=== PATIENT | female | born 1985 | race Caucasian/White ===

== ENCOUNTER 2018-11-06 05:36 | Inpatient (IN) ==
[2018-11-06] MEDS ORDERED: LACTATED RINGER'S 1,000 ML IV SCH ×3 (06:00→09:15)
[2018-11-06] MEDS ORDERED: CITRIC ACID/SODIUM CITRATE 15 ML UDC PO SCH (06:00)
[2018-11-06] MEDS ORDERED: CEFAZOLIN 3,000 MG in DEXTROSE 5% 50 ML IV SCH (06:00)
[2018-11-06 06:01] LABS: Basophils # (auto) 0.01 K/uL (0-0.2); Basophils % (auto) 0.1 %; Eosinophils # (auto) 0.07 K/uL (0-0.5); Eosinophils % (auto) 0.8 %; Hematocrit (blood only) 35.2 % (37-47); Hemoglobin 11.9 g/dL (12.0-16.0); Immature Granulocytes # (auto) 0.11 K/uL (0.00-0.02); Immature Granulocytes % (auto) 1.3 %; Lymphocytes # (auto) 1.88 K/uL (1.2-3.4); Lymphocytes % (auto) 21.9 %; Mean Corpuscular Volume 91.2 fL (80-100); Monocytes # (auto) 0.82 K/uL (0.11-0.59); Monocytes % (auto) 9.6 %; Neutrophils # (auto) 5.68 K/uL (1.4-6.5); Neutrophils % (auto) 66.3 %; Platelet Count 132 K/uL (130-400); RDW Coefficient of Variation 13.9 % (11.5-14.5); RDW Standard Deviation 45.7 fL (36.4-46.3); Red Blood Count 3.86 M/uL (4.2-5.4); White Blood Count 8.57 K/uL (4.8-10.8)
[2018-11-06 06:02] LABS: Mean Corpuscular Hgb Conc 33.8 g/dL (32-36)
[2018-11-06] MEDS ORDERED: MoRPHine SULFATE PF 1 MG/ML 10 ML AMP/VIAL ONE (07:11)
--- NOTE | 2018-11-06 07:22 | Anesthesiology Consultation ---
Date of Service November 06, 2018 Assessment & Plan (1) Encounter for pre-operative examination: Chart Review Chart Review: Acceptable Risk for Surgery History Surgery Operation Date: 11/06/18 07:30 Proposed Procedures p Section in LD - Alec Anthony MD Height/Weight Height: 5 ft 6 in Weight: 127.006 kg Allergies Allergy/AdvReac Type Severity Reaction Status Date / Time cyclobenzaprine Allergy Unknown DIFFICULTY Verified 11/05/18 09:56 BREATHING, CHOKING, COULDN'T WAKE UP Medications Home Medications Medication Instructions Recorded Confirmed Last Taken PNV cmb#95-ferrous fumarate-FA 1 tab PO DAILY 11/05/18 11/06/18 11/05/18 08:00 [] cholecalciferol (vitamin D3) 1,000 unit PO DAILY 11/05/18 11/06/18 11/05/18 22:00 [Vitamin D3] folic acid 1 mg PO DAILY 11/05/18 11/06/18 11/05/18 08:00 sertraline [Zoloft] 25 mg PO DAILY 11/05/18 11/06/18 11/05/18 22:00 NPO Date Last Intake of Fluids: 11/05/18 Date Last Intake of Solids: 11/05/18 Past Medical History Medical History Depression Family history of reaction to anesthesia GRANDPARENTS HAD ISSUES WITH WAKING, NO KNOWN DIAGNOSIS OF ANESTHESIA REACTION. Thyroid nodule Exercise / Class Metabolic Activity III < 4 Walking/Shop/Light housework Past Surgical History Surgical History History of section EMERGENCY 2015. 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 SHE REMEMBERS FEELING THE "SENSE OF DOOM". History of dilatation and curettage S/T MISCARRIAGE Past Anesthesia History No Hx of Anesthesia Complications (Said her HR dropped with last c section) Social History Smoking Status: Never smoker Smoking cigarettes per day: 0 Do You Dip or Chew Tobacco: No Hx Alcohol Use: No Alcohol Intake Frequency Comment: 0 Hx Substance Use: No substance use type: does not use Physical Exam Vital Signs Last Vital Signs Temp 36.9 C 11/06/18 07:08 Pulse 70 11/06/18 07:10 Resp 18 11/06/18 07:08 BP 120/68 11/06/18 07:10 Testing Laboratory Results 11/06/18 05:51 11/06/18 05:49 Blood Type O Positive Antibody Screen NEGATIVE
[2018-11-06] MEDS ORDERED: NALBUPHINE HCL INJ 10 MG/ML AMP IV PRN (07:31)
[2018-11-06] MEDS ORDERED: MEPERIDINE HCL 25 MG/ML CARP IV PRN (07:31)
[2018-11-06] MEDS ORDERED: ePHEDrine sulfate 50 MG/ML AMP IV PRN (07:31)
[2018-11-06] MEDS ORDERED: LACTATED RINGER'S 500 ML IV PRN (07:31)
[2018-11-06] MEDS ORDERED: MoRPHine SULFATE PF 1 MG/ML 10 ML AMP/VIAL INT SPINAL ONE (07:31)
[2018-11-06] MEDS ORDERED: NALOXONE HCL 0.08 MG in SYRINGE 1.8 ML IV PRN (07:31)
[2018-11-06] MEDS ORDERED: NALOXONE HCL 1 MG in SODIUM CHLORIDE 0.9% 1000ML 1,000 ML IV PRN (07:31)
[2018-11-06] MEDS ORDERED: PROMETHAZINE HCL 12.5 MG in SODIUM CHLORIDE 0.9% 50 ML IV PRN (07:31)
[2018-11-06] MEDS ORDERED: NALOXONE HCL 0.4 MG/1 ML VIAL/CARP IV PRN (07:31)
[2018-11-06] MEDS ORDERED: KETOROLAC 30 MG/ML VIAL IV PRN (07:31)
[2018-11-06] MEDS ORDERED: ONDANSETRON INJ 2 MG/ML 2 ML VIAL IV PRN (07:31)
[2018-11-06] MEDS ORDERED: DiphenhydrAMINE HCL 50 MG/ML VIAL IV PRN (07:31)
[2018-11-06] MEDS ORDERED: NO NARCOTICS OR SEDATIVES SCH (07:45)
[2018-11-06] MEDS ORDERED: SODIUM CHLORIDE 0.9% 1000ML 1,000 ML IV SCH (07:45)
--- NOTE | 2018-11-06 07:48 | History & Physical Bridge Note ---
Date of Service November 06, 2018 History & Physical Bridge Note I have examined the patient, reviewed the History & Physical and in the interval since the performance of the History & Physical I have noted the following changes of clinical significance: no changes noted
[2018-11-06] MEDS ORDERED: ONDANSETRON INJ 2 MG/ML 2 ML VIAL ONE (08:14)
[2018-11-06] MEDS ORDERED: OXYTOCIN 10 UNITS/ML VIAL ONE (08:14)
[2018-11-06] MEDS ORDERED: METOCLOPRAMIDE HCL INJ 5 MG/ML 2 ML VIAL ONE (08:14)
[2018-11-06] MEDS ORDERED: ePHEDrine sulfate 50 MG/ML SYR ONE (08:14)
[2018-11-06] MEDS ORDERED: SUCCINYLCHOLINE CHLORIDE 20 MG/ML 10 ML VIAL ONE (08:14)
[2018-11-06] MEDS ORDERED: PROPOFOL IV EMULSION 10 MG/ML 20 ML VIAL IV ONE (08:14)
--- NOTE | 2018-11-06 09:00 | Post Operative Brief Note ---
Immediate Post Op Note v1 Date of Surgery November 06, 2018 Pre & Post Diagnosis Operation Date: 11/06/18 07:30 Pre-Op Diagnosis: Repeat section Post-Op Diagnosis: Repeat section for living male child at 0822 Procedure Operation Date: 11/06/18 07:30 Actual Procedures p Repeat section for living male child at 0822(Bilateral) - Alec Anthony MD Surgeon Alec Anthony MD Diet Tech Dr. Ibrahim Estimated Blood Loss 700 Findings Consistent with Post-Op Diagnosis Drains Scherer Catheter
[2018-11-06] MEDS ORDERED: HYDROCORTISONE ACETATE 25 MG SUPP PR PRN (09:10)
[2018-11-06] MEDS ORDERED: BENZOCAINE 20% AER SPR 82.5 GM CAN EXT PRN (09:10)
[2018-11-06] MEDS ORDERED: SENNA 8.6 MG TAB PO PRN (09:10)
[2018-11-06] MEDS ORDERED: SUPERCREAM 0.870% 15 GM JAR EXT PRN (09:10)
[2018-11-06] MEDS ORDERED: MAGNESIUM HYDROXIDE SUSP 30 ML UDC PO PRN (09:10)
[2018-11-06] MEDS ORDERED: PROMETHAZINE HCL 25 MG in SODIUM CHLORIDE 0.9% 50 ML IV PRN (09:10)
[2018-11-06] MEDS ORDERED: MEASLES, MUMPS & RUBELLA VIRUS VIAL SQ ONE (09:10)
[2018-11-06] MEDS ORDERED: DIPHTHERIA/TETANUS/PERTUSSIS 0.5 ML SYR/VIAL IM ONE (09:10)
[2018-11-06] MEDS ORDERED: OXYTOCIN 20 UNITS in LACTATED RINGER'S 1,000 ML IV SCH (09:15)
--- NOTE | 2018-11-06 10:27 | Operative Report ---
DATE OF OPERATION: 11/06/2018 PREOPERATIVE DIAGNOSIS: Elective repeat section, breech presentation. POSTOPERATIVE DIAGNOSIS: Elective repeat section, breech presentation and transverse lie. HISTORY OF PRESENT ILLNESS: The patient is a 33-year-old female, para 2-0-4-2 at 39 weeks and 1 day, admitted for elective repeat section. The patient was scanned today and found to be in the breech presentation. Primary section was done. Preop antibiotics were given. Consent was signed. Time out was signed prior to the start of the procedure. DESCRIPTION OF PROCEDURE: Under satisfactory spinal anesthesia, the patient was prepped and draped in usual sterile fashion. A low Pfannenstiel incision through a prior scar was then made entering into the abdominal cavity in successive layers. Pickups with teeth and Metzenbaum scissors were used to develop a bladder flap which was pushed down by sharp dissection. The bladder blade was entered. A low segment transverse incision over the lower uterine segment was made. The incision was nicked with a scalpel. Clear amniotic fluid was noted. The incision was widened in the AP diameter. Infant was found to be in the transverse lie position. The head was not able to be converted. The baby was delivered from the breech presentation. The cord was doubly cut and the baby was handed to the wrapper hand. Apgars were 8 and 9, weight 8 pounds 15 ounces, live male. Cord blood was obtained. Placenta delivered spontaneously and intact. The uterus was then exteriorized. Ring forceps were then placed on both angles and then the inferior margin. Another ring was then used to dilate the cervix. The uterus was closed in a double-layered closure starting with 0 Vicryl suture in a continuous interlocking fashion followed by a second imbricating suture. Tubes and ovaries bilaterally were found to be within normal limits. The contents of the pelvic cavity was then irrigated to clear. The uterus was then placed back into the normal anatomical position. The fascia was then reapproximated from both ends using 0 Vicryl suture in a continuous fashion. Subcuticular layer was then irrigated and closed with 2-0 plain suture. Skin was then reapproximated with shyann. Clear urine was noted from the Scherer. ESTIMATED BLOOD LOSS : 700 mL TOTAL FLUIDS: 3300 mL URINE OUTPUT: 300 mL. The final sponge, needle and instrument count were found to be correct. The patient was then placed upon a stretcher and taken to recovery room in stable condition. I attest to the content of the Intraoperative Record and any orders documented therein. Any exception s are noted below.
--- NOTE | 2018-11-06 11:16 | Anesthesiology Progress Note ---
Date of Service November 06, 2018 Anesthesia Post Procedure Vital Signs Vital Signs: Temp Pulse Resp BP Pulse Ox 11/06/18 11:10 71 98 11/06/18 11:06 64 109/61 11/06/18 11:05 66 97 11/06/18 11:00 72 95 11/06/18 10:56 67 111/60 11/06/18 10:55 70 98 11/06/18 10:50 69 97 11/06/18 10:46 69 113/71 11/06/18 10:45 71 98 11/06/18 10:43 71 93 11/06/18 10:40 70 97 11/06/18 10:36 65 20 116/69 11/06/18 10:35 68 98 11/06/18 10:30 71 99 11/06/18 10:28 67 90 11/06/18 10:26 60 108/56 L 11/06/18 10:25 67 98 11/06/18 10:20 74 98 11/06/18 10:17 70 127/59 L 11/06/18 10:15 72 99 11/06/18 10:10 69 97 11/06/18 10:08 71 125/56 L 92 11/06/18 10:07 36.6 C 20 11/06/18 10:06 36.6 C 20 11/06/18 10:05 67 98 11/06/18 10:00 71 98 11/06/18 09:56 64 20 123/58 L 11/06/18 09:55 70 99 11/06/18 09:50 68 98 11/06/18 09:46 68 20 124/59 L 11/06/18 09:45 68 100 11/06/18 09:40 69 100 11/06/18 09:36 74 20 125/58 L 11/06/18 09:35 76 96 11/06/18 09:30 66 123/58 L 97 11/06/18 09:26 20 11/06/18 09:25 73 99 11/06/18 09:24 73 93 11/06/18 09:20 70 100 11/06/18 09:16 69 20 120/75 11/06/18 09:15 78 100 11/06/18 09:10 75 97 11/06/18 09:06 36.5 C 66 20 133/63 11/06/18 07:10 70 120/68 11/06/18 07:08 36.9 C 70 18 120/68 11/06/18 05:46 36.9 C 67 18 132/67 Transfer of Care Handoff Completed per policy Notes Mental Status: alert / awake / arousable Patient Amnestic to Procedure: Yes Nausea / Vomiting: adequately controlled Pain: adequately controlled Airway Patency, RR, SpO2: stable & adequate BP & HR: stable & adequate Hydration State: stable & adequate Neuraxial Anesthesia: was administered and sensory block is resolving Anesthetic Complications: no major complications apparent
[2018-11-06] MEDS: SIMETHICONE 80 MG CHEW PO SCH ×3 (14:45→20:58)
[2018-11-06] MEDS: DOCUSATE SODIUM 100 MG CAP PO SCH (20:58)
[2018-11-07] MEDS ORDERED: ONDANSETRON INJ 2 MG/ML 2 ML VIAL IV PRN (01:31)
[2018-11-07] MEDS ORDERED: DiphenhydrAMINE HCL 50 MG/ML VIAL IV PRN (01:31)
[2018-11-07] MEDS ORDERED: DC INTRASPINAL MORPHINE ONE (01:31)
[2018-11-07] MEDS ORDERED: OXYCODONE/ACETAMINOPHEN 5mg/325mg TAB PO PRN (01:31)
[2018-11-07] MEDS ORDERED: MEPERIDINE HCL 50 MG/ML CARP IV PRN (01:31)
[2018-11-07 06:47] LABS: Basophils # (auto) 0.01 K/uL (0-0.2); Basophils % (auto) 0.1 %; Eosinophils # (auto) 0.01 K/uL (0-0.5); Eosinophils % (auto) 0.1 %; Hematocrit (blood only) 31.9 % (37-47); Hemoglobin 10.8 g/dL (12.0-16.0); Immature Granulocytes # (auto) 0.06 K/uL (0.00-0.02); Immature Granulocytes % (auto) 0.6 %; Lymphocytes # (auto) 0.99 K/uL (1.2-3.4); Lymphocytes % (auto) 9.1 %; Mean Corpuscular Hgb Conc 33.9 g/dL (32-36); Mean Corpuscular Volume 91.4 fL (80-100); Mean Platelet Volume 9.6 fL (7.4-10.4); Monocytes # (auto) 0.81 K/uL (0.11-0.59); Monocytes % (auto) 7.5 %; Neutrophils # (auto) 8.94 K/uL (1.4-6.5); Neutrophils % (auto) 82.6 %; Platelet Count 123 K/uL (130-400); RDW Coefficient of Variation 14.1 % (11.5-14.5); RDW Standard Deviation 46.5 fL (36.4-46.3); Red Blood Count 3.49 M/uL (4.2-5.4); White Blood Count 10.82 K/uL (4.8-10.8)
--- NOTE | 2018-11-07 08:58 | Obstetrical Progress Note ---
Date of Service November 07, 2018 Subjective Patient is seen and examined. She feels well, no complaints. Pain is under control with oral meds. Ambulating without dizziness Voiding without difficulty Tolerating regular diet with out N&V Flatus neg BM neg Bleeding is minimal No fever/ chills/ CP/ SOB/ N&V/ Leg pain Breast feeding without problems Vital Signs Temp Pulse Resp BP Pulse Ox 11/07/18 07:39 37.2 C 84 18 115/69 95 11/07/18 04:00 37 C 85 16 110/72 11/07/18 01:20 18 96 11/07/18 00:05 37.2 C 88 18 106/70 93 11/06/18 23:25 18 96 11/06/18 22:00 18 97 11/07/18 11/06/18 Range/Units 06:32 11:55 WBC 10.82 H (4.8-10.8) K/uL RBC 3.49 L (4.2-5.4) M/uL Hgb 10.8 L (12.0-16.0) g/dL Hct 31.9 L (37-47) % MCV 91.4 (80-100) fL MCH 30.9 (25-34) pg MCHC 33.9 (32-36) g/dL RDW Std Deviation 46.5 H (36.4-46.3) fL RDW Coeff of Charis 14.1 (11.5-14.5) % Plt Count 123 L (130-400) K/uL MPV 9.6 (7.4-10.4) fL Immature Gran % (Auto) 0.6 % Neut % (Auto) 82.6 % Lymph % (Auto) 9.1 % Burke % (Auto) 7.5 % Eos % (Auto) 0.1 % Baso % (Auto) 0.1 % Immature Gran # (Auto) 0.06 H (0.00-0.02) K/uL Neut # (Auto) 8.94 H (1.4-6.5) K/uL Lymph # (Auto) 0.99 L (1.2-3.4) K/uL Burke # (Auto) 0.81 H (0.11-0.59) K/uL Eos # (Auto) 0.01 (0-0.5) K/uL Baso # (Auto) 0.01 (0-0.2) K/uL C.trachomatis RNA Pending N.gonorrhoeae RNA Pending PE: General: Alert, orientedx3, NAD CVS: S1S2 RRR Lungs; CTAB Abd: soft, NT, ND, BS+, fundus firm, below Umbilicus Incision/ dressing: Clean, dry, intact Perineum intact, Lochia rubra minimal Ext; NT, no edema AP: 33 yo s/p C Section, pod# 1 VSS Afebrile doing well Continue routine postop care Encourage ambulation, PO intake All questions were answered Results & Data Vital Signs (Past 12 Hours) Vital Signs Temp Pulse Resp BP Pulse Ox 11/07/18 07:39 37.2 C 84 18 115/69 95 11/07/18 04:00 37 C 85 16 110/72 11/07/18 01:20 18 96 11/07/18 00:05 37.2 C 88 18 106/70 93 11/06/18 23:25 18 96 11/06/18 22:00 18 97
[2018-11-07] MEDS: DOCUSATE SODIUM 100 MG CAP PO SCH ×2 (08:59→20:32)
[2018-11-07] MEDS: FERROUS SULFATE 325 MG TAB PO SCH (08:59)
[2018-11-07] MEDS: PRENATAL VITAMIN 1 TAB PO SCH (08:59)
[2018-11-07] MEDS: IBUPROFEN 600 MG TAB PO PRN ×3 (08:59→20:32)
[2018-11-07] MEDS: CHOLECALCIFEROL 1,000 UNITS TAB PO SCH (08:59)
[2018-11-07] MEDS: SIMETHICONE 80 MG CHEW PO SCH ×4 (08:59→20:32)
[2018-11-07] MEDS: FOLIC ACID 1 MG TAB PO SCH (08:59)
[2018-11-07] MEDS ORDERED: NON-FORMULARY MEDICATION (Pnv Cmb#95-Ferrous Fumarate-Fa [Prenatal] 1 TAB) PO SCH (09:00)
[2018-11-07] MEDS ORDERED: SERTRALINE HCL 50 MG TABLET PO SCH (09:00)
[2018-11-07] MEDS: SERTRALINE HCL 50 MG TABLET PO SCH (11:49)
[2018-11-07] MEDS ORDERED: BISACODYL 5 MG TABEC PO SCH (20:00)
[2018-11-07] MEDS ORDERED: COUGH DROP (SUGAR FREE) LOZ 24 LOZ/1 BOX BUCCAL ONE (23:13)
[2018-11-08] MEDS: IBUPROFEN 600 MG TAB PO PRN ×3 (01:03→10:29)
[2018-11-08 05:58] LABS: Hematocrit (blood only) 27.6 % (37-47); Hemoglobin 9.4 g/dL (12.0-16.0)
[2018-11-08] MEDS: CHOLECALCIFEROL 1,000 UNITS TAB PO SCH (07:45)
[2018-11-08] MEDS: PRENATAL VITAMIN 1 TAB PO SCH (07:46)
[2018-11-08] MEDS: DOCUSATE SODIUM 100 MG CAP PO SCH (07:46)
[2018-11-08] MEDS: SIMETHICONE 80 MG CHEW PO SCH (07:46)
[2018-11-08] MEDS: FERROUS SULFATE 325 MG TAB PO SCH (07:46)
[2018-11-08] MEDS: SERTRALINE HCL 50 MG TABLET PO SCH (07:46)
[2018-11-08] MEDS: FOLIC ACID 1 MG TAB PO SCH (07:47)
--- NOTE | 2018-11-08 08:56 | Obstetrical Progress Note ---
Date of Service November 08, 2018 Assessment & Plan (1) delivery delivered: c/sec day #2 pt doing well wishes to be discharged home this evening Subjective Ambulation: ambulating normally Voiding: no voiding problems Passing Gas:: Yes Diet Tolerance:: regular diet Lochia:: Small Feeding Type:: breast feeding Review of Systems All systems reviewed & are unremarkable except as noted in HPI & below Physical Exam Vital Signs (Past 24 Hours) Last Vital Signs Temp 37.1 C 11/07/18 23:50 Pulse 80 11/07/18 23:50 Resp 18 11/07/18 23:50 BP 125/79 11/07/18 23:50 Pulse Ox 97 11/07/18 23:50 Constitutional WD/WN, vitals as above well developed and well nourished Eyes PERRL, conjunctivae normal, anicteric sclerae ENMT external ear and nose normal, oropharynx normal Neck trachea midline, no thyromegaly Respiratory normal respiratory effort, lungs clear to auscultation Auscultation: no crackles, no rales and no wheezes Cardiovascular RRR, no murmur, no edema Chest (Breasts) normal inspection/palpation of breasts Gastrointestinal (Abdomen) normal bowel sounds, soft, nontender, no hepatosplenomegaly Uterus is below umbilicus Musculoskeletal no cyanosis or clubbing, extremities motor strength 5/5 Skin no rashes, warm and dry + incision (Clean,dry and intact) Neurologic patellar DTR's 2+ bilat, sensation intact Psychiatric A+Ox3, euthymic affect Genitourinary normal external appearance Lymphatic no cervical or axillary lymphadenopathy
[2018-11-08] MEDS ORDERED: BISACODYL 10 MG SUPP PR PRN (09:10)
[2018-11-08 12:59] LABS: Chlamydia Trach RNA NOT DETECTED (NOT DETECTED); GC (Neis gonorrhoeae) RNA NOT DETECTED (NOT DETECTED)
--- NOTE | 2018-11-21 23:36 | Discharge Summary ---
HISTORY OF PRESENT ILLNESS: The patient is a 33-year-old female, para 2-0-4-2 at 39 weeks and 1 day, admitted for elective repeat section. The patient was breech presentation, but at delivery was found to be in the transverse lie. She underwent a repeat section, delivering a live baby with Apgars of 8 and 9, weight 8 pounds 15 ounces male. Hospital course was unremarkable. Home going instructions were given. The patient was discharged home on 11/08/2018 in stable condition. Home going instructions were reviewed with the patient. Follow up will be in 1 week in the office for incision check. Regular diet on discharge. Condition on discharge is stable and prescriptions included Percocet and Motrin.
== END 2018-11-08 14:10 | disposition home or self-care (01) | DRG 788 ==
LOC: 4S1 05:36 → EDSTATUS 09:20 → 4S2 13:20

== ENCOUNTER 2019-05-30 17:37 | Inpatient (IN) ==
[2019-05-30 18:13] LABS: Appearance Urine Clear (Clear); Bilirubin Urine Negative (Negative); Blood Urine Negative (Negative); Color Urine Yellow; Glucose Urine UA Negative (Negative); Ketones Urine Negative (Negative); Leukocyte Esterase Urine Negative (Negative); Nitrite Urine Negative (Negative); Protein Urine Negative (Negative); Specific Gravity Urine 1.028 (1.000-1.030); Urobilinogen Urine Negative (Negative)
[2019-05-30 18:29] LABS: Basophils # (auto) 0.01 K/uL (0-0.2); Basophils % (auto) 0.1 %; Eosinophils # (auto) 0.12 K/uL (0-0.5); Eosinophils % (auto) 1.5 %; Hematocrit (blood only) 41.8 % (37-47); Hemoglobin 14.2 g/dL (12.0-16.0); Immature Granulocytes # (auto) 0.01 K/uL (0.00-0.02); Immature Granulocytes % (auto) 0.1 %; Lymphocytes # (auto) 2.06 K/uL (1.2-3.4); Lymphocytes % (auto) 26.2 %; Mean Corpuscular Hemoglobin 30.1 pg (25-34); Mean Corpuscular Volume 88.6 fL (80-100); Mean Platelet Volume 9.1 fL (7.4-10.4); Monocytes % (auto) 8.9 %; Neutrophils # (auto) 4.95 K/uL (1.4-6.5); Neutrophils % (auto) 63.2 %; Platelet Count 201 K/uL (130-400); RDW Coefficient of Variation 12.8 % (11.5-14.5); RDW Standard Deviation 41.6 fL (36.4-46.3); Red Blood Count 4.72 M/uL (4.2-5.4); White Blood Count 7.85 K/uL (4.8-10.8)
[2019-05-30 18:39] LABS: Amphetamines+Metham, Urine Neg (Neg); Barbiturates, Urine Neg (Neg); Benzodiazepine, Urine Neg (Neg); Cocaine, Urine Neg (Neg); MDMA (Ecstacy), Urine Neg (Neg); Methadone, Urine Neg (Neg); Opiate, Urine Neg (Neg); Phencyclidine, Urine Neg (Neg)
[2019-05-30 18:50] LABS: Acetaminophen < 2 ug/ml (10-30); Salicylate < 1.7 mg/dl (2.8-20)
[2019-05-30 18:51] LABS: Albumin Level 3.9 gm/dl (3.4-5.0); BUN Creatinine Ratio 19.5 (10-20); Creatinine Clr Calc Pharmacy 89.9 ml/min; Est GFR (African American) 76.1; Est GFR (Non-African American) 65.7; Potassium 3.7 mmol/L (3.5-5.1)
[2019-05-30 18:52] LABS: Pregnancy Test, Serum Negative (Negative)
[2019-05-30 19:01] LABS: Bilirubin,Total 0.4 mg/dl (0.2-1); Globulin 3.8 gm/dl (2.5-4.0); Thyroid Stimulating Hormone 1.81 uIu/ml (0.300-4.500); Total Protein 7.7 gm/dl (6.4-8.2)
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
[2019-05-30] MEDS ORDERED: BISMUTH SUBSALICYLATE PER ML OMNICELL CHARGE PO PRN (20:53)
[2019-05-30] MEDS ORDERED: SODIUM CHLORIDE 0.65% NA SOLN 45 ML (OCEAN) PRN (20:53)
[2019-05-30] MEDS ORDERED: MAGNESIUM HYDROXIDE SUSP 30 ML UDC PO PRN (20:53)
[2019-05-30] MEDS ORDERED: ALUMINUM/MAGNESIUM SUSP 30 ML UDC PO PRN (20:53)
[2019-05-31] MEDS: PRENATAL VITAMIN 1 TAB PO SCH (07:47)
[2019-05-31] MEDS ORDERED: FLUOXETINE HCL 20 MG CAP PO ONE (08:49)
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
[2019-05-31] MEDS ORDERED: SERTRALINE HCL 100 MG TABLET PO SCH (09:00)
[2019-05-31] MEDS: ACETAMINOPHEN 325 MG TAB PO PRN (15:05)
--- NOTE | 2019-06-01 07:17 | Psychiatric Progress Note ---
Date of Service June 01, 2019 Impression / Recommendations Impression The patient is a 33-year-old white female with a longstanding history of intermittent depression. She is being cross tapered from sertraline to fluoxetine, and will have a family meeting with her today. (1) Depression: 05/31 - Although she reports being diagnosed with bipolar disorder in the past she does not disclose any overt discrete episodes of elevated or mixed mood states. However her prompt response to antidepressants in the past as well as her history of downturn in mood in the winter are caused to monitor her mood as we change antidepressants to assure there is no medication induced mood instability. I have been clear with her about this but I do not think she has traditional bipolarity and am diagnosing her with depression but we will need to monitor. We discussed her past history of medications to include discussing an alternative SSRI such as Prozac versus the possibility of an SNRI. We agreed to taper down on the sertraline and start Prozac to see if it will improve her motivation and energy while being more weight neutral. We discussed the risks and benefits to the patient and to her breast-feeding child in the paper from mother to [email or web address] was given for her to read and I did also alert her where to find that information online as well as the women's mental health.org website through [employer] for future reference. She received her sertraline already this morning at 200 mg dose so we will taper it starting tomorrow to 100 mg for a day, 50 mg for 2 days 25 mg for a day and then stop meanwhile we will move to 20 of Prozac for 2 days then to 40 mg and continue and assess at that dose. I did explain to her we are watching to make sure she is not inappropriately activated and that we may reach for the 60 mg dose either while inpatient or as she transitions to outpatient. She will need aftercare for herself she is very skeptical about therapy but is agreeable to a manager market development she does have case management and family support within the home. I did ask her to stay engaged in the [facility] milieu and groups here to see that she could try to glean principles and ideas that may be useful to her in coping with her depression. She will be breast pumping while she is here and that has been made available to her she has asked to label the breast milk so she can monitor when her baby receives breast milk that she has pumped after starting Prozac. I do believe that the patient is well-informed and she does appear very aware of factual information in her life. I was not very well able to assess her psychological mindedness as she did seem somewhat defended against therapy and did not offer insight above and beyond the concrete facts of what has been happening. Her lab work is grossly normal I do not think there is further need for biological work-up she does have a primary care doctor to continue to follow on things such as her neck pain, her thyroid nodules. In regards for her concern about ADHD. I noted goal is to treat depression first and as outpatient she could be referred to testing, and or Quotient evaluation to further characterize her residual concentration and attention symptoms once she is euthymic. 06/01 - Cross taper from sertraline (100mg today) to fluoxetine (20mg today). -Family meeting with and director of social work today. -Continue group and therapy, discussed sleep hygiene as sleep chronically impaired at home. -Reviewed recommendations for outpatient psychiatry and therapy. She remains ambivalent about therapy and doesn't think it has helped in the past. Present on Admission?: Yes Risk Factors Assessment Male: No : Yes Health Problems: No Mental Health Diagnoses: Yes Substance Use Disorders: No Previous Attempt: Yes Family History of Suicide: No Previous Psychiatric Hospitalization: Yes Hopelessness: Yes Smoker: No Protective Factors Assessment Temple Beliefs: No : Yes Responsible for Young Children: Yes Employed: No Stable Relationships: Yes Interval History Chief Complaint "Exhausted". Review of Systems Sleep Information Total Hours of Sleep: 6.75 Meal Information Percent Meal Consumed - Breakfast: 100 Percent Meal Consumed - Lunch: 100 Percent Meal Consumed - Dinner: 100 Subjective Subjective Patient was seen & assessed and interval progress reviewed with nursing and social work. Staff report she remains depressed and suicidal, and has a family meeting with her today. On my assessment, she reports mood remains depressed and overwhelmed, states she went back to bed after breakfast as she is anergic and down, lacks motivation, "there's no reason to get out of bed in the morning." States sleep is chronically disrupted at home due to children, and is aways exhausted. Does feel hopeful that medication changes will help, but doesn't think therapy will be helpful for her. Discussed her many responsibilities at home which contribute to feeling overwhelmed, including that her dog was scheduled to be put down tomorrow. She reports ongoing suicidal thoughts, with thoughts to wreck her car. States she has not been going to [employer] because she drives there alone and had urges to "hit the gas, hit a pole, no one would know, my would get the insurance money." She has although thought about overdosing on her daughter's insulin, stating no one would know how she had or that it was suicide. Physical Exam Psychiatric Orientation: alert and cooperative Apperance: appropriately dressed, appropriately groomed and appeared stated age Eye Contact: good eye contact Motor Behavior: steady gait and station and no abnormal motor movements normal rate, volume, monotone Affect: + depressed affect, + constricted affect and mood congruent with affect Mood: + depressed mood Thought Process: goal directed thought process and linear/logical thought process Thought Content: + hopelessness and + worthlessness Suicidal Thoughts: + reports suicidal thoughts multiple plans as above Homicidal Thoughts: denies homicidal thoughts Hallucinations: no auditory hallucinations Cognition: recent memory grossly intact, attention grossly intact and language grossly intact Insight: good insight Judgement: good judgement Vital Signs (Past 24 Hours) Last Vital Signs Temp 36.6 C 06/01/19 06:34 Pulse 92 H 06/01/19 06:34 Resp 20 06/01/19 06:34 BP 128/98 06/01/19 06:34 Pulse Ox 97 05/30/19 20:55 Results & Data Current Inpatient Medications Current Inpatient Medications: Current Inpatient Medications Acetaminophen (Tylenol) 650 mg PO Q4H PRN PRN Reason: Headache or Minor Fever Stop: 06/29/19 20:52 Last Admin: 05/31/19 15:05 Dose: 650 mg Documented by: Al Hydrox/Mg Hydrox/Simethicone (Maalox) 30 ml PO Q4H PRN PRN Reason: GI Upset Stop: 06/29/19 20:52 Bismuth Subsalicylate (Kaopectate) 15 ml PO PRN PRN PRN Reason: Loose Stool Stop: 06/29/19 20:52 Hydroxyzine HCl (Vistaril) 50 mg PO HSZ PRN PRN Reason: Insomnia Stop: 06/29/19 20:52 Hydroxyzine HCl (Vistaril) 25 mg PO Q4H PRN PRN Reason: Anxiety Stop: 06/29/19 20:52 Magnesium Hydroxide (Milk Of Magnesia) 30 ml PO DAILY PRN PRN Reason: Constipation Stop: 06/29/19 20:52 Prenat Multivit/[place]/Iron/Folic Ac ( Vitamin) 1 tab PO DAILY MARK Stop: 06/30/19 08:59 Last Admin: 05/31/19 07:47 Dose: 1 tab Documented by: Sertraline HCl (Zoloft) 100 mg PO QAM MARK; Taper Stop: 06/05/19 08:59 Sodium Chloride ([place] Nasal) 1 - 2 sprays NA PRN PRN PRN Reason: Nasal Dryness/Congestion Stop: 06/29/19 20:52 Mental Health & Subst Abuse Tx Therapist Name of Therapist: Michelle Pabon in the past (during 3rd trimester) Calcine Furnace Loader Name of Calcine Furnace Loader: None Post Discharge Appointments Primary Care Physician Name Of Family Doctor: Lela Tapia (1) Depression Depression Type: unspecified Qualified Code(s): F32.9 - Major depressive disorder, single episode, unspecified
[2019-06-01] MEDS ORDERED: FLUOXETINE HCL 20 MG CAP PO SCH (10:00)
[2019-06-01] MEDS: FLUOXETINE HCL 20 MG CAP PO SCH (10:24)
[2019-06-01] MEDS: PRENATAL VITAMIN 1 TAB PO SCH (10:25)
[2019-06-01] MEDS: SERTRALINE HCL 50 MG TABLET PO SCH (10:25)
[2019-06-01] MEDS: ACETAMINOPHEN 325 MG TAB PO PRN (13:51)
[2019-06-02] MEDS: PRENATAL VITAMIN 1 TAB PO SCH (08:50)
[2019-06-02] MEDS: SERTRALINE HCL 50 MG TABLET PO SCH (08:51)
[2019-06-02] MEDS: FLUOXETINE HCL 20 MG CAP PO SCH (08:51)
--- NOTE | 2019-06-02 10:01 | Psychiatric Progress Note ---
Date of Service June 02, 2019 Impression / Recommendations Impression The patient is a 33-year-old white female with a longstanding history of intermittent depression. She is being cross tapered from sertraline to fluoxetine, and participated in a family meeting with her . Patient continues to verbalize suicidal ideation and urges to self-harm. She is unable to contract for safety outside of the inpatient hospital setting. Patient remains at acute risk of harm to self if she is discharged prematurely, without adequate medication of risk factors and solidified aftercare plan. Inpatient psychiatric treatment remains medically necessary at this time. (1) Depression: 05/31 - Although she reports being diagnosed with bipolar disorder in the past she does not disclose any overt discrete episodes of elevated or mixed mood states. However her prompt response to antidepressants in the past as well as her history of downturn in mood in the winter are caused to monitor her mood as we change antidepressants to assure there is no medication induced mood instability. I have been clear with her about this but I do not think she has traditional bipolarity and am diagnosing her with depression but we will need to monitor. We discussed her past history of medications to include discussing an alternative SSRI such as Prozac versus the possibility of an SNRI. We agreed to taper down on the sertraline and start Prozac to see if it will improve her motivation and energy while being more weight neutral. We discussed the risks and benefits to the patient and to her breast-feeding child in the paper from mother to [email or web address] was given for her to read and I did also alert her where to find that information online as well as the women's mental health.org website through [employer] for future reference. She received her sertraline already this morning at 200 mg dose so we will taper it starting tomorrow to 100 mg for a day, 50 mg for 2 days 25 mg for a day and then stop meanwhile we will move to 20 of Prozac for 2 days then to 40 mg and continue and assess at that dose. I did explain to her we are watching to make sure she is not inappropriately activated and that we may reach for the 60 mg dose either while inpatient or as she transitions to outpatient. She will need aftercare for herself she is very skeptical about therapy but is agreeable to a manager commercial real estate she does have case management and family support within the home. I did ask her to stay engaged in the [facility] milieu and groups here to see that she could try to glean principles and ideas that may be useful to her in coping with her depression. She will be breast pumping while she is here and that has been made available to her she has asked to label the breast milk so she can monitor when her baby receives breast milk that she has pumped after starting Prozac. I do believe that the patient is well-informed and she does appear very aware of factual information in her life. I was not very well able to assess her psychological mindedness as she did seem somewhat defended against therapy and did not offer insight above and beyond the concrete facts of what has been happening. Her lab work is grossly normal I do not think there is further need for biological work-up she does have a primary care doctor to continue to follow on things such as her neck pain, her thyroid nodules. In regards for her concern about ADHD. I noted goal is to treat depression first and as outpatient she could be referred to testing, and or Quotient evaluation to further characterize her residual concentration and attention symptoms once s he is euthymic. 06/01 - Cross taper from sertraline (100mg today) to fluoxetine (20mg today). -Family meeting with and psychotherapist social worker today. -Continue group and therapy, discussed sleep hygiene as sleep chronically impaired at home. -Reviewed recommendations for outpatient psychiatry and therapy. She remains ambivalent about therapy and doesn't think it has helped in the past. 06/02 - Pt endorses continued SI and urges to self harm; able to contract for safety on the unit, but not outside of the inpatient setting - Continue cross titration from sertraline to fluoxetine. Patient re ceived 50 mg of sertraline and 2 mg of fluoxetine today - Pt was rather isolative today, spending the majority of the day in bed. Continue to encourage group and recreational therapies and active engagement in treatment. - Continue to discuss and coordinate aftercare Risk Factors Assessment Male: No : Yes Health Problems: No Mental Health Diagnoses: Yes Substance Use Disorders: No Previous Attempt: Yes Family History of Suicide: No Previous Psychiatric Hospitalization: Yes Hopelessness: Yes Smoker: No Protective Factors Assessment Temple Beliefs: No : Yes Responsible for Young Children: Yes Employed: No Stable Relationships: Yes Interval History Identifying Information LUZ IZAGUIRRE is a 33-year-old F who currently lives with her and 5 children who has a lifelong h/o intermittent depression who was admitted on 05/30/19 at 20:53 on a 201 voluntary for worsening of depression and SI with thought to overdose on 10year old daughter's insulin. Chief Complaint "Today has been pretty crappy." Review of Systems Notes Constitutional: reports difficulty falling asleep last evening, increased fatigue today HEENT: reports sore throat this morning, now reportedly resolved Cardiovascular: denied Respiratory: denied Gastrointestinal: denied Neurological: denied Psychiatric: denies symptoms other than stated above Total of at least 10 systems reviewed, pertinent positives as above and in HPI. Sleep Information Total Hours of Sleep: 4 Sleep Comments: vistaril with a repeat dose. Patient said she felt tired but was unable to fall asleep. Meal Information Percent Meal Consumed - Breakfast: 100 Percent Meal Consumed - Lunch: 100 Percent Meal Consumed - Dinner: 100 Subjective Subjective Patient was seen & assessed and interval progress reviewed with treatment team. Staff reports the patient had a family meeting with her over the weekend. She had verbalized urges to self-harm yesterday, stating it related to conversations about self-harm being had with her and children at home. Patient did discuss some outpatient treatment options she was willing to consider, referrals for these services will still need to be made. Patient was seen today to assess progress since admission. She states that today she is feeling "crappy." Despite this, patient rates her mood a 5-6 of 10. When asked if her mood was predominantly apathetic, depressed, anxious, etc., the patient states "everything." She states that she had vivid nightmares last evening, one of which included "me trying to kill myself in the dream." Patient states that she did have difficulty falling asleep last evening and required 2 doses of Vistaril. Patient reports continued suicidal ideation and urges to self-harm, that she states have been going on "all day." Patient was encouraged to consider how staff can continue to support her, and was asked to consider utilizing groups as a distraction from these thoughts rather than remaining in bed all evening. Patient states she was willing to consider getting to several groups tonight. Patient denies any physical concerns that she believes are re lated to medication adjustments. She denies other needs or concerns at this time. Physical Exam Psychiatric Orientation: alert, oriented x 3 and cooperative (superficially, limited energy exerted during interview, remained in bed) Apperance: appropriately dressed, + disheveled (unkempt, laying in bed all day) and appeared stated age Eye Contact: good eye contact Motor Behavior: no abnormal motor movements (observed while laying in bed, covered by blankets) Speech: normal rate/rhythm/volume of speech (Monotone, soft volume) Affect: + depressed affect and mood congruent with affect Mood: + depressed mood (Reports feeling "crappy" today) Thought Process: goal directed thought process, clear/coherent thought process and thought association intact Thought Content: reality based without delusions, + hopelessness and + worthlessness Suicidal Thoughts: + reports suicidal thoughts (Reports active SI, no plan or intent here in the hospital) Ongoing urges for self-injurious behavior. Unable to contract for safety outside of the inpatient setting. Homicidal Thoughts: denies homicidal thoughts Hallucinations: no auditory hallucinations and no visual hallucinations Cognition: attention grossly intact and language grossly intact Insight: + fair insight Judgement: + fair judgement Vital Signs (Past 24 Hours) Last Vital Signs Temp 36.6 C 06/02/19 06:34 Pulse 67 06/02/19 06:36 Resp 18 06/02/19 06:34 BP 125/82 06/02/19 06:36 Pulse Ox 97 05/30/19 20:55 Results & Data Current Inpatient Medications Current Inpatient Medications: Current Inpatient Medications Acetaminophen (Tylenol) 650 mg PO Q4H PRN PRN Reason: Headache or Minor Fever Stop: 06/29/19 20:52 Last Admin: 06/01/19 13:51 Dose: 650 mg Documented by: Al Hydrox/Mg Hydrox/Simethicone (Maalox) 30 ml PO Q4H PRN PRN Reason: GI Upset Stop: 06/29/19 20:52 Bismuth Subsalicylate (Kaopectate) 15 ml PO PRN PRN PRN Reason: Loose Stool Stop: 06/29/19 20:52 Fluoxetine HCl (Prozac) 20 mg PO DAILY MARK; Taper Stop: 07/03/19 09:59 Last Admin: 06/02/19 08:51 Dose: 20 mg Documented by: Hydroxyzine HCl (Vistaril) 50 mg PO HSZ PRN PRN Reason: Insomnia Stop: 06/29/19 20:52 Last Admin: 06/02/19 01:18 Dose: 50 mg Documented by: Hydroxyzine HCl (Vistaril) 25 mg PO Q4H PRN PRN Reason: Anxiety Stop: 06/29/19 20:52 Magnesium Hydroxide (Milk Of Magnesia) 30 ml PO DAILY PRN PRN Reason: Constipation Stop: 06/29/19 20:52 Prenat Multivit/[place]/Iron/Folic Ac ( Vitamin) 1 tab PO DAILY MARK Stop: 06/30/19 08:59 Last Admin: 06/02/19 08:50 Dose: 1 tab Documented by: Sertraline HCl (Zoloft) 50 mg PO QAM MARK; Taper Stop: 06/05/19 08:59 Last Admin: 06/02/19 08:51 Dose: 50 mg Documented by: Sodium Chloride ([place] Nasal) 1 - 2 sprays NA PRN PRN PRN Reason: Nasal Dryness/Congestion Stop: 06/29/19 20:52 Mental Health & Subst Abuse Tx Therapist Name of Therapist: Michelle Pabon in the past (during 3rd trimester) Senior Sales Engineer Name of Senior Sales Engineer: None Post Discharge Appointments Primary Care Physician Name Of Family Doctor: Lela Tapiaefonte (1) Depression Depression Type: unspecified Qualified Code(s): F32.9 - Major depressive disorder, single episode, unspecified
[2019-06-02] MEDS: ACETAMINOPHEN 325 MG TAB PO PRN (10:06)
[2019-06-03] MEDS: FLUOXETINE HCL 20 MG CAP PO SCH (09:01)
[2019-06-03] MEDS: PRENATAL VITAMIN 1 TAB PO SCH (09:01)
[2019-06-03] MEDS: SERTRALINE HCL 50 MG TABLET PO SCH (09:02)
--- NOTE | 2019-06-03 12:41 | Psychiatric Progress Note ---
Date of Service June 03, 2019 Impression / Recommendations Impression The patient is a 33-year-old white female with a longstanding history of intermittent depression. She is being cross tapered from sertraline to fluoxetine, and participated in a family meeting with her . Patient continues to verbalize suicidal ideation and urges to self-harm, though somewhat improved today. She is unable to contract for safety outside of the inpatient hospital setting. Patient remains at acute risk of harm to self if she is discharged prematurely, without adequate medication of risk factors and solidified aftercare plan. Inpatient psychiatric treatment remains medically necessary at this time. (1) Depression: 05/31 - Although she reports being diagnosed with bipolar disorder in the past she does not disclose any overt discrete episodes of elevated or mixed mood states. However her prompt response to antidepressants in the past as well as her history of downturn in mood in the winter are caused to monitor her mood as we change antidepressants to assure there is no medication induced mood instability. I have been clear with her about this but I do not think she has traditional bipolarity and am diagnosing her with depression but we will need to monitor. We discussed her past history of medications to include discussing an alternative SSRI such as Prozac versus the possibility of an SNRI. We agreed to taper down on the sertraline and start Prozac to see if it will improve her motivation and energy while being more weight neutral. We discussed the risks and benefits to the patient and to her breast-feeding child in the paper from mother to [email or web address] was given for her to read and I did also alert her where to find that information online as well as the women's mental health.org website through [employer] for future reference. She received her sertraline already this morning at 200 mg dose so we will taper it starting tomorrow to 100 mg for a day, 50 mg for 2 days 25 mg for a day and then stop meanwhile we will move to 20 of Prozac for 2 days then to 40 mg and continue and assess at that dose. I did explain to her we are watching to make sure she is not inappropriately activated and that we may reach for the 60 mg dose either while inpatient or as she transitions to outpatient. She will need aftercare for herself she is very skeptical about therapy but is agreeable to a manager of product she does have case management and family support within the home. I did ask her to stay engaged in the [facility] milieu and groups here to see that she could try to glean principles and ideas that may be useful to her in coping with her depression. She will be breast pumping while she is here and that has been made available to her she has asked to label the breast milk so she can monitor when her baby receives breast milk that she has pumped after starting Prozac. I do believe that the patient is well-informed and she does appear very aware of factual information in her life. I was not very well able to assess her psychological mindedness as she did seem somewhat defended against therapy and did not offer insight above and beyond the concrete facts of what has been happening. Her lab work is grossly normal I do not think there is further need for biological work-up she does have a primary care doctor to continue to follow on things such as her neck pain, her thyroid nodules. In regards for her concern about ADHD. I noted goal is to treat depression first and as outpatient she could be referred to testing, and or Quotient evaluation to further characterize her residual concentration and attention symptoms once she is euthymic. 06/01 - Cross taper from sertraline (100mg today) to fluoxetine (20mg today). -Family meeting with and older adult social work specialist today. -Continue group and therapy, discussed sleep hygiene as sleep chronically impaired at home. -Reviewed recommendations for outpatient psychiatry and therapy. She remains ambivalent about therapy and doesn't think it has helped in the past. 06/02 - Pt endorses continued SI and urges to self harm; able to contract for safety on the unit, but not outside of the inpatient setting - Continue cross titration from sertraline to fluoxetine. Patient received 50 mg of sertraline and 2 mg of fluoxetine today - Pt was rather isolative today, spending the majority of the day in bed. Continue to encourage group and recreational therapies and active engagement in treatment. - Continue to discuss and coordinate aftercare 06/03 - Reports continued SI, though feels her ability to deal with the negative thoughts is improving - Continue cross-titration from sertraline to fluoxetine; pt to receive 25mg of sertraline tomorrow morning, then continue solely on fluoxetine 40mg - Pt demonstrating improved attendance of group programming today - Still requires solidified aftercare plan, patient did complete interview with case management today Risk Factors Assessment Male: No : Yes Health Problems: No Mental Health Diagnoses: Yes Substance Use Disorders: No Previous Attempt: Yes Family History of Suicide: No Previous Psychiatric Hospitalization: Yes Hopelessness: Yes Smoker: No Protective Factors Assessment Scientologist Beliefs: No : Yes Responsible for Young Children: Yes Employed: No Stable Relationships: Yes Interval History Identifying Information LUZ IZAGUIRRE is a 33-year-old F who currently lives with her and 5 children who has a lifelong h/o intermittent depression who was admitted on 05/30/19 at 20:53 on a 201 voluntary for worsening of depression and SI with thought to overdose on 10year old daughter's insulin. Chief Complaint "Today has been going pretty decent." Review of Systems Notes Constitutional: reports improvement in sleep last evening, more energy reported today Cardiovascular: denied Respiratory: denied Gastrointestinal: denied Neurological: reporting headache, consistently occurring around 1200 daily Psychiatric: denies symptoms other than stated above Total of at least 10 systems reviewed, pertinent positives as above and in HPI. Sleep Information Total Hours of Sleep: 6 Meal Information Percent Meal Consumed - Breakfast: 100 Percent Meal Consumed - Lunch: 0 Percent Meal Consumed - Dinner: 100 Subjective Subjective Patient was seen & assessed and interval progress reviewed with nursing and social work. Staff reports the patient was rather isolative for the majority of the day yesterday. She rated her mood a 3/7 last evening, stating she felt "crappy and guilty" reportedly related to feeling as though she "wasted" her day. Patient was seen today to assess progress since admission. Conversation was held after an intake discussion with bilingual call center representative for case management services. Patient states that she is feeling "pretty decent" today, stating that today is definitely "better than yesterday." Patient states that yesterday she was feeling "cloudy and exhausted." She admits that she slept better last evening, and is feeling improvement in energy today. Patient does report a headache, that is consistently occurring around noon each day. There was initial question if this may be related to caffeine withdrawal symptoms, though patient also admits that when she is not wearing her prescription glasses fluorescent lighting tends to cause headaches as well. We did review possibility that headache may be related to medication adjustments, and that if this was the case it is likely they will continue to improve until they resolve. Patient does admit to ongoing suicidal ideation, though states she is "not thinking about it as much today. I have been better at distracting myself, so I am not dwelling on it as much." Patient states that she has been journaling, and "making lists" in order to counteract negative emotions with positive ones. Patient denies any specific needs or concerns from our unit at this time. Physical Exam Psychiatric Orientation: alert, oriented x 3 and cooperative Apperance: appropriately dressed, appropriately groomed and appeared stated age Eye Contact: good eye contact Motor Behavior: steady gait and station and no abnormal motor movements Speech: normal rate/rhythm/volume of speech Affect: + depressed affect (Though improved from yesterday) and mood congruent with affect Mood: + depressed mood ("Better than yesterday", though reports ongoing negative thoughts) Thought Process: goal directed thought process, clear/coherent thought process and thought association intact Thought Content: reality based without delusions, + hopelessness (Intermittently), + worthlessness and + self deprecation (Reports continued thoughts of "I am a bad mom") Suicidal Thoughts: denies suicidal intent; + reports suicidal thoughts (SI is more intermittent today, stating she is "not dwelling" on it as much) Homicidal Thoughts: denies homicidal thoughts Hallucinations: no auditory hallucinations and no visual hallucinations Cognition: attention grossly intact and language grossly intact Insight: + fair insight Judgement: good judgement Vital Signs (Past 24 Hours) Last Vital Signs Temp 36.8 C 06/03/19 06:29 Pulse 67 06/03/19 06:29 Resp 18 06/03/19 06:29 BP 119/82 06/03/19 06:29 Pulse Ox 97 05/30/19 20:55 Results & Data Current Inpatient Medications Current Inpatient Medications: Current Inpatient Medications Acetaminophen (Tylenol) 650 mg PO Q4H PRN PRN Reason: Headache or Minor Fever Stop: 06/29/19 20:52 Last Admin: 06/02/19 10:06 Dose: 650 mg Documented by: Al Hydrox/Mg Hydrox/Simethicone (Maalox) 30 ml PO Q4H PRN PRN Reason: GI Upset Stop: 06/29/19 20:52 Bismuth Subsalicylate (Kaopectate) 15 ml PO PRN PRN PRN Reason: Loose Stool Stop: 06/29/19 20:52 Fluoxetine HCl (Prozac) 40 mg PO DAILY MARK; Taper Stop: 07/03/19 09:59 Last Admin: 06/03/19 09:01 Dose: 20 mg Documented by: Hydroxyzine HCl (Vistaril) 50 mg PO HSZ PRN PRN Reason: Insomnia Stop: 06/29/19 20:52 Last Admin: 06/02/19 01:18 Dose: 50 mg Documented by: Hydroxyzine HCl (Vistaril) 25 mg PO Q4H PRN PRN Reason: Anxiety Stop: 06/29/19 20:52 Magnesium Hydroxide (Milk Of Magnesia) 30 ml PO DAILY PRN PRN Reason: Constipation Stop: 06/29/19 20:52 Prenat Multivit/Speech Professor/Iron/Folic Ac ( Vitamin) 1 tab PO DAILY MARK Stop: 06/30/19 08:59 Last Admin: 06/03/19 09:01 Dose: 1 tab Documented by: Sertraline HCl (Zoloft) 50 mg PO QAM MARK; Taper Stop: 06/05/19 08:59 Last Admin: 06/03/19 09:02 Dose: 50 mg Documented by: Sodium Chloride ([place] Nasal) 1 - 2 sprays NA PRN PRN PRN Reason: Nasal Dryness/Congestion Stop: 06/29/19 20:52 Mental Health & Subst Abuse Tx Psychiatrist Name of Psychiatrist: Saroj Burton Psychiatrist's Date of Appointment with Psychiatrist: 07/04/18 Time of Appointment with Psychiatrist: 1:00 p.m. Psychiatric Appointment Comment: [address] [facility] Therapist Name of Therapist: Jayme Kitchen Therapist's Therapy Appointment Comment: [address] [facility] Lawn Care Specialist Name of Lawn Care Specialist: [facility]-Awaiting assignment to Lawn Care Specialist Phone Number for Lawn Care Specialist: [phone] Case Management Appointment Comment: [address] [facility], [place] [address] Post Discharge Appointments Primary Care Physician Name Of Family Doctor: Lela Tapia [facility] Date of Appointment with PCP: 06/13/19 Time of Appointment with PCP: 11:00AM Provider Appointment Comment: [address] [place] [address] Other #1: Name of Aftercare Appointment: Josef Stout, Lawn Care Specialist with Insurance Company Phone Number of Aftercare Appointment: [phone] Aftercare Appointment Comment: call as needed for assistance/resources (1) Depression Depression Type: unspecified Qualified Code(s): F32.9 - Major depressive disorder, single episode, unspecified
[2019-06-03] MEDS: ACETAMINOPHEN 325 MG TAB PO PRN (14:05)
[2019-06-03] MEDS ORDERED: IBUPROFEN 600 MG TAB PO PRN (15:11)
[2019-06-04] MEDS: PRENATAL VITAMIN 1 TAB PO SCH (09:12)
[2019-06-04] MEDS: FLUOXETINE HCL 20 MG CAP PO SCH (09:12)
[2019-06-04] MEDS: SERTRALINE HCL 50 MG TABLET PO SCH (09:12)
--- NOTE | 2019-06-04 11:04 | Psychiatric Progress Note ---
Date of Service June 04, 2019 Impression / Recommendations Impression The patient is a 33-year-old white female with a longstanding history of intermittent depression. She is being cross tapered from sertraline to fluoxetine, and participated in a family meeting with her . Patient continues to verbalize suicidal ideation and urges to self-harm, which seem to fluctuate over the course of her admission. She is unable to contract for safety outside of the inpatient hospital setting. Patient remains at acute risk of harm to self if she is discharged prematurely, without adequate medication of risk factors and solidified aftercare plan. Inpatient psychiatric treatment remains medically necessary at this time. (1) Depression: 05/31 - Although she reports being diagnosed with bipolar disorder in the past she does not disclose any overt discrete episodes of elevated or mixed mood states. However her prompt response to antidepressants in the past as well as her history of downturn in mood in the winter are caused to monitor her mood as we change antidepressants to assure there is no medication induced mood instability. I have been clear with her about this but I do not think she has traditional bipolarity and am diagnosing her with depression but we will need to monitor. We discussed her past history of medications to include discussing an alternative SSRI such as Prozac versus the possibility of an SNRI. We agreed to taper down on the sertraline and start Prozac to see if it will improve her motivation and energy while being more weight neutral. We discussed the risks and benefits to the patient and to her breast-feeding child in the paper from mother to [email or web address] was given for her to read and I did also alert her where to find that information online as well as the women's mental health.org website through [employer] for future reference. She received her sertraline already this morning at 200 mg dose so we will taper it starting tomorrow to 100 mg for a day, 50 mg for 2 days 25 mg for a day and then stop meanwhile we will move to 20 of Prozac for 2 days then to 40 mg and continue and assess at that dose. I did explain to her we are watching to make sure she is not inappropriately activated and that we may reach for the 60 mg dose either while inpatient or as she transitions to outpatient. She will need aftercare for herself she is very skeptical about therapy but is agreeable to a human resources office manager she does have case management and family support within the home. I did ask her to stay engaged in the [facility] milieu and groups here to see that she could try to glean principles and ideas that may be useful to her in coping with her depression. She will be breast pumping while she is here and that has been made available to her she has asked to label the breast milk so she can monitor when her baby receives breast milk that she has pumped after starting Prozac. I do believe that the patient is well-informed and she does appear very aware of factual information in her life. I was not very well able to assess her psychological mindedness as she did seem somewhat defended against therapy and did not offer insight above and beyond the concrete facts of what has been happening. Her lab work is grossly normal I do not think there is further need for biological work-up she does have a primary care doctor to continue to follow on things such as her neck pain, her thyroid nodules. In regards for her concern about ADHD. I noted goal is to treat depression first and as outpatient she could be referred to testing, and or Quotient evaluation to further characterize her residual concentration and attention symptoms once she is euthymic. 06/01 - Cross taper from sertraline (100mg today) to fluoxetine (20mg today). -Family meeting with and social director today. -Continue group and therapy, discussed sleep hygiene as sleep chronically impaired at home. -Reviewed recommendations for outpatient psychiatry and therapy. She remains ambivalent about therapy and doesn't think it has helped in the past. 06/02 - Pt endorses continued SI and urges to self harm; able to contract for safety on the unit, but not outside of the inpatient setting - Continue cross titration from sertraline to fluoxetine. Patient received 50 mg of sertraline and 2 mg of fluoxetine today - Pt was rather isolative today, spending the majority of the day in bed. Continue to encourage group and recreational therapies and active engagement in treatment. - Continue to discuss and coordinate aftercare 06/03 - Reports continued SI, though feels her ability to deal with the negative thoughts is improving - Continue cross-titration from sertraline to fluoxetine; pt to receive 25mg of sertraline tomorrow morning, then continue solely on fluoxetine 40mg - Pt demonstrating improved attendance of group programming today - Still requires solidified aftercare plan, patient did complete interview with case management today 06/04 - Continue current medication plan - pt received last dosage of sertraline today, and will continue on fluoxetine 40mg daily - Pt continues to verbalize suicidal ideation, with fluctuations in severity over the course of her admission. She remains unable to contract for safety outside of the hospital setting - Pt now assigned to a wrapper caser - Ailyn reportedly planning to meet with patient today - Pt has been scheduled with a PCP for "bridge appointment" in case prescriptions would be required prior to her being seen by a psychiatric prescriber Risk Factors Assessment Male: No : Yes Health Problems: No Mental Health Diagnoses: Yes Substance Use Disorders: No Previous Attempt: Yes Family History of Suicide: No Previous Psychiatric Hospitalization: Yes Hopelessness: Yes Smoker: No Protective Factors Assessment Church Beliefs: No : Yes Responsible for Young Children: Yes Employed: No Stable Relationships: Yes Interval History Identifying Information LUZ IZAGUIRRE is a 33-year-old F who currently lives with her and 5 children who has a lifelong h/o intermittent depression who was admitted on 05/30/19 at 20:53 on a 201 voluntary for worsening of depression and SI with thought to overdose on 10year old daughter's insulin. Chief Complaint "The morning started out pretty crappy, but it's a lot better now." Review of Systems Notes Constitutional: reports continued "nightmares" denied concerning themes Cardiovascular: denied Respiratory: denied Gastrointestinal: denied Neurological: denied Psychiatric: denies symptoms other than stated above Total of at least 10 systems reviewed, pertinent positives as above and in HPI. Sleep Information Total Hours of Sleep: 4.5 Sleep Comments: pumped her breasts before HS up to the bathroom at 0330 then back to bed Meal Information Percent Meal Consumed - Breakfast: 100 Percent Meal Consumed - Lunch: 100 Percent Meal Consumed - Dinner: 100 Subjective Subjective Patient was seen & assessed and interval progress reviewed with treatment team. Staff reports the patient had a better day yesterday, she was observed to be interactive with peers and attending regular groups. She rated her mood an 8/10 and "better" last evening. Unfortunately, this improvement was not maintained as patient presented to staff with "bad thoughts" this morning, to overdose on her daughter's insulin. She was able to come up with safety plan with staff should patient's daughter visit the unit, including storing insulin case in the nurses station while daughter is on the unit. Pt was seen today to assess progress since admission. Pt states that the morning "started out pretty crappy", but has gotten better as the morning progressed. She states that "I was think about crap last night, I kind of went down the rabbit hole." She states that she was struggling with negative thoughts, and then thinking "am I really suicidal?" She reports spending time last evening "visualizing how easy it would be to take my daughter's insulin from her case during a visit and hide it somewhere. She states, "I didn't want my family to find me, which is why I didn't do anything to hurt myself at home. But, I started thinking that being here would solve that issue." Pt did admit that she did not desire to carry though with thoughts, but did not feel able to confirm safety. She states, "it's a pretty new thing for me to ask for help, but I told staff how I was feeling and we came up with a plan." Pt continued to process these thoughts with this provider. She was reminded that during her admission, we would also need to discuss safety planning steps to protect against these actions at home. Pt does admit to ongoing SI, but states it is less prominent after speaking with staff. Pt denies other needs from staff at this time, and denies other questions today. Physical Exam Psychiatric Orientation: alert, oriented x 3 and cooperative (and pleasant) Apperance: appropriately dressed, appropriately groomed and appeared stated age Eye Contact: good eye contact Motor Behavior: steady gait and station and no abnormal motor movements Speech: normal rate/rhythm/volume of speech Affect: + depressed affect and mood congruent with affect Mood: + depressed mood (reporting a difficult morning, some improvement by mid- morning reported) Thought Process: goal directed thought process, clear/coherent thought process and thought association intact Thought Content: reality based without delusions, + hopelessness (intermittent), + worthlessness (intermittent) and + self deprecation (continues attempts to combat negative self-talk) Suicidal Thoughts: + reports suicidal thoughts (Ongoing, lessened in severity from earlier this morning) and + reports suicidal plan (continues to think about overdosing on daughter's insulin) Pt reportedly informed staff of strong urges to take daughter's insulin, even thinking of how she could acquire it during a visit and hide it in her room on the unit. Thoughts are not as overpowering at time of interview, but patient remains unable to contract for safety outside of the hospital setting. Homicidal Thoughts: denies homicidal thoughts Hallucinations: no auditory hallucinations and no visual hallucinations Cognition: attention grossly intact and language grossly intact Insight: + fair insight Judgement: + fair judgement Vital Signs (Past 24 Hours) Last Vital Signs Temp 36.7 C 06/04/19 06:27 Pulse 85 06/04/19 06:28 Resp 18 06/04/19 06:27 BP 119/81 06/04/19 06:28 Pulse Ox 97 05/30/19 20:55 Results & Data Current Inpatient Medications Current Inpatient Medications: Current Inpatient Medications Acetaminophen (Tylenol) 650 mg PO Q4H PRN PRN Reason: Headache or Minor Fever Stop: 06/29/19 20:52 Last Admin: 06/03/19 14:05 Dose: 650 mg Documented by: Al Hydrox/Mg Hydrox/Simethicone (Maalox) 30 ml PO Q4H PRN PRN Reason: GI Upset Stop: 06/29/19 20:52 Bismuth Subsalicylate (Kaopectate) 15 ml PO PRN PRN PRN Reason: Loose Stool Stop: 06/29/19 20:52 Fluoxetine HCl (Prozac) 40 mg PO DAILY MARK; Taper Stop: 07/03/19 09:59 Last Admin: 06/04/19 09:12 Dose: 40 mg Documented by: Hydroxyzine HCl (Vistaril) 50 mg PO HSZ PRN PRN Reason: Insomnia Stop: 06/29/19 20:52 Last Admin: 06/02/19 01:18 Dose: 50 mg Documented by: Hydroxyzine HCl (Vistaril) 25 mg PO Q4H PRN PRN Reason: Anxiety Stop: 06/29/19 20:52 Ibuprofen (Motrin) 600 mg PO Q6H PRN PRN Reason: Pain Stop: 07/03/19 15:10 Magnesium Hydroxide (Milk Of Magnesia) 30 ml PO DAILY PRN PRN Reason: Constipation Stop: 06/29/19 20:52 Prenat Multivit/Newaygo/Iron/Folic Ac ( Vitamin) 1 tab PO DAILY MARK Stop: 06/30/19 08:59 Last Admin: 06/04/19 09:12 Dose: 1 tab Documented by: Sertraline HCl (Zoloft) 25 mg PO QAM MARK; Taper Stop: 06/05/19 08:59 Last Admin: 06/04/19 09:12 Dose: 25 mg Documented by: Sodium Chloride (Emmons Nasal) 1 - 2 sprays NA PRN PRN PRN Reason: Nasal Dryness/Congestion Stop: 06/29/19 20:52 Mental Health & Subst Abuse Tx Psychiatrist Name of Psychiatrist: Saroj Burton Psychiatrist's Date of Appointment with Psychiatrist: 07/04/18 Time of Appointment with Psychiatrist: 1:00 p.m. Psychiatric Appointment Comment: [id number] [facility] Therapist Name of Therapist: Jayme Kitchen Therapist's Therapy Appointment Comment: [address] [facility] Dry Charge Process Attendant Name of Dry Charge Process Attendant: Bo Jenkins Phone Number for Dry Charge Process Attendant: [phone] Case Management Appointment Comment: [address] [facility], [place] [address] Post Discharge Appointments Primary Care Physician Name Of Family Doctor: Dr. Villaseñor [facility] Date of Appointment with PCP: 06/13/19 Time of Appointment with PCP: 11:00AM Provider Appointment Comment: [address] [place] [address] Other #1: Name of Aftercare Appointment: Josef Stout, Dry Charge Process Attendant with Insurance Company Phone Number of Aftercare Appointment: [phone] Aftercare Appointment Comment: call as needed for assistance/resources (1) Depression Depression Type: unspecified Qualified Code(s): F32.9 - Major depressive disorder, single episode, unspecified
[2019-06-05] MEDS: FLUOXETINE HCL 20 MG CAP PO SCH (08:46)
[2019-06-05] MEDS: PRENATAL VITAMIN 1 TAB PO SCH (08:46)
--- NOTE | 2019-06-05 12:14 | Psychiatric Progress Note ---
Date of Service June 05, 2019 Impression / Recommendations Impression The patient is a 33-year-old white female with a longstanding history of intermittent depression. She is being cross tapered from sertraline to fluoxetine, and participated in a family meeting with her . Patient continues to verbalize suicidal ideation and urges to self-harm, which seem to fluctuate over the course of her admission. She is unable to contract for safety outside of the inpatient hospital setting. Patient remains at acute risk of harm to self if she is discharged prematurely, without adequate medication of risk factors and solidified aftercare plan. Inpatient psychiatric treatment remains medically necessary at this time. (1) Depression: 05/31 - Although she reports being diagnosed with bipolar disorder in the past she does not disclose any overt discrete episodes of elevated or mixed mood states. However her prompt response to antidepressants in the past as well as her history of downturn in mood in the winter are caused to monitor her mood as we change antidepressants to assure there is no medication induced mood instability. I have been clear with her about this but I do not think she has traditional bipolarity and am diagnosing her with depression but we will need to monitor. We discussed her past history of medications to include discussing an alternative SSRI such as Prozac versus the possibility of an SNRI. We agreed to taper down on the sertraline and start Prozac to see if it will improve her motivation and energy while being more weight neutral. We discussed the risks and benefits to the patient and to her breast-feeding child in the paper from mother to [email or web address] was given for her to read and I did also alert her where to find that information online as well as the women's mental health.org website through [employer] for future reference. She received her sertraline already this morning at 200 mg dose so we will taper it starting tomorrow to 100 mg for a day, 50 mg for 2 days 25 mg for a day and then stop meanwhile we will move to 20 of Prozac for 2 days then to 40 mg and continue and assess at that dose. I did explain to her we are watching to make sure she is not inappropriately activated and that we may reach for the 60 mg dose either while inpatient or as she transitions to outpatient. She will need aftercare for herself she is very skeptical about therapy but is agreeable to a flight kitchen manager she does have case management and family support within the home. I did ask her to stay engaged in the [facility] milieu and groups here to see that she could try to glean principles and ideas that may be useful to her in coping with her depression. She will be breast pumping while she is here and that has been made available to her she has asked to label the breast milk so she can monitor when her baby receives breast milk that she has pumped after starting Prozac. I do believe that the patient is well-informed and she does appear very aware of factual information in her life. I was not very well able to assess her psychological mindedness as she did seem somewhat defended against therapy and did not offer insight above and beyond the concrete facts of what has been happening. Her lab work is grossly normal I do not think there is further need for biological work-up she does have a primary care doctor to continue to follow on things such as her neck pain, her thyroid nodules. In regards for her concern about ADHD. I noted goal is to treat depression first and as outpatient she could be referred to testing, and or Quotient evaluation to further characterize her residual concentration and attention symptoms once she is euthymic. 06/01 - Cross taper from sertraline (100mg today) to fluoxetine (20mg today). -Family meeting with and public health social worker today. -Continue group and therapy, discussed sleep hygiene as sleep chronically impaired at home. -Reviewed recommendations for outpatient psychiatry and therapy. She remains ambivalent about therapy and doesn't think it has helped in the past. 06/02 - Pt endorses continued SI and urges to self harm; able to contract for safety on the unit, but not outside of the inpatient setting - Continue cross titration from sertraline to fluoxetine. Patient received 50 mg of sertraline and 2 mg of fluoxetine today - Pt was rather isolative today, spending the majority of the day in bed. Continue to encourage group and recreational therapies and active engagement in treatment. - Continue to discuss and coordinate aftercare 06/03 - Reports continued SI, though feels her ability to deal with the negative thoughts is improving - Continue cross-titration from sertraline to fluoxetine; pt to receive 25mg of sertraline tomorrow morning, then continue solely on fluoxetine 40mg - Pt demonstrating improved attendance of group programming today - Still requires solidified aftercare plan, patient did complete interview with case management today 06/04 - Continue current medication plan - pt received last dosage of sertraline today, and will continue on fluoxetine 40mg daily - Pt continues to verbalize suicidal ideation, with fluctuations in severity over the course of her admission. She remains unable to contract for safety outside of the hospital setting - Pt now assigned to a field nurse case manager - Ailyn reportedly planning to meet with patient today - Pt has been scheduled with a PCP for "bridge appointment" in case prescriptions would be required prior to her being seen by a psychiatric prescriber 06/05 - Continue on fluoxetine 40mg daily, denies perceived side effects - Met with assigned field nurse case manager yesterday - Continue attempt to solidify aftercare Risk Factors Assessment Male: No : Yes Health Problems: No Mental Health Diagnoses: Yes Substance Use Disorders: No Previous Attempt: Yes Family History of Suicide: No Previous Psychiatric Hospitalization: Yes Hopelessness: Yes Smoker: No Protective Factors Assessment Restorationism Beliefs: No : Yes Responsible for Young Children: Yes Employed: No Stable Relationships: Yes Interval History Identifying Information LUZ IZAGUIRRE is a 33-year-old F who currently lives with her and 5 children who has a lifelong h/o intermittent depression who was admitted on 05/30/19 at 20:53 on a 201 voluntary for worsening of depression and SI with thought to overdose on 10year old daughter's insulin. Chief Complaint "I feel more clear headed today." Review of Systems Notes Constitutional: denied Cardiovascular: denied Respiratory: denied Gastrointestinal: denied Neurological: denied Psychiatric: denies symptoms other than stated above Total of at least 10 systems reviewed, pertinent positives as above and in HPI. Sleep Information Total Hours of Sleep: 5 Sleep Comments: talked with peers till 2340 then read in her room. pumped her milk around 0030 then went to bed/sleep Meal Information Percent Meal Consumed - Breakfast: 100 Percent Meal Consumed - Lunch: 100 Percent Meal Consumed - Dinner: 100 Subjective Subjective Patient was seen & assessed and interval progress reviewed with nursing and social work. Staff reports the patient appeared to have had a better day yesterday. Family visited last evening, and daughters insulin was secured as patient had requested. Patient was informed by her last evening, that their family dog had . It is reported she took the news rather well, in the evening rating her mood an 8/10 and "happy." Patient did meet with her assigned field nurse case manager yesterday afternoon. Patient was seen today to assess progress since admission. She states that she is feeling "more clear headed" today, feeling as though her thoughts are "less racy." Overall, the patient verbalizes a "good mood." She states that even though she learned that her dog , she has been dealing with it well. She states that he had not been doing well for some time, and she anticipated he would not be alive much longer. Patient states that she had a positive visit with her children and last evening, especially happy as "my 14-year-old son actually hugged me, he has not done that since he was really young." Patient denies active suicidal ideation, but admits to fleeting passive thoughts of hopelessness and being a way out. She informs this provider that while she is "passed the teetering point", she is concerned about how she will manage anxiety and mood moving forward. Patient states "I found myself thinking about my miscarriages in my previous marriage quite a bit. Those are big sinkholes for me, and I need to make sure I know how to deal with them before I leave." Patient was encouraged to continue to process these thoughts with staff, and of course to work with her outpatient therapist in more depth on these topics moving forward. Patient denied other needs or concerns at this time. Physical Exam Psychiatric Orientation: alert, oriented x 3 and cooperative (And pleasant) Apperance: appropriately dressed, appropriately groomed and appeared stated age Eye Contact: good eye contact Motor Behavior: steady gait and station and no abnormal motor movements Speech: normal rate/rhythm/volume of speech Affect: + depressed affect (Mildly, though appearing much brighter than yesterday) and mood congruent with affect Mood: + depressed mood (Admits to ongoing depression, but states that she is in a "good mood" today) Thought Process: goal directed thought process, clear/coherent thought process and thought association intact Thought Content: reality based without delusions, + hopelessness (Intermittent, less frequent) and + guilt (Reportedly improving) Suicidal Thoughts: denies suicidal intent; + reports suicidal thoughts (Admits to fleeting passive SI, but improved overall) Homicidal Thoughts: denies homicidal thoughts Hallucinations: no auditory hallucinations and no visual hallucinations Cognition: remote memory grossly intact, attention grossly intact and language grossly intact Insight: + fair insight Judgement: + fair judgement Vital Signs (Past 24 Hours) Last Vital Signs Temp 36.4 C L 06/05/19 06:42 Pulse 73 06/05/19 06:43 Resp 16 06/05/19 06:42 BP 120/80 06/05/19 06:43 Pulse Ox 97 05/30/19 20:55 Results & Data Current Inpatient Medications Current Inpatient Medications: Current Inpatient Medications Acetaminophen (Tylenol) 650 mg PO Q4H PRN PRN Reason: Headache or Minor Fever Stop: 06/29/19 20:52 Last Admin: 06/03/19 14:05 Dose: 650 mg Documented by: Al Hydrox/Mg Hydrox/Simethicone (Maalox) 30 ml PO Q4H PRN PRN Reason: GI Upset Stop: 06/29/19 20:52 Bismuth Subsalicylate (Kaopectate) 15 ml PO PRN PRN PRN Reason: Loose Stool Stop: 06/29/19 20:52 Fluoxetine HCl (Prozac) 40 mg PO DAILY MARK; Taper Stop: 07/03/19 09:59 Last Admin: 06/05/19 08:46 Dose: 40 mg Documented by: Hydroxyzine HCl (Vistaril) 50 mg PO HSZ PRN PRN Reason: Insomnia Stop: 06/29/19 20:52 Last Admin: 06/02/19 01:18 Dose: 50 mg Documented by: Hydroxyzine HCl (Vistaril) 25 mg PO Q4H PRN PRN Reason: Anxiety Stop: 06/29/19 20:52 Ibuprofen (Motrin) 600 mg PO Q6H PRN PRN Reason: Pain Stop: 07/03/19 15:10 Magnesium Hydroxide (Milk Of Magnesia) 30 ml PO DAILY PRN PRN Reason: Constipation Stop: 06/29/19 20:52 Prenat Multivit/Compensation/Benefits Specialist/Iron/Folic Ac ( Vitamin) 1 tab PO DAILY MARK Stop: 06/30/19 08:59 Last Admin: 06/05/19 08:46 Dose: 1 tab Documented by: Sodium Chloride (Mclean Nasal) 1 - 2 sprays NA PRN PRN PRN Reason: Nasal Dryness/Congestion Stop: 06/29/19 20:52 Mental Health & Subst Abuse Tx Psychiatrist Name of Psychiatrist: Saroj Burton Psychiatrist's Date of Appointment with Psychiatrist: 07/04/18 Time of Appointment with Psychiatrist: 1:00 p.m. Psychiatric Appointment Comment: [address] [facility] Therapist Name of Therapist: Jayme Kitchen Therapist's Therapy Appointment Comment: [address] [facility] Basket Assembler Name of Basket Assembler: Bo Jenkins Phone Number for Basket Assembler: [phone] Case Management Appointment Comment: [address] [facility] [address], [place] [address] Post Discharge Appointments Primary Care Physician Name Of Family Doctor: Dr. Villaseñor [facility] Date of Appointment with PCP: 06/13/19 Time of Appointment with PCP: 11:00AM Provider Appointment Comment: [address] [place] [address] Other #1: Name of Aftercare Appointment: Josef Stout, Basket Assembler with Insurance Company Phone Number of Aftercare Appointment: [phone] Aftercare Appointment Comment: call as needed for assistance/resources (1) Depression Depression Type: unspecified Qualified Code(s): F32.9 - Major depressive disorder, single episode, unspecified
[2019-06-06] MEDS: FLUOXETINE HCL 20 MG CAP PO SCH (09:11)
[2019-06-06] MEDS: PRENATAL VITAMIN 1 TAB PO SCH (09:11)
[2019-06-06] MEDS ORDERED: DESTROY THIS MEDICATION ONE (14:40)
--- NOTE | 2019-06-06 17:53 | Discharge Summary ---
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 that you have excellent skill and are a strong woman. Pending Studies at Discharge: No Stand-Alone Forms: My [employer], Smoking Cessation Medications and DC Order Prescriptions: New fluoxetine 20 mg Capsule 40 mg PO DAILY Qty: 60 RF: 0 Continued Multi 27-800 mg-mcg Tablet 1 tab PO DAILY RF: 0 Discontinued sertraline [Zoloft] 100 mg Tablet 200 mg PO QAM RF: 0 Discharge Orders: Discharge Order (Routine); Ordered 06/06/19 Ordered By: Wilian Anguiano Admission Data Admit Date/Time: 05/30/19 20:53 Attending Provider: Kassandra Jordan Admit Provider: Wilian Anguiano Primary Care Provider: Brandee Villaseñor Other Interventions: Discharge Summary Assessment (RN) Last Done: 06/06/19 12:41 PSY Interdisciplinary Discharge Planning Last Done: 06/06/19 12:16 DC Date/Time DO NOT enter until pt leaves facility: 06/06/19 14:20 [place] [address] D/C day mgmt > 30 min Patient Type Established History Expanded Problem Focused Exam Expanded Problem Focused Medical Decision Making Moderate Complexity Diagnoses Depression F32.9 Depression Type: unspecified Time Spent (min) 60
== END 2019-06-06 14:20 | disposition home or self-care (01) | DRG 885 ==
LOC: ED 17:37 → SUATTDRO 20:53 → 3S 20:53

== ENCOUNTER 2019-07-21 16:16 | Inpatient (IN) ==
[2019-07-21 16:52] LABS: Appearance Urine Cloudy (Clear); Bacteria Urine Automated Negative (Negative); Bilirubin Urine Negative (Negative); Blood Urine Negative (Negative); Color Urine Yellow; Epithelial Cell Urine Auto >30 /lpf (0-5); Glucose Urine UA Negative (Negative); Ketones Urine Negative (Negative); Leukocyte Esterase Urine Negative (Negative); Nitrite Urine Negative (Negative); Protein Urine Negative (Negative); RBC Urine Automated 0-4 /hpf (0-4); Specific Gravity Urine 1.025 (1.000-1.030); Urobilinogen Urine Negative (Negative)
[2019-07-21 17:20] LABS: Basophils # (auto) 0.01 K/uL (0-0.2); Basophils % (auto) 0.2 %; Eosinophils # (auto) 0.09 K/uL (0-0.5); Eosinophils % (auto) 1.5 %; Hemoglobin 13.9 g/dL (12.0-16.0); Immature Granulocytes # (auto) 0.01 K/uL (0.00-0.02); Immature Granulocytes % (auto) 0.2 %; Lymphocytes # (auto) 1.89 K/uL (1.2-3.4); Lymphocytes % (auto) 31.8 %; Mean Corpuscular Hgb Conc 33.1 g/dL (32-36); Mean Corpuscular Volume 90.5 fL (80-100); Mean Platelet Volume 9.4 fL (7.4-10.4); Monocytes # (auto) 0.53 K/uL (0.11-0.59); Monocytes % (auto) 8.9 %; Neutrophils # (auto) 3.41 K/uL (1.4-6.5); Neutrophils % (auto) 57.4 %; Platelet Count 225 K/uL (130-400); RDW Coefficient of Variation 12.4 % (11.5-14.5); RDW Standard Deviation 40.9 fL (36.4-46.3); Red Blood Count 4.64 M/uL (4.2-5.4); White Blood Count 5.94 K/uL (4.8-10.8)
[2019-07-21] MEDS ORDERED: IBUPROFEN 600 MG TAB PO STA (17:29)
[2019-07-21 17:38] LABS: Amphetamines+Metham, Urine Neg (Neg); Barbiturates, Urine Neg (Neg); Benzodiazepine, Urine Neg (Neg); Cocaine, Urine Neg (Neg); MDMA (Ecstacy), Urine Neg (Neg); Methadone, Urine Neg (Neg); Opiate, Urine Neg (Neg); Phencyclidine, Urine Neg (Neg)
[2019-07-21 17:45] LABS: Albumin Level 3.6 gm/dl (3.4-5.0); Calcium 8.9 mg/dl (8.5-10.1); Est GFR (African American) 87.4; Est GFR (Non-African American) 75.4; Potassium 3.9 mmol/L (3.5-5.1)
[2019-07-21 17:54] LABS: Acetaminophen 5 ug/ml (10-30); Salicylate < 1.7 mg/dl (2.8-20)
[2019-07-21 17:55] LABS: Albumin Globulin Ratio 0.9 (0.9-2); Bilirubin,Total 0.3 mg/dl (0.2-1); Globulin 3.8 gm/dl (2.5-4.0); Thyroid Stimulating Hormone 1.15 uIu/ml (0.300-4.500); Total Protein 7.4 gm/dl (6.4-8.2)
[2019-07-21] MEDS ORDERED: NON-FORMULARY PATIENT'S OWN MED PO SCH ×2 (21:00→22:00)
[2019-07-21] MEDS ORDERED: SODIUM CHLORIDE 0.65% NA SOLN 45 ML (OCEAN) PRN (21:30)
[2019-07-21] MEDS ORDERED: MAGNESIUM HYDROXIDE SUSP 30 ML UDC PO PRN (21:30)
[2019-07-21] MEDS ORDERED: ALUMINUM/MAGNESIUM SUSP 30 ML UDC PO PRN (21:30)
[2019-07-21] MEDS ORDERED: BISMUTH SUBSALICYLATE PER ML OMNICELL CHARGE PO PRN (21:30)
[2019-07-21] MEDS ORDERED: ACETAMINOPHEN 325 MG TAB PO PRN (21:30)
--- NOTE | 2019-07-21 21:52 | Emergency Department Note ---
Entered by Leigha Fountain acting as a scribe for Pricilla Erwin MD History of Present Illness General Chief complaint: Mental Health Evaluation Stated complaint: SUICIDAL Source: patient History of Present Illness Onset (ago): day(s) 1 Location: head Severity: similar to prior episodes Pain Consistency: + other (worsening) Maximum Pain Intensity: 4 Quality: + other (suicidal thoughts) Associated symptoms: + headaches and + other (positive suicidal planning) The patient is a 33 year old female who presents to the Emergency Room with complaints of worsening suicidal thoughts that began yesterday. The patient states that she had a long drive yesterday, and states that during this she had thoughts of "ending it" although it was a good day. The patient states that she then felt guilty this morning for having these thoughts. She states that she did not want "anything to do with" her kids this morning, but states that she has not ever had any thoughts of hurting her children. The patient states that after putting her baby down for a nap she had thoughts of killing herself. The patient states that she thoughts about cutting her wrists, but states that she does not have any sharp items in her house. The patient states that she then thought about overdosing, but states that she did not want her family to find her. The patient states that she then had thoughts of running her car off the road as she was driving alone to [employer]. The patient states that this is similar to prior episodes of suicidal thoughts for her, as she is on her 8th medication change for depression. The patient states that she was "scared" of herself today. The patient denies any recent fever, cough, and cold symptoms. She states that she has had a headache all day today. The patient states that she has only taken her regular medications today. The patient denies any chance she may be . She denies any alcohol or drug use. Home Medications Home Medications Medication Instructions Recorded Confirmed Type fluoxetine 40 mg PO DAILY #60 cap 06/06/19 07/21/19 Rx Allergies Allergy/AdvReac Type Severity Reaction Status Date / Time cyclobenzaprine Allergy Unknown DIFFICULTY Verified 06/30/19 23:03 BREATHING, CHOKING, COULDN'T WAKE UP Past Med/Surg History Medical History Bicornate uterus Depression Depression Family history of reaction to anesthesia GRANDPARENTS HAD ISSUES WITH WAKING, NO KNOWN DIAGNOSIS OF ANESTHESIA REACTION. Neck pain Sinus bradycardia Thyroid nodule Surgical History History of section EMERGENCY 2016. 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 SHE REMEMBERS FEELING THE "SENSE OF DOOM". 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 and A total of 10 systems reviewed and were otherwise negative Physical Exam Vital Signs Vital Signs - 24 hr 07/21/19 16:22 07/21/19 20:00 Temperature 36.9 C Temperature Source Oral Pulse Rate 67 Pulse Rate [Finger] 56 L Respiratory Rate 18 20 Blood Pressure 110/68 Blood Pressure [Right Arm] 127/57 L Blood Pressure Mean 82 Blood Pressure Mean [Right Arm] 80 Pulse Oximetry 96 98 Oxygen Delivery Method Room Air Sepsis Recent Fever Within 48 Hours No Sepsis New/Unexplained Change in Mental Status No Sepsis Action Taken by Nursing No Action Required Vital signs reviewed. General: Well-appearing 33 year old female, in no significant distress. HEENT: No scleral icterus, PERRLA, neck supple. Atraumatic. Cardiovascular: Regular rate and rhythm, no extra sounds. Pulmonary: Clear to auscultation bilaterally, normal work of breathing. Abdomen: Obese abdomen. Soft, nontender, nondistended, positive bowel sounds. Musculoskeletal: Atraumatic, no peripheral edema. Neurologic: Patient awake alert and oriented x 3. Skin: Warm, dry, no rash Psych: Positive SI with plan. Negative HI. Course Course 1639: Past medical records reviewed. The patient was evaluated in room A5. A complete history and physical exam was performed. 1924: The patient was accepted to [address] [place] [address] for further evaluation. Administered Medications Brexpiprazole (Rexulti) 0.5 ea PO HS MARK Stop: 08/22/19 21:59 Last Admin: 07/23/19 21:18 Dose: 0.5 ea Documented by: [id number] Fluoxetine HCl (Prozac) 60 mg PO QAM MARK Stop: 08/22/19 08:59 Last Admin: 07/23/19 10:11 Dose: 60 mg Documented by: [id number] Hydroxyzine HCl (Vistaril) 25 mg PO Q4H PRN PRN Reason: Anxiety Stop: 08/20/19 21:29 Last Admin: 07/23/19 09:45 Dose: 25 mg Documented by: [id number] Admin: 07/22/19 16:55 Dose: 25 mg Documented by: [id number] Multivitamins/Minerals (Multivitamin W/ Minerals Tab) 1 tab PO QAM MARK Stop: 08/21/19 08:59 Last Admin: 07/23/19 10:11 Dose: 1 tab Documented by: [id number] Admin: 07/22/19 09:57 Dose: 1 tab Documented by: [id number] Discontinued Medications Brexpiprazole (Rexulti) 1 ea PO HS MARK Stop: 08/20/19 21:59 Last Admin: 07/22/19 21:09 Dose: 1 ea Documented by: [id number] Admin: 07/21/19 22:46 Dose: 1 ea Documented by: [id number] Fluoxetine HCl (Prozac) 60 mg PO ONE ONE Stop: 07/22/19 13:01 Last Admin: 07/22/19 12:41 Dose: 60 mg Documented by: [id number] Ibuprofen (Motrin) 600 mg PO NOW STA Stop: 07/21/19 17:30 Last Admin: 07/21/19 17:35 Dose: 600 mg Documented by: [id number] Medical Decision Making Differential Diagnosis Differential diagnoses considered include mood disorder, infection, hypoglycemia , electrolyte abnormalities, cardiac sources, intracerebral event, toxicologic, neurologic, as well as others. Medical Records Attestation: I reviewed the patient's medical records. Home Medications Current Medication List: was personally reviewed by me Laboratory Data Attestation: I reviewed the patient's lab results. Result diagrams: 07/21/19 17:07 07/21/19 17:07 Lab Results 07/21/19 07/21/19 07/21/19 Range/Units 16:35 16:35 17:07 WBC 5.94 (4.8-10.8) K/uL RBC 4.64 (4.2-5.4) M/uL Hgb 13.9 (12.0-16.0) g/dL Hct 42.0 (37-47) % MCV 90.5 (80-100) fL MCH 30.0 (25-34) pg MCHC 33.1 (32-36) g/dL RDW Std Deviation 40.9 (36.4-46.3) fL RDW Coeff of Charis 12.4 (11.5-14.5) % Plt Count 225 (130-400) K/uL MPV 9.4 (7.4-10.4) fL Immature Gran % (Auto) 0.2 % Neut % (Auto) 57.4 % Lymph % (Auto) 31.8 % Brule % (Auto) 8.9 % Eos % (Auto) 1.5 % Baso % (Auto) 0.2 % Immature Gran # (Auto) 0.01 (0.00-0.02) K/uL Neut # (Auto) 3.41 (1.4-6.5) K/uL Lymph # (Auto) 1.89 (1.2-3.4) K/uL Brule # (Auto) 0.53 (0.11-0.59) K/uL Eos # (Auto) 0.09 (0-0.5) K/uL Baso # (Auto) 0.01 (0-0.2) K/uL Sodium (136-145) mmol/L Potassium (3.5-5.1) mmol/L Chloride (98-107) mmol/L Carbon Dioxide (21-32) mmol/L Anion Gap (3-11) BUN (7-18) mg/dl Creatinine (0.6-1.2) mg/dl Est Cr Clr Drug Dosing ml/min Est GFR ( Amer) Est GFR (Non-Af Amer) BUN/Creatinine Ratio (10-20) Glucose (70-99) mg/dl Calcium (8.5-10.1) mg/dl Total Bilirubin (0.2-1) mg/dl AST (15-37) U/L ALT (12-78) U/L Alkaline Phosphatase (45-117) U/L Total Protein (6.4-8.2) gm/dl Albumin (3.4-5.0) gm/dl Globulin (2.5-4.0) gm/dl Albumin/Globulin Ratio (0.9-2) TSH (0.300-4.500) uIu/ml Urine Color Yellow Urine Appearance Cloudy A (Clear) Urine pH 7.0 (4.5-7.5) Ur Specific [place] 1.025 (1.000-1.030) Urine Protein Negative (Negative) Urine Glucose (UA) Negative (Negative) Urine Ketones Negative (Negative) Urine Blood Negative (Negative) Urine Nitrite Negative (Negative) Urine Bilirubin Negative (Negative) Urine Urobilinogen Negative (Negative) Ur Leukocyte Esterase Negative (Negative) Urine WBC (Auto) 1-5 (0-5) /hpf Urine RBC (Auto) 0-4 (0-4) /hpf U Hyaline Cast (Auto) 1-5 (0-5) /lpf U Epithel Cells (Auto) >30 H (0-5) /lpf Urine Bacteria (Auto) Negative (Negative) POC Ur Test (NEG) Salicylates (2.8-20) mg/dl Urine Opiates Screen Neg (Neg) Ur Methadone, Qual Neg (Neg) Acetaminophen (10-30) ug/ml Urine Barbiturates Neg (Neg) Ur Phencyclidine (PCP) Neg (Neg) U Amphetamin/Meth Scrn Neg (Neg) MDMA (Ecstasy) Screen Neg (Neg) U Benzodiazepines Scrn Neg (Neg) Ur Cocaine Metabolite Neg (Neg) U Marijuana (THC) Screen Neg (Neg) Ethyl Alcohol mg/dL (0-3) mg/dl 07/21/19 07/21/19 07/21/19 Range/Units 17:07 17:07 17:07 WBC (4.8-10.8) K/uL RBC (4.2-5.4) M/uL Hgb (12.0-16.0) g/dL Hct (37-47) % MCV (80-100) fL MCH (25-34) pg MCHC (32-36) g/dL RDW Std Deviation (36.4-46.3) fL RDW Coeff of Charis (11.5-14.5) % Plt Count (130-400) K/uL MPV (7.4-10.4) fL Immature Gran % (Auto) % Neut % (Auto) % Lymph % (Auto) % Brule % (Auto) % Eos % (Auto) % Baso % (Auto) % Immature Gran # (Auto) (0.00-0.02) K/uL Neut # (Auto) (1.4-6.5) K/uL Lymph # (Auto) (1.2-3.4) K/uL Brule # (Auto) (0.11-0.59) K/uL Eos # (Auto) (0-0.5) K/uL Baso # (Auto) (0-0.2) K/uL Sodium 140 (136-145) mmol/L Potassium 3.9 (3.5-5.1) mmol/L Chloride 110 H (98-107) mmol/L Carbon Dioxide 26 (21-32) mmol/L Anion Gap 4.0 (3-11) BUN 12 (7-18) mg/dl Creatinine 0.99 (0.6-1.2) mg/dl Est Cr Clr Drug Dosing 101.0 ml/min Est GFR ( Amer) 87.4 Est GFR (Non-Af Amer) 75.4 BUN/Creatinine Ratio 12.0 (10-20) Glucose 90 (70-99) mg/dl Calcium 8.9 (8.5-10.1) mg/dl Total Bilirubin 0.3 (0.2-1) mg/dl AST 18 (15-37) U/L ALT 24 (12-78) U/L Alkaline Phosphatase 106 (45-117) U/L Total Protein 7.4 (6.4-8.2) gm/dl Albumin 3.6 (3.4-5.0) gm/dl Globulin 3.8 (2.5-4.0) gm/dl Albumin/Globulin Ratio 0.9 (0.9-2) TSH 1.150 (0.300-4.500) uIu/ml Urine Color Urine Appearance (Clear) Urine pH (4.5-7.5) Ur Specific [place] (1.000-1.030) Urine Protein (Negative) Urine Glucose (UA) (Negative) Urine Ketones (Negative) Urine Blood (Negative) Urine Nitrite (Negative) Urine Bilirubin (Negative) Urine Urobilinogen (Negative) Ur Leukocyte Esterase (Negative) Urine WBC (Auto) (0-5) /hpf Urine RBC (Auto) (0-4) /hpf U Hyaline Cast (Auto) (0-5) /lpf U Epithel Cells (Auto) (0-5) /lpf Urine Bacteria (Auto) (Negative) POC Ur Test (NEG) Salicylates < 1.7 L (2.8-20) mg/dl Urine Opiates Screen (Neg) Ur Methadone, Qual (Neg) Acetaminophen 5 L (10-30) ug/ml Urine Barbiturates (Neg) Ur Phencyclidine (PCP) (Neg) U Amphetamin/Meth Scrn (Neg) MDMA (Ecstasy) Screen (Neg) U Benzodiazepines Scrn (Neg) Ur Cocaine Metabolite (Neg) U Marijuana (THC) Screen (Neg) Ethyl Alcohol mg/dL < 3.0 (0-3) mg/dl 07/21/19 Range/Units 17:07 WBC (4.8-10.8) K/uL RBC (4.2-5.4) M/uL Hgb (12.0-16.0) g/dL Hct (37-47) % MCV (80-100) fL MCH (25-34) pg MCHC (32-36) g/dL RDW Std Deviation (36.4-46.3) fL RDW Coeff of Charis (11.5-14.5) % Plt Count (130-400) K/uL MPV (7.4-10.4) fL Immature Gran % (Auto) % Neut % (Auto) % Lymph % (Auto) % Brule % (Auto) % Eos % (Auto) % Baso % (Auto) % Immature Gran # (Auto) (0.00-0.02) K/uL Neut # (Auto) (1.4-6.5) K/uL Lymph # (Auto) (1.2-3.4) K/uL Brule # (Auto) (0.11-0.59) K/uL Eos # (Auto) (0-0.5) K/uL Baso # (Auto) (0-0.2) K/uL Sodium (136-145) mmol/L Potassium (3.5-5.1) mmol/L Chloride (98-107) mmol/L Carbon Dioxide (21-32) mmol/L Anion Gap (3-11) BUN (7-18) mg/dl Creatinine (0.6-1.2) mg/dl Est Cr Clr Drug Dosing ml/min Est GFR ( Amer) Est GFR (Non-Af Amer) BUN/Creatinine Ratio (10-20) Glucose (70-99) mg/dl Calcium (8.5-10.1) mg/dl Total Bilirubin (0.2-1) mg/dl AST (15-37) U/L ALT (12-78) U/L Alkaline Phosphatase (45-117) U/L Total Protein (6.4-8.2) gm/dl Albumin (3.4-5.0) gm/dl Globulin (2.5-4.0) gm/dl Albumin/Globulin Ratio (0.9-2) TSH (0.300-4.500) uIu/ml Urine Color Urine Appearance (Clear) Urine pH (4.5-7.5) Ur Specific [place] (1.000-1.030) Urine Protein (Negative) Urine Glucose (UA) (Negative) Urine Ketones (Negative) Urine Blood (Negative) Urine Nitrite (Negative) Urine Bilirubin (Negative) Urine Urobilinogen (Negative) Ur Leukocyte Esterase (Negative) Urine WBC (Auto) (0-5) /hpf Urine RBC (Auto) (0-4) /hpf U Hyaline Cast (Auto) (0-5) /lpf U Epithel Cells (Auto) (0-5) /lpf Urine Bacteria (Auto) (Negative) POC Ur Test NEG (NEG) Salicylates (2.8-20) mg/dl Urine Opiates Screen (Neg) Ur Methadone, Qual (Neg) Acetaminophen (10-30) ug/ml Urine Barbiturates (Neg) Ur Phencyclidine (PCP) (Neg) U Amphetamin/Meth Scrn (Neg) MDMA (Ecstasy) Screen (Neg) U Benzodiazepines Scrn (Neg) Ur Cocaine Metabolite (Neg) U Marijuana (THC) Screen (Neg) Ethyl Alcohol mg/dL (0-3) mg/dl Blood Pressure Blood Pressure Findings: Elevated blood pressure Blood Pressure Disposition: elevated BP felt to be situational MDM Narrative This patient was evaluated and appeared to be in no significant distress. Patient was medically cleared and evaluated by the mental health telephonic nurse case manager. Patient is felt to meet criteria for inpatient psychiatric care for her suicidal ideation. Patient was referred to [facility] and accepted on a voluntary basis. Impression & Plan Suicidal ideation Discharge Plan Visit Data *Final* Discharge Date/Time: 07/21/19 20:48 Chief Complaint: Mental Health Evaluation Stated Complaint: SUICIDAL ED Provider: Pricilla Erwin Discharge Problem: Suicidal ideation Patient Disposition: Admitted As Inpatient Discharge Instructions Interventions: ED Discharge Assessment Last Done: 07/21/19 20:47 The scribe's documentation has been prepared under my direction and personally reviewed by me in its entirety. I confirm that the note above accurately reflects all work, treatment, procedures, and medical decision making performed by me.
[2019-07-21] MEDS: BREXPIPRAZOLE PO SCH (22:46)
[2019-07-22] MEDS ORDERED: CEROVITE ADV FORMULA TAB PO SCH (09:00)
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
[2019-07-22] MEDS: CEROVITE ADV FORMULA TAB PO SCH (09:57)
[2019-07-22] MEDS ORDERED: FLUOXETINE HCL 20 MG CAP PO ONE (13:00)
[2019-07-22] MEDS: BREXPIPRAZOLE PO SCH (21:09)
[2019-07-23] MEDS: FLUOXETINE HCL 20 MG CAP PO SCH (10:11)
[2019-07-23] MEDS: CEROVITE ADV FORMULA TAB PO SCH (10:11)
--- NOTE | 2019-07-23 12:16 | Psychiatric Progress Note ---
Date of Service July 23, 2019 Impression / Recommendations Impression 33-year-old female admitted voluntarily for inpatient psychiatric treatment on 07/21/2019 after presenting to the ED with worsening depression and suicidal ideation with multiple verbalized plans. Patient was last admitted to our unit from 05/30/2019 through 06/06/2019 for similar symptoms. Patient was discharged on 40 mg of fluoxetine and outpatient psychiatric providers for arranged. Patient presents with worsening of mood and suicidal ideation for the past several days. She has continued to take 40 mg of fluoxetine daily, and brexpiprazole was recently initiated in the last week. Brexpiprazole was tit rated from 0.5mg to 1mg two evenings ago according to outpatient instructions. She endorses worsening of symptoms consistent with akathisia, but is hesitant to discontinue the medication entirely. She was agreeable with recommendation to at least reduce dose back to 0.5mg qHS. Will plan to continue fluoxetine at 60 mg qAM. Patient's was involved in a meeting to discuss discharge and sa fety planning. Patient continues to verbalize inability to contract for safety outside of the hospital setting - admitting to ongoing SI, even worsened at this time due to frustration with medication side effects. She is at high risk for suicide if she is discharged prematurely without adequate medication of risk factors. Inpatient psychiatric hospitalization remains medically necessary at this time. (1) Suicidal ideation: 2/4 - Admitted to a locked inpatient behavioral health unit, on q15 minute safety checks - Encourage medication initiation/adjustments as indicated - Encourage participation in group and recreational therapies - Gather collateral information from outpatient providers - Suggest family meeting to involve outpatient supports in safety planning - Arrange appropriate aftercare 2/5 - Pt endorses ongoing SI, admitting to significant frustration that medications are not as effective as she had hoped and "I'm out of hope that things will get better." - Pt is unable to contract for safety outside of the hospital setting at this time (2) Depression: 2/4 - Working diagnosis of major depressive disorder, recurrent, severe without psychotic features. Pt questions diagnosis of schizoaffective disorder, depressed type based on perceived visual hallucinations - patient's reports are more consistent with intermittent (less than once a month) visual illusions in her periphery and would not yet label them as true hallucinations. Will continue attempt to gather collateral information and have patient monitor mood and related symptoms in order to further clarify diagnosis. - Continue brexpiprazole 1mg qHS, patient states the medication was titrated to this dose from 0.5mg last evening - Titrate fluoxetine to 60mg qAM to better target depressive symptoms - Coordinate care with patient's outpatient psychiatric providers - Involve in a family meeting to discuss discharge and safety planning 07/23 - Pt continues to reports symptoms most likely consistent with akathisia - inability to sit still, need to keep pacing, feeling as though she is being run by a motor. She believes these feelings have worsened since brexpiprazole was titrated to 1mg two evenings ago. Pt is hesitant to discontinue the medication altogether as she does believe it has a positive effect on her mood. She is agreeable with reducing the dose to 0.5mg qHS at this time - continuing to utilize prn hydroxyzine for restlessness as needed - Continue fluoxetine 60mg daily - Family meeting held with this morning - Coordinate care with outpatient providers Protective Factors Assessment Employed: No Interval History Identifying Information LUZ IZAGUIRRE is a 33-year-old F who currently lives in [place] with her and 5 children. Pt has a history of recurrent depression, most recently hospitalized on our unit from 05/30/2019 - 06/06/2019 for worsening depression with active SI. Pt was admitted on 07/21/19 20:34 on a 201 voluntary commitment for similar symptoms - reporting worsening depression with suicidal ideation. Chief Complaint "I just feel very restless still." Review of Systems Notes Constitutional: reports excessive physical restlessness "I just cannot sit still" Cardiovascular: denied Respiratory: denied Gastrointestinal: denied Neurological: increased difficulty with concentration Psychiatric: denies symptoms other than stated above Total of at least 10 systems reviewed, pertinent positives as above and in HPI. Sleep Information Total Hours of Sleep: 8 Sleep Comments: pt on q-15 minute checks Meal Information Percent Meal Consumed - Breakfast: 100 Percent Meal Consumed - Lunch: 75 Percent Meal Consumed - Dinner: 100 Subjective Subjective Patient was seen & assessed and interval progress reviewed with treatment team. Staff report that the patient is scheduled to have a family meeting with her this morning. She had a meeting with her outpatient returned case inspector yesterday afternoon. Pt has been participating in group programming appropriately. Pt was seen today to assess progress since admission. She provides verbal consent to allow Francine Masterson PA-C to observe today's encounter. Pt states that she is feeling "very restless still." She does believe that this feeling has worsened since increasing her dose of brexpiprazole 2 evenings ago. Pt experienced similar symptoms with trial of aripiprazole. Although patient admits she is uncomfortable and "cannot stand feeling this way", she does admit that the medication helps to keep her thoughts calm and clear, and therefore does not want to discontinue it entirely just yet. She was agreeable with at least reducing the dose back to 0.5mg qHS. Pt admits these symptoms were not occurring with initiation of fluoxetine and are less likely related to this medication. Pt states that the meeting with her went well. She does endorse ongoing SI, stating she would be concerned to leave the hospital in her current condition. She admits to hopelessness, feeling "there is just a time clock in my head, I feel like I've been depressed for so long and nothing helps." Pt admits that the suicidal thoughts are rather strong presently, and she states "If I were to go home right now it would not be good." Pt also endorses concern for ongoing nightmares - vivid and distressing. She denies other acute needs at this time. Physical Exam Psychiatric Orientation: alert, oriented x 3 and cooperative Apperance: appropriately dressed, appropriately groomed and appeared stated age Eye Contact: good eye contact Motor Behavior: steady gait and station and + psychomotor agitation (moderate fidgeting, rubbing hands together) Speech: normal rate/rhythm/volume of speech Affect: + depressed affect (appearing more subdued today), + anxious affect and mood congruent with affect Mood: + depressed mood; no anxious mood (states her thoughts are not racing, but physically feels anxious) "My emotions are neutral" and "It's like I have all the physical symptoms of anxiety without the racing thoughts." Thought Process: goal directed thought process, clear/coherent thought process and thought association intact Thought Content: reality based without delusions and + hopelessness ("I have a time clock in my head, I keep feeling this way and nothing helps") Suicidal Thoughts: + reports suicidal thoughts and + reports suicidal plan Pt endorses ongoing SI, stating "I'm sure I would go right back to thinking badly as soon as I go home." She endorses considerable hopelessness. "If I were to go home right now, it would not be good." Homicidal Thoughts: denies homicidal thoughts Hallucinations: no auditory hallucinations and no visual hallucinations Cognition: remote memory grossly intact, attention grossly intact and language grossly intact Insight: + fair insight Judgement: + fair judgement Vital Signs (Past 24 Hours) Last Vital Signs Temp 36.6 C 07/23/19 06:57 Pulse 77 07/23/19 06:57 Resp 18 07/23/19 06:57 BP 127/87 07/23/19 06:57 Pulse Ox 98 07/21/19 20:00 Results & Data Current Inpatient Medications Current Inpatient Medications: Current Inpatient Medications Acetaminophen (Tylenol) 650 mg PO Q4H PRN PRN Reason: Headache or Minor Fever Stop: 08/20/19 21:29 Al Hydrox/Mg Hydrox/Simethicone (Maalox) 30 ml PO Q4H PRN PRN Reason: GI Upset Stop: 08/20/19 21:29 Bismuth Subsalicylate (Kaopectate) 15 ml PO PRN PRN PRN Reason: Loose Stool Stop: 08/20/19 21:29 Brexpiprazole (Rexulti) 1 ea PO HS MARK Stop: 08/20/19 21:59 Last Admin: 07/22/19 21:09 Dose: 1 ea Documented by: Fluoxetine HCl (Prozac) 60 mg PO QAM MARK Stop: 08/22/19 08:59 Last Admin: 07/23/19 10:11 Dose: 60 mg Documented by: Hydroxyzine HCl (Vistaril) 50 mg PO HSZ PRN PRN Reason: Insomnia Stop: 08/20/19 21:29 Hydroxyzine HCl (Vistaril) 25 mg PO Q4H PRN PRN Reason: Anxiety Stop: 08/20/19 21:29 Last Admin: 07/23/19 09:45 Dose: 25 mg Documented by: Magnesium Hydroxide (Milk Of Magnesia) 30 ml PO DAILY PRN PRN Reason: Constipation Stop: 08/20/19 21:29 Multivitamins/Minerals (Multivitamin W/ Minerals Tab) 1 tab PO QAM MARK Stop: 08/21/19 08:59 Last Admin: 07/23/19 10:11 Dose: 1 tab Documented by: Sodium Chloride ([place] Nasal) 1 - 2 sprays NA PRN PRN PRN Reason: Nasal Dryness/Congestion Stop: 08/20/19 21:29 Mental Health & Subst Abuse Tx Psychiatrist Name of Psychiatrist: Sheryl Baxter Psychiatrist's Therapist Name of Therapist: Wilian Kitchen Therapist's Date of Therapist Appointment: 07/25/19 Time of Therapist Appointment: 1pm Dump Motor Operator Name of Dump Motor Operator: Molly @ [facility] Phone Number for Dump Motor Operator: [phone] Post Discharge Appointments Primary Care Physician Name Of Family Doctor: Brandee Villaseñor Primary Care (1) Depression Depression Type: unspecified Qualified Code(s): F32.9 - Major depressive d isorder, single episode, unspecified
[2019-07-23] MEDS: BREXPIPRAZOLE PO SCH (21:18)
[2019-07-24 08:09] LABS: Glucose Fasting 92 mg/dl (70-99)
[2019-07-24 08:15] LABS: Chol HDL Ratio 3; Cholesterol 180 mg/dl (0-200); HDL Cholesterol 60 mg/dl; LDL Cholesterol Calculated 102 mg/dl; Triglycerides 88 mg/dl (0-150); VLDL Cholesterol 18 mg/dl
[2019-07-24] MEDS: CEROVITE ADV FORMULA TAB PO SCH (08:47)
[2019-07-24] MEDS: FLUOXETINE HCL 20 MG CAP PO SCH (08:47)
--- NOTE | 2019-07-24 09:23 | Psychiatric Progress Note ---
Date of Service July 24, 2019 Impression / Recommendations Impression 33-year-old female admitted voluntarily for inpatient psychiatric treatment on 07/21/2019 after presenting to the ED with worsening depression and suicidal ideation with multiple verbalized plans. Patient was last admitted to our unit from 05/30/2019 through 06/06/2019 for similar symptoms. Patient was discharged on 40 mg of fluoxetine and outpatient psychiatric providers for arranged. Patient presents with worsening of mood and suicidal ideation for the past several days. She has continued to take 40 mg of fluoxetine daily, and brexpiprazole was recently initiated in the last week. Brexpiprazole was tit rated from 0.5mg to 1mg two evenings ago according to outpatient instructions. She endorses worsening of symptoms consistent with akathisia, but is hesitant to discontinue the medication entirely. She was agreeable with recommendation to at least reduce dose back to 0.5mg qHS. Will plan to continue fluoxetine at 60 mg qAM. Patient's was involved in a meeting to discuss discharge and sa fety planning. Patient continues to verbalize inability to contract for safety outside of the hospital setting - admitting to ongoing SI, even worsened at this time due to frustration with medication side effects. She is at high risk for suicide if she is discharged prematurely without adequate medication of risk factors. Inpatient psychiatric hospitalization remains medically necessary at this time. (1) Suicidal ideation: 2/ - Admitted to a locked inpatient behavioral health unit, on q15 minute safety checks - Encourage medication initiation/adjustments as indicated - Encourage participation in group and recreational therapies - Gather collateral information from outpatient providers - Suggest family meeting to involve outpatient supports in safety planning - Arrange appropriate aftercare 2/5 - Pt endorses ongoing SI, admitting to significant frustration that medications are not as effective as she had hoped and "I'm out of hope that things will get better." - Pt is unable to contract for safety outside of the hospital setting at this time 2/6 - Ongoing SI - this morning with specific thoughts to jump out the window of her bedroom or stab herself with a pen - Pt able to contract for safety on the unit, admitting she felt she could come to staff before acting on these thoughts - Pt remains unable at this time to contract for safety outside of the inpatient hospital setting (2) Depression: 2/4 - Working diagnosis of major depressive disorder, recurrent, severe without psychotic features. Pt questions diagnosis of schizoaffective disorder, depressed type based on perceived visual hallucinations - patient's reports are more consistent with intermittent (less than once a month) visual illusions in her periphery and would not yet label them as true hallucinations. Will continue attempt to gather collateral information and have patient monitor mood and related symptoms in order to further clarify diagnosis. - Continue brexpiprazole 1mg qHS, patient states the medication was titrated to this dose from 0.5mg last evening - Titrate fluoxetine to 60mg qAM to better target depressive symptoms - Coordinate care with patient's outpatient psychiatric providers - Involve in a family meeting to discuss discharge and safety planning 07/23 - Pt continues to reports symptoms most likely consistent with akathisia - inability to sit still, need to keep pacing, feeling as though she is being run by a motor. She believes these feelings have worsened since brexpiprazole was titrated to 1mg two evenings ago. Pt is hesitant to discontinue the medication altogether as she does believe it has a positive effect on her mood. She is agreeable with reducing the dose to 0.5mg qHS at this time - continuing to utilize prn hydroxyzine for restlessness as needed - Continue fluoxetine 60mg daily - Family meeting held with this morning - Coordinate care with outpatient providers 07/24 - Continue combination of fluoxetine 60mg and brexpiprazole 0.5mg - Pt reports feeling pleased with revised safety plan - Attempt made yesterday to discuss patient's case with outpatient psychiatric prescriber, no return call as of yet Protective Factors Assessment Employed: No Interval History Identifying Information LUZ IZAGUIRRE is a 33-year-old F who currently lives in [place] with her and 5 children. Pt has a history of recurrent depression, most recently hospitalized on our unit from 05/30/2019 - 06/06/2019 for worsening depression with active SI. Pt was admitted on 07/21/19 20:34 on a 201 voluntary commitment for similar symptoms - reporting worsening depression with suicidal ideation. Chief Complaint "I feel pretty good now. This morning was pretty rough." Review of Systems Notes Constitutional: denied Cardiovascular: reports intermittent "squeezing" chest pain - rhythmic with heart beat Respiratory: denied Gastrointestinal: denied Neurological: denied Psychiatric: denies symptoms other than stated above Total of at least 10 systems reviewed, pertinent positives as above and in HPI. Sleep Information Total Hours of Sleep: 7.25 Sleep Comments: pt on q-15 minute checks Meal Information Percent Meal Consumed - Breakfast: 100 Percent Meal Consumed - Lunch: 75 Percent Meal Consumed - Dinner: 100 Subjective Subjective Patient was seen & assessed and interval progress reviewed with nursing and social work. Staff report the patient had a family meeting with her yesterday, which reportedly went well. Patient continues to endorse suicidal ideation, and stated she was feeling "disconnected and guilty" last evening - largely due to being from her family. Patient was seen today to assess progress since admission. She provides verbal consent to allow Francine Masterson PA-C to observe today's encounter. Patient states that she was having a rather rough morning, but "I feel good now." Patient is seen today just after meeting with her outpatient rn case manager. Patient states the two were able to work on a new safety plan. Patient admits she is feeling much more satisfied with her current safety plan, feeling it includes more coping strategies she can do while incorporating her young children. Patient states "I think the issue with the first one was I would have to leave my kids to do anything that would help distract me." Despite feeling more comfortable with her safety plan, patient continues to endorse suicidal ideation. She states it was significantly worse this morning, as she admits to having negative thinking of "I wonder how thick the glass [of the windows] is, I just thought about running out" and "I was thinking about taking a pen and stabbing myself." Patient states she was ultimately able to distract herself from these thoughts by continuing the utilization of various coping strategies. She states that this is seemingly more helpful today, as she is not as restless. Patient does admit to noticeable improvement since reducing her dose of brexpiprazole resolved back to 0.5 mg nightly. Patient does endorse intermittent moments of "chest pain that happens when my heart is beating." She describes this pain as "squeezing", but admits that it is not chronic. Patient denies other significant needs or concerns at this time. Physical Exam Psychiatric Orientation: alert, oriented x 3 and cooperative Apperance: appropriately dressed, appropriately groomed and appeared stated age Eye Contact: good eye contact Motor Behavior: steady gait and station and no abnormal motor movements Speech: normal rate/rhythm/volume of speech Affect: + depressed affect and mood congruent with affect Mood: + depressed mood Thought Process: goal directed thought process, clear/coherent thought process and thought association intact Thought Content: reality based without delusions and + hopelessness Suicidal Thoughts: + reports suicidal thoughts and + reports suicidal plan (thoughts this morning to jump out window or stab self with pen) Homicidal Thoughts: denies homicidal thoughts Hallucinations: no auditory hallucinations and no visual hallucinations Cognition: attention grossly intact and language grossly intact Insight: + fair insight Judgement: + fair judgement Vital Signs (Past 24 Hours) Last Vital Signs Temp 36.5 C 07/24/19 06:48 Pulse 60 07/24/19 06:49 Resp 18 07/24/19 06:48 BP 125/89 07/24/19 06:49 Pulse Ox 98 07/21/19 20:00 Results & Data Laboratory Results Laboratory Results - last 24 hr 07/24/19 07:27 Fasting Glucose 92 Triglycerides 88 Cholesterol 180 LDL Cholesterol, Calc 102 VLDL Cholesterol, Calc 18 HDL Cholesterol 60 Cholesterol/HDL Ratio 3 Current Inpatient Medications Current Inpatient Medications: Current Inpatient Medications Acetaminophen (Tylenol) 650 mg PO Q4H PRN PRN Reason: Headache or Minor Fever Stop: 08/20/19 21:29 Al Hydrox/Mg Hydrox/Simethicone (Maalox) 30 ml PO Q4H PRN PRN Reason: GI Upset Stop: 08/20/19 21:29 Bismuth Subsalicylate (Kaopectate) 15 ml PO PRN PRN PRN Reason: Loose Stool Stop: 08/20/19 21:29 Brexpiprazole (Rexulti) 0.5 ea PO HS MARK Stop: 08/22/19 21:59 Last Admin: 07/23/19 21:18 Dose: 0.5 ea Documented by: Fluoxetine HCl (Prozac) 60 mg PO QAM MARK Stop: 08/22/19 08:59 Last Admin: 07/24/19 08:47 Dose: 60 mg Documented by: Hydroxyzine HCl (Vistaril) 50 mg PO HSZ PRN PRN Reason: Insomnia Stop: 08/20/19 21:29 Hydroxyzine HCl (Vistaril) 25 mg PO Q4H PRN PRN Reason: Anxiety Stop: 08/20/19 21:29 Last Admin: 07/23/19 09:45 Dose: 25 mg Documented by: Magnesium Hydroxide (Milk Of Magnesia) 30 ml PO DAILY PRN PRN Reason: Constipation Stop: 08/20/19 21:29 Multivitamins/Minerals (Multivitamin W/ Minerals Tab) 1 tab PO QAM MARK Stop: 08/21/19 08:59 Last Admin: 07/24/19 08:47 Dose: 1 tab Documented by: Sodium Chloride ([place] Nasal) 1 - 2 sprays NA PRN PRN PRN Reason: Nasal Dryness/Congestion Stop: 08/20/19 21:29 Mental Health & Subst Abuse Tx Psychiatrist Name of Psychiatrist: Sheryl Baxter Psychiatrist's Date of Appointment with Psychiatrist: 08/07/19 Time of Appointment with Psychiatrist: 13:00 Therapist Name of Therapist: Wilian Kitchen Therapist's Date of Therapist Appointment: 07/25/19 Time of Therapist Appointment: 1 pm Therapy Appointment Comment: Next appt: 07/31 at 4 p.m. Animal Anatomist Name of Animal Anatomist: Terri Castano CM @ [facility] Phone Number for Animal Anatomist: [phone] Post Discharge Appointments Primary Care Physician Name Of Family Doctor: Brandee Villaseñor Primary Care Other #1: Name of Aftercare Appointment: Alex Calderon Animal Anatomist (insurance) Eyad Bahena Phone Number of Aftercare Appointment: [phone] Aftercare Appointment Comment: Please follow up as needed Contact Information Discharge Discharge Address: [address] [place] [address] (1) Depression Depression Type: unspecified Qualified Code(s): F32.9 - Major depressive disorder, single episode, unspecified
[2019-07-24] MEDS: BREXPIPRAZOLE PO SCH (21:32)
--- NOTE | 2019-07-25 09:12 | Psychiatric Progress Note ---
Date of Service July 25, 2019 Impression / Recommendations Impression 33-year-old female admitted voluntarily for inpatient psychiatric treatment on 07/21/2019 after presenting to the ED with worsening depression and suicidal ideation with multiple verbalized plans. Patient was last admitted to our unit from 05/30/2019 through 06/06/2019 for similar symptoms. Patient was discharged on 40 mg of fluoxetine and outpatient psychiatric providers for arranged. Patient presents with worsening of mood and suicidal ideation for the past several days. She has continued to take 40 mg of fluoxetine daily, and brexpiprazole was recently initiated in the last week. Brexpiprazole was tit rated from 0.5mg to 1mg two evenings ago according to outpatient instructions. She endorses worsening of symptoms consistent with akathisia, but is hesitant to discontinue the medication entirely. She was agreeable with recommendation to at least reduce dose back to 0.5mg qHS. Will plan to continue fluoxetine at 60 mg qAM. Patient's was involved in a meeting to discuss discharge and sa fety planning. Patient continues to verbalize inability to contract for safety outside of the hospital setting - admitting to ongoing SI, even worsened at this time due to frustration with medication side effects. She is at high risk for suicide if she is discharged prematurely without adequate medication of risk factors. Inpatient psychiatric hospitalization remains medically necessary at this time. (1) Suicidal ideation: 2/ - Admitted to a locked inpatient behavioral health unit, on q15 minute safety checks - Encourage medication initiation/adjustments as indicated - Encourage participation in group and recreational therapies - Gather collateral information from outpatient providers - Suggest family meeting to involve outpatient supports in safety planning - Arrange appropriate aftercare 2/5 - Pt endorses ongoing SI, admitting to significant frustration that medications are not as effective as she had hoped and "I'm out of hope that things will get better." - Pt is unable to contract for safety outside of the hospital setting at this time 2/6 - Ongoing SI - this morning with specific thoughts to jump out the window of her bedroom or stab herself with a pen - Pt able to contract for safety on the unit, admitting she felt she could come to staff before acting on these thoughts - Pt remains unable at this time to contract for safety outside of the inpatient hospital setting 2 - SI is ongoing - Remains unable to contract for safety outside of the hospital setting (2) Depression: 2/ - Working diagnosis of major depressive disorder, recurrent, severe without psychotic features. Pt questions diagnosis of schizoaffective disorder, depressed type based on perceived visual hallucinations - patient's reports are more consistent with intermittent (less than once a month) visual illusions in her periphery and would not yet label them as true hallucinations. Will continue attempt to gather collateral information and have patient monitor mood and related symptoms in order to further clarify diagnosis. - Continue brexpiprazole 1mg qHS, patient states the medication was titrated to this dose from 0.5mg last evening - Titrate fluoxetine to 60mg qAM to better target depressive symptoms - Coordinate care with patient's outpatient psychiatric providers - Involve in a family meeting to discuss discharge and safety planning 07/23 - Pt continues to reports symptoms most likely consistent with akathisia - inability to sit still, need to keep pacing, feeling as though she is being run by a motor. She believes these feelings have worsened since brexpiprazole was titrated to 1mg two evenings ago. Pt is hesitant to discontinue the medication altogether as she does believe it has a positive effect on her mood. She is agreeable with reducing the dose to 0.5mg qHS at this time - continuing to utilize prn hydroxyzine for restlessness as needed - Continue fluoxetine 60mg daily - Family meeting held with this morning - Coordinate care with outpatient providers 07/24 - Continue combination of fluoxetine 60mg and brexpiprazole 0.5mg - Pt reports feeling pleased with revised safety plan - Attempt made yesterday to discuss patient's case with outpatient psychiatric prescriber, no return call as of yet 07/25 - Continue current medication regimen - Continue to encourage participation in group and recreational programming Protective Factors Assessment Employed: No Interval History Identifying Information LUZ IZAGUIRRE is a 33-year-old F who currently lives in [place] with her and 5 children. Pt has a history of recurrent depression, most recently hospitalized on our unit from 05/30/2019 - 06/06/2019 for worsening depression with active SI. Pt was admitted on 07/21/19 20:34 on a 201 voluntary commitment for similar symptoms - reporting worsening depression with suicidal ideation. Chief Complaint "I am okay... I was having really bad nightmares all night. It was really gory." Review of Systems Notes Constitutional: reports some ongoing restlessness Cardiovascular: denied Respiratory: denied Gastrointestinal: denied Neurological: denied Psychiatric: denies symptoms other than stated above Total of at least 10 systems reviewed, pertinent positives as above and in HPI. Sleep Information Total Hours of Sleep: 7.5 Sleep Comments: pt on q-15 minute checks Meal Information Percent Meal Consumed - Breakfast: 100 Percent Meal Consumed - Lunch: 100 Percent Meal Consumed - Dinner: 75 Subjective Subjective Patient was seen & assessed and interval progress reviewed with treatment team. Staff reports the patient has continued to attend group and recreational programming. She tolerated a visit with her last evening in a meeting with her vocational case manager yesterday afternoon. Patient rated her mood a 4/10 and "irritated" last evening. Patient was seen today to assess progress since admission. She provides verbal consent to allow Francine Masterson PA-C to observe today's encounter. Patient begins conversation by describing numerous realistic dreams she experienced last evening, stating "there was an insane amount of detail." Patient states that she is planning to begin journaling about her dr wyatt, as this is helped her father who also experiences rather realistic nightmares. Patient states that generally she is comforted by her , and felt improvement in mood after she was able to talk with him on the phone this morning. Patient states that her mood today is "just okay. I do not feel terrible, but I definitely do not feel great." Patient continues to report improvement in restlessness overall since reducing the dose of brexpiprazole. She admits to still being frustrated with her current mood, but states "I keep forgetting that we did increase the Prozac." Patient reports improvement in suicidality, though admits that it is still present and worrisome. Patient states "this morning I just kept visualizing myself slicing my wrists and watching myself bleed." Patient states that she does not feel she would be able to tolerate these "bad thoughts" if she were home, and remains concerned that she would act on these thoughts. Patient denies acute needs or concerns today, and was encouraged to continue to attend group programming to work on coping strategies and processing these chronic suicidal thoughts. Physical Exam Psychiatric Orientation: alert, oriented x 3 and cooperative Apperance: appropriately dressed, appropriately groomed and appeared stated age Eye Contact: good eye contact Motor Behavior: steady gait and station and no abnormal motor movements Speech: normal rate/rhythm/volume of speech Affect: + depressed affect, + tearful affect and mood congruent with affect Mood: + depressed mood Thought Process: goal directed thought process and clear/coherent thought process Thought Content: reality based without delusions and + hopelessness Suicidal Thoughts: denies suicidal plan ("Sliced my wrist"); + reports suicidal thoughts (Suicidal ideation is ongoing) Patient remains unable to contract for safety outside of the inpatient hospital setting Hallucinations: no auditory hallucinations and no visual hallucinations Cognition: attention grossly intact and language grossly intact Insight: + fair insight Judgement: + fair judgement Vital Signs (Past 24 Hours) Last Vital Signs Temp 36.7 C 07/25/19 06:49 Pulse 73 07/25/19 06:49 Resp 18 07/25/19 06:49 BP 136/99 07/25/19 06:49 Pulse Ox 98 07/21/19 20:00 Results & Data Current Inpatient Medications Current Inpatient Medications: Current Inpatient Medications Acetaminophen (Tylenol) 650 mg PO Q4H PRN PRN Reason: Headache or Minor Fever Stop: 08/20/19 21:29 Al Hydrox/Mg Hydrox/Simethicone (Maalox) 30 ml PO Q4H PRN PRN Reason: GI Upset Stop: 08/20/19 21:29 Bismuth Subsalicylate (Kaopectate) 15 ml PO PRN PRN PRN Reason: Loose Stool Stop: 08/20/19 21:29 Brexpiprazole (Rexulti) 0.5 ea PO HS MARK Stop: 08/22/19 21:59 Last Admin: 07/24/19 21:32 Dose: 0.5 ea Documented by: Fluoxetine HCl (Prozac) 60 mg PO QAM MARK Stop: 08/22/19 08:59 Last Admin: 07/24/19 08:47 Dose: 60 mg Documented by: Hydroxyzine HCl (Vistaril) 50 mg PO HSZ PRN PRN Reason: Insomnia Stop: 08/20/19 21:29 Hydroxyzine HCl (Vistaril) 25 mg PO Q4H PRN PRN Reason: Anxiety Stop: 08/20/19 21:29 Last Admin: 07/23/19 09:45 Dose: 25 mg Documented by: Magnesium Hydroxide (Milk Of Magnesia) 30 ml PO DAILY PRN PRN Reason: Constipation Stop: 08/20/19 21:29 Multivitamins/Minerals (Multivitamin W/ Minerals Tab) 1 tab PO QAM MARK Stop: 08/21/19 08:59 Last Admin: 07/24/19 08:47 Dose: 1 tab Documented by: Sodium Chloride ([place] Nasal) 1 - 2 sprays NA PRN PRN PRN Reason: Nasal Dryness/Congestion Stop: 08/20/19 21:29 Mental Health & Subst Abuse Tx Psychiatrist Name of Psychiatrist: Sheryl Baxter Psychiatrist's Date of Appointment with Psychiatrist: 08/07/19 Time of Appointment with Psychiatrist: 13:00 Therapist Name of Therapist: Wilian Kitchen Therapist's Date of Therapist Appointment: 07/25/19 Time of Therapist Appointment: 1 pm Therapy Appointment Comment: Next appt: 07/31 at 4 p.m. Brand Coordinator Name of Brand Coordinator: Terri Castano CM @ [facility] Phone Number for Brand Coordinator: [phone] Post Discharge Appointments Primary Care Physician Name Of Family Doctor: Brandee Villaseñor Primary Care Other #1: Name of Aftercare Appointment: Alex Calderon Brand Coordinator (insurance) Eyad Bahena Phone Number of Aftercare Appointment: [phone] Aftercare Appointment Comment: Please follow up as needed Contact Information Discharge Discharge Address: [address] [place] [id number] (1) Depression Depression Type: unspecified Qualified Code(s): F32.9 - Major depressive disorder, single episode, unspecified
[2019-07-25] MEDS: FLUOXETINE HCL 20 MG CAP PO SCH (09:57)
[2019-07-25] MEDS: CEROVITE ADV FORMULA TAB PO SCH (09:57)
[2019-07-25] MEDS: BREXPIPRAZOLE PO SCH (20:51)
[2019-07-26] MEDS: FLUOXETINE HCL 20 MG CAP PO SCH (08:43)
[2019-07-26] MEDS: CEROVITE ADV FORMULA TAB PO SCH (08:43)
--- NOTE | 2019-07-26 15:33 | Psychiatric Progress Note ---
Date of Service July 26, 2019 Impression / Recommendations Impression 33-year-old female admitted voluntarily for inpatient psychiatric treatment on 07/21/2019 after presenting to the ED with worsening depression and suicidal ideation with multiple verbalized plans. Patient was last admitted to our unit from 05/30/2019 through 06/06/2019 for similar symptoms. Patient was discharged on 40 mg of fluoxetine and outpatient psychiatric providers for arranged. Patient presents with worsening of mood and suicidal ideation for the past several days. She has continued to take 40 mg of fluoxetine daily, and brexpiprazole was recently initiated in the last week. Brexpiprazole was tit rated from 0.5mg to 1mg two evenings ago according to outpatient instructions. She endorses worsening of symptoms consistent with akathisia, but is hesitant to discontinue the medication entirely. She was agreeable with recommendation to at least reduce dose back to 0.5mg qHS. Will plan to continue fluoxetine at 60 mg qAM. Patient's was involved in a meeting to discuss discharge and sa fety planning. Patient continues to verbalize inability to contract for safety outside of the hospital setting - admitting to ongoing SI, even worsened at this time due to frustration with medication side effects. She is at high risk for suicide if she is discharged prematurely without adequate medication of risk factors. Inpatient psychiatric hospitalization remains medically necessary at this time. (1) Suicidal ideation: 2/ - Admitted to a locked inpatient behavioral health unit, on q15 minute safety checks - Encourage medication initiation/adjustments as indicated - Encourage participation in group and recreational therapies - Gather collateral information from outpatient providers - Suggest family meeting to involve outpatient supports in safety planning - Arrange appropriate aftercare 2/5 - Pt endorses ongoing SI, admitting to significant frustration that medications are not as effective as she had hoped and "I'm out of hope that things will get better." - Pt is unable to contract for safety outside of the hospital setting at this time 2/6 - Ongoing SI - this morning with specific thoughts to jump out the window of her bedroom or stab herself with a pen - Pt able to contract for safety on the unit, admitting she felt she could come to staff before acting on these thoughts - Pt remains unable at this time to contract for safety outside of the inpatient hospital setting 07/25 - SI is ongoing - Remains unable to contract for safety outside of the hospital setting 07/26 -Yet unable to contract for safety outside of the hospital setting (2) Depression: 07/22 - Working diagnosis of major depressive disorder, recurrent, severe without psychotic features. Pt questions diagnosis of schizoaffective disorder, depressed type based on perceived visual hallucinations - patient's reports are more consistent with intermittent (less than once a month) visual illusions in h er periphery and would not yet label them as true hallucinations. Will continue attempt to gather collateral information and have patient monitor mood and related symptoms in order to further clarify diagnosis. - Continue brexpiprazole 1mg qHS, patient states the medication was titrated to this dose from 0.5mg last evening - Titrate fluoxetine to 60mg qAM to better target depressive symptoms - Coordinate care with patient's outpatient psychiatric providers - Involve in a family meeting to discuss discharge and safety planning 07/23 - Pt continues to reports symptoms most likely consistent with akathisia - inability to sit still, need to keep pacing, feeling as though she is being run by a motor. She believes these feelings have worsened since brexpiprazole was titrated to 1mg two evenings ago. Pt is hesitant to discontinue the medication altogether as she does believe it has a positive effect on her mood. She is agreeable with reducing the dose to 0.5mg qHS at this time - continuing to utilize prn hydroxyzine for restlessness as needed - Continue fluoxetine 60mg daily - Family meeting held with this morning - Coordinate care with outpatient providers 07/24 - Continue combination of fluoxetine 60mg and brexpiprazole 0.5mg - Pt reports feeling pleased with revised safety plan - Attempt made yesterday to discuss patient's case with outpatient psychia tric prescriber, no return call as of yet 07/25 - Continue current medication regimen - Continue to encourage participation in group and recreational programming 07/26 -Depression persists with significant anxious component. -Patient agreeable to low-dose Remeron trial for antidepressant augmentation, anxiolysis, sleep, and hopefully some improvement in her restlessness as well. Common risks and benefits reviewed including sedation, dizziness, appetite stimulation. -Also discussed consideration for prazosin or clonidine trial at bedtime however likely not a good candidate secondary to history of bradycardia Protective Factors Assessment Employed: No Interval History Identifying Information LUZ IZAGUIRRE is a 33-year-old F who currently lives in [place] with her and 5 children. Pt has a history of recurrent depression, most recently hospitalized on our unit from 05/30/2019 - 06/06/2019 for worsening depression with active SI. Pt was admitted on 07/21/19 20:34 on a 201 voluntary commitment for similar symptoms - reporting worsening depression with suicidal ideation. Chief Complaint "I really feel like it is chemical. I shouldnt feel this way". Review of Systems Notes Restlessness improved but unresolved Sleep Information Total Hours of Sleep: 7 Sleep Comments: pt on q-15 minute checks Meal Information Percent Meal Consumed - Breakfast: 100 Percent Meal Consumed - Lunch: 100 Percent Meal Consumed - Dinner: 100 Subjective Subjective Patient was seen & assessed and interval progress reviewed with treatment team. Patient is on a 201 voluntary commitment. Staff report continued nightmares. Compliant with medications and participating in unit programming. Patient describes a longstanding history of mood disturbance and nightmares. Interestingly she reports that she used to sleepwalk as a child, that her brother sleepwalks, and that her father has nightmares frequently as well. Dream content often includes scary imagery and seems where she is victimized or things are unsafe such as home being burglarized or being attacked by others with weapons. She tends to wake feeling anxious. She denies sleepwalking as an adult or other obvious REM sleep behaviors. She denies a family history of Lewy body disease, Parkinson's disease, or diagnosed parasomnias. Reviewed perception of some mood benefit and increased "clarity" of thought process with Rexulti but intolerable restlessness which has improved but not resolved with most recent dose reduction. Reviewed history of OCD spectrum symptoms, worse in childhood. She feels that she has become a little more flexible in her thinking with age however thoughts still commonly feel anxious, racing, "like I have to narrate everything that happens in my life." She expresses frustration with her lack of control over her emotional experiences and does not yet feel confident that she would be safe outside of the hospital despite an expressed strong desire to be happy and well and there for her family. Physical Exam Psychiatric Orientation: alert, oriented x 3 and cooperative Apperance: appropriately dressed and appropriately groomed Eye Contact: + fair eye contact Motor Behavior: + akathisia (mild) Speech: no pressured speech (+overproductive) Affect: + depressed affect, + anxious affect and mood congruent with affect Mood: + depressed mood and + anxious mood Thought Process: goal directed thought process and + circumstantial thought process Thought Content: reality based without delusions and + hopelessness Suicidal Thoughts: + reports suicidal thoughts Hallucinations: no auditory hallucinations and no visual hallucinations Cognition: recent memory grossly intact Insight: + fair insight Judgement: + fair judgement Vital Signs (Past 24 Hours) Last Vital Signs Temp 36.6 C 07/26/19 07:11 Pulse 68 07/26/19 07:12 Resp 16 07/26/19 07:11 BP 118/83 07/26/19 07:12 Pulse Ox 98 07/21/19 20:00 Results & Data Current Inpatient Medications Current Inpatient Medications: Current Inpatient Medications Acetaminophen (Tylenol) 650 mg PO Q4H PRN PRN Reason: Headache or Minor Fever Stop: 08/20/19 21:29 Al Hydrox/Mg Hydrox/Simethicone (Maalox) 30 ml PO Q4H PRN PRN Reason: GI Upset Stop: 08/20/19 21:29 Bismuth Subsalicylate (Kaopectate) 15 ml PO PRN PRN PRN Reason: Loose Stool Stop: 08/20/19 21:29 Brexpiprazole (Rexulti) 0.5 ea PO HS MARK Stop: 08/22/19 21:59 Last Admin: 07/25/19 20:51 Dose: 0.5 ea Documented by: Fluoxetine HCl (Prozac) 60 mg PO QAM MARK Stop: 08/22/19 08:59 Last Admin: 07/26/19 08:43 Dose: 60 mg Documented by: Hydroxyzine HCl (Vistaril) 50 mg PO HSZ PRN PRN Reason: Insomnia Stop: 08/20/19 21:29 Hydroxyzine HCl (Vistaril) 25 mg PO Q4H PRN PRN Reason: Anxiety Stop: 08/20/19 21:29 Last Admin: 07/23/19 09:45 Dose: 25 mg Documented by: Magnesium Hydroxide (Milk Of Magnesia) 30 ml PO DAILY PRN PRN Reason: Constipation Stop: 08/20/19 21:29 Mirtazapine (Remeron) 15 mg PO HS MARK Stop: 08/25/19 21:59 Multivitamins/Minerals (Multivitamin W/ Minerals Tab) 1 tab PO QAM MARK Stop: 08/21/19 08:59 Last Admin: 07/26/19 08:43 Dose: 1 tab Documented by: Sodium Chloride ([place] Nasal) 1 - 2 sprays NA PRN PRN PRN Reason: Nasal Dryness/Congestion Stop: 08/20/19 21:29 Mental Health & Subst Abuse Tx Psychiatrist Name of Psychiatrist: Sheryl Baxter Psychiatrist's Date of Appointment with Psychiatrist: 08/07/19 Time of Appointment with Psychiatrist: 13:00 Psychiatric Appointment Comment: [id number] [facility] Therapist Name of Therapist: Wilian Kitchen Therapist's Date of Therapist Appointment: 07/31/19 Time of Therapist Appointment: 4 p.m. Therapy Appointment Comment: Next appt: 07/31 at 4 p.m. [employer] Name of [employer]: Terri Castano CM @ [facility] Phone Number for [employer]: [phone] Date of Appointment with [employer]: 07/29/19 Time of Appointment with [employer]: 5:00 p.m. Case Management Appointment Comment: Will meet you on the unit or at home Post Discharge Appointments Primary Care Physician Name Of Family Doctor: Lela Villaseñor Primary Care Provider Appointment Comment: [address] [place] [address] [place] [id number] Other #1: Name of Aftercare Appointment: [place] [employer] (insurance) Eyad Bahena Phone Number of Aftercare Appointment: [phone] Aftercare Appointment Comment: Please follow up as needed Contact Information Discharge Discharge Address: [address] [place] [id number] (1) Depression Depression Type: unspecified Qualified Code(s): F32.9 - Major depressive disorder, single episode, unspecified
[2019-07-26] MEDS: BREXPIPRAZOLE PO SCH (20:57)
[2019-07-26] MEDS: MIRTAZAPINE TAB 15 MG TAB PO SCH (20:57)
[2019-07-27] MEDS: FLUOXETINE HCL 20 MG CAP PO SCH (08:34)
[2019-07-27] MEDS: CEROVITE ADV FORMULA TAB PO SCH (08:34)
--- NOTE | 2019-07-27 11:47 | Psychiatric Progress Note ---
Date of Service July 27, 2019 Impression / Recommendations Impression 33-year-old female admitted voluntarily for inpatient psychiatric treatment on 07/21/2019 after presenting to the ED with worsening depression and suicidal ideation with multiple verbalized plans. Patient was last admitted to our unit from 05/30/2019 through 06/06/2019 for similar symptoms. Patient was discharged on 40 mg of fluoxetine and outpatient psychiatric providers for arranged. Patient presents with worsening of mood and suicidal ideation for the past several days. She has continued to take 40 mg of fluoxetine daily, and brexpiprazole was recently initiated in the last week. Brexpiprazole was tit rated from 0.5mg to 1mg two evenings ago according to outpatient instructions. She endorses worsening of symptoms consistent with akathisia, but is hesitant to discontinue the medication entirely. She was agreeable with recommendation to at least reduce dose back to 0.5mg qHS. Will plan to continue fluoxetine at 60 mg qAM. Patient's was involved in a meeting to discuss discharge and sa fety planning. Patient continues to verbalize inability to contract for safety outside of the hospital setting - admitting to ongoing SI, even worsened at this time due to frustration with medication side effects. She is at high risk for suicide if she is discharged prematurely without adequate medication of risk factors. Inpatient psychiatric hospitalization remains medically necessary at this time. (1) Suicidal ideation: 2/ - Admitted to a locked inpatient behavioral health unit, on q15 minute safety checks - Encourage medication initiation/adjustments as indicated - Encourage participation in group and recreational therapies - Gather collateral information from outpatient providers - Suggest family meeting to involve outpatient supports in safety planning - Arrange appropriate aftercare 2/5 - Pt endorses ongoing SI, admitting to significant frustration that medications are not as effective as she had hoped and "I'm out of hope that things will get better." - Pt is unable to contract for safety outside of the hospital setting at this time 2/6 - Ongoing SI - this morning with specific thoughts to jump out the window of her bedroom or stab herself with a pen - Pt able to contract for safety on the unit, admitting she felt she could come to staff before acting on these thoughts - Pt remains unable at this time to contract for safety outside of the inpatient hospital setting 2 - SI is ongoing - Remains unable to contract for safety outside of the hospital setting 07/26 -Yet unable to contract for safety outside of the hospital setting 07/27 -Patient appearing a little more confident that she is progressing towards improved safety and eventual discharge today (2) Depression: 07/22 - Working diagnosis of major depressive disorder, recurrent, severe without psychotic features. Pt questions diagnosis of schizoaffective disorder, depressed type based on perceived visual hallucinations - patient's reports are more consistent with intermittent (less than once a month) visual illusions in her periphery and would not yet label them as true hallucinations. Will co ntinue attempt to gather collateral information and have patient monitor mood and related symptoms in order to further clarify diagnosis. - Continue brexpiprazole 1mg qHS, patient states the medication was titrated to this dose from 0.5mg last evening - Titrate fluoxetine to 60mg qAM to better target depressive symptoms - Coordinate care with patient's outpatient psychiatric providers - Involve in a family meeting to discuss discharge and safety planning 07/23 - Pt continues to reports symptoms most likely consistent with akathisia - inability to sit still, need to keep pacing, feeling as though she is being run by a motor. She believes these feelings have worsened since brexpiprazole was titrated to 1mg two evenings ago. Pt is hesitant to discontinue the medication altogether as she does believe it has a positive effect on her mood. She is agreeable with reducing the dose to 0.5mg qHS at this time - continuing to utilize prn hydroxyzine for restlessness as needed - Continue fluoxetine 60mg daily - Family meeting held with this morning - Coordinate care with outpatient providers 07/24 - Continue combination of fluoxetine 60mg and brexpiprazole 0.5mg - Pt reports feeling pleased with revised safety plan - Attempt made yesterday to discuss patient's case with outpatient psychiatric prescriber, no return call as of yet 07/25 - Continue current medication regimen - Continue to encourage participation in group and recreational programming 07/26 -Depression persists with significant anxious component. -Patient agreeable to low-dose Remeron trial for antidepressant augmentation, anxiolysis, sleep, and hopefully some improvement in her restlessness as well. Common risks and benefits reviewed including sedation, dizziness, appetite stimulation. -Also discussed consideration for prazosin or clonidine trial at bedtime however likely not a good candidate secondary to history of bradycardia 07/27 -Tolerated first dose of Remeron last night with dramatically improved sleep. Hopefully this will ultimately demonstrate a positive augmenting effect for depression and obsessive quality of anxiety. Protective Factors Assessment Employed: No Interval History Identifying Information LUZ IZAGUIRRE is a 33-year-old F who currently lives in [place] with her and 5 children. Pt has a history of recurrent depression, most recently hospitalized on our unit from 05/30/2019 - 06/06/2019 for worsening depression with active SI. Pt was admitted on 07/21/19 20:34 on a 201 voluntary commitment for similar symptoms - reporting worsening depression with suicidal ideation. Chief Complaint " That is the first time that I have not had a nightmare in years". Review of Systems Sleep Information Total Hours of Sleep: 7.5 Sleep Comments: pt on q-15 minute checks Meal Information Percent Meal Consumed - Breakfast: 100 Percent Meal Consumed - Lunch: 100 Percent Meal Consumed - Dinner: 100 Nutrition Comment: per meal record Subjective Subjective Patient was seen & assessed and interval progress reviewed with treatment team. Patient was started on Remeron last evening. She describes the best nights sleep that she has had in a very long time. Covers were undisturbed this morning. No nightmares last night for the first time in years. Denies residual grogginess or dizziness or any other concerns associated with first dose of medication so far. She expresses improved hopefulness with improved rest. "I feel like I may be getting closer to being ready to go home." Denies suicidal thoughts in the last 24 hours. Staff report that she continues to do well on the unit, participating in groups, and rated her mood 8 out of 10 last evening. Physical Exam Psychiatric Orientation: alert, oriented x 3 and cooperative Apperance: appropriately dressed and appropriately groomed Eye Contact: good eye contact Motor Behavior: no abnormal motor movements Speech: normal rate/rhythm/volume of speech Affect: mood congruent with affect; no constricted affect Mood: + depressed mood ("getting better") Thought Process: goal directed thought process Thought Content: reality based without delusions Suicidal Thoughts: denies suicidal thoughts Homicidal Thoughts: denies homicidal thoughts Cognition: recent memory grossly intact Insight: good insight Judgement: + fair judgement Vital Signs (Past 24 Hours) Last Vital Signs Temp 36.7 C 07/27/19 06:54 Pulse 74 07/27/19 06:55 Resp 16 07/27/19 06:54 BP 112/80 07/27/19 06:55 Pulse Ox 98 07/21/19 20:00 Results & Data Current Inpatient Medications Current Inpatient Medications: Current Inpatient Medications Acetaminophen (Tylenol) 650 mg PO Q4H PRN PRN Reason: Headache or Minor Fever Stop: 08/20/19 21:29 Al Hydrox/Mg Hydrox/Simethicone (Maalox) 30 ml PO Q4H PRN PRN Reason: GI Upset Stop: 08/20/19 21:29 Bismuth Subsalicylate (Kaopectate) 15 ml PO PRN PRN PRN Reason: Loose Stool Stop: 08/20/19 21:29 Brexpiprazole (Rexulti) 0.5 ea PO HS MARK Stop: 08/22/19 21:59 Last Admin: 07/26/19 20:57 Dose: 0.5 ea Documented by: Fluoxetine HCl (Prozac) 60 mg PO QAM MARK Stop: 08/22/19 08:59 Last Admin: 07/27/19 08:34 Dose: 60 mg Documented by: Hydroxyzine HCl (Vistaril) 50 mg PO HSZ PRN PRN Reason: Insomnia Stop: 08/20/19 21:29 Hydroxyzine HCl (Vistaril) 25 mg PO Q4H PRN PRN Reason: Anxiety Stop: 08/20/19 21:29 Last Admin: 07/23/19 09:45 Dose: 25 mg Documented by: Magnesium Hydroxide (Milk Of Magnesia) 30 ml PO DAILY PRN PRN Reason: Constipation Stop: 08/20/19 21:29 Mirtazapine (Remeron) 15 mg PO HS MARK Stop: 08/25/19 21:59 Last Admin: 07/26/19 20:57 Dose: 15 mg Documented by: Multivitamins/Minerals (Multivitamin W/ Minerals Tab) 1 tab PO QAM MARK Stop: 08/21/19 08:59 Last Admin: 07/27/19 08:34 Dose: 1 tab Documented by: Sodium Chloride (Humble Nasal) 1 - 2 sprays NA PRN PRN PRN Reason: Nasal Dryness/Congestion Stop: 08/20/19 21:29 Mental Health & Subst Abuse Tx Psychiatrist Name of Psychiatrist: Sheryl Baxter Psychiatrist's Date of Appointment with Psychiatrist: 08/07/19 Time of Appointment with Psychiatrist: 13:00 Psychiatric Appointment Comment: [id number] [facility] Therapist Name of Therapist: Wilian Kitchen Therapist's Date of Therapist Appointment: 07/31/19 Time of Therapist Appointment: 4 p.m. Therapy Appointment Comment: Next appt: 07/31 at 4 p.m. Bale Opener Name of Bale Opener: Terri Castano CM @ [facility] Phone Number for Bale Opener: [phone] Date of Appointment with Bale Opener: 07/29/19 Time of Appointment with Bale Opener: 5:00 p.m. Case Management Appointment Comment: Will meet you on the unit or at home Post Discharge Appointments Primary Care Physician Name Of Family Doctor: Lela Villaseñor Primary Care Provider Appointment Comment: [address] [facility] [place] [id number] Contact Information Discharge Discharge [address]: [address] [place] [address] (1) Depression Depression Type: unspecified Qualified Code(s): F32.9 - Major depressive disorder, single episode, unspecified
[2019-07-27] MEDS: MIRTAZAPINE TAB 15 MG TAB PO SCH (21:17)
[2019-07-27] MEDS: BREXPIPRAZOLE PO SCH (21:18)
[2019-07-28] MEDS: CEROVITE ADV FORMULA TAB PO SCH (08:34)
[2019-07-28] MEDS: FLUOXETINE HCL 20 MG CAP PO SCH (08:35)
--- NOTE | 2019-07-28 09:30 | Discharge Summary ---
Date of Service July 28, 2019 History of Present Illness Lali Saba is a 33-year-old female admitted voluntarily for inpatient psychiatric treatment on 07/21/2019 after presenting to the ED with reports of worsening depression and suicidal ideation with multiple plans. Patient admits to worsening mood, increased distressing nightmares, and development of suicidal ideation with plans to either slit her wrist, overdose, or wreck her car intentionally. Patient was last hospitalized on our unit from 05/30/2019 through 06/06/2019. She was discharged on fluoxetine 40 mg with referral for ongoing psychiatric medication management through [facility]. Patient was also referred for outpatient therapy with Wilian Kitchen. Patient is cooperative with psychiatric evaluation. She states "everything was all right when I got home [from the hospital]. I started getting less sleep, so that was not good." Patient states that she had several days of positive mood, and then began to notice a worsening of depressive symptoms. Patient states that she was initiated on aripiprazole by her outpatient psychiatric prescriber. She states that she began feeling "jittery, hyperactive, I just could not stop moving." Patient states that she was overly productive, "accomplishing things that I had not even thought about doing an months, all because I could not sit still. I could not do nothing." Patient states that while she appreciated the drastic change in her productivity, her restlessness was overwhelming and the aripiprazole was replaced with a trial of brexpiprazole. Patient states that for the first 3 to 4 days of the new medication she was feeling "good, neutral." She admits that beginning 07/20/2019 she began to experience increase in depressive symptoms. She states "all the bad feelings just hit me all at once." She states that while her mood has worsened over the past several days, she is also been experiencing more frequent vivid nightmares. Content of these nightmares continues to be unrelated to history of trauma, and the more distressing nightmares are generally once in which the patient is attempting to end her life. Patient admits to increase in episodes of suicidal ideation. She reports this is a consideration to "sliced my wrists. I thought, I know what that amount of blood loss feels like from a complicated . I knew I could handle that feeling and knew what to expect." The patient states that she decided against this plan, as she wanted to ensure that her family would not find her. That is when patient began developing thoughts to wreck her car on her way to [facility], as "I knew that I would be alone." Patient states she was concerned by the depth and darkness of these thoughts, and began to work through her safety plan. Patient states that she attempted to call several supports who are all unable to be reached. She then called her psychiatric providers, and eventually crisis services who recommended mental health evaluation. Patient continues to endorse poor sleep, admitting that part of this is related to ongoing concern for the safety of her children. A rather significant psychosocial stressor continues to be the mental health needs of the patient's children. She states that her 15-year-old son has been hospitalized psychiatrically 3 times in the last month. Patient states that she and her have actually been looking into reasonable diagnoses for her. She states that she and her are considering the diagnosis of schizoaffective disorder, depressed type. Patient's reasoning for this diagnosis is due to a recent realization of visual illusions occurring less than once a month. Patient states that she will occasionally experience "flashes of animals", which she believes are visual hallucinations. Patient states that these flashes of spiders, cats, or dogs occur in her periphery and the images are not sustained for any considerable period of time. Patient does admit that these images are not related to falling asleep or awakening from sleep. She also states that they occur regardless of her perceived mood at that time. Patient also admits to occasionally hearing "knocking." But denies hearing whispers or voices. She denies any bizarre or delusional thought content. Physical Exam Psychiatric Orientation: alert, oriented x 3 and cooperative (and pleasant) Apperance: appropriately dressed, appropriately groomed and appeared stated age Eye Contact: good eye contact Motor Behavior: steady gait and station and no abnormal motor movements Speech: normal rate/rhythm/volume of speech Affect: + depressed affect (still appearing somewhat subdued - though affect is brighter overall ) and mood congruent with affect Mood: + depressed mood ("Still not the best, but I am feeling better.") Thought Process: goal directed thought process, clear/coherent thought process and thought association intact Thought Content: reality based without delusions; no hopelessness Suicidal Thoughts: denies suicidal thoughts (denies active SI) and denies suicidal intent Pt admitted to "negative thoughts" last evening, thought states she was easily able to redirect the thoughts quickly. Pt states she is "confident in myself and my ability to resist those thoughts" Homicidal Thoughts: denies homicidal thoughts Hallucinations: no auditory hallucinations and no visual hallucinations Cognition: attention grossly intact and language grossly intact Insight: good insight Judgement: + fair judgement Vital Signs (Past 24 Hours) Last Vital Signs Temp 36.6 C 07/28/19 06:49 Pulse 67 07/28/19 06:50 Resp 18 07/28/19 06:49 BP 131/84 07/28/19 06:50 Pulse Ox 98 07/21/19 20:00 Principal Diagnosis - Major depressive disorder Psychiatric Data 33-year-old female admitted voluntarily for inpatient psychiatric treatment on 07/21/2019 after presenting to the ED with worsening depression and suicidal ideation with multiple verbalize plans. Patient was last admitted to our unit from 05/30/2019 through 06/06/2019 for a similar presentation. Patient states that she began to notice worsening of mood and increased suicidal thoughts, and worked through her safety plan as instructed during her previous hospitalization. Patient was unable to reach the resolve of symptoms, and called the crisis line who suggested mental health evaluation in the ED. Patient was discharged on 40 mg of fluoxetine during her last hospitalization, and has been meeting with her outpatient therapist and psychiatric physician clothing sales assistant since her previous discharge. At the time of patient's current admission, she was in the process of titrating brexpiprazole, but did verbalize concern over increased restlessness since initiating the medication. As patient does believe that there are some cognitive benefits to her being on brexpiprazole, the dose was reduced rather than the medication being discontinued altogether. She was maintained on 0.5 mg of brexpiprazole for the majority of her hospitalization. Patient was agreeable with titrating her dose of fluoxetine to 60 mg daily. Later in her admission, the patient was also agreeable with initiating mirtazapine to help with ongoing depressive symptoms promote restful sleep. Patient was titrated to a dose of 15 mg each evening by the time of discharge. Patient admitted that she was tolerating her medication regimen. She did acknowledge ongoing intermittent suicidal thoughts for most of her hospitalization, but was motivated to revise her safety plan and work on developing effective coping strategies to deal with these thoughts and feelings. Patient did meet with her machine adjuster leader case trim multiple times during her admission who was able to provide support in this as well. Patient participated appropriately in group and recreational programming. She invited her to participate in a family meeting to discuss discharge and safety planning. By the time of discharge, patient was denying active suicidal thoughts, and admitted to feeling more confident in utilizing her safety plan to redirect thoughts and feelings of hopelessness. Aftercare appointments were rescheduled to allow for timely follow-up after hospital discharge. After a week of inpatient psychiatric treatment, the patient was able to convincingly contract for safety outside of the hospital setting. She requested feeling ready for discharge, family was also involved in the timing of this decision. Based on review of patient's case and their current presentation, risk of harm to self or others is no longer perceived to be acute. Management of symptoms on an outpatient basis seems the most appropriate and least restrictive setting. Pt seems appropriate for discharge with recommendation for consistent follow-up with outpatient psychiatric prescriber, therapist, and machine adjuster leader case trim. Pt verbalized understanding of discharge plan reviewed and is agreeable with plan to be discharged home today. Day of Discharge Assessment Patient's case was reviewed and discussed during treatment team. Staff report the patient has been doing well over the weekend, continuing to attend groups and work on her safety plan. Pt is reporting improvement in nightmares with initiation of mirtazapine. Pt was seen today to assess readiness for discharge. Pt states that she has been sleeping "much better, I'm finding I wake up in the same position I went to sleep in." She also states that she has not been able to remember dreams as vividly and has not been as disturbed by the ones she does. Pt feels that with the improved sleep she is starting the mornings with more energy. Pt does report ongoing restlessness, but states she is hopeful to incorporate exercise into her daily routine as a way to cope with this. Pt does report having "bad thoughts" last evening, but states she was easily able to redirect these thoughts. She states "I started having some hopeless thoughts, but I just said 'nope, we're not doing this. Find something else to think abo ut'." She states that she has significantly increased confidence in her ability to manage these thoughts. Pt is pleased with the updates she has made to her safety plan and is feeling comfortable with discharge home today. She does admit that she believes she is beginning to feel homesick and is excited to see her children again. Pt's safety plan was discussed during today's encounter and written copy was reviewed by this provider prior to discharge. Pt feels that her treatment goals have been achieved and is requesting to return home today. Patient's will be providing transportation. Discharge plan was reviewed with the patient, who verbalized understanding and was agreeable with discharge home today. ROS: Constitutional: reports feeling less fatigue the past two mornings Cardiovascular: denied Respiratory: denied Gastrointestinal: denied Neurological: denied Psychiatric: denies symptoms other than stated above Total of at least 10 systems reviewed, pertinent positives as above and in HPI. Transition of Care Transition Of Care Record: was reviewed with the patient Advance Directives Advance Directives Information Provided: Yes Advance Directives: No Mental Health Advance Directive: No Advance Directives on File: No Living Will: No Power of Drafter Topographical: No Advance Directives Reason:: Declines as Mental Health Visit. Risk Factors Assessment Presenting risk factors reviewed on discharge. Precipitating stressors mitigated by: admission for inpatient psychiatric observation and treatment, appropriate adjustments to medications to target symptoms, attendance of therapeutic treatment groups, development of healthy and effective coping strategies, involvement of outpatient supports, completion of a safety plan, confirmation of guns and weapons being secured, and education on diagnoses. Pt has demonstrated improvement in condition with regard to improvement in mood, increased confidence in utilization of safety plan, improvement in severity/frequency of SI, and involvement of and machine adjuster leader case trim in treatment. At this time, patient is requesting discharge and is no longer considered to be at acute risk of harm to herself. Pt will be discharged with recommendation for ongoing outpatient psychiatric treatment. Male: No : Yes Do You Have Access To A Gun?: No Health Problems: No Mental Health Diagnoses: Yes Substance Use Disorders: No Previous Attempt: No Previous Psychiatric Hospitalization: Yes Smoker: No Protective Factors Assessment : Yes Responsible for Young Children: Yes Employed: No Stable Relationships: Yes Supportive Family: Yes Good Rapport with Provider: Yes Tobacco Cessation at Discharge Tobacco Cessation Medication Prescribed at Discharge: Not Applicable/Non-Smoker Total Time Total Time Spent: Greater Than 30 Minutes Total Time Includes: Examination of the patient, Discharge Planning, Medication Reconciliation and Communication with other providers Discharge Data Lab Results 02/03/20 02/03/20 02/03/20 16:35 16:35 17:07 WBC 5.94 RBC 4.64 Hgb 13.9 Hct 42.0 MCV 90.5 MCH 30.0 MCHC 33.1 RDW Std Deviation 40.9 RDW Coeff of Charis 12.4 Plt Count 225 MPV 9.4 Immature Gran % (Auto) 0.2 Neut % (Auto) 57.4 Lymph % (Auto) 31.8 [place] % (Auto) 8.9 Eos % (Auto) 1.5 Baso % (Auto) 0.2 Immature Gran # (Auto) 0.01 Neut # (Auto) 3.41 Lymph # (Auto) 1.89 [place] # (Auto) 0.53 Eos # (Auto) 0.09 Baso # (Auto) 0.01 Sodium Potassium Chloride Carbon Dioxide Anion Gap BUN Creatinine Est Cr Clr Drug Dosing Est GFR ( Amer) Est GFR (Non-Af Amer) BUN/Creatinine Ratio Glucose Fasting Glucose Calcium Total Bilirubin AST ALT Alkaline Phosphatase Total Protein Albumin Globulin Albumin/Globulin Ratio Triglycerides Cholesterol LDL Cholesterol, Calc VLDL Cholesterol, Calc HDL Cholesterol Cholesterol/HDL Ratio TSH Urine Color Yellow Urine Appearance Cloudy A Urine pH 7.0 Ur Specific [place] 1.025 Urine Protein Negative Urine Glucose (UA) Negative Urine Ketones Negative Urine Blood Negative Urine Nitrite Negative Urine Bilirubin Negative Urine Urobilinogen Negative Ur Leukocyte Esterase Negative Urine WBC (Auto) 1-5 Urine RBC (Auto) 0-4 U Hyaline Cast (Auto) 1-5 U Epithel Cells (Auto) >30 H Urine Bacteria (Auto) Negative POC Ur Test Salicylates Urine Opiates Screen Neg Ur Methadone, Qual Neg Acetaminophen Urine Barbiturates Neg Ur Phencyclidine (PCP) Neg U Amphetamin/Meth Scrn Neg MDMA (Ecstasy) Screen Neg U Benzodiazepines Scrn Neg Ur Cocaine Metabolite Neg U Marijuana (THC) Screen Neg Ethyl Alcohol mg/dL 07/21/19 07/21/19 07/21/19 17:07 17:07 17:07 WBC RBC Hgb Hct MCV MCH MCHC RDW Std Deviation RDW Coeff of Charis Plt Count MPV Immature Gran % (Auto) Neut % (Auto) Lymph % (Auto) [place] % (Auto) Eos % (Auto) Baso % (Auto) Immature Gran # (Auto) Neut # (Auto) Lymph # (Auto) [place] # (Auto) Eos # (Auto) Baso # (Auto) Sodium 140 Potassium 3.9 Chloride 110 H Carbon Dioxide 26 Anion Gap 4.0 BUN 12 Creatinine 0.99 Est Cr Clr Drug Dosing 101.0 Est GFR ( Amer) 87.4 Est GFR (Non-Af Amer) 75.4 BUN/Creatinine Ratio 12.0 Glucose 90 Fasting Glucose Calcium 8.9 Total Bilirubin 0.3 AST 18 ALT 24 Alkaline Phosphatase 106 Total Protein 7.4 Albumin 3.6 Globulin 3.8 Albumin/Globulin Ratio 0.9 Triglycerides Cholesterol LDL Cholesterol, Calc VLDL Cholesterol, Calc HDL Cholesterol Cholesterol/HDL Ratio TSH 1.150 Urine Color Urine Appearance Urine pH Ur Specific [place] Urine Protein Urine Glucose (UA) Urine Ketones Urine Blood Urine Nitrite Urine Bilirubin Urine Urobilinogen Ur Leukocyte Esterase Urine WBC (Auto) Urine RBC (Auto) U Hyaline Cast (Auto) U Epithel Cells (Auto) Urine Bacteria (Auto) POC Ur Test Salicylates < 1.7 L Urine Opiates Screen Ur Methadone, Qual Acetaminophen 5 L Urine Barbiturates Ur Phencyclidine (PCP) U Amphetamin/Meth Scrn MDMA (Ecstasy) Screen U Benzodiazepines Scrn Ur Cocaine Metabolite U Marijuana (THC) Screen Ethyl Alcohol mg/dL < 3.0 07/21/19 07/24/19 17:07 07:27 WBC RBC Hgb Hct MCV MCH MCHC RDW Std Deviation RDW Coeff of Charis Plt Count MPV Immature Gran % (Auto) Neut % (Auto) Lymph % (Auto) [place] % (Auto) Eos % (Auto) Baso % (Auto) Immature Gran # (Auto) Neut # (Auto) Lymph # (Auto) [place] # (Auto) Eos # (Auto) Baso # (Auto) Sodium Potassium Chloride Carbon Dioxide Anion Gap BUN Creatinine Est Cr Clr Drug Dosing Est GFR ( Amer) Est GFR (Non-Af Amer) BUN/Creatinine Ratio Glucose Fasting Glucose 92 Calcium Total Bilirubin AST ALT Alkaline Phosphatase Total Protein Albumin Globulin Albumin/Globulin Ratio Triglycerides 88 Cholesterol 180 LDL Cholesterol, Calc 102 VLDL Cholesterol, Calc 18 HDL Cholesterol 60 Cholesterol/HDL Ratio 3 TSH Urine Color Urine Appearance Urine pH Ur Specific [place] Urine Protein Urine Glucose (UA) Urine Ketones Urine Blood Urine Nitrite Urine Bilirubin Urine Urobilinogen Ur Leukocyte Esterase Urine WBC (Auto) Urine RBC (Auto) U Hyaline Cast (Auto) U Epithel Cells (Auto) Urine Bacteria (Auto) POC Ur Test NEG Salicylates Urine Opiates Screen Ur Methadone, Qual Acetaminophen Urine Barbiturates Ur Phencyclidine (PCP) U Amphetamin/Meth Scrn MDMA (Ecstasy) Screen U Benzodiazepines Scrn Ur Cocaine Metabolite U Marijuana (THC) Screen Ethyl Alcohol mg/dL Hospital Course (1) Suicidal ideation: 07/22 - Admitted to a locked inpatient behavioral health unit, on q15 minute safety checks - Encourage medication initiation/adjustments as indicated - Encourage participation in group and recreational therapies - Gather collateral information from outpatient providers - Suggest family meeting to involve outpatient supports in safety planning - Arrange appropriate aftercare 2 - Pt endorses ongoing SI, admitting to significant frustration that medications are not as effective as she had hoped and "I'm out of hope that things will get better." - Pt is unable to contract for safety outside of the hospital setting at this time 07/24 - Ongoing SI - this morning with specific thoughts to jump out the window of her bedroom or stab herself with a pen - Pt able to contract for safety on the unit, admitting she felt she could come to staff before acting on these thoughts - Pt remains unable at this time to contract for safety outside of the inpatient hospital setting 07/25 - SI is ongoing - Remains unable to contract for safety outside of the hospital setting 07/26 -Yet unable to contract for safety outside of the hospital setting 07/27 -Patient appearing a little more confident that she is progressing towards improved safety and eventual discharge today (2) Depression: 07/22 - Working diagnosis of major depressive disorder, recurrent, severe without psychotic features. Pt questions diagnosis of schizoaffective disorder, depressed type based on perceived visual hallucinations - patient's reports are more consistent with intermittent (less than once a month) visual illusions in her periphery and would not yet label them as true hallucinations. Will continue attempt to gather collateral information and have patient monitor mood and related symptoms in order to further clarify diagnosis. - Continue brexpiprazole 1mg qHS, patient states the medication was titrated to this dose from 0.5mg last evening - Titrate fluoxetine to 60mg qAM to better target depressive symptoms - Coordinate care with patient's outpatient psychiatric providers - Involve in a family meeting to discuss discharge and safety planning 2/ - Pt continues to reports symptoms most likely consistent with akathisia - inability to sit still, need to keep pacing, feeling as though she is being run by a motor. She believes these feelings have worsened since brexpiprazole was titrated to 1mg two evenings ago. Pt is hesitant to discontinue the medication altogether as she does believe it has a positive effect on her mood. She is agreeable with reducing the dose to 0.5mg qHS at this time - continuing to utilize prn hydroxyzine for restlessness as needed - Continue fluoxetine 60mg daily - Family meeting held with this morning - Coordinate care with outpatient providers 07/24 - Continue combination of fluoxetine 60mg and brexpiprazole 0.5mg - Pt reports feeling pleased with revised safety plan - Attempt made yesterday to discuss patient's case with outpatient psychiatric prescriber, no return call as of yet 07/25 - Continue current medication regimen - Continue to encourage participation in group and recreational programming 07/26 -Depression persists with significant anxious component. -Patient agreeable to low-dose Remeron trial for antidepressant augmentation, anxiolysis, sleep, and hopefully some improvement in her restlessness as well. Common risks and benefits reviewed including sedation, dizziness, appetite stimulation. -Also discussed consideration for prazosin or clonidine trial at bedtime however likely not a good candidate secondary to history of bradycardia 07/27 -Tolerated first dose of Remeron last night with dramatically improved sleep. Hopefully this will ultimately demonstrate a positive augmenting effect for depression and obsessive quality of anxiety. Mental Health & Subst Abuse Tx Psychiatrist Name of Psychiatrist: Sheryl Baxter Psychiatrist's Date of Appointment with Psychiatrist: 08/07/19 Time of Appointment with Psychiatrist: 13:00 Psychiatric Appointment Comment: [id number] [facility] Therapist Name of Therapist: Wilian Kitchen Therapist's Date of Therapist Appointment: 07/31/19 Time of Therapist Appointment: 4 p.m. Therapy Appointment Comment: Next appt: 07/31 at 4 p.m. Copy And Print Associate Name of Copy And Print Associate: Terri Castano CM @ ID Phone Number for Copy And Print Associate: [phone] Date of Appointment with Copy And Print Associate: 07/29/19 Time of Appointment with Copy And Print Associate: 5:00 p.m. Case Management Appointment Comment: Will meet you on the unit or at home Post Discharge Appointments Primary Care Physician Name Of Family Doctor: Lela Villaseñor Primary Care Provider Appointment Comment: [address] [place] [address] Smoking Cessation Counseling Tobacco Cessation Medication Prescribed at Discharge: Not Applicable/Non-Smoker Other #1: Name of Aftercare Appointment: Alex Calderon Copy And Print Associate (insurance) Eyad Bahena Phone Number of Aftercare Appointment: [phone] Aftercare Appointment Comment: Please follow up as needed Contact Information Discharge Discharge Address: [address] [place] [id number] Discharge Plan Discharge Items Patient Disposition: Home - Self-Care Reason For Visit: MAJOR DEPRESSION RECURRENT Discharge Diagnosis: - Major depressive disorder Activity: Resume your previous activity Non-emergency contact: Primary Care Provider, Psychiatrist and Therapist Call non-emergency contact if: you have any medication questions and your symptoms worsen Follow-up/Referrals: Brandee Villaseñor, [Primary Care Provider] - Diet: Regular Addtl Attending Provider Instructions: SPECIAL CARE INSTRUCTIONS: 1. Follow through with your scheduled aftercare appointments. If unable to keep an appointment, please call to reschedule. 2. Take your medication only as prescribed. Medication should not be changed or stopped without the approval of your doctor. In the event of worsening symptoms or concerns about side effects, contact your doctor immediately. 3. Utilize new healthy coping skills, anger management skills, and stress management skills learned during your hospitalization. Journal feelings and process them with a support person. Identify stressors or situations that may result in relapse, deterioration or inappropriate behaviors and develop a plan to deal with those issues. 4. If your coping skills are ineffective and you are in crisis, contact your outpatient providers for direction. If unable to reach your providers, please call [employer] HELP LINE AT or go to the closest Emergency Room. 5. Avoid alcohol and un-prescribed drugs. 6. You have been provided with the Mental Health Advance Directives Pamphlet for your review. AFTERCARE APPOINTMENTS: * Please call your insurance company prior to your scheduled appointment to confirm your aftercare providers are covered. Take your insurance information to your appointments. WHO TO CALL AND WHEN: Medical Emergencies: For questions or emergencies related to your hospital stay, please contact the Inpatient Behavioral Health Unit at [phone]. A waterproof bag cutting machine operator is on-call 24/7 for the Behavioral Health Unit for emergencies At any time you feel your situation is an emergency, you may also call 911 immediately. Your Discharge Instructions noted above were prepared by provider Madonna Tapia PA-C. Pending Studies at Discharge: No Stand-Alone Forms: My [facility], Smoking Cessation, Suicide Prevention Resources Medications and DC Order Prescriptions: New brexpiprazole 1 mg tablet 0.5 mg PO HS 30 Days Qty: 15 RF: 0 fluoxetine 20 mg capsule 60 mg PO QAM 30 Days Qty: 90 RF: 0 mirtazapine 15 mg Tablet 15 mg PO HS 30 Days Qty: 30 RF: 0 Certavite-Antioxidant 18-400 mg-mcg Tablet 1 tab PO QAM 30 Days Qty: 30 RF: 0 Discontinued fluoxetine 20 mg Capsule 40 mg PO DAILY Qty: 60 RF: 0 Discharge Orders: Discharge Order (Routine); Ordered 07/28/19 Ordered By: Madonna Tapia Admission Data Admit Date/Time: 07/21/19 20:34 Attending Provider: Kassandra Jordan Admit Provider: Zunilda Benjamin Primary Care Provider: Brandee Villaseñor Other Interventions: Discharge Summary Assessment (RN) Last Done: 07/28/19 09:31 PSY Interdisciplinary Discharge Planning Last Done: 07/28/19 09:47 DC Date/Time DO NOT enter until pt leaves facility: 07/28/19 11:05 Coding Level of Care Code 46035 D/C day mgmt > 30 min Diagnoses Suicidal ideation R45.851 Depression F32.9 Depression Type: unspecified
== END 2019-07-28 11:05 | disposition home or self-care (01) | DRG 885 ==
LOC: ED 16:16 → 3S 20:34

== ENCOUNTER 2019-08-11 11:19 | Inpatient (IN) ==
--- NOTE | 2019-08-11 12:13 | Emergency Department Note ---
Entered by Francisco Woodard acting as a scribe for Darren Oneal DO History of Present Illness General Chief complaint: Mental Health Evaluation Stated complaint: SUICIDAL THOUGHTS Time Seen by Provider: 08/11/19 11:45 Source: patient Limitations: no limitations History of Present Illness Location: head Severity: similar to prior episodes Pain Consistency: + constant Maximum Pain Intensity: 0 Quality: + other (depressed) Associated symptoms: + other (suicidal ideations with multiple plans) Treatments prior to arrival: other (Abilify) The patient is a 33 year old female who presents to the Emergency Room for a mental health evaluation. The patient states she was seen by [facility] today and was told to come to the ED. Nursing states the patient has been depressed for over a year and has been inpatient three times in the past few months. Nursing states the patient's current depression episode started 9 months ago when she delivered her last child. Nursing states the patient had suicide attempts in the past. Nursing states the patient had ideas of overdosing on her son's insulin or wrecking her car. The patient states she was last admitted about 3 weeks ago. She states she was switched from Lexotan to Abilify last week. She states the switch in medication has made her more alert and energized, but states it has not helped with her mood. She states she was recommended to get inpatient treatment. The patient states she has not done anything to hurt herself recently, and states the last time was a few years ago. She states she has been taking all her medications. She notes her last menstrual period was in the summer, and states that is not atypical. She states she has nodules on her thyroid by Upplicationer, but has not been told anything about it. Home Medications Home Medications Medication Instructions Recorded Confirmed Type sudmmdvdavzh-cmcx-ipusc acid 1 tab PO QAM 30 Days #30 tab 07/28/19 08/11/19 Rx [Certavite-Antioxidant] aripiprazole [Abilify] 5 mg PO HS 08/11/19 08/11/19 History fluoxetine [Prozac] 60 mg PO DAILY 08/11/19 08/11/19 History mirtazapine [Remeron] 15 mg PO HS 08/11/19 08/11/19 History Allergies Allergy/AdvReac Type Severity Reaction Status Date / Time cyclobenzaprine Allergy Unknown DIFFICULTY Verified 08/11/19 12:37 BREATHING, CHOKING, COULDN'T WAKE UP bupropion [From Wellbutrin] Allergy Difficulty Verified 08/11/19 12:37 Breathing Past Med/Surg History Medical History Bicornate uterus Depression Depression Family history of reaction to anesthesia GRANDPARENTS HAD ISSUES WITH WAKING, NO KNOWN DIAGNOSIS OF ANESTHESIA REACTION. Neck pain Sinus bradycardia Thyroid nodule Surgical History History of section EMERGENCY 2016. 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 SHE REMEMBERS FEELING THE "SENSE OF DOOM". History of dilatation and curettage S/T MISCARRIAGE Family History Family/Other Thyroid nodule Social History Preferred Language: Bulgarian Communication Ability: Effective Psych Arnp Required: No Beliefs That Will Affect Care: None marital status: Current Living Situation: Spouse and Family Feels Safe at Home: Yes Smoking Status: Never smoker Cigarettes Per Day: 0 ; Second Hand Exposure: No ; Hx Alcohol Use: No Hx Substance Use: No Review of Systems See HPI for pertinent positives & negatives. and A total of 10 systems reviewed and were otherwise negative Physical Exam Vital Signs Vital Signs - 24 hr 08/11/19 11:24 Temperature 36.9 C Temperature Source Oral Pulse Rate 57 L Respiratory Rate 16 Respiratory Depth Normal Blood Pressure 124/76 Blood Pressure Mean 92 Pulse Oximetry 100 Sepsis Recent Fever Within 48 Hours No Sepsis New/Unexplained Change in Mental Status No Sepsis Action Taken by Nursing No Action Required GENERAL: The patient is awake and alert. She is resting comfortably. EYES: The conjunctivae are clear. The pupils are round and reactive. EARS, NOSE, MOUTH AND THROAT: The nose is without any evidence of any deformity. Mucous membranes are moist. Tongue is midline. NECK: The neck is nontender and supple. RESPIRATORY: Normal respiratory effort is noted there is no evidence of wheezing rhonchi or rales CARDIOVASCULAR: Regular rate and rhythm noted there no murmurs rubs or gallops normal S1 normal S2. GASTROINTESTINAL: The abdomen is soft. Abdomen is nontender. MUSCULOSKELETAL/EXTREMITIES: There is no evidence of gross deformity full range of motion is noted in the hips and shoulders. SKIN: There is no obvious evidence of any rash. There are no petechiae, pallor or cyanosis noted. NEUROLOGIC: Patient is awake alert and oriented x3 strength is symmetric patellar reflexes are 2+ bilaterally PSYCH: The patient is awake and alert. She makes good eye contact for most of the evaluation. Her affect is flat. The patient continues to admit to suicidal ideation with plans to overdose. Course Course 1157: The patient was evaluated in room C6, and a complete history and physical examination were performed. 1629: The patient is going to [address] [place] [address]. Medical Decision Making Differential Diagnosis Differential diagnoses considered include mood disorder, infection, hypoglycemia, electrolyte abnormalities, cardiac sources, intracerebral event, toxicologic, neurologic, as well as others. Medical Records Attestation: I reviewed the patient's medical records. Home Medications Current Medication List: was personally reviewed by me Laboratory Data Attestation: I reviewed the patient's lab results. Result diagrams: 08/11/19 12:10 08/11/19 12:10 Lab Results 08/11/19 08/11/19 08/11/19 Range/Units 11:45 11:45 12:10 WBC 5.84 (4.8-10.8) K/uL RBC 4.77 (4.2-5.4) M/uL Hgb 14.3 (12.0-16.0) g/dL Hct 42.9 (37-47) % MCV 89.9 (80-100) fL MCH 30.0 (25-34) pg MCHC 33.3 (32-36) g/dL RDW Std Deviation 41.0 (36.4-46.3) fL RDW Coeff of Charis 12.5 (11.5-14.5) % Plt Count 234 (130-400) K/uL MPV 8.9 (7.4-10.4) fL Immature Gran % (Auto) 0.0 % Neut % (Auto) 62.6 % Lymph % (Auto) 29.3 % Stevens % (Auto) 6.7 % Eos % (Auto) 1.2 % Baso % (Auto) 0.2 % Immature Gran # (Auto) 0.00 (0.00-0.02) K/uL Neut # (Auto) 3.66 (1.4-6.5) K/uL Lymph # (Auto) 1.71 (1.2-3.4) K/uL Stevens # (Auto) 0.39 (0.11-0.59) K/uL Eos # (Auto) 0.07 (0-0.5) K/uL Baso # (Auto) 0.01 (0-0.2) K/uL Sodium (136-145) mmol/L Potassium (3.5-5.1) mmol/L Chloride (98-107) mmol/L Carbon Dioxide (21-32) mmol/L Anion Gap (3-11) BUN (7-18) mg/dl Creatinine (0.6-1.2) mg/dl Est Cr Clr Drug Dosing ml/min Est GFR ( Amer) Est GFR (Non-Af Amer) BUN/Creatinine Ratio (10-20) Glucose (70-99) mg/dl Calcium (8.5-10.1) mg/dl Total Bilirubin (0.2-1) mg/dl AST (15-37) U/L ALT (12-78) U/L Alkaline Phosphatase (45-117) U/L Total Protein (6.4-8.2) gm/dl Albumin (3.4-5.0) gm/dl Globulin (2.5-4.0) gm/dl Albumin/Globulin Ratio (0.9-2) TSH (0.300-4.500) uIu/ml HCG, Qual (Negative) Urine Color Yellow Urine Appearance Clear (Clear) Urine pH 6.5 (4.5-7.5) Ur Specific Deville 1.008 (1.000-1.030) Urine Protein Negative (Negative) Urine Glucose (UA) Negative (Negative) Urine Ketones Negative (Negative) Urine Blood Negative (Negative) Urine Nitrite Negative (Negative) Urine Bilirubin Negative (Negative) Urine Urobilinogen Negative (Negative) Ur Leukocyte Esterase Negative (Negative) Salicylates (2.8-20) mg/dl Urine Opiates Screen Neg (Neg) Ur Methadone, Qual Neg (Neg) Acetaminophen (10-30) ug/ml Urine Barbiturates Neg (Neg) Ur Phencyclidine (PCP) Neg (Neg) U Amphetamin/Meth Scrn Neg (Neg) MDMA (Ecstasy) Screen Neg (Neg) U Benzodiazepines Scrn Neg (Neg) Ur Cocaine Metabolite Neg (Neg) U Marijuana (THC) Screen Neg (Neg) Ethyl Alcohol mg/dL (0-3) mg/dl 08/11/19 08/11/19 08/11/19 Range/Units 12:10 12:10 12:10 WBC (4.8-10.8) K/uL RBC (4.2-5.4) M/uL Hgb (12.0-16.0) g/dL Hct (37-47) % MCV (80-100) fL MCH (25-34) pg MCHC (32-36) g/dL RDW Std Deviation (36.4-46.3) fL RDW Coeff of Charis (11.5-14.5) % Plt Count (130-400) K/uL MPV (7.4-10.4) fL Immature Gran % (Auto) % Neut % (Auto) % Lymph % (Auto) % Stevens % (Auto) % Eos % (Auto) % Baso % (Auto) % Immature Gran # (Auto) (0.00-0.02) K/uL Neut # (Auto) (1.4-6.5) K/uL Lymph # (Auto) (1.2-3.4) K/uL Stevens # (Auto) (0.11-0.59) K/uL Eos # (Auto) (0-0.5) K/uL Baso # (Auto) (0-0.2) K/uL Sodium 139 (136-145) mmol/L Potassium 3.9 (3.5-5.1) mmol/L Chloride 109 H (98-107) mmol/L Carbon Dioxide 23 (21-32) mmol/L Anion Gap 7.0 (3-11) BUN 19 H (7-18) mg/dl Creatinine 1.06 (0.6-1.2) mg/dl Est Cr Clr Drug Dosing 94.2 ml/min Est GFR ( Amer) 80.5 Est GFR (Non-Af Amer) 69.4 BUN/Creatinine Ratio 18.2 (10-20) Glucose 88 (70-99) mg/dl Calcium 9.1 (8.5-10.1) mg/dl Total Bilirubin 0.4 (0.2-1) mg/dl AST 19 (15-37) U/L ALT 24 (12-78) U/L Alkaline Phosphatase 86 (45-117) U/L Total Protein 7.5 (6.4-8.2) gm/dl Albumin 3.5 (3.4-5.0) gm/dl Globulin 4.0 (2.5-4.0) gm/dl Albumin/Globulin Ratio 0.9 (0.9-2) TSH 1.200 (0.300-4.500) uIu/ml HCG, Qual (Negative) Urine Color Urine Appearance (Clear) Urine pH (4.5-7.5) Ur Specific Deville (1.000-1.030) Urine Protein (Negative) Urine Glucose (UA) (Negative) Urine Ketones (Negative) Urine Blood (Negative) Urine Nitrite (Negative) Urine Bilirubin (Negative) Urine Urobilinogen (Negative) Ur Leukocyte Esterase (Negative) Salicylates < 1.7 L (2.8-20) mg/dl Urine Opiates Screen (Neg) Ur Methadone, Qual (Neg) Acetaminophen < 2 L (10-30) ug/ml Urine Barbiturates (Neg) Ur Phencyclidine (PCP) (Neg) U Amphetamin/Meth Scrn (Neg) MDMA (Ecstasy) Screen (Neg) U Benzodiazepines Scrn (Neg) Ur Cocaine Metabolite (Neg) U Marijuana (THC) Screen (Neg) Ethyl Alcohol mg/dL < 3.0 (0-3) mg/dl 08/11/19 Range/Units 12:10 WBC (4.8-10.8) K/uL RBC (4.2-5.4) M/uL Hgb (12.0-16.0) g/dL Hct (37-47) % MCV (80-100) fL MCH (25-34) pg MCHC (32-36) g/dL RDW Std Deviation (36.4-46.3) fL RDW Coeff of Charis (11.5-14.5) % Plt Count (130-400) K/uL MPV (7.4-10.4) fL Immature Gran % (Auto) % Neut % (Auto) % Lymph % (Auto) % Stevens % (Auto) % Eos % (Auto) % Baso % (Auto) % Immature Gran # (Auto) (0.00-0.02) K/uL Neut # (Auto) (1.4-6.5) K/uL Lymph # (Auto) (1.2-3.4) K/uL Stevens # (Auto) (0.11-0.59) K/uL Eos # (Auto) (0-0.5) K/uL Baso # (Auto) (0-0.2) K/uL Sodium (136-145) mmol/L Potassium (3.5-5.1) mmol/L Chloride (98-107) mmol/L Carbon Dioxide (21-32) mmol/L Anion Gap (3-11) BUN (7-18) mg/dl Creatinine (0.6-1.2) mg/dl Est Cr Clr Drug Dosing ml/min Est GFR ( Amer) Est GFR (Non-Af Amer) BUN/Creatinine Ratio (10-20) Glucose (70-99) mg/dl Calcium (8.5-10.1) mg/dl Total Bilirubin (0.2-1) mg/dl AST (15-37) U/L ALT (12-78) U/L Alkaline Phosphatase (45-117) U/L Total Protein (6.4-8.2) gm/dl Albumin (3.4-5.0) gm/dl Globulin (2.5-4.0) gm/dl Albumin/Globulin Ratio (0.9-2) TSH (0.300-4.500) uIu/ml HCG, Qual Negative (Negative) Urine Color Urine Appearance (Clear) Urine pH (4.5-7.5) Ur Specific Deville (1.000-1.030) Urine Protein (Negative) Urine Glucose (UA) (Negative) Urine Ketones (Negative) Urine Blood (Negative) Urine Nitrite (Negative) Urine Bilirubin (Negative) Urine Urobilinogen (Negative) Ur Leukocyte Esterase (Negative) Salicylates (2.8-20) mg/dl Urine Opiates Screen (Neg) Ur Methadone, Qual (Neg) Acetaminophen (10-30) ug/ml Urine Barbiturates (Neg) Ur Phencyclidine (PCP) (Neg) U Amphetamin/Meth Scrn (Neg) MDMA (Ecstasy) Screen (Neg) U Benzodiazepines Scrn (Neg) Ur Cocaine Metabolite (Neg) U Marijuana (THC) Screen (Neg) Ethyl Alcohol mg/dL (0-3) mg/dl Blood Pressure Blood Pressure Findings: Elevated blood pressure Blood Pressure Disposition: further management by hospitalist MDM Narrative The patient is a 33-year-old female who presented to the emergency department for an evaluation of mental health problems. The patient has had severe depression with suicidal ideation. Her symptoms appear to be worsening especially over the last week. She was seen by her primary therapist and sent to the emergency department for the symptoms. The patient was medically cleared in the emergency department. She was reevaluated multiple times. The patient was evaluated by the mental health supportive employment case manager. She was felt to be a good candidate for inpatient management. She was evaluated by the delegate from [facility]. They have agreed to evaluate the patient in the emergency department. After evaluation she was felt to be a good candidate for 201 admission. The 201 was signed by myself. Impression & Plan Depression with suicidal ideation, Anxiety Discharge Plan Visit Data *Final* Discharge Date/Time: 08/11/19 16:39 Chief Complaint: Mental Health Evaluation Stated Complaint: SUICIDAL THOUGHTS ED Provider: Darren Oneal Discharge Problem: Depression with suicidal ideation, Anxiety Patient Disposition: Admitted As Inpatient Discharge Instructions Interventions: ED Discharge Assessment Last Done: 08/11/19 16:39 The scribe's documentation has been prepared under my direction and personally reviewed by me in its entirety. I confirm that the note above accurately reflects all work, treatment, procedures, and medical decision making performed by me.
[2019-08-11 12:21] LABS: Appearance Urine Clear (Clear); Bilirubin Urine Negative (Negative); Blood Urine Negative (Negative); Color Urine Yellow; Glucose Urine UA Negative (Negative); Ketones Urine Negative (Negative); Leukocyte Esterase Urine Negative (Negative); Nitrite Urine Negative (Negative); Protein Urine Negative (Negative); Specific Gravity Urine 1.008 (1.000-1.030); Urobilinogen Urine Negative (Negative); pH Urine 6.5 (4.5-7.5)
[2019-08-11 12:25] LABS: Basophils # (auto) 0.01 K/uL (0-0.2); Basophils % (auto) 0.2 %; Eosinophils # (auto) 0.07 K/uL (0-0.5); Eosinophils % (auto) 1.2 %; Hematocrit (blood only) 42.9 % (37-47); Hemoglobin 14.3 g/dL (12.0-16.0); Lymphocytes # (auto) 1.71 K/uL (1.2-3.4); Lymphocytes % (auto) 29.3 %; Mean Corpuscular Hgb Conc 33.3 g/dL (32-36); Mean Corpuscular Volume 89.9 fL (80-100); Mean Platelet Volume 8.9 fL (7.4-10.4); Monocytes # (auto) 0.39 K/uL (0.11-0.59); Monocytes % (auto) 6.7 %; Neutrophils # (auto) 3.66 K/uL (1.4-6.5); Neutrophils % (auto) 62.6 %; Platelet Count 234 K/uL (130-400); RDW Coefficient of Variation 12.5 % (11.5-14.5); Red Blood Count 4.77 M/uL (4.2-5.4); White Blood Count 5.84 K/uL (4.8-10.8)
[2019-08-11 12:41] LABS: Amphetamines+Metham, Urine Neg (Neg); Barbiturates, Urine Neg (Neg); Benzodiazepine, Urine Neg (Neg); Cocaine, Urine Neg (Neg); MDMA (Ecstacy), Urine Neg (Neg); Methadone, Urine Neg (Neg); Opiate, Urine Neg (Neg); Phencyclidine, Urine Neg (Neg)
[2019-08-11 12:41] LABS: Albumin Level 3.5 gm/dl (3.4-5.0); BUN Creatinine Ratio 18.2 (10-20); Calcium 9.1 mg/dl (8.5-10.1); Creatinine Clr Calc Pharmacy 94.2 ml/min; Est GFR (African American) 80.5; Est GFR (Non-African American) 69.4; Potassium 3.9 mmol/L (3.5-5.1)
[2019-08-11 12:43] LABS: Pregnancy Test, Serum Negative (Negative)
[2019-08-11 12:51] LABS: Acetaminophen < 2 ug/ml (10-30); Salicylate < 1.7 mg/dl (2.8-20)
[2019-08-11 12:52] LABS: Albumin Globulin Ratio 0.9 (0.9-2); Bilirubin,Total 0.4 mg/dl (0.2-1); Thyroid Stimulating Hormone 1.2 uIu/ml (0.300-4.500); Total Protein 7.5 gm/dl (6.4-8.2)
[2019-08-11] MEDS ORDERED: ALUMINUM/MAGNESIUM SUSP 30 ML UDC PO PRN (15:55)
[2019-08-11] MEDS ORDERED: BISMUTH SUBSALICYLATE PER ML OMNICELL CHARGE PO PRN (15:55)
[2019-08-11] MEDS ORDERED: MAGNESIUM HYDROXIDE SUSP 30 ML UDC PO PRN (15:55)
[2019-08-11] MEDS ORDERED: SODIUM CHLORIDE 0.65% NA SOLN 45 ML (OCEAN) PRN (15:55)
[2019-08-11] MEDS: MIRTAZAPINE TAB 15 MG TAB PO SCH (21:40)
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
[2019-08-12] MEDS ORDERED: FLUOXETINE HCL 20 MG CAP PO SCH ×2 (09:00→10:30)
[2019-08-12] MEDS: CEROVITE ADV FORMULA TAB PO SCH (10:40)
--- NOTE | 2019-08-12 14:24 | Communication Note ---
Date of Service: August 12, 2019 Records from [facility] Received and Reviewed - Progress Notes from Medication Management with Sheryl Burton PA-C: Diagnoses: Major depressive disorder, recurrent, severe, without psychotic features; obsessive-compulsive disorder, unspecified, Post-traumatic stress disorder, chronic 08/11/2019 - Reported improvement in energy after returning to aripiprazole, reported feeling more alert. Admits to still having "bad thoughts." Pt reports suicidal thoughts "all day" despite efforts to improve her grounding and distraction techniques. Pt reported creating a sensory box, but did not feel this was helpful. Pt continued to read books recommended by her therapist to better understand her diagnoses. Pt did admit that she does not feel safe if she is "near medication or in the car." Pt did have thoughts to inject herself with her daughter's insulin, but "she did not because she had not written a note to her daughter." Pt reported feeling as though she has to protect her from her thoughts, but admitted he continues to be supportive. She did report increased irritability and anger. Pt admits to "fantasizing about what she needs to do before she commits suicide." Pt reported feeling as though she did not stay at the hospital long enough during her last admission, requesting to leave because she was homesick rather than because she was ready for discharge. Pt was referred to the ED for mental health evaluation after the appointment. No medication changes were made at this appointment due to anticipated admission. 08/07/2019 - Reported feeling as though she left inpatient psychiatric treatment before she was ready due to feeling homesick. Reported ongoing "crummy nightmares." Reported increased anhedonia. Ongoing feelings of hopelessness reported. Pt admits to feeling empty. SI reportedly lasting "half the day." Pt was able to talk through her safety plan. She had denied SI at time of this appointment. Plan was made to discontinue brexpiprazole 0.5mg and resume aripiprazole 5mg qHS. Trintellix was mentioned as a future consideration. During outpatient psychiatric evaluation on 07/04/2019, patient reported possible symptoms consistent with OCD - setting volume to a certain number, skipping every other stair, timing herself getting to places, and opening/closing and locking/unlocking doors "until it feels right." Previous progress notes pre-date the patient's last inpatient psychiatric hospitalization. Records will be scanned into the patient's chart.
[2019-08-12] MEDS ORDERED: VORTIOXETINE HYDROBROMIDE PO ONE (15:30)
[2019-08-12] MEDS: VORTIOXETINE HYDROBROMIDE PO SCH (17:01)
[2019-08-12] MEDS: ARIPiprazole 5 MG TAB PO SCH (21:36)
[2019-08-12] MEDS: MIRTAZAPINE TAB 15 MG TAB PO SCH (21:37)
[2019-08-13] MEDS: ACETAMINOPHEN 325 MG TAB PO PRN ×2 (05:51→15:46)
[2019-08-13] MEDS ORDERED: IBUPROFEN 600 MG TAB PO PRN (08:26)
--- NOTE | 2019-08-13 09:39 | Psychiatric Progress Note ---
Date of Service August 13, 2019 Impression / Recommendations Impression 33-year-old female admitted voluntarily for inpatient psychiatric treatment on 08/11/2019 after presenting to the ED with reports of worsening depression and chronic suicidal ideation. This is patient's third inpatient psychiatric admission in roughly 2 months, routinely presenting with inability to contract for safety outside of the hospital setting and verbalization of multiple suicide plans. Patient was most recently admitted to our unit from 07/21/2019 through 07/28/2019. It is reported that patient was seen the day of admission by her outpatient psychiatric prescriber, and was referred to the ED at the close of their visit for a mental health evaluation. Patient did experience recent medication adjustments, as the brexpiprazole she was prescribed during her last psychiatric hospitalization was discontinued and aripiprazole was re-trialed. Patient reports outpatient plan in place to initiate cross taper from fluoxetine to vortioxetine - will initiate this on our unit. While we will continue with working diagnosis of major depressive disorder and anxiety disorder, we will attempt to further determine if there may be an underlying personality disorder contributing to chronic suicidal ideation and limited response to numerous medication trials. Outpatient psychiatric records also indicate a diagnosis of obsessive-compulsive disorder, and we will attempt to gain collateral information on this as well. Inpatient psychiatric hospitalization will offer a safe environment for patient to process stressors contributing to her chronic suicidality and depressive symptoms. Patient will be encouraged to participate in group and recreational programming. We will attempt to involve the patient's and telehealth case manager and support meetings to discuss potential need for additional structure outside of the hospital setting. At this time, patient remains actively suicidal and is unable to contract for safety outside of the hospital setting. She is at high risk of suicide if she is discharged prematurely without adequate medication of risk factors. (1) Suicidal ideation: 08/12 - Admitted to a locked inpatient behavioral health unit, on q15 minute safety checks - Encourage medication initiation/adjustments as indicated - Could consider initiation of lithium, given indication for use to target chronic suicidality - would need to ensure could secure medications given high potential for lethality in overdose - Encourage participation in group and recreational therapies - Gather collateral information from outpatient providers - Suggest family meeting to involve outpatient supports in safety planning - Arrange appropriate aftercare 08/13 - Pt continues to report SI and inability to contract for safety outside of the hospital setting - Saying SI is present 60% of the day rather than all day (2) Depression: 08/12 - Discussed current treatment plan as established with her outpatient psychiatric PA-C. Pt reports plan was to cross-taper from fluoxetine to vortioxetine, reporting desire to continue with this plan. Will reduce fluoxetine dosage to 40mg in preparation for this adjustment. Will coordinate with [facility] regarding initiation of vortioxetine, as this medication is non- formulary and we are likely to require samples or prior-authorization for the medication. - Call placed to [facility] regarding coordination of care, patient's psychiatric PA-C is reportedly off for the next several days - outpatient records received and reviewed - Will continue aripiprazole 5mg qHS and mirtazapine 15mg qHS - patient reporting improvement in mood and anxiety level with these medications - Reviewed patient's [employer] results, which she brought in from home - will scan into chart for future review as needed - Pt was also provided with education and handouts on TMS and ECT for further review, as may be considerations for depression treatment as an alternative to medications - Attempt to rule out underlying personality disorder, given patient's chronic SI and difficulty regulating emotions independently to maintain safety - Encourage family meeting with telehealth case manager and - will need ongoing safety planning discussions, as patient admits to chronic suicidality - Encourage participation in group and recreational programming - Encourage ongoing development of healthy and effective coping strategies 08/13 - Continue current regimen - fluoxetine 20mg qAM and vortioxetine 10mg qAM - continue cross-titration as tolerated - Continue mirtazapine and aripiprazole qHS - Continue to encourage participation in group and recreational programming - Will attempt to coordinate additional supports, as patient is clearly struggling with ability to function outside of a supportive and supervised setting for a long duration of time. She may benefit from partial hospitalization programs or additional services. Specifically we will assist with exploration of childcare services so that patient is able to consistently attend her psychiatric appointments - Schedule family meeting with to discuss discharge and safety planning - Pt met with her telehealth case manager on the day of admission, another meeting is scheduled for 08/15 (3) Anxiety: 08/12 - Continue to encourage development of healthy and effective coping strategies - medication adjustments as outlined above - Rule out possible OCD traits, as patient admits to intrusive/ruminative anxious thoughts, SI is often intrusive as well - Utilization of prn hydroxyzine for acute anxiety Risk Factors Assessment Male: No : Yes Do You Have Access To A Gun?: No Health Problems: No Mental Health Diagnoses: Yes Substance Use Disorders: No Previous Attempt: No Previous Psychiatric Hospitalization: Yes Hopelessness: Yes Smoker: No Protective Factors Assessment Uatsdin Beliefs: Yes : Yes Responsible for Young Children: Yes Employed: No ([id number]) Stable Relationships: Yes Supportive Family: Yes Good Rapport with Provider: Yes Interval History Identifying Information LUZ IZAGUIRRE is a 33-year-old F who currently lives in [place] with her and 5 children. Pt has a history of depression, anxiety, and chronic suicidal ideation. Pt was admitted on 08/11/19 15:55 on a 201 voluntary commitment for worsening depressive symptoms and chronic SI with inability to contract for safety outside of the inpatient psychiatric setting. Chief Complaint "I'm okay, I have had a really bad headache since this morning." Review of Systems Notes Constitutional: reports headache Cardiovascular: denied Respiratory: denied Gastrointestinal: denied Neurological: denied Psychiatric: denies symptoms other than stated above Total of at least 10 systems reviewed, pertinent positives as above and in HPI. Sleep Information Total Hours of Sleep: 7 Meal Information Percent Meal Consumed - Breakfast: 100 Percent Meal Consumed - Lunch: 100 Percent Meal Consumed - Dinner: 100 Subjective Subjective Patient was seen & assessed and interval progress reviewed with treatment team. Staff reports the patient continues to appear flat and depressed on the unit, though was reported to have brightened significantly after a visit with her and children. Patient did have a meeting with her telehealth case manager yesterday afternoon, and is scheduled to meet again on 08/15. She did rate her mood a 5/10 and "hopeful" last evening. Patient was seen today to assess progress since admission. She provides verbal consent to allow Francine Masterson PA-C to observe today's encounter. Patient does report a significant headache that began early this morning. Otherwise she denies any present physical concerns. Patient states that she is feeling "maybe a little bit better. My mood is still up and down from 1 hour to the next." She does indicate that aside from episodes of intense irritability, she feels as though her emotions are blunted. Patient believes that this observation correlates with initiation of aripiprazole and brexpiprazole trials. Patient states that "when good things happen I cannot really feel happy, and when terrible things happen I do not really get sad." Despite this, patient continues to believe that the aripiprazole is beneficial for her energy and to provide relief from racing thoughts. Attempted to begin conversation regarding reasons patient has been unsuccessful remaining out of the hospital at this time. Patient is unable to identify any specific outpatient supports she thinks would be beneficial. We did discuss the possibility of a partial hospitalization program or ability to explore childcare resources that would allow patient to focus on her mental health and safety. Patient does state that they will be starting family based therapy for her son on Mondays and Fridays each week. Otherwise, she is p reinaldo to have a weekly phone call with her insurance case mgr on Tuesdays, her individual therapist on , and states she takes 2 of her children to therapists on Wednesdays and is also involved in their sessions. Patient is unable to determine what other services may be helpful at this time. She continues to report suicidal ideation, though admits it is somewhat improved. Patient states "the negative thoughts are down to about 60% of the day. That is a lot better than where they were when I first came in, but they are still rollercoaster-y." Patient denies acute needs or concerns at this time. Physical Exam Psychiatric Orientation: alert, oriented x 3 and cooperative (And pleasant) Apperance: appropriately dressed and appropriately groomed (Recently showered, hair is still damp) Eye Contact: good eye contact Motor Behavior: steady gait and station and no abnormal motor movements Speech: normal rate/rhythm/volume of speech Affect: + depressed affect and mood congruent with affect Mood: + depressed mood ("Maybe a little bit better. My mood is still up and down...") Thought Process: goal directed thought process and clear/coherent thought process Thought Content: reality based without delusions and + hopelessness Suicidal Thoughts: denies suicidal intent; + reports suicidal thoughts Homicidal Thoughts: denies homicidal thoughts Hallucinations: no auditory hallucinations and no visual hallucinations Cognition: attention grossly intact and language grossly intact Insight: + fair insight Judgement: + fair judgement Vital Signs (Past 24 Hours) Last Vital Signs Temp 36.7 C 08/13/19 06:40 Pulse 92 H 08/13/19 06:43 Resp 16 08/13/19 06:40 BP 123/79 08/13/19 06:43 Pulse Ox 99 08/11/19 16:57 Results & Data ([facility]) Current Inpatient Medications Current Inpatient Medications: Current Inpatient Medications Acetaminophen (Tylenol) 650 mg PO Q4H PRN PRN Reason: Headache or Minor Fever Stop: 09/10/19 15:54 Last Admin: 08/13/19 05:51 Dose: 650 mg Documented by: Al Hydrox/Mg Hydrox/Simethicone (Maalox) 30 ml PO Q4H PRN PRN Reason: GI Upset Stop: 09/10/19 15:54 Aripiprazole (Abilify) 5 mg PO HS MARK Stop: 09/11/19 21:59 Last Admin: 08/12/19 21:36 Dose: 5 mg Documented by: Bismuth Subsalicylate (Kaopectate) 15 ml PO PRN PRN PRN Reason: Loose Stool Stop: 09/10/19 15:54 Fluoxetine HCl (Prozac) 20 mg PO DAILY MARK Stop: 09/12/19 08:59 Hydroxyzine HCl (Vistaril) 50 mg PO HSZ PRN PRN Reason: Insomnia Stop: 09/10/19 15:54 Hydroxyzine HCl (Vistaril) 25 mg PO Q4H PRN PRN Reason: Anxiety Stop: 09/10/19 15:54 Ibuprofen (Motrin) 600 mg PO Q8H PRN PRN Reason: Pain Stop: 09/12/19 08:25 Magnesium Hydroxide (Milk Of Magnesia) 30 ml PO DAILY PRN PRN Reason: Constipation Stop: 09/10/19 15:54 Mirtazapine (Remeron) 15 mg PO HS MARK Stop: 09/10/19 20:59 Last Admin: 08/12/19 21:37 Dose: 15 mg Documented by: Multivitamins/Minerals (Multivitamin W/ Minerals Tab) 1 tab PO QAM MARK Stop: 09/11/19 08:59 Last Admin: 08/12/19 10:40 Dose: 1 tab Documented by: Sodium Chloride ([place] Nasal) 1 - 2 sprays NA PRN PRN PRN Reason: Nasal Dryness/Congestion Stop: 09/10/19 15:54 Vortioxetine (Trintellix) 1 ea PO QAM MARK Stop: 09/12/19 08:59 Last Admin: 08/12/19 17:01 Dose: 1 ea Documented by: Mental Health & Subst Abuse Tx Therapist Name of Therapist: Jayme Kitchen Call Centre Supervisor Name of Call Centre Supervisor: [facility], Post Discharge Appointments Primary Care Physician Name Of Family Doctor: Brandee Villaseñor (1) Depression Depression Type: unspecified Qualified Code(s): F32.9 - Major depressive disorder, single episode, unspecified
[2019-08-13] MEDS: FLUOXETINE HCL 20 MG CAP PO SCH (10:09)
[2019-08-13] MEDS: CEROVITE ADV FORMULA TAB PO SCH (10:09)
[2019-08-13] MEDS: VORTIOXETINE HYDROBROMIDE PO SCH ×2 (11:45→15:23)
[2019-08-13] MEDS: MIRTAZAPINE TAB 15 MG TAB PO SCH (20:56)
[2019-08-13] MEDS: ARIPiprazole 5 MG TAB PO SCH (20:56)
--- NOTE | 2019-08-14 09:11 | Psychiatric Progress Note ---
Date of Service August 14, 2019 Impression / Recommendations Impression 33-year-old female admitted voluntarily for inpatient psychiatric treatment on 08/11/2019 after presenting to the ED with reports of worsening depression and chronic suicidal ideation. This is patient's third inpatient psychiatric admission in roughly 2 months, routinely presenting with inability to contract for safety outside of the hospital setting and verbalization of multiple suicide plans. Patient was most recently admitted to our unit from 07/21/2019 through 07/28/2019. It is reported that patient was seen the day of admission by her outpatient psychiatric prescriber, and was referred to the ED at the close of their visit for a mental health evaluation. Patient did experience recent medication adjustments, as the brexpiprazole she was prescribed during her last psychiatric hospitalization was discontinued and aripiprazole was re-trialed. Patient reports outpatient plan in place to initiate cross taper from fluoxetine to vortioxetine - will initiate this on our unit. While we will continue with working diagnosis of major depressive disorder and anxiety disorder, we will attempt to further determine if there may be an underlying personality disorder contributing to chronic suicidal ideation and limited response to numerous medication trials. Outpatient psychiatric records also indicate a diagnosis of obsessive-compulsive disorder, and we will attempt to gain collateral information on this as well. Inpatient psychiatric hospitalization will offer a safe environment for patient to process stressors contributing to her chronic suicidality and depressive symptoms. Patient will be encouraged to participate in group and recreational programming. We will attempt to involve the patient's and case assistant and support meetings to discuss potential need for additional structure outside of the hospital setting. At this time, patient remains actively suicidal and is unable to contract for safety outside of the hospital setting. She is at high risk of suicide if she is discharged prematurely without adequate medication of risk factors. (1) Suicidal ideation: 08/12 - Admitted to a locked inpatient behavioral health unit, on q15 minute safety checks - Encourage medication initiation/adjustments as indicated - Could consider initiation of lithium, given indication for use to target chronic suicidality - would need to ensure could secure medications given high potential for lethality in overdose - Encourage participation in group and recreational therapies - Gather collateral information from outpatient providers - Suggest family meeting to involve outpatient supports in safety planning - Arrange appropriate aftercare 08/13 - Pt continues to report SI and inability to contract for safety outside of the hospital setting - Saying SI is present 60% of the day rather than all day 08/14 - Pt continue to report SI, describing her moods as "up and down" - In the "downs" patient admits to SI with concerns she is more impulsive and more likely to act on the thoughts - Remains unable to contract for safety outside of the hospital setting (2) Depression: 08/12 - Discussed current treatment plan as established with her outpatient psychiatric PA-C. Pt reports plan was to cross-taper from fluoxetine to vortioxetine, reporting desire to continue with this plan. Will reduce fluoxetine dosage to 40mg in preparation for this adjustment. Will coordinate with [facility] regarding initiation of vortioxetine, as this medication is non- formulary and we are likely to require samples or prior-authorization for the medication. - Call placed to [facility] regarding coordination of care, patient's psychiatric PA-C is reportedly off for the next several days - outpatient records received and reviewed - Will continue aripiprazole 5mg qHS and mirtazapine 15mg qHS - patient reporting improvement in mood and anxiety level with these medications - Reviewed patient's [employer] results, which she brought in from home - will scan into chart for future review as needed - Pt was also provided with education and handouts on TMS and ECT for further review, as may be considerations for depression treatment as an alternative to medications - Attempt to rule out underlying personality disorder, given patient's chronic SI and difficulty regulating emotions independently to maintain safety - Encourage family meeting with case assistant and - will need ongoing safety planning discussions, as patient admits to chronic suicidality - Encourage participation in group and recreational programming - Encourage ongoing development of healthy and effective coping strategies 08/13 - Continue current regimen - fluoxetine 20mg qAM and vortioxetine 10mg qAM - continue cross-titration as tolerated - Continue mirtazapine and aripiprazole qHS - Continue to encourage participation in group and recreational programming - Will attempt to coordinate additional supports, as patient is clearly struggling with ability to function outside of a supportive and supervised setting for a long duration of time. She may benefit from partial hospitalization programs or additional services. Specifically we will assist with exploration of childcare services so that patient is able to consistently attend her psychiatric appointments - Schedule family meeting with to discuss discharge and safety planning - Pt met with her case assistant on the day of admission, another meeting is scheduled for 08/15 08/14 - Will plan to discontinue fluoxetine starting tomorrow morning, continue vortioxetine 10mg qAM with titration as indicated/tolerated - Can consider additional medication options: titration of mirtazapine, initiation of lithium (to target SI), as well as further explore possibility of a personality disorder which may not be as innately responsive to medications - Schedule family meeting with to discuss ongoing safety planning - recommending an actual medical lock box - manager market intelligence to visit tomorrow - Explore possibility of mobile psych therapy (3) Anxiety: 08/12 - Continue to encourage development of healthy and effective coping strategies - medication adjustments as outlined above - Rule out possible OCD traits, as patient admits to intrusive/ruminative anxious thoughts, SI is often intrusive as well - Utilization of prn hydroxyzine for acute anxiety Risk Factors Assessment Male: No : Yes Do You Have Access To A Gun?: No Health Problems: No Mental Health Diagnoses: Yes Substance Use Disorders: No Previous Attempt: No Previous Psychiatric Hospitalization: Yes Hopelessness: Yes Smoker: No Protective Factors Assessment 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 Pt has a history of depression, anxiety, and chronic suicidal ideation. Pt was admitted on 08/11/19 15:55 on a 201 voluntary commitment for worsening depressive symptoms and chronic SI with inability to contract for safety outside of the inpatient psychiatric setting. Chief Complaint "Um, I'm feeling a little nauseous this morning. I initially thought it was the Trintellix, but I'm not sure that's it now." Review of Systems Notes Constitutional: reports daytime fatigue despite admitting to restful sleep Cardiovascular: denied Respiratory: denied Gastrointestinal: denied Neurological: denied Psychiatric: denies symptoms other than stated above Total of at least 10 systems reviewed, pertinent positives as above and in HPI. Sleep Information Total Hours of Sleep: 7.25 Meal Information Percent Meal Consumed - Breakfast: 100 Percent Meal Consumed - Lunch: 100 Percent Meal Consumed - Dinner: 100 Subjective Subjective Patient was seen & assessed and interval progress reviewed with nursing and social work. Staff reports the patient has been attending group programming regularly, but continues to appear flat. She rated her mood a 4/10 and "guilty" last evening. Pt was seen today to assess progress since admission. Pt states she is feeling a bit nauseous this morning, admitting to some of this feeling last evening with dinner and also an episode of diarrhea last evening. Pt does question if initiation of vortioxetine is a factor, but states the physical concerns are not interfering with her functioning at this time. Pt admits that she has been feeling very drowsy "for as much as I've been sleeping." She does report exercising in the evenings, but feels this actually helps to promote sleep for her. Pt reports her mood as "very neutral" - actually describing it to be "uncertain", reporting episodes of intense hopefulness and motivation contrasted with periods of significant hopelessness and suicidality. Pt admits to ongoing SI, states even on the unit she has been thinking about wrecking her car or overdosing. Pt reports most concerning for her is "it's the down points during the day when I feel very impulsive." She also verbalizes "I keep having thoughts that 'as soon as I get out of here, I'm just going to kill myself. This is ridiculous, what's the point?'" Pt continues to be unable to contract for safety outside of the hospital setting. Possible option for mobile psych therapy was mentioned, and patient was excited to know the service was being explored further. Of note, patient states that her son is being discharged from his 5-week psychiatric hospitalization today - adding to the level of safety concerns around the house. She denies other needs or concerns at this time. Physical Exam Psychiatric Orientation: alert, oriented x 3 and cooperative (and pleasant) Apperance: appropriately dressed, appropriately groomed and appeared stated age Eye Contact: good eye contact Motor Behavior: steady gait and station and no abnormal motor movements Speech: normal rate/rhythm/volume of speech Affect: + depressed affect, + flat affect and mood congruent with affect Mood: + depressed mood ("very neutral mood-louis, yesterday it was really up and down") Thought Process: goal directed thought process, clear/coherent thought process and thought association intact Thought Content: reality based without delusions and + hopelessness Suicidal Thoughts: + reports suicidal thoughts, + reports suicidal plan ("I still don't feel safe driving by myself" ongoing temptation to OD) and + reports suicidal intent (admits to intermittent intent to end her life) Homicidal Thoughts: denies homicidal thoughts Hallucinations: no auditory hallucinations and no visual hallucinations Cognition: attention grossly intact and language grossly intact Insight: + fair insight Judgement: + fair judgement Vital Signs (Past 24 Hours) Last Vital Signs Temp 36.8 C 08/14/19 06:50 Pulse 60 08/14/19 06:51 Resp 16 08/14/19 06:50 BP 116/77 08/14/19 06:51 Pulse Ox 99 08/11/19 16:57 Results & Data ([facility]) Current Inpatient Medications Current Inpatient Medications: Current Inpatient Medications Acetaminophen (Tylenol) 650 mg PO Q4H PRN PRN Reason: Headache or Minor Fever Stop: 09/10/19 15:54 Last Admin: 08/13/19 15:46 Dose: 650 mg Documented by: Al Hydrox/Mg Hydrox/Simethicone (Maalox) 30 ml PO Q4H PRN PRN Reason: GI Upset Stop: 09/10/19 15:54 Aripiprazole (Abilify) 5 mg PO HS MARK Stop: 09/11/19 21:59 Last Admin: 08/13/19 20:56 Dose: 5 mg Documented by: Bismuth Subsalicylate (Kaopectate) 15 ml PO PRN PRN PRN Reason: Loose Stool Stop: 09/10/19 15:54 Fluoxetine HCl (Prozac) 20 mg PO DAILY MARK Stop: 09/12/19 08:59 Last Admin: 08/13/19 10:09 Dose: 20 mg Documented by: Hydroxyzine HCl (Vistaril) 50 mg PO HSZ PRN PRN Reason: Insomnia Stop: 09/10/19 15:54 Hydroxyzine HCl (Vistaril) 25 mg PO Q4H PRN PRN Reason: Anxiety Stop: 09/10/19 15:54 Ibuprofen (Motrin) 600 mg PO Q8H PRN PRN Reason: Pain Stop: 09/12/19 08:25 Last Admin: 08/13/19 10:09 Dose: 600 mg Documented by: Magnesium Hydroxide (Milk Of Magnesia) 30 ml PO DAILY PRN PRN Reason: Constipation Stop: 09/10/19 15:54 Mirtazapine (Remeron) 15 mg PO HS MARK Stop: 09/10/19 20:59 Last Admin: 08/13/19 20:56 Dose: 15 mg Documented by: Multivitamins/Minerals (Multivitamin W/ Minerals Tab) 1 tab PO QAM MARK Stop: 09/11/19 08:59 Last Admin: 08/13/19 10:09 Dose: 1 tab Documented by: Sodium Chloride ([place] Nasal) 1 - 2 sprays NA PRN PRN PRN Reason: Nasal Dryness/Congestion Stop: 09/10/19 15:54 Vortioxetine (Trintellix) 1 ea PO QAM MARK Stop: 09/12/19 08:59 Last Admin: 08/13/19 15:23 Dose: Not Given Documented by: Mental Health & Subst Abuse Tx Therapist Name of Therapist: Jayme Kitchen Talent Development Manager Name of Talent Development Manager: Harpreet Murray BSU, Post Discharge Appointments Primary Care Physician Name Of Family Doctor: Brandee Villaseñor (1) Depression Depression Type: unspecified Qualified Code(s): F32.9 - Major depressive disorder, single episode, unspecified
[2019-08-14] MEDS: FLUOXETINE HCL 20 MG CAP PO SCH (09:15)
[2019-08-14] MEDS: CEROVITE ADV FORMULA TAB PO SCH (09:15)
[2019-08-14] MEDS: VORTIOXETINE HYDROBROMIDE PO SCH (09:15)
[2019-08-14] MEDS: ARIPiprazole 5 MG TAB PO SCH (21:31)
[2019-08-14] MEDS: MIRTAZAPINE TAB 15 MG TAB PO SCH (21:31)
[2019-08-15] MEDS: CEROVITE ADV FORMULA TAB PO SCH (08:51)
[2019-08-15] MEDS: VORTIOXETINE HYDROBROMIDE PO SCH (08:52)
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
[2019-08-15] MEDS: ARIPiprazole 5 MG TAB PO SCH (21:18)
[2019-08-15] MEDS: MIRTAZAPINE TAB 15 MG TAB PO SCH (21:18)
[2019-08-16] MEDS: CEROVITE ADV FORMULA TAB PO SCH (08:49)
[2019-08-16] MEDS: VORTIOXETINE HYDROBROMIDE PO SCH (08:50)
--- NOTE | 2019-08-16 14:58 | Psychiatric Progress Note ---
Date of Service August 16, 2019 Impression / Recommendations Impression 33-year-old female admitted voluntarily for inpatient psychiatric treatment on 08/11/2019 after presenting to the ED with reports of worsening depression and chronic suicidal ideation. This is patient's third inpatient psychiatric admission in roughly 2 months, routinely presenting with inability to contract for safety outside of the hospital setting and verbalization of multiple suicide plans. Patient was most recently admitted to our unit from 07/21/2019 through 07/28/2019. Prozac cross tapered to Trintellix. Inpatient psychiatric hospitalization will offer a safe environment for patient to process stressors contributing to her chronic suicidality and depressive symptoms. She is at high risk of suicide if she is discharged prematurely without adequate mitigattion of risk factors. (1) Suicidal ideation: 08/12 - Admitted to a locked inpatient behavioral health unit, on q15 minute safety checks - Encourage medication initiation/adjustments as indicated - Could consider initiation of lithium, given indication for use to target chronic suicidality - would need to ensure could secure medications given high potential for lethality in overdose - Encourage participation in group and recreational therapies - Gather collateral information from outpatient providers - Suggest family meeting to involve outpatient supports in safety planning - Arrange appropriate aftercare 08/13 - Pt continues to report SI and inability to contract for safety outside of the hospital setting - Saying SI is present 60% of the day rather than all day 08/14 - Pt continue to report SI, describing her moods as "up and down" - In the "downs" patient admits to SI with concerns she is more impulsive and more likely to act on the thoughts - Remains unable to contract for safety outside of the hospital setting 08/15 - Ongoing SI, though admittedly somewhat improved - Pt states she likely would not have been able to safely manage SI experienced last evening if not in the hosptial (2) Depression: 08/12 - Discussed current treatment plan as established with her outpatient psychiatric PA-C. Pt reports plan was to cross-taper from fluoxetine to vortioxetine, reporting desire to continue with this plan. Will reduce fluoxetine dosage to 40mg in preparation for this adjustment. Will coordinate with [facility] regarding initiation of vortioxetine, as this medication is non- formulary and we are likely to require samples or prior-authorization for the medication. - Call placed to [facility] regarding coordination of care, patient's psychiatric PA-C is reportedly off for the next several days - outpatient records received and reviewed - Will continue aripiprazole 5mg qHS and mirtazapine 15mg qHS - patient repo rting improvement in mood and anxiety level with these medications - Reviewed patient's GeneSight results, which she brought in from home - will scan into chart for future review as needed - Pt was also provided with education and handouts on TMS and ECT for further review, as may be considerations for depression treatment as an alternative to medications - Attempt to rule out underlying personality disorder, given patient's chronic SI and difficulty regulating emotions independently to maintain safety - Encourage family meeting with correctional counselor/case manager and - will need ongoing safety planning discussions, as patient admits to chronic suicidality - Encourage participation in group and recreational programming - Encourage ongoing development of healthy and effective coping strategies 08/13 - Continue current regimen - fluoxetine 20mg qAM and vortioxetine 10mg qAM - continue cross-titration as tolerated - Continue mirtazapine and aripiprazole qHS - Continue to encourage participation in group and recreational programming - Will attempt to coordinate additional supports, as patient is clearly struggling with ability to function outside of a supportive and supervised setting for a long duration of time. She may benefit from partial hospitalization programs or additional services. Specifically we will assist with exploration of childcare services so that patient is able to consistently attend her psychiatric appointments - Schedule family meeting with to discuss discharge and safety planning - Pt met with her correctional counselor/case manager on the day of admission, another meeting is scheduled for 08/15 08/14 - Will plan to discontinue fluoxetine starting tomorrow morning, continue vortioxetine 10mg qAM with titration as indicated/tolerated - Can consider additional medication options: titration of mirtazapine, initiation of lithium (to target SI), as well as further explore possibility of a personality disorder which may not be as innately responsive to medications - Schedule family meeting with to discuss ongoing safety planning - recommending an actual medical lock box - manager maintenance to visit tomorrow - Explore possibility of mobile psych therapy 08/15 - Continue treatment plan as above - Meeting with correctional counselor/case manager today - Schedule family meeting with - Exploring options for additional outpatient psychiatric supports --titrate Remeron to 30 mg po qhs, consider further titration of Trintellix and/or Abilify. No abnormal motor movements. (3) Anxiety: 08/12 - Continue to encourage development of healthy and effective coping strategies - medication adjustments as outlined above - Rule out possible OCD traits, as patient admits to intrusive/ruminative anxious thoughts, SI is often intrusive as well - Utilization of prn hydroxyzine for acute anxiety Risk Factors Assessment Male: No : Yes Do You Have Access To A Gun?: No Health Problems: No Mental Health Diagnoses: Yes Substance Use Disorders: No Previous Attempt: No Previous Psychiatric Hospitalization: Yes Hopelessness: Yes Smoker: No Protective Factors Assessment Baptism Beliefs: Yes : Yes Responsible for Young Children: Yes Employed: No ([id number]) Stable Relationships: Yes Supportive Family: Yes Good Rapport with Provider: Yes Interval History Identifying Information LUZ IZAGUIRRE is a 33-year-old F who currently lives in [place] with her and 5 children. Pt has a history of depression, anxiety, and chronic suicidal ideation. Pt was admitted on 08/11/19 15:55 on a 201 voluntary commitment for worsening depressive symptoms and chronic SI with inability to contract for safety outside of the inpatient psychiatric setting. Chief Complaint "I'm actually feeling a little hopeful today, less intrussive thoughts". Review of Systems Sleep Information Total Hours of Sleep: 7.25 Meal Information Percent Meal Consumed - Breakfast: 100 Percent Meal Consumed - Lunch: 100 Percent Meal Consumed - Dinner: 100 Subjective Subjective Patient was seen & assessed and interval progress reviewed with nursing and social work. was able to visit with her without children last evening which was good as usually "it's all going down and we see each other but don't see each other". Doesn't feel her sleep was as restful last night, continues to have nightmares. She states these initially subsided with starting Remeron and she would like to try higher dose but also needs to "be able to get up if daughter's hypoglycemia alarm" goes off. Reviewed that higher doses aren't necessarily more sedating. Feels her energy is improved since starting Abilify and noticed improvement in mood on day 3 of Trintellix. Physical Exam Psychiatric Orientation: alert, oriented x 3 and cooperative (and pleasant) Apperance: appropriately dressed, appropriately groomed and appeared stated age Eye Contact: good eye contact Motor Behavior: steady gait and station and no abnormal motor movements Speech: normal rate/rhythm/volume of speech Mood: + depressed mood (but improving) Thought Process: goal directed thought process, clear/coherent thought process and thought association intact Thought Content: reality based without delusions Suicidal Thoughts: + reports suicidal thoughts (though does indicate some improvement from admission) Homicidal Thoughts: denies homicidal thoughts Hallucinations: no auditory hallucinations and no visual hallucinations Cognition: attention grossly intact and language grossly intact Insight: good insight and + fair insight Judgement: + fair judgement Vital Signs (Past 24 Hours) Last Vital Signs Temp 36.6 C 08/16/19 06:49 Pulse 75 08/16/19 06:50 Resp 16 08/16/19 06:49 BP 122/77 08/16/19 06:50 Pulse Ox 99 08/11/19 16:57 Results & Data ([facility]) Current Inpatient Medications Current Inpatient Medications: Current Inpatient Medications Acetaminophen (Tylenol) 650 mg PO Q4H PRN PRN Reason: Headache or Minor Fever Stop: 09/10/19 15:54 Last Admin: 08/13/19 15:46 Dose: 650 mg Documented by: Al Hydrox/Mg Hydrox/Simethicone (Maalox) 30 ml PO Q4H PRN PRN Reason: GI Upset Stop: 09/10/19 15:54 Aripiprazole (Abilify) 5 mg PO HS [facility] Stop: 09/11/19 21:59 Last Admin: 08/15/19 21:18 Dose: 5 mg Documented by: Bismuth Subsalicylate (Kaopectate) 15 ml PO PRN PRN PRN Reason: Loose Stool Stop: 09/10/19 15:54 Hydroxyzine HCl (Vistaril) 50 mg PO HSZ PRN PRN Reason: Insomnia Stop: 09/10/19 15:54 Hydroxyzine HCl (Vistaril) 25 mg PO Q4H PRN PRN Reason: Anxiety Stop: 09/10/19 15:54 Ibuprofen (Motrin) 600 mg PO Q8H PRN PRN Reason: Pain Stop: 09/12/19 08:25 Last Admin: 08/13/19 10:09 Dose: 600 mg Documented by: Magnesium Hydroxide (Milk Of Magnesia) 30 ml PO DAILY PRN PRN Reason: Constipation Stop: 09/10/19 15:54 Mirtazapine (Remeron) 30 mg PO HS [facility] Stop: 09/15/19 21:59 Multivitamins/Minerals (Multivitamin W/ Minerals Tab) 1 tab PO QAM [facility] Stop: 09/11/19 08:59 Last Admin: 08/16/19 08:49 Dose: 1 tab Documented by: Sodium Chloride ([place] Nasal) 1 - 2 sprays NA PRN PRN PRN Reason: Nasal Dryness/Congestion Stop: 09/10/19 15:54 Vortioxetine (Trintellix) 1 ea PO QAM [facility] Stop: 09/12/19 08:59 Last Admin: 08/16/19 08:50 Dose: 1 ea Documented by: Mental Health & Subst Abuse Tx Therapist Name of Therapist: Jayme Kitchen Cloth Covered Helmet Puller Name of Cloth Covered Helmet Puller: [facility], Post Discharge Appointments Primary Care Physician Name Of Family Doctor: Brandee Villaseñor (1) Depression Depression Type: unspecified Qualified Code(s): F32.9 - Major depressive disorder, single episode, unspecified
[2019-08-16] MEDS: ARIPiprazole 5 MG TAB PO SCH (20:58)
[2019-08-16] MEDS: MIRTAZAPINE TAB 15 MG TAB PO SCH (20:59)
[2019-08-17] MEDS: CEROVITE ADV FORMULA TAB PO SCH (08:41)
[2019-08-17] MEDS: VORTIOXETINE HYDROBROMIDE PO SCH (08:41)
--- NOTE | 2019-08-17 10:35 | Psychiatric Progress Note ---
Date of Service August 17, 2019 Impression / Recommendations Impression 33-year-old female admitted voluntarily for inpatient psychiatric treatment on 08/11/2019 after presenting to the ED with reports of worsening depression and chronic suicidal ideation. This is patient's third inpatient psychiatric admission in roughly 2 months, routinely presenting with inability to contract for safety outside of the hospital setting and verbalization of multiple suicide plans. Patient was most recently admitted to our unit from 07/21/2019 through 07/28/2019. Prozac cross tapered to Trintellix. Remeron titrated to 30 mg 08/16/2019. (1) Suicidal ideation: 08/12 - Admitted to a locked inpatient behavioral health unit, on q15 minute safety checks - Encourage medication initiation/adjustments as indicated - Could consider initiation of lithium, given indication for use to target chronic suicidality - would need to ensure could secure medications given high potential for lethality in overdose - Encourage participation in group and recreational therapies - Gather collateral information from outpatient providers - Suggest family meeting to involve outpatient supports in safety planning - Arrange appropriate aftercare 08/13 - Pt continues to report SI and inability to contract for safety outside of the hospital setting - Saying SI is present 60% of the day rather than all day 08/14 - Pt continue to report SI, describing her moods as "up and down" - In the "downs" patient admits to SI with concerns she is more impulsive and more likely to act on the thoughts - Remains unable to contract for safety outside of the hospital setting 08/15 - Ongoing SI, though admittedly somewhat improved - Pt states she likely would not have been able to safely manage SI experienced last evening if not in the hosptial (2) Depression: 08/12 - Discussed current treatment plan as established with her outpatient psychiatric PA-C. Pt reports plan was to cross-taper from fluoxetine to vortiox etine, reporting desire to continue with this plan. Will reduce fluoxetine dosage to 40mg in preparation for this adjustment. Will coordinate with [facility] regarding initiation of vortioxetine, as this medication is non-formulary and we are likely to require samples or prior-authorization for the medication. - Call placed to [facility] regarding coordination of care, patient's psychiatric PA-C is reportedly off for the next several days - outpatient records received and reviewed - Will continue aripiprazole 5mg qHS and mirtazapine 15mg qHS - patient reporting improvement in mood and anxiety level with these medications - Reviewed patient's [employer] results, which she brought in from home - will scan into chart for future review as needed - Pt was also provided with education and handouts on TMS and ECT for further review, as may be considerations for depression treatment as an alternative to medications - Attempt to rule out underlying personality disorder, given patient's chronic SI and difficulty regulating emotions independently to maintain safety - Encourage family meeting with case hardener and - will need ongoing safety planning discussions, as patient admits to chronic suicidality - Encourage participation in group and recreational programming - Encourage ongoing development of healthy and effective coping strategies 08/13 - Continue current regimen - fluoxetine 20mg qAM and vortioxetine 10mg qAM - continue cross-titration as tolerated - Continue mirtazapine and aripiprazole qHS - Continue to encourage participation in group and recreational programming - Will attempt to coordinate additional supports, as patient is clearly struggling with ability to function outside of a supportive and supervised setting for a long duration of time. She may benefit from partial hospitalization programs or additional services. Specifically we will assist with exploration of childcare services so that patient is able to consistently attend her psychiatric appointments - Schedule family meeting with to discuss discharge and safety planning - Pt met with her case hardener on the day of admission, another meeting is scheduled for 08/15 08/14 - Will plan to discontinue fluoxetine starting tomorrow morning, continue vortioxetine 10mg qAM with titration as indicated/tolerated - Can consider additional medication options: titration of mirtazapine, i nitiation of lithium (to target SI), as well as further explore possibility of a personality disorder which may not be as innately responsive to medications - Schedule family meeting with to discuss ongoing safety planning - recommending an actual medical lock box - manager recovery to visit tomorrow - Explore possibility of mobile psych therapy 08/15 - Continue treatment plan as above - Meeting with case hardener today - Schedule family meeting with - Exploring options for additional outpatient psychiatric supports --titrate Remeron to 30 mg po qhs, consider further titration of Trintellix and/or Abilify. No abnormal motor movements. (3) Anxiety: 08/12 - Continue to encourage development of healthy and effective coping s trategies - medication adjustments as outlined above - Rule out possible OCD traits, as patient admits to intrusive/ruminative anxious thoughts, SI is often intrusive as well - Utilization of prn hydroxyzine for acute anxiety Risk Factors Assessment Male: No : Yes Do You Have Access To A Gun?: No Health Problems: No Mental Health Diagnoses: Yes Substance Use Disorders: No Previous Attempt: No Previous Psychiatric Hospitalization: Yes Hopelessness: Yes Smoker: No Protective Factors Assessment Jewish Beliefs: Yes : Yes Responsible for Young Children: Yes Employed: No ([id number]) Stable Relationships: Yes Supportive Family: Yes Good Rapport with Provider: Yes Interval History Identifying Information LUZ IZAGUIRRE is a 33-year-old F who currently lives in [place] with her and 5 children. Pt has a history of depression, anxiety, and chronic suicidal ideation. Pt was admitted on 08/11/19 15:55 on a 201 voluntary commitment for worsening depressive symptoms and chronic SI with inability to contract for safety outside of the inpatient psychiatric setting. Chief Complaint "I slept well, still feeling pretty good". Review of Systems Sleep Information Total Hours of Sleep: 8 Meal Information Percent Meal Consumed - Breakfast: 100 Percent Meal Consumed - Lunch: 100 Percent Meal Consumed - Dinner: 100 Subjective Subjective Patient was seen & assessed and interval progress reviewed with nursing and social work. Sleep improved last pm. She woke up twice due to noise and need to use the bathroom but not due to dreams and feels quality improved. Family meeting today with to review safety concerns around children's meds (daughter's insulin). She voiced some irritation with 15 yo son during visitation last pm as he protested her asking him about his safety plan but was able to reframe. Physical Exam Psychiatric Orientation: alert Apperance: appropriately dressed and appropriately groomed Eye Contact: good eye contact Motor Behavior: no abnormal motor movements Speech: normal rate/rhythm/volume of speech Affect: euthymic affect "improved" Thought Process: goal directed thought process Thought Content: reality based without delusions Suicidal Thoughts: denies suicidal thoughts Homicidal Thoughts: denies homicidal thoughts Hallucinations: no auditory hallucinations and no visual hallucinations Insight: + limited insight Judgement: + limited judgement Vital Signs (Past 24 Hours) Last Vital Signs Temp 36.6 C 08/17/19 06:59 Pulse 56 L 08/17/19 07:00 Resp 16 08/17/19 06:59 BP 119/83 08/17/19 07:00 Pulse Ox 99 02/24/20 16:57 Results & Data ([facility]) Current Inpatient Medications Current Inpatient Medications: Current Inpatient Medications Acetaminophen (Tylenol) 650 mg PO Q4H PRN PRN Reason: Headache or Minor Fever Stop: 09/10/19 15:54 Last Admin: 08/13/19 15:46 Dose: 650 mg Documented by: Al Hydrox/Mg Hydrox/Simethicone (Maalox) 30 ml PO Q4H PRN PRN Reason: GI Upset Stop: 09/10/19 15:54 Aripiprazole (Abilify) 5 mg PO HS MARK Stop: 09/11/19 21:59 Last Admin: 08/16/19 20:58 Dose: 5 mg Documented by: Bismuth Subsalicylate (Kaopectate) 15 ml PO PRN PRN PRN Reason: Loose Stool Stop: 09/10/19 15:54 Hydroxyzine HCl (Vistaril) 50 mg PO HSZ PRN PRN Reason: Insomnia Stop: 09/10/19 15:54 Hydroxyzine HCl (Vistaril) 25 mg PO Q4H PRN PRN Reason: Anxiety Stop: 09/10/19 15:54 Ibuprofen (Motrin) 600 mg PO Q8H PRN PRN Reason: Pain Stop: 09/12/19 08:25 Last Admin: 08/13/19 10:09 Dose: 600 mg Documented by: Magnesium Hydroxide (Milk Of Magnesia) 30 ml PO DAILY PRN PRN Reason: Constipation Stop: 09/10/19 15:54 Mirtazapine (Remeron) 30 mg PO HS MARK Stop: 09/15/19 21:59 Last Admin: 08/16/19 20:59 Dose: 30 mg Documented by: Multivitamins/Minerals (Multivitamin W/ Minerals Tab) 1 tab PO QAM MARK Stop: 09/11/19 08:59 Last Admin: 08/17/19 08:41 Dose: 1 tab Documented by: Sodium Chloride ([place] Nasal) 1 - 2 sprays NA PRN PRN PRN Reason: Nasal Dryness/Congestion Stop: 09/10/19 15:54 Vortioxetine (Trintellix) 1 ea PO QAM MARK Stop: 09/12/19 08:59 Last Admin: 08/17/19 08:41 Dose: 1 ea Documented by: Mental Health & Subst Abuse Tx Therapist Name of Therapist: Jayme Kitchen Corrections Nurse Name of Corrections Nurse: Terri [facility], Post Discharge Appointments Primary Care Physician Name Of Family Doctor: Brandee Villaseñor (1) Depression Depression Type: unspecified Qualified Code(s): F32.9 - Major depressive disorder, single episode, unspecified
[2019-08-17] MEDS: MIRTAZAPINE TAB 15 MG TAB PO SCH (20:53)
[2019-08-17] MEDS: ARIPiprazole 5 MG TAB PO SCH (20:54)
[2019-08-18] MEDS: CEROVITE ADV FORMULA TAB PO SCH (08:30)
[2019-08-18] MEDS: VORTIOXETINE HYDROBROMIDE PO SCH (08:30)
--- NOTE | 2019-08-18 09:10 | Discharge Summary ---
Date of Service August 18, 2019 History of Present Illness per admitting clinician--see also H&P. Lali Saba is a 33-year-old female admitted voluntarily for inpatient psychiatric treatment on 08/11/2019 after presenting to the ED with reports of worsening depression and chronic suicidal ideation. Patient reports that she presented to an outpatient psychiatric medication management appointment today, and disclosed worsening suicidal ideation with inability to contract for safety outside of the hospital setting. Patient was referred by her psychiatric PA-C to the ED for mental health evaluation. Patient was most recently admitted to our unit from 07/21/2019 through 07/28/2019 for similar concerns. This is patient's third inpatient psychiatric admission in roughly 2 months. Patient is cooperative with psychiatric evaluation, and denies any new significant psychosocial stressors. Patient states that her biggest concern at this time is that she has been feeling "blah and emotionless." Patient does not believe that her current medication regimen is ideal, though admits to active adjustments with her outpatient psychiatric prescriber. Patient states that they resumed aripiprazole, which patient feels has been helpful for lifting her mood and reducing racing thoughts. Patient continues to find the mirtazapine helpful for anxiety; however, feels that it is no longer offering a benefit for nightmares. Patient was reminded that this medication does not have an indication for reducing/improving nightmares, and that this may have been a coincidental finding initially. Otherwise, patient feels as though she has not benefited from titration of fluoxetine to 60 mg as completed during her last hospitalization. Patient states that she noticed a "lift in my mood" for about 1 week after increasing the dose, and feels that any perceived benefit has since faded. Patient states that she has been working with her outpatient psychiatric PA-C to discuss additional medication adjustments. Most recent plan has been to consider cross taper from fluoxetine to vortioxetine. Patient reports suicidal ideation which has been chronic and "lasting all day." Patient states that last week she was cleaning out her daughter's room and found a vial of insulin. She reports that she stared at the vial with strong consideration to overdose on it. Patient states that the day of admission she had rather strong thoughts to overdose on medications. Patient states that she realized that she was going to be driving to a psychiatric appointment, and did not want to overdose on medications with the risk of "something happening while I was behind the wheel." Patient was able to speak with her regarding her safety concerns, and drove the patient to her psychiatric appointment. Patient describes her suicidal thoughts as "all-consuming." She states that the Sunday prior to her admission "I was just sitting in evangelical thinking nonstop about anything I needed to do before I killed myself. I thought about needing to write letters to my kids, writing a letter to my daughter. I kind of planned out everything that I would have to accomplish." Patient states to this provider "I cannot tolerate being in my brain anymore." Patient does admit that she feels she "homesickness" cut her most recent hospitalization short, as she admits that she feels she may not have been ready to leave treatment. Patient states "I am going to give it 1 last shot, and if I am not better when I leave here that I do not think I should leave." When asked what additional outpatient supports patient feels would be beneficial to allow her to contract for safety outside of the hospital setting, patient is unable to provide any thoughts at this time. Patient states that she is continuing to attend weekly therapy sessions, and has been pleased with the assignments her therapist has been providing to her. She does admit to frustration about this, as "I feel like I am doing so many things and not feeling any better." Physical Exam Mental Examination per admitting clinician--see also H&P. for discharge exam see day of discharge assessment. Vital Signs (Past 24 Hours) Last Vital Signs Temp 36.9 C 08/18/19 06:00 Pulse 65 08/18/19 06:43 Resp 16 08/18/19 06:00 BP 115/78 08/18/19 06:43 Pulse Ox 99 08/11/19 16:57 Principal Diagnosis depressive disorder Psychiatric Data see daily care summary. In short, responsive to behavioral interventions and had successful family session with around safety planning, he agrees to secure medication (including daughters insulin) and is taking time off of work to ease in transition home. In addition to additional case management services they also have close support with family based team assigned to family based on minor child recently being discharged from inpatient mental health care. She tolerated medication changes well--Prozac was cross tapered to Trintellix and Remeron dose was increased. Abilify was continued and she continues to report this medication helps her daytime fatigue immensely. Her sleep was improved and she was "finally" free of intrussive thoughts for several days prior to discharge. Day of Discharge Assessment Lali is alert, confident, and committed to her outpatient plan. She is verbalizing appropriate coping skills and safety plan should her intrussive or suicidal thoughts recur. There is no evidence of psychosis and she is stable to discharge to outpatient level of care. Transition of Care Transition Of Care Record: was reviewed with the patient Advance Directives Advance Directives Information Provided: Yes Advance Directives: No Mental Health Advance Directive: No Advance Directives on File: No Living Will: No Power of Docket Clerk: No Advance Directives Reason:: Declines as Mental Health Visit. 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5 Plt Count 234 MPV 8.9 Immature Gran % (Auto) 0.0 Neut % (Auto) 62.6 Lymph % (Auto) 29.3 [place] % (Auto) 6.7 Eos % (Auto) 1.2 Baso % (Auto) 0.2 Immature Gran # (Auto) 0.00 Neut # (Auto) 3.66 Lymph # (Auto) 1.71 [place] # (Auto) 0.39 Eos # (Auto) 0.07 Baso # (Auto) 0.01 Sodium Potassium Chloride Carbon Dioxide Anion Gap BUN Creatinine Est Cr Clr Drug Dosing Est GFR ( Amer) Est GFR (Non-Af Amer) BUN/Creatinine Ratio Glucose Calcium Total Bilirubin AST ALT Alkaline Phosphatase Total Protein Albumin Globulin Albumin/Globulin Ratio TSH HCG, Qual Urine Color Yellow Urine Appearance Clear Urine pH 6.5 Ur Specific [place] 1.008 Urine Protein Negative Urine Glucose (UA) Negative Urine Ketones Negative Urine Blood Negative Urine Nitrite Negative Urine Bilirubin Negative Urine Urobilinogen Negative Ur Leukocyte Esterase Negative Salicylates Urine Opiates Screen Neg Ur Methadone, Qual Neg Acetaminophen Urine Barbiturates Neg Ur Phencyclidine (PCP) Neg U Amphetamin/Meth Scrn Neg MDMA (Ecstasy) Screen Neg U Benzodiazepines Scrn Neg Ur Cocaine Metabolite Neg U Marijuana (THC) Screen Neg Ethyl Alcohol mg/dL 08/11/19 08/11/19 08/11/19 12:10 12:10 12:10 WBC RBC Hgb Hct MCV MCH MCHC RDW Std Deviation RDW Coeff of Charis Plt Count MPV Immature Gran % (Auto) Neut % (Auto) Lymph % (Auto) [place] % (Auto) Eos % (Auto) Baso % (Auto) Immature Gran # (Auto) Neut # (Auto) Lymph # (Auto) [place] # (Auto) Eos # (Auto) Baso # (Auto) Sodium 139 Potassium 3.9 Chloride 109 H Carbon Dioxide 23 Anion Gap 7.0 BUN 19 H Creatinine 1.06 Est Cr Clr Drug Dosing 94.2 Est GFR ( Amer) 80.5 Est GFR (Non-Af Amer) 69.4 BUN/Creatinine Ratio 18.2 Glucose 88 Calcium 9.1 Total Bilirubin 0.4 AST 19 ALT 24 Alkaline Phosphatase 86 Total Protein 7.5 Albumin 3.5 Globulin 4.0 Albumin/Globulin Ratio 0.9 TSH 1.200 HCG, Qual Urine Color Urine Appearance Urine pH Ur Specific [place] Urine Protein Urine Glucose (UA) Urine Ketones Urine Blood Urine Nitrite Urine Bilirubin Urine Urobilinogen Ur Leukocyte Esterase Salicylates < 1.7 L Urine Opiates Screen Ur Methadone, Qual Acetaminophen < 2 L Urine Barbiturates Ur Phencyclidine (PCP) U Amphetamin/Meth Scrn MDMA (Ecstasy) Screen U Benzodiazepines Scrn Ur Cocaine Metabolite U Marijuana (THC) Screen Ethyl Alcohol mg/dL < 3.0 08/11/19 12:10 WBC RBC Hgb Hct MCV MCH MCHC RDW Std Deviation RDW Coeff of Charis Plt Count MPV Immature Gran % (Auto) Neut % (Auto) Lymph % (Auto) [place] % (Auto) Eos % (Auto) Baso % (Auto) Immature Gran # (Auto) Neut # (Auto) Lymph # (Auto) [place] # (Auto) Eos # (Auto) Baso # (Auto) Sodium Potassium Chloride Carbon Dioxide Anion Gap BUN Creatinine Est Cr Clr Drug Dosing Est GFR ( Amer) Est GFR (Non-Af Amer) BUN/Creatinine Ratio Glucose Calcium Total Bilirubin AST ALT Alkaline Phosphatase Total Protein Albumin Globulin Albumin/Globulin Ratio TSH HCG, Qual Negative Urine Color Urine Appearance Urine pH Ur Specific [place] Urine Protein Urine Glucose (UA) Urine Ketones Urine Blood Urine Nitrite Urine Bilirubin Urine Urobilinogen Ur Leukocyte Esterase Salicylates Urine Opiates Screen Ur Methadone, Qual Acetaminophen Urine Barbiturates Ur Phencyclidine (PCP) U Amphetamin/Meth Scrn MDMA (Ecstasy) Screen U Benzodiazepines Scrn Ur Cocaine Metabolite U Marijuana (THC) Screen Ethyl Alcohol mg/dL Hospital Course (1) Suicidal ideation: 08/12 - Admitted to a locked inpatient behavioral health unit, on q15 minute safety checks - Encourage medication initiation/adjustments as indicated - Could consider initiation of lithium, given indication for use to target chronic suicidality - would need to ensure could secure medications given high potential for lethality in overdose - Encourage participation in group and recreational therapies - Gather collateral information from outpatient providers - Suggest family meeting to involve outpatient supports in safety planning - Arrange appropriate aftercare 08/13 - Pt continues to report SI and inability to contract for safety outside of the hospital setting - Saying SI is present 60% of the day rather than all day 08/14 - Pt continue to report SI, describing her moods as "up and down" - In the "downs" patient admits to SI with concerns she is more impulsive and more likely to act on the thoughts - Remains unable to contract for safety outside of the hospital setting 08/15 - Ongoing SI, though admittedly somewhat improved - Pt states she likely would not have been able to safely manage SI experienced last evening if not in the hosptial (2) Depression: 08/12 - Discussed current treatment plan as established with her outpatient psychiatric PA-C. Pt reports plan was to cross-taper from fluoxetine to vortioxetine, reporting desire to continue with this plan. Will reduce fluoxetine dosage to 40mg in preparation for this adjustment. Will coordinate with [employer] regarding initiation of vortioxetine, as this medication is non-f ormulary and we are likely to require samples or prior-authorization for the medication. - Call placed to [employer] regarding coordination of care, patient's psychiatric PA-C is reportedly off for the next several days - outpatient records received and reviewed - Will continue aripiprazole 5mg qHS and mirtazapine 15mg qHS - patient reporting improvement in mood and anxiety level with these medications - Reviewed patient's [employer] results, which she brought in from home - will scan into chart for future review as needed - Pt was also provided with education and handouts on TMS and ECT for further review, as may be considerations for depression treatment as an alternative to medications - Attempt to rule out underlying personality disorder, given patient's chronic SI and difficulty regulating emotions independently to maintain safety - Encourage family meeting with top case assembler and - will need ongoing safety planning discussions, as patient admits to chronic suicidality - Encourage participation in group and recreational programming - Encourage ongoing development of healthy and effective coping strategies 08/13 - Continue current regimen - fluoxetine 20mg qAM and vortioxetine 10mg qAM - continue cross-titration as tolerated - Continue mirtazapine and aripiprazole qHS - Continue to encourage participation in group and recreational programming - Will attempt to coordinate additional supports, as patient is clearly struggling with ability to function outside of a supportive and supervised setting for a long duration of time. She may benefit from partial hospi talization programs or additional services. Specifically we will assist with exploration of childcare services so that patient is able to consistently attend her psychiatric appointments - Schedule family meeting with to discuss discharge and safety planning - Pt met with her top case assembler on the day of admission, another meeting is scheduled for 08/15 08/14 - Will plan to discontinue fluoxetine starting tomorrow morning, continue vortioxetine 10mg qAM with titration as indicated/tolerated - Can consider additional medication options: titration of mirtazapine, initiation of lithium (to target SI), as well as further explore possibility of a personality disorder which may not be as innately responsive to medications - Schedule family meeting with to discuss ongoing safety planning - recommending an actual medical lock box - vegetable farm manager to visit tomorrow - Explore possibility of mobile psych therapy 08/15 - Continue treatment plan as above - Meeting with top case assembler today - Schedule family meeting with - Exploring options for additional outpatient psychiatric supports --titrate Remeron to 30 mg po qhs, consider further titration of Trintell ix and/or Abilify. No abnormal motor movements. (3) Anxiety: 08/12 - Continue to encourage development of healthy and effective coping strategies - medication adjustments as outlined above - Rule out possible OCD traits, as patient admits to intrusive/ruminative anxious thoughts, SI is often intrusive as well - Utilization of prn hydroxyzine for acute anxiety Mental Health & Subst Abuse Tx Psychiatrist Name of Psychiatrist: Saroj Psychiatrist's Psychiatric Appointment Comment: [id number] [facility] Therapist Name of Therapist: Jayme Kitchen Therapist's Date of Therapist Appointment: 08/21/19 Time of Therapist Appointment: 11:00 a.m. Therapy Appointment Comment: [address] [facility] Screen Writer Name of Screen Writer: [facility] Phone Number for Screen Writer: [phone] Case Management Appointment Comment: Will meet you where you both agree Post Discharge Appointments Primary Care Physician Name Of Family Doctor: Lela Villaseñor Primary Care Time of Appointment with PCP: Follow up as needed Provider Appointment Comment: [address] [place] [id number] Smoking Cessation Counseling Tobacco Cessation Medication Prescribed at Discharge: Not Applicable/Non-Smoker Contact Information Discharge Discharge Address: [address] [place] [address] Discharge Plan Discharge Items Patient Disposition: Home - Self-Care Reason For Visit: MBD Discharge Diagnosis: depressive disorder Activity: Resume your previous activity Non-emergency contact: Psychiatrist and Manager Graphic Call non-emergency contact if: you have any medication questions and your symptoms worsen Follow-up/Referrals: Brandee Villaseñor DO [Primary Care Provider] - Diet: Regular Addtl Attending Provider Instructions: SPECIAL CARE INSTRUCTIONS: 1. Follow through with your scheduled aftercare appointments. If unable to keep an appointment, please call to reschedule. 2. Take your medication only as prescribed. Medication should not be changed or stopped without the approval of your doctor. In the event of worsening symptoms or concerns about side effects, contact your doctor immediately. 3. Utilize new healthy coping skills, anger management skills, and stress management skills learned during your hospitalization. Journal feelings and process them with a support person. Identify stressors or situations that may result in relapse, deterioration or inappropriate behaviors and develop a plan to deal with those issues. 4. If your coping skills are ineffective and you are in crisis, contact your outpatient providers for direction. If unable to reach your providers, please call the CAN HELP LINE AT or go to the closest Emergency Room. 5. Avoid alcohol and un-prescribed drugs. 6. You have been provided with the Mental Health Advance Directives Pamphlet for your review. AFTERCARE APPOINTMENTS: * Please call your insurance company prior to your scheduled appointment to confirm your aftercare providers are covered. Take your insurance information to your appointments. WHO TO CALL AND WHEN: Medical Emergencies: For questions or emergencies related to your hospital stay, please contact the Inpatient Behavioral Health Unit at [phone]. A human resources supervisor is on-call 08/01 for the Behavioral Health Unit for emergencies At any time you feel your situation is an emergency, you may also call 911 immediately. Your Doctors Instructions noted above were prepared by provider Zunilda Benjamin MD. Pending Studies at Discharge: No Stand-Alone Forms: My [facility] [employer], Smoking Cessation, Suicide Preve ntion Resources Medications and DC Order Prescriptions: New mirtazapine 15 mg Tablet 30 mg PO HS Qty: 1 RF: 0 Trintellix 10 mg Tablet 1 dose PO QAM Qty: 1 RF: 0 Continued aripiprazole [Abilify] 5 mg Tablet 5 mg PO HS Qty: 30 RF: 0 Certavite-Antioxidant 18-400 mg-mcg Tablet 1 tab PO QAM 30 Days Qty: 30 RF: 0 Discontinued fluoxetine [Prozac] 20 mg Capsule 60 mg PO DAILY RF: 0 mirtazapine [Remeron] 15 mg Tablet 15 mg PO HS RF: 0 Discharge Orders: Discharge Order (Routine); Ordered 08/18/19 Ordered By: Zunilda Benjamin Admission Data Admit Date/Time: 08/11/19 15:55 Attending Provider: Kassandra Jordan Admit Provider: Kassandra Jordan Primary Care Provider: Brandee Villaseñor Other Interventions: Discharge Summary Assessment (RN) Last Done: 08/18/19 10:45 PSY Interdisciplinary Discharge Planning Last Done: 08/18/19 11:06 DC Date/Time DO NOT enter until pt leaves facility: 08/18/19 11:12 Coding Level of Care Code 26424 D/C day mgmt > 30 min Diagnoses Suicidal ideation R45.851 Depression F32.9 Depression Type: unspecified Anxiety F41.9
== END 2019-08-18 11:12 | disposition home or self-care (01) | DRG 881 ==
LOC: ED 11:19 → 3S 15:55

== ENCOUNTER 2019-09-12 15:11 | Inpatient (IN) ==
[2019-09-12 15:40] LABS: Appearance Urine Clear (Clear); Bilirubin Urine Negative (Negative); Blood Urine Negative (Negative); Color Urine Yellow; Glucose Urine UA Negative (Negative); Ketones Urine Negative (Negative); Leukocyte Esterase Urine Negative (Negative); Nitrite Urine Negative (Negative); Protein Urine Negative (Negative); Specific Gravity Urine 1.022 (1.000-1.030); Urobilinogen Urine Negative (Negative)
--- NOTE | 2019-09-12 16:02 | Emergency Department Note ---
Impression & Plan Suicidal ideation, Depression ED Provider Note NAME: LUZ IZAGUIRRE AGE: 33 SEX: F ARRIVES VIA: Walk-In INFORMANT: Patient, ED PROVIDER(S): Aleksandr Sahni MD CHIEF COMPLAINT: Suicidal thoughts MEDICAL DECISION MAKING: The patient is a pleasant 33-year-old woman with a past medical history of depression and suicidal ideation who presents emergency department for evaluation for worsening suicidal ideation with recurrent plans referred to emergency department by her outpatient provider but the patient is agreeable for inpatient admission. The patient does report hopelessness. She denies any auditory hallucinations. On arrival the patient is melancholy appearing but no acute distress, afebrile stable vital signs. She reports active SI and hopelessness at this time. WBC, H/H, platelets wnl. Chemistry without acidosis. LFTs and electrolytes unremarkable. UA negative. Patient was medically cleared. The patient's persistent suicidal ideation with plan degree where she thinks about intentionally wrecking her car or cutting her wrists when she is making dinner patient certainly is high risk. She is willing for voluntary admission. Referral was made to 3 S. accepts the patient. 201 signed. Triage Nursing notes reviewed and agree them. Prior medical records reviewed Vital Signs: reviewed and remarkable for no significant abnormalities Differential diagnosis: Mood disorder, infection, hypoglycemia, electrolyte abnormalities, cardiac sources, intracerebral event, toxicologic, trauma, neurologic, as well as other pathologies. ER treatment provided: None Laboratory studies: See below HPI: The patient is a pleasant 33-year-old woman with a past medical history of depression and suicidal ideation who presents emergency department for evaluation for worsening suicidal ideation with recurrent plans referred to emergency department by her outpatient provider but the patient is agreeable for inpatient admission. The patient does report hopelessness. She denies any auditory hallucinations. ROS: See above HPI for pertinent positives & negatives. A total of 10 systems reviewed and were otherwise negative. PAST MEDICAL HISTORY:See Below PAST SURGICAL HISTORY:See Below FAMILY HISTORY:See Below SOCIAL HISTORY:See Below HOME MEDICATIONS:See Below ALLERGIES:See Below VITALS:See Below PHYSICAL EXAMINATION: GENERAL: Awake, alert, melancholy-appearing, in no distress HENT: Normocephalic, atraumatic. Oropharynx unremarkable. EYES: Normal conjunctiva. Sclera non-icteric. NECK: Supple. No nuchal rigidity. FROM. No JVD. RESPIRATORY: Clear to auscultation. CARDIAC: Regular rate, normal rhythm. Extremities warm and well perfused. Pulses equal. ABDOMEN: Soft, non-distended. No tenderness to palpation. No rebound or guarding. No masses. RECTAL: Deferred. MUSCULOSKELETAL: Chest examination reveals no tenderness. The back is symmetrical on inspection without obvious abnormality. There is no CVA tenderness to palpation. No joint edema. LOWER EXTREMITIES: Calves are equal size bilaterally and non-tender. No edema. No discoloration. NEURO: Normal sensorium. No sensory or motor deficits noted. SKIN: No rash or jaundice noted. PSYCH: Endorses suicidal ideation with intermittent plan. Reports hopelessness. Denies HI. Denies auditory hallucinations Aleksandr Sahni MD Past Med/Surg History Medical History Bicornate uterus Depression Depression (Acute) Family history of reaction to anesthesia GRANDPARENTS HAD ISSUES WITH WAKING, NO KNOWN DIAGNOSIS OF ANESTHESIA REACTION. Neck pain Sinus bradycardia Thyroid nodule Surgical History History of section EMERGENCY 2016. 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 SHE REMEMBERS FEELING THE "SENSE OF DOOM". History of dilatation and curettage S/T MISCARRIAGE Family History Family/Other Thyroid nodule Social History Preferred Language: Polish Communication Ability: Effective Coagulant Dipper Required: No Beliefs That Will Affect Care: Rastafari marital status: Current Living Situation: Spouse and Family Feels Safe at Home: Yes Smoking Status: Never smoker Cigarettes Per Day: 0 ; Second Hand Exposure: No ; Hx Alcohol Use: No Hx Substance Use: No Allergies Allergies Allergy/AdvReac Type Severity Reaction Status Date / Time cyclobenzaprine Allergy Unknown DIFFICULTY Verified 09/12/19 15:44 BREATHING, CHOKING, COULDN'T WAKE UP bupropion [From Wellbutrin] Allergy Difficulty Verified 09/12/19 15:44 Breathing Home Meds Home Medications Medication Instructions Recorded Confirmed aripiprazole [Abilify] 10 mg PO HS 09/12/19 09/12/19 biotin 1 mcg PO DAILY 09/12/19 09/12/19 cholecalciferol (vitamin D3) 5,000 unit PO DAILY PRN 09/12/19 09/12/19 [Vitamin D3] multivitamin 1 cap PO DAILY 09/12/19 09/12/19 vortioxetine [Trintellix] 20 mg PO QAM 09/12/19 09/12/19 Results & Data (ED) Vital Signs Vital Signs - 24 hr 09/12/19 15:13 09/12/19 17:05 09/12/19 18:09 Temperature 36.8 C Temperature Source Oral Pulse Rate 62 Pulse Rate [Right Finger] 63 64 Pulse Rhythm [Right Finger] Regular Regular Pulse Strength [Right Finger] Normal Normal Respiratory Rate 20 20 18 Respiratory Effort / Characteristics Non-Labored Spontaneous Non-Labored Spontaneous Respiratory Depth Normal Normal Respiratory Pattern Regular Regular Blood Pressure 135/88 Blood Pressure [Right Arm] 118/75 113/64 Blood Pressure Mean 103 Blood Pressure Mean [Right Arm] 89 80 Blood Pressure Position [Right Arm] Sitting Sitting Pulse Oximetry 100 98 98 Oxygen Delivery Method Room Air Room Air Room Air Sepsis Recent Fever Within 48 Hours No Sepsis New/Unexplained Change in Mental Status No Sepsis Action Taken by Nursing No Action Required Laboratory Data Attestation: I reviewed the patient's lab results. Result diagrams: 09/12/19 16:05 09/12/19 16:05 Lab Results 09/12/19 09/12/19 09/12/19 Range/Units 15:17 15:17 15:17 WBC (4.8-10.8) K/uL RBC (4.2-5.4) M/uL Hgb (12.0-16.0) g/dL Hct (37-47) % MCV (80-100) fL MCH (25-34) pg MCHC (32-36) g/dL RDW Std Deviation (36.4-46.3) fL RDW Coeff of Charis (11.5-14.5) % Plt Count (130-400) K/uL MPV (7.4-10.4) fL Immature Gran % (Auto) % Neut % (Auto) % Lymph % (Auto) % [place] % (Auto) % Eos % (Auto) % Baso % (Auto) % Immature Gran # (Auto) (0.00-0.02) K/uL Neut # (Auto) (1.4-6.5) K/uL Lymph # (Auto) (1.2-3.4) K/uL [place] # (Auto) (0.11-0.59) K/uL Eos # (Auto) (0-0.5) K/uL Baso # (Auto) (0-0.2) K/uL Sodium (136-145) mmol/L Potassium (3.5-5.1) mmol/L Chloride (98-107) mmol/L Carbon Dioxide (21-32) mmol/L Anion Gap (3-11) BUN (7-18) mg/dl Creatinine (0.6-1.2) mg/dl Est Cr Clr Drug Dosing ml/min Est GFR ( Amer) Est GFR (Non-Af Amer) BUN/Creatinine Ratio (10-20) Glucose (70-99) mg/dl Calcium (8.5-10.1) mg/dl Total Bilirubin (0.2-1) mg/dl AST (15-37) U/L ALT (12-78) U/L Alkaline Phosphatase (45-117) U/L Total Protein (6.4-8.2) gm/dl Albumin (3.4-5.0) gm/dl Globulin (2.5-4.0) gm/dl Albumin/Globulin Ratio (0.9-2) TSH (0.300-4.500) uIu/ml Urine Color Yellow Urine Appearance Clear (Clear) Urine pH 5.0 (4.5-7.5) Ur Specific [place] 1.022 (1.000-1.030) Urine Protein Negative (Negative) Urine Glucose (UA) Negative (Negative) Urine Ketones Negative (Negative) Urine Blood Negative (Negative) Urine Nitrite Negative (Negative) Urine Bilirubin Negative (Negative) Urine Urobilinogen Negative (Negative) Ur Leukocyte Esterase Negative (Negative) POC Ur Test NEG (NEG) Salicylates (2.8-20) mg/dl Urine Opiates Screen Neg (Neg) Ur Methadone, Qual Neg (Neg) Acetaminophen (10-30) ug/ml Urine Barbiturates Neg (Neg) Ur Phencyclidine (PCP) Neg (Neg) U Amphetamin/Meth Scrn Neg (Neg) MDMA (Ecstasy) Screen Neg (Neg) U Benzodiazepines Scrn Neg (Neg) Ur Cocaine Metabolite Neg (Neg) U Marijuana (THC) Screen Neg (Neg) Ethyl Alcohol mg/dL (0-3) mg/dl 09/12/19 09/12/19 09/12/19 Range/Units 16:05 16:05 16:05 WBC 7.07 (4.8-10.8) K/uL RBC 4.65 (4.2-5.4) M/uL Hgb 13.9 (12.0-16.0) g/dL Hct 42.5 (37-47) % MCV 91.4 (80-100) fL MCH 29.9 (25-34) pg MCHC 32.7 (32-36) g/dL RDW Std Deviation 43.0 (36.4-46.3) fL RDW Coeff of Charis 12.8 (11.5-14.5) % Plt Count 226 (130-400) K/uL MPV 9.3 (7.4-10.4) fL Immature Gran % (Auto) 0.3 % Neut % (Auto) 61.1 % Lymph % (Auto) 29.8 % [place] % (Auto) 7.2 % Eos % (Auto) 1.3 % Baso % (Auto) 0.3 % Immature Gran # (Auto) 0.02 (0.00-0.02) K/uL Neut # (Auto) 4.32 (1.4-6.5) K/uL Lymph # (Auto) 2.11 (1.2-3.4) K/uL [place] # (Auto) 0.51 (0.11-0.59) K/uL Eos # (Auto) 0.09 (0-0.5) K/uL Baso # (Auto) 0.02 (0-0.2) K/uL Sodium 139 (136-145) mmol/L Potassium 3.9 (3.5-5.1) mmol/L Chloride 110 H (98-107) mmol/L Carbon Dioxide 26 (21-32) mmol/L Anion Gap 3.0 (3-11) BUN 18 (7-18) mg/dl Creatinine 1.04 (0.6-1.2) mg/dl Est Cr Clr Drug Dosing 97.9 ml/min Est GFR ( Amer) 82.3 Est GFR (Non-Af Amer) 71.0 BUN/Creatinine Ratio 16.9 (10-20) Glucose 89 (70-99) mg/dl Calcium 9.1 (8.5-10.1) mg/dl Total Bilirubin 0.3 (0.2-1) mg/dl AST 17 (15-37) U/L ALT 24 (12-78) U/L Alkaline Phosphatase 96 (45-117) U/L Total Protein 7.1 (6.4-8.2) gm/dl Albumin 3.4 (3.4-5.0) gm/dl Globulin 3.7 (2.5-4.0) gm/dl Albumin/Globulin Ratio 0.9 (0.9-2) TSH 2.060 (0.300-4.500) uIu/ml Urine Color Urine Appearance (Clear) Urine pH (4.5-7.5) Ur Specific [place] (1.000-1.030) Urine Protein (Negative) Urine Glucose (UA) (Negative) Urine Ketones (Negative) Urine Blood (Negative) Urine Nitrite (Negative) Urine Bilirubin (Negative) Urine Urobilinogen (Negative) Ur Leukocyte Esterase (Negative) POC Ur Test (NEG) Salicylates < 1.7 L (2.8-20) mg/dl Urine Opiates Screen (Neg) Ur Methadone, Qual (Neg) Acetaminophen < 2 L (10-30) ug/ml Urine Barbiturates (Neg) Ur Phencyclidine (PCP) (Neg) U Amphetamin/Meth Scrn (Neg) MDMA (Ecstasy) Screen (Neg) U Benzodiazepines Scrn (Neg) Ur Cocaine Metabolite (Neg) U Marijuana (THC) Screen (Neg) Ethyl Alcohol mg/dL (0-3) mg/dl 09/12/19 Range/Units 16:05 WBC (4.8-10.8) K/uL RBC (4.2-5.4) M/uL Hgb (12.0-16.0) g/dL Hct (37-47) % MCV (80-100) fL MCH (25-34) pg MCHC (32-36) g/dL RDW Std Deviation (36.4-46.3) fL RDW Coeff of Charis (11.5-14.5) % Plt Count (130-400) K/uL MPV (7.4-10.4) fL Immature Gran % (Auto) % Neut % (Auto) % Lymph % (Auto) % [place] % (Auto) % Eos % (Auto) % Baso % (Auto) % Immature Gran # (Auto) (0.00-0.02) K/uL Neut # (Auto) (1.4-6.5) K/uL Lymph # (Auto) (1.2-3.4) K/uL [place] # (Auto) (0.11-0.59) K/uL Eos # (Auto) (0-0.5) K/uL Baso # (Auto) (0-0.2) K/uL Sodium (136-145) mmol/L Potassium (3.5-5.1) mmol/L Chloride (98-107) mmol/L Carbon Dioxide (21-32) mmol/L Anion Gap (3-11) BUN (7-18) mg/dl Creatinine (0.6-1.2) mg/dl Est Cr Clr Drug Dosing ml/min Est GFR ( Amer) Est GFR (Non-Af Amer) BUN/Creatinine Ratio (10-20) Glucose (70-99) mg/dl Calcium (8.5-10.1) mg/dl Total Bilirubin (0.2-1) mg/dl AST (15-37) U/L ALT (12-78) U/L Alkaline Phosphatase (45-117) U/L Total Protein (6.4-8.2) gm/dl Albumin (3.4-5.0) gm/dl Globulin (2.5-4.0) gm/dl Albumin/Globulin Ratio (0.9-2) TSH (0.300-4.500) uIu/ml Urine Color Urine Appearance (Clear) Urine pH (4.5-7.5) Ur Specific [place] (1.000-1.030) Urine Protein (Negative) Urine Glucose (UA) (Negative) Urine Ketones (Negative) Urine Blood (Negative) Urine Nitrite (Negative) Urine Bilirubin (Negative) Urine Urobilinogen (Negative) Ur Leukocyte Esterase (Negative) POC Ur Test (NEG) Salicylates (2.8-20) mg/dl Urine Opiates Screen (Neg) Ur Methadone, Qual (Neg) Acetaminophen (10-30) ug/ml Urine Barbiturates (Neg) Ur Phencyclidine (PCP) (Neg) U Amphetamin/Meth Scrn (Neg) MDMA (Ecstasy) Screen (Neg) U Benzodiazepines Scrn (Neg) Ur Cocaine Metabolite (Neg) U Marijuana (THC) Screen (Neg) Ethyl Alcohol mg/dL < 3.0 (0-3) mg/dl Blood Pressure Blood Pressure Findings: Normal blood pressure Discharge Plan Visit Data *Final* Discharge Date/Time: 09/12/19 18:23 Chief Complaint: Mental Health Evaluation Stated Complaint: SUICIDAL IDEATIONS ED Provider: Aleksandr Sahni Discharge Problem: Suicidal ideation, Depression Patient Disposition: Admitted As Inpatient Discharge Instructions Interventions: ED Discharge Assessment Last Done: 09/12/19 18:23 Discharge Problem: Depression Qualifiers: Depression Type: unspecified Qualified Code(s): F32.9 - Major depressive disorder, single episode, unspecified
[2019-09-12 16:07] LABS: Amphetamines+Metham, Urine Neg (Neg); Barbiturates, Urine Neg (Neg); Benzodiazepine, Urine Neg (Neg); Cocaine, Urine Neg (Neg); MDMA (Ecstacy), Urine Neg (Neg); Methadone, Urine Neg (Neg); Opiate, Urine Neg (Neg); Phencyclidine, Urine Neg (Neg)
[2019-09-12 16:14] LABS: Basophils # (auto) 0.02 K/uL (0-0.2); Basophils % (auto) 0.3 %; Eosinophils # (auto) 0.09 K/uL (0-0.5); Eosinophils % (auto) 1.3 %; Hematocrit (blood only) 42.5 % (37-47); Hemoglobin 13.9 g/dL (12.0-16.0); Immature Granulocytes # (auto) 0.02 K/uL (0.00-0.02); Immature Granulocytes % (auto) 0.3 %; Lymphocytes # (auto) 2.11 K/uL (1.2-3.4); Lymphocytes % (auto) 29.8 %; Mean Corpuscular Hemoglobin 29.9 pg (25-34); Mean Corpuscular Hgb Conc 32.7 g/dL (32-36); Mean Corpuscular Volume 91.4 fL (80-100); Mean Platelet Volume 9.3 fL (7.4-10.4); Monocytes # (auto) 0.51 K/uL (0.11-0.59); Monocytes % (auto) 7.2 %; Neutrophils # (auto) 4.32 K/uL (1.4-6.5); Neutrophils % (auto) 61.1 %; Platelet Count 226 K/uL (130-400); RDW Coefficient of Variation 12.8 % (11.5-14.5); Red Blood Count 4.65 M/uL (4.2-5.4); White Blood Count 7.07 K/uL (4.8-10.8)
[2019-09-12 16:32] LABS: Albumin Level 3.4 gm/dl (3.4-5.0); BUN Creatinine Ratio 16.9 (10-20); Calcium 9.1 mg/dl (8.5-10.1); Creatinine Clr Calc Pharmacy 97.9 ml/min; Est GFR (African American) 82.3; Potassium 3.9 mmol/L (3.5-5.1)
[2019-09-12 16:40] LABS: Acetaminophen < 2 ug/ml (10-30); Salicylate < 1.7 mg/dl (2.8-20)
[2019-09-12 16:43] LABS: Albumin Globulin Ratio 0.9 (0.9-2); Bilirubin,Total 0.3 mg/dl (0.2-1); Globulin 3.7 gm/dl (2.5-4.0); Thyroid Stimulating Hormone 2.06 uIu/ml (0.300-4.500); Total Protein 7.1 gm/dl (6.4-8.2)
[2019-09-12] MEDS ORDERED: BISMUTH SUBSALICYLATE PER ML OMNICELL CHARGE PO PRN (18:38)
[2019-09-12] MEDS ORDERED: SODIUM CHLORIDE 0.65% NA SOLN 45 ML (OCEAN) PRN (18:38)
[2019-09-12] MEDS ORDERED: ALUMINUM/MAGNESIUM SUSP 30 ML UDC PO PRN (18:38)
[2019-09-12] MEDS ORDERED: MAGNESIUM HYDROXIDE SUSP 30 ML UDC PO PRN (18:38)
[2019-09-12] MEDS: ARIPiprazole 10 MG TAB PO SCH (21:26)
[2019-09-13] MEDS: VORTIOXETINE HYDROBROMIDE PO SCH (08:05)
[2019-09-13] MEDS: CEROVITE ADV FORMULA TAB PO SCH (08:05)
[2019-09-13] MEDS: CHOLECALCIFEROL 1,000 UNITS 25 MCG TAB PO SCH (08:06)
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
[2019-09-13] MEDS: ACETAMINOPHEN 325 MG TAB PO PRN ×2 (17:08→21:13)
[2019-09-13] MEDS: ARIPiprazole 10 MG TAB PO SCH (21:12)
[2019-09-14] MEDS: CEROVITE ADV FORMULA TAB PO SCH (08:09)
[2019-09-14] MEDS: VORTIOXETINE HYDROBROMIDE PO SCH (08:09)
[2019-09-14] MEDS: CHOLECALCIFEROL 1,000 UNITS 25 MCG TAB PO SCH (08:09)
--- NOTE | 2019-09-14 13:33 | Psychiatric Progress Note ---
Date of Service September 14, 2019 Impression / Recommendations Impression 33-year-old female well-known to the psychiatric service here at [facility] readmitted once again for suicidal ideation now on her fourth psychiatric hospitalization for the same indication since May 2019. Decompensation of mood this past week may be related to discontinuation of the mirtazapine 30 mg nightly which seemingly had previously been helpful for overnight sleep, anxiety, and vivid dreams but was discontinued due to concern for residual daytime sedation. To compensate for discontinuation of Remeron Trintellix and Abilify have both recently been increased by her outpatient provider. She describes a general paucity of psychosocial stressors and indicates that she "should" feel just fine as she perceives that she has everything that she wants/needs however she continues to experience intrusive suicidal impulses and going about her day-to-day activities which has worsened in the past week again seemingly associated temporally with discontinuation of the mirtazapine. (1) Suicidal ideation: 09/12 Patient admitted on a voluntary status to the [facility] behavioral health unit where she will be observed with suicide precautions in place She will participate in psychotherapeutic unit programming as appropriate We will continue to work on nonpharmacological coping strategies Family meeting as appropriate We will coordinate care with outpatient providers 09/13 -Mood quickly re-compensating and reporting reduced suicidal ideation today without further medication adjustment. We will continue to monitor trend. Responding positively to therapeutic programming - family meeting with today (2) Depression: 09/12 Patient agrees that her mood may have decompensated in the past week as a result of discontinuing the mirtazapine but is reluctant to resume secondary to residual daytime drowsiness. Reviewed with her that, sometimes higher doses of Remeron are less sedating and we could consider resuming at 45 mg nightly to see if that might be better tolerated. Presently patient prefers to watch trend following dose escalation of Abilify and Trintellix this week before resuming the Remeron which is not unreasonable. Discussed potential consideration for psychostimulant for both mood augmentation and daytime alertness, particularly if we need to reinitiate the mirtazapine Briefly discussed consideration for TMS (if suicidal ideation resolves she may be an appropriate candidate) or ECT as alternative treatment options if depression refractory (3) Anxiety: 09/12 Patient presents as a little less obsessive as compared to our last meeting. 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 Review of Systems Notes denies dizziness. denies GI complaints Sleep Information Total Hours of Sleep: 7 Sleep Comments: pt on q-15 minute checks Meal Information Percent Meal Consumed - Breakfast: 100 Percent Meal Consumed - Dinner: 100 Subjective Subjective Patient was seen & assessed and interval progress reviewed with treatment team. No additional medication adjustments made yesterday. Staff deny acute issues overnight. Cooperative, participatory, and compliant with medication. On interview she perceives some interval improvement in mood with reduction in suicidal impulses. Attempted to explore potential for reduction of stress and being out of household however she persists in her perspective that her children, marriage, and household are not sources of stress and does not perceive feelings of burden at home. She denies concern for side effects associated with most recent dose escalation of Trintellix or aripiprazole. We discussed again consideration for reinitiation of Remeron however, as mood appears quickly re-compensating, will defer that intervention for now. Additionally, we discussed further consideration for low-dose psychostimulant augmentation for fatigue however I reviewed her history of anxious symptomatology and will defer that intervention also for now due to concern for exacerbating anxiety and feelings of restlessness. Physical Exam Psychiatric Orientation: alert and cooperative Apperance: appropriately dressed and appropriately groomed Eye Contact: good eye contact Motor Behavior: steady gait and station and no abnormal motor movements Speech: normal rate/rhythm/volume of speech Affect: euthymic affect; no depressed affect Mood: + depressed mood ("but better") Thought Process: goal directed thought process and linear/logical thought process Thought Content: + preoccupation and reality based without delusions Suicidal Thoughts: denies suicidal intent; + reports suicidal thoughts Homicidal Thoughts: denies homicidal thoughts Hallucinations: no auditory hallucinations, no visual hallucinations and no tactile hallucinations Cognition: recent memory grossly intact and attention grossly intact Estimated Intelligence: average estimated intelligence Insight: good insight Judgement: + fair judgement Vital Signs (Past 24 Hours) Last Vital Signs Temp 36.6 C 09/14/19 06:46 Pulse 67 09/14/19 06:47 Resp 18 09/14/19 06:46 BP 126/87 09/14/19 06:47 Pulse Ox 98 09/12/19 18:51 Results & Data ([facility]) Current Inpatient Medications Current Inpatient Medications: Current Inpatient Medications Acetaminophen (Tylenol) 650 mg PO Q4H PRN PRN Reason: Headache or Minor Fever Stop: 10/12/19 18:37 Last Admin: 09/13/19 21:13 Dose: 650 mg Documented by: Al Hydrox/Mg Hydrox/Simethicone (Maalox) 30 ml PO Q4H PRN PRN Reason: GI Upset Stop: 10/12/19 18:37 Aripiprazole (Abilify) 10 mg PO HS MARK Stop: 10/12/19 21:59 Last Admin: 09/13/19 21:12 Dose: 10 mg Documented by: Bismuth Subsalicylate (Kaopectate) 15 ml PO PRN PRN PRN Reason: Loose Stool Stop: 10/12/19 18:37 Hydroxyzine HCl (Vistaril) 50 mg PO HSZ PRN PRN Reason: Insomnia Stop: 10/12/19 18:37 Hydroxyzine HCl (Vistaril) 25 mg PO Q4H PRN PRN Reason: Anxiety Stop: 10/12/19 18:37 Magnesium Hydroxide (Milk Of Magnesia) 30 ml PO DAILY PRN PRN Reason: Constipation Stop: 10/12/19 18:37 Multivitamins/Minerals (Multivitamin W/ Minerals Tab) 1 tab PO QAM MARK Stop: 10/13/19 08:59 Last Admin: 09/14/19 08:09 Dose: 1 tab Documented by: Sodium Chloride ([place] Nasal) 1 - 2 sprays NA PRN PRN PRN Reason: Nasal Dryness/Congestion Stop: 10/12/19 18:37 Vitamin D (Vitamin D3) 5,000 units PO QAM MARK Stop: 10/13/19 08:59 Last Admin: 09/14/19 08:09 Dose: 5,000 units Documented by: Vortioxetine (Trintellix) 1 ea PO DAILY MARK Stop: 10/13/19 08:59 Last Admin: 09/14/19 08:09 Dose: 1 ea Documented by: Mental Health & Subst Abuse Tx Therapist Name of Therapist: Jayme Kitchen Date of Therapist Appointment: 09/17/19 Time of Therapist Appointment: 17[address] [employer] Name of Demonstrator Sales: Terri Polk, [place] [facility] Date of Appointment with Demonstrator Sales: 09/15/19 Time of Appointment with Demonstrator Sales: via phone Post Discharge Appointments Primary Care Physician Name Of Family Doctor: Brandee Vogel (1) Depression Depression Type: unspecified Qualified Code(s): F32.9 - Major depressive disorder, single episode, unspecified
[2019-09-14] MEDS: ARIPiprazole 10 MG TAB PO SCH (21:46)
[2019-09-15] MEDS: VORTIOXETINE HYDROBROMIDE PO SCH (08:21)
[2019-09-15] MEDS: CEROVITE ADV FORMULA TAB PO SCH (08:21)
[2019-09-15] MEDS: CHOLECALCIFEROL 1,000 UNITS 25 MCG TAB PO SCH (08:21)
--- NOTE | 2019-09-15 10:45 | Psychiatric Progress Note ---
Date of Service September 15, 2019 Impression / Recommendations Impression 33-year-old female well-known to the psychiatric service here at [facility] readmitted once again for suicidal ideation now on her fourth psychiatric hospitalization for the same indication since May 2019. Decompensation of mood this past week may be related to discontinuation of the mirtazapine 30 mg nightly which seemingly had previously been helpful for overnight sleep, anxiety, and vivid dreams but was discontinued due to concern for residual daytime sedation. To compensate for discontinuation of Remeron Trintellix and Abilify have both recently been increased by her outpatient provider. She describes a general paucity of psychosocial stressors and indicates that she "should" feel just fine as she perceives that she has everything that she wants/needs. Pt does report improvement in mood overall since admission, but continues to experience daytime fatigue. We directed focus toward behavioral strategies to promote wakefulness throughout the day, and patient was encouraged to allow for longer waiting periods with medication adjustments, as many common side effects resolve with ongoing use. Pt denied desire for additional medication changes at this time. Outpatient Records Requested and Received from [facility]: 09/09/2019 - Routine follow-up visit. Mood was reportedly worse in the past week. Energy was reportedly low and patient was experiencing increased fatigue. Reports ongoing irritability at times toward her children. Pt did indicate that SI was "seeping back in", but denied any intent. Patient's daughter's behavior was reportedly more difficult to deal with. Abilify was titrated to 10mg qHS. Follow-up encouraged in 1 week. 09/03/2019 - Routine follow-up visit. Pt reported feeling the mirtazapine was increasing daytime fatigue and was no longer beneficial for her nightmares. Reported her hospitalization was "great." Reportedly decreased energy and limited desire to attend to things around the house. Pt reportedly was experiencing some difficulty acting out her safety plan due to changes related to the Coronavirus limiting her coping skills. Pt reports frequent napping. Daughter's behavior was reportedly becoming increasingly agitated - with family having to call Crisis during "a fit." Pt stated all but 1-week of family's medications have been locked, with only having cisneros. Trintellix increased to 20mg daily and Remeron was discontinued due to concerns for fatigue. Pt encouraged to follow-up in 1 week. (1) Suicidal ideation: 09/12 Patient admitted on a voluntary status to the [facility] behavioral health unit where she will be observed with suicide precautions in place She will participate in psychotherapeutic unit programming as appropriate We will continue to work on nonpharmacological coping strategies Family meeting as appropriate We will coordinate care with outpatient providers 09/13 -Mood quickly re-compensating and reporting reduced suicidal ideation today without further medication adjustment. We will continue to monitor trend. Responding positively to therapeutic programming - family meeting with today 09/14 - Pt admits to improvement in SI. While suicidal thoughts are not entirely resolved, patient does report feeling better able to cope with their presence - Continue to encourage focus on safety planning and honest communication with her (2) Depression: 09/12 Patient agrees that her mood may have decompensated in the past week as a result of discontinuing the mirtazapine but is reluctant to resume secondary to residual daytime drowsiness. Reviewed with her that, sometimes higher doses of Remeron are less sedating and we could consider resuming at 45 mg nightly to see if that might be better tolerated. Presently patient prefers to watch trend following dose escalation of Abilify and Trintellix this week before resuming the Remeron which is not unreasonable. Discussed potential consideration for psychostimulant for both mood augmentation and daytime alertness, particularly if we need to reinitiate the mirtazapine Briefly discussed consideration for TMS (if suicidal ideation resolves she may be an appropriate candidate) or ECT as alternative treatment options if depression refractory 09/14 - Continue current medication regimen of Abilify 10mg and Trintellix 20mg - reports ongoing fatigue. We discussed that these side effects may diminish over time. Patient's frequent desire for medication adjustments was also discussed. Pt was provided with education that many medication side effects improve or resolve if given time - and that a longer "waiting period" may benefit the patient by reducing the frequency of medication adjustments and allowing more time to observe for possible benefits before switching agents. - Could consider initiation of a stimulant as mentioned above as adjunct for depression and to improve fatigue; however, will defer to outpatient psychiatric prescriber - Continue to discuss potential for TMS or ECT - Aftercare appointments coordinated (3) Anxiety: 09/12 Patient presents as a little less obsessive as compared to our last meeting. 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 Pt has a history of depression, anxiety, and chronic suicidal ideation. This admission is her 4th psychiatric hospitalization since May 2019. Pt was admitted on a 201 voluntary commitment for acute on chronic SI with inability to contract for safety outside of the inpatient psychiatric setting. Chief Complaint "Um, I feel like overall things are better. I'm just still really tired." Review of Systems Notes Constitutional: reports increased daytime fatigue Cardiovascular: denied Respiratory: denied Gastrointestinal: denied Neurological: denied Psychiatric: denies symptoms other than stated above Total of at least 10 systems reviewed, pertinent positives as above and in HPI. Sleep Information Total Hours of Sleep: 7.5 Sleep Comments: pt on q-15 minute checks Meal Information Percent Meal Consumed - Breakfast: 100 Percent Meal Consumed - Dinner: 100 Subjective Subjective Patient was seen & assessed and interval progress reviewed with treatment team. Staff reports the patient continues to participate in group programming. She did participate in a family meeting with her via phone over the weekend. Patient denied active suicidal ideation throughout the day yesterday. Patient was seen today to assess progress since admission. She states that she does believe that her increased depressive symptoms were related to discontinuation of Remeron, but now believes that her mood overall is improving. Patient states "I was told to expect my mood to get a little bit worse, I do not think I realized how strong of an antidepressant Remeron really was." While patient states the Remeron was discontinued due to excessive daytime fatigue, she believes that she is continuing to experience this concern, questioning if it is even more severe at this time. We discussed that while this is a side effect that could be related to multiple medications, patient may benefit from extended periods of time adjusting to medications rather than frequently pursuing medication adjustments. Additional education was offered to the patient regarding allowing her body to respond to medications adequately prior to discontinuing or adjusting the doses. Patient did state "that makes sense, I guess maybe some of this would get better over time." Patient does indicate that because her current medication regimen is helpful for her mood, she does not wish to pursue any additional adjustments at this time. Instead, we focused on behavioral strategies to improve energy throughout the day which included bursts of exercise, or participation in more stimulating coping skills in order to reduce daytime napping. While patient does admit to intermittent suicidal ideation, she states it is "nothing serious, it is a lot easier to push off." Patient was able to verbalize several coping strategies that she believes she will be able to continue despite the restrictions related to the COVID-19 outbreak. Patient is still working to complete a safety plan that works in conjunction with new travel bands and "social distancing." Patient does feel like she is approaching readiness for discharge soon, but does not have the ability to contract for safety outside of the hospital setting today. Patient denies other needs or concerns from staff at this time. Physical Exam Psychiatric Orientation: alert, oriented x 3 and cooperative (and pleasant) Apperance: appropriately dressed (casually, wearing t-shirt and leggings), appropriately groomed and appeared stated age Eye Contact: good eye contact Motor Behavior: steady gait and station and no abnormal motor movements Speech: normal rate/rhythm/volume of speech Affect: + blunted affect (appearing subdued) and mood congruent with affect Mood: + depressed mood ("I'm feeling better than when I first came in...just still really tired") Thought Process: goal directed thought process, clear/coherent thought process and thought association intact Thought Content: reality based without delusions; no hopelessness Suicidal Thoughts: denies suicidal intent; + reports suicidal thoughts (reports intermittent SI, but better able to distract self) Homicidal Thoughts: denies homicidal thoughts Hallucinations: no auditory hallucinations and no visual hallucinations Cognition: attention grossly intact and language grossly intact Insight: + fair insight Judgement: + fair judgement Vital Signs (Past 24 Hours) Last Vital Signs Temp 36.7 C 09/15/19 06:48 Pulse 85 09/15/19 06:48 Resp 18 09/15/19 06:48 BP 118/83 09/15/19 06:48 Pulse Ox 98 09/12/19 18:51 Results & Data ([facility] [[email or web address]]) Current Inpatient Medications Current Inpatient Medications: Current Inpatient Medications Acetaminophen (Tylenol) 650 mg PO Q4H PRN PRN Reason: Headache or Minor Fever Stop: 10/12/19 18:37 Last Admin: 09/13/19 21:13 Dose: 650 mg Documented by: Al Hydrox/Mg Hydrox/Simethicone (Maalox) 30 ml PO Q4H PRN PRN Reason: GI Upset Stop: 10/12/19 18:37 Aripiprazole (Abilify) 10 mg PO HS MARK Stop: 10/12/19 21:59 Last Admin: 09/14/19 21:46 Dose: 10 mg Documented by: Bismuth Subsalicylate (Kaopectate) 15 ml PO PRN PRN PRN Reason: Loose Stool Stop: 10/12/19 18:37 Hydroxyzine HCl (Vistaril) 50 mg PO HSZ PRN PRN Reason: Insomnia Stop: 10/12/19 18:37 Hydroxyzine HCl (Vistaril) 25 mg PO Q4H PRN PRN Reason: Anxiety Stop: 10/12/19 18:37 Magnesium Hydroxide (Milk Of Magnesia) 30 ml PO DAILY PRN PRN Reason: Constipation Stop: 10/12/19 18:37 Multivitamins/Minerals (Multivitamin W/ Minerals Tab) 1 tab PO QAM MARK Stop: 10/13/19 08:59 Last Admin: 09/15/19 08:21 Dose: 1 tab Documented by: Sodium Chloride (Blaine Nasal) 1 - 2 sprays NA PRN PRN PRN Reason: Nasal Dryness/Congestion Stop: 10/12/19 18:37 Vitamin D (Vitamin D3) 5,000 units PO QAM MARK Stop: 10/13/19 08:59 Last Admin: 09/15/19 08:21 Dose: 5,000 units Documented by: Vortioxetine (Trintellix) 1 ea PO DAILY MARK Stop: 10/13/19 08:59 Last Admin: 09/15/19 08:21 Dose: 1 ea Documented by: Mental Health & Subst Abuse Tx Therapist Name of Therapist: Jayme Kitchen Date of Therapist Appointment: 09/17/19 Time of Therapist Appointment: 1700 Hospital Product Specialist Name of Hospital Product Specialist: Terri Polk [facility] Date of Appointment with Hospital Product Specialist: 09/15/19 Time of Appointment with Hospital Product Specialist: via phone Post Discharge Appointments Primary Care Physician Name Of Family Doctor: Brandee Vogel (1) Depression Depression Type: unspecified Qualified Code(s): F32.9 - Major depressive disorder, single episode, unspecified
[2019-09-15] MEDS: ARIPiprazole 10 MG TAB PO SCH (20:22)
[2019-09-16] MEDS: CHOLECALCIFEROL 1,000 UNITS 25 MCG TAB PO SCH (08:22)
[2019-09-16] MEDS: CEROVITE ADV FORMULA TAB PO SCH (08:22)
[2019-09-16] MEDS: VORTIOXETINE HYDROBROMIDE PO SCH (08:23)
--- NOTE | 2019-09-16 09:53 | Discharge Summary ---
Date of Service September 16, 2019 History of Present Illness This is the patient's fourth psychiatric hospitalization since May. She was psychiatrically hospitalized at [facility] May 30 to June 06, 2019, July 21 to July 28, 2019, and August 11 to August 18, 2019 for depression with suicidal ideation. She has undergone multiple medication changes and I would refer the reader to prior discharge summaries for full details. Most recently she has been discontinued from Prozac and converted to Trintellix with Abilify augmentation. She seemed to benefit from initiation of Remeron for anxiety and problematic vivid dreams overnight however she reports this was discontinued approximately 1 week ago by her outpatient provider from 30 mg nightly dose as she was experiencing excessive daytime sedation and felt that it was becoming less helpful for dreams however it appears that once it was disco ntinued she did experience decompensation of mood, recurrence of more acute suicidal ideation, and some decompensation of sleep overnight. In the last week when Remeron was discontinued her Trintellix was increased to 20 mg and Abilify increased to 10 mg by her outpatient provider. She expresses hopefulness that this will become effective with some time however she felt frightened by the intensity of her suicidal thinking (plan via MVA or laceration) at home precipitating rehospitalization. Here in the hospital she indicates that she does feel safe. She reports anxiety is slightly increased above baseline presently. She indicates that she has been compliant with her prescribed psychotropics. She denies any new psychiatric symptomatology since last hospitalization. Denies manic, psychosis, substance abuse, or HI. She denies changes in her medical history since last hospitalization. Physical Exam Psychiatric Orientation: alert, oriented x 3 and cooperative (and pleasant) Apperance: appropriately dressed (casually, wearing jeans and dress shirt), appropriately groomed (showered, hair neatly braided ) and appeared stated age Eye Contact: good eye contact Motor Behavior: steady gait and station and no abnormal motor movements Speech: normal rate/rhythm/volume of speech Affect: euthymic affect Mood: + anxious mood ("a little nervous, not in like a good or bad way, just anxious"); no depressed mood Thought Process: goal directed thought process, clear/coherent thought process and thought association intact Thought Content: reality based without delusions; no hopelessness Suicidal Thoughts: denies suicidal thoughts, denies suicidal plan and denies suicidal intent Homicidal Thoughts: denies homicidal thoughts Hallucinations: no auditory hallucinations and no visual hallucinations Cognition: recent memory grossly intact, attention grossly intact and language grossly intact Insight: + fair insight Judgement: good judgement Vital Signs (Past 24 Hours) Last Vital Signs Temp 36.7 C 09/16/19 08:09 Pulse 76 09/16/19 08:09 Resp 18 09/16/19 08:09 BP 123/86 09/16/19 08:09 Pulse Ox 98 09/12/19 18:51 Principal Diagnosis - Major depressive disorder - Anxiety (r/o OCD) Psychiatric Data 33-year-old female well-known to the psychiatric service here at [facility] as a result of 4 psychiatric hospitalizations since May 2019. Pt has been readmitted for the same indications of suicidal ideation and depressive symptoms without evidence of an identified stressor. Decompensation of mood was reported over the week prior to admission, and on this occasion was felt to be related to discontinuation of mirtazapine 30 mg nightly - which seemingly had previously been helpful for overnight sleep, anxiety, and vivid dreams. The medication was reportedly discontinued on an outpatient basis due to concern for residual daytime sedation. To compensate for discontinuation of mirtazapine, vortioxetine and aripiprazole were both titrated to 20mg and 10mg respectively. All of these changes occurred prior to the patient's admission; however, patient felt the changes were likely contributing to her worsening depressive symptoms, increased SI, and inability to contract for safety outside of the hospital setting. On admission, the patient was unable to identify any specific psychosocial stressors and indicated frustration related to the belief that she "should" feel just fine as she perceives that she has everything that she wants/needs. Pt did engage as usual in group and recreational programming. She interacted appropriately with peers and staff and reported a focus of her treatment would be on revising her safety plan to accommodate for recent "stay at home" restrictions related to the COVID-19 outbreak. Pt did report im provement in mood overall over the course of her admission. She did report ongoing daytime fatigue, but was able to direct her focus toward behavioral strategies to improve energy throughout the day and placing a priority on exercise. Pt denied desire for additional medication changes at this time, and was encouraged to attempt to extend trials of new medications/doses in order to reduce frequent medication adjustments which may be contributing to patient's perceived instability. Aftercare arrangements were coordinated with her therapist, psychiatric prescriber, and her case hardener. Patient's was involved in a phone meeting to discuss safety and discharge planning. Pt was able to report resolution of active SI, used consistent future-oriented verbiage, and was able to convincingly contract for safety by the time of anticipated discharge. Based on review of patient's case and their current presentation, risk of harm to self or others is no longer perceived to be acute. Management of symptoms on an outpatient basis seems the most appropriate and least restrictive setting. Pt seems appropriate for discharge with recommendation for consistent follow-up with outpatient psychiatric prescriber, therapist, and case hardener. Pt verbalized understanding of discharge plan reviewed and is agreeable with plan to be discharged home today. Day of Discharge Assessment Patient's case was reviewed and discussed during morning report with supervising psychiatrist, social work, and nursing. Staff report the patient continues to participate appropriately in group programming. Pt has reportedly completed revisions to her previous safety plan and is requesting discharge today. Patient was seen today to assess readiness to return home. Pt states she is "nervous, like not in a good or bad way, just anxious." She states that she is excited to see her children and is hopeful that some additional coping strategies she has worked on here will be beneficial for her treatment. Pt is able to discuss warning signs as well as anticipated adjustments to her coping strategies - as she reported concern early in her admission about managing her symptoms when she is on "stay at home" orders. Pt denies SI today and is able to convincingly contract for safety outside of the inpatient setting. Discharge medication list was reviewed with the patient. She is aware of outpatient appointments and medication recommendations. Pt denied any concerns related to discharge plan and is aware and agreeable with providing the patient with transportation home. Pt reports feeling as though her treatment goals have been met. She denies other needs or concerns at this time. ROS: Constitutional: denied Cardiovascular: denied Respiratory: denied Gastrointestinal: denied Neurological: denied Psychiatric: denies symptoms other than stated above Total of at least 10 systems reviewed, pertinent positives as above and in HPI. Transition of Care Transition Of Care Record: was reviewed with the patient Advance Directives Advance Directives Information Provided: No Advance Directives: No Mental Health Advance Directive: No Advance Directives on File: No Living Will: No Power of Seismograph Operator Helper: No Advance Directives Reason:: Declines as Mental Health Visit. Risk Factors Assessment Presenting risk factors reviewed on discharge. Precipitating stressors mitigated by: admission for inpatient psychiatric observation and treatment, appropriate adjustments to medications to target symptoms, attendance of therapeutic treatment groups, development of healthy and effective coping strategies, involvement of outpatient supports, completion of a safety plan, confirmation of extra medications being secured, confirmation of guns and weapons being secured, and education on diagnoses. Pt has demonstrated improvement in condition with regard to improvement in mood, resolution of active SI, involvement of in discharge/safety planning, and coordination with outpatient providers. At this time, patient is requesting discharge and is no longer considered to be at acute risk of harm to herself or others. Pt will be discharged with recommendation for ongoing outpatient psychiatric treatment. 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) Stable Relationships: Yes Supportive Family: Yes Good Rapport with Provider: Yes Tobacco Cessation at Discharge Tobacco Cessation Medication Prescribed at Discharge: Not Applicable/Non-Smoker Total Time Total Time Spent: Greater Than 30 Minutes Total Time Includes: Examination of the patient, Discharge Planning, Medication Reconciliation and Communication with other providers Discharge Data Lab Results 09/12/19 09/12/19 09/12/19 15:17 15:17 15:17 WBC RBC Hgb Hct MCV MCH MCHC RDW Std Deviation RDW Coeff of Charis Plt Count MPV Immature Gran % (Auto) Neut % (Auto) Lymph % (Auto) [place] % (Auto) Eos % (Auto) Baso % (Auto) Immature Gran # (Auto) Neut # (Auto) Lymph # (Auto) [place] # (Auto) Eos # (Auto) Baso # (Auto) Sodium Potassium Chloride Carbon Dioxide Anion Gap BUN Creatinine Est Cr Clr Drug Dosing Est GFR ( Amer) Est GFR (Non-Af Amer) BUN/Creatinine Ratio Glucose Calcium Total Bilirubin AST ALT Alkaline Phosphatase Total Protein Albumin Globulin Albumin/Globulin Ratio TSH Urine Color Yellow Urine Appearance Clear Urine pH 5.0 Ur Specific [place] 1.022 Urine Protein Negative Urine Glucose (UA) Negative Urine Ketones Negative Urine Blood Negative Urine Nitrite Negative Urine Bilirubin Negative Urine Urobilinogen Negative Ur Leukocyte Esterase Negative POC Ur Test NEG Salicylates Urine Opiates Screen Neg Ur Methadone, Qual Neg Acetaminophen Urine Barbiturates Neg Ur Phencyclidine (PCP) Neg U Amphetamin/Meth Scrn Neg MDMA (Ecstasy) Screen Neg U Benzodiazepines Scrn Neg Ur Cocaine Metabolite Neg U Marijuana (THC) Screen Neg Ethyl Alcohol mg/dL 09/12/19 09/12/19 09/12/19 16:05 16:05 16:05 WBC 7.07 RBC 4.65 Hgb 13.9 Hct 42.5 MCV 91.4 MCH 29.9 MCHC 32.7 RDW Std Deviation 43.0 RDW Coeff of Charis 12.8 Plt Count 226 MPV 9.3 Immature Gran % (Auto) 0.3 Neut % (Auto) 61.1 Lymph % (Auto) 29.8 [place] % (Auto) 7.2 Eos % (Auto) 1.3 Baso % (Auto) 0.3 Immature Gran # (Auto) 0.02 Neut # (Auto) 4.32 Lymph # (Auto) 2.11 [place] # (Auto) 0.51 Eos # (Auto) 0.09 Baso # (Auto) 0.02 Sodium 139 Potassium 3.9 Chloride 110 H Carbon Dioxide 26 Anion Gap 3.0 BUN 18 Creatinine 1.04 Est Cr Clr Drug Dosing 97.9 Est GFR ( Amer) 82.3 Est GFR (Non-Af Amer) 71.0 BUN/Creatinine Ratio 16.9 Glucose 89 Calcium 9.1 Total Bilirubin 0.3 AST 17 ALT 24 Alkaline Phosphatase 96 Total Protein 7.1 Albumin 3.4 Globulin 3.7 Albumin/Globulin Ratio 0.9 TSH 2.060 Urine Color Urine Appearance Urine pH Ur Specific [place] Urine Protein Urine Glucose (UA) Urine Ketones Urine Blood Urine Nitrite Urine Bilirubin Urine Urobilinogen Ur Leukocyte Esterase POC Ur Test Salicylates < 1.7 L Urine Opiates Screen Ur Methadone, Qual Acetaminophen < 2 L Urine Barbiturates Ur Phencyclidine (PCP) U Amphetamin/Meth Scrn MDMA (Ecstasy) Screen U Benzodiazepines Scrn Ur Cocaine Metabolite U Marijuana (THC) Screen Ethyl Alcohol mg/dL 09/12/19 16:05 WBC RBC Hgb Hct MCV MCH MCHC RDW Std Deviation RDW Coeff of Charis Plt Count MPV Immature Gran % (Auto) Neut % (Auto) Lymph % (Auto) [place] % (Auto) Eos % (Auto) Baso % (Auto) Immature Gran # (Auto) Neut # (Auto) Lymph # (Auto) [place] # (Auto) Eos # (Auto) Baso # (Auto) Sodium Potassium Chloride Carbon Dioxide Anion Gap BUN Creatinine Est Cr Clr Drug Dosing Est GFR ( Amer) Est GFR (Non-Af Amer) BUN/Creatinine Ratio Glucose Calcium Total Bilirubin AST ALT Alkaline Phosphatase Total Protein Albumin Globulin Albumin/Globulin Ratio TSH Urine Color Urine Appearance Urine pH Ur Specific [place] Urine Protein Urine Glucose (UA) Urine Ketones Urine Blood Urine Nitrite Urine Bilirubin Urine Urobilinogen Ur Leukocyte Esterase POC Ur Test Salicylates Urine Opiates Screen Ur Methadone, Qual Acetaminophen Urine Barbiturates Ur Phencyclidine (PCP) U Amphetamin/Meth Scrn MDMA (Ecstasy) Screen U Benzodiazepines Scrn Ur Cocaine Metabolite U Marijuana (THC) Screen Ethyl Alcohol mg/dL < 3.0 Hospital Course (1) Suicidal ideation: 09/12 Patient admitted on a voluntary status to the [facility] behavioral health unit where she will be observed with suicide precautions in place She will participate in psychotherapeutic unit programming as appropriate We will continue to work on nonpharmacological coping strategies Family meeting as appropriate We will coordinate care with outpatient providers 09/13 -Mood quickly re-compensating and reporting reduced suicidal ideation today without further medication adjustment. We will continue to monitor trend. Responding positively to therapeutic programming - family meeting with today 09/14 - Pt admits to improvement in SI. While suicidal thoughts are not entirely resolved, patient does report feeling better able to cope with their presence - Continue to encourage focus on safety planning and honest communication with her (2) Depression: 09/12 Patient agrees that her mood may have decompensated in the past week as a result of discontinuing the mirtazapine but is reluctant to resume secondary to residual daytime drowsiness. Reviewed with her that, sometimes higher doses of Remeron are less sedating and we could consider resuming at 45 mg nightly to see if that might be better tolerated. Presently patient prefers to watch trend following dose escalation of Abilify and Trintellix this week before resuming the Remeron which is not unreasonable. Discussed potential consideration for psychostimulant for both mood augmentation and daytime alertness, particularly if we need to reinitiate the mirtazapine Briefly discussed consideration for TMS (if suicidal ideation resolves she may be an appropriate candidate) or ECT as alternative treatment options if depression refractory 09/14 - Continue current medication regimen of Abilify 10mg and Trintellix 20mg - reports ongoing fatigue. We discussed that these side effects may diminish over time. Patient's frequent desire for medication adjustments was also discussed. Pt was provided with education that many medication side effects improve or resolve if given time - and that a longer "waiting period" may benefit the patient by reducing the frequency of medication adjustments and allowing more time to observe for possible benefits before switching agents. - Could consider initiation of a stimulant as mentioned above as adjunct for depression and to improve fatigue; however, will defer to outpatient psychiatric prescriber - Continue to discuss potential for TMS or ECT - Aftercare appointments coordinated (3) Anxiety: 09/12 Patient presents as a little less obsessive as compared to our last meeting. Continue Trintellix as prescribed by outpatient provider Hydroxyzine as needed 09/14 - Continue as above Mental Health & Subst Abuse Tx Psychiatrist Name of Psychiatrist: Saroj Burton PA-C Psychiatrist's Phone Number: [phone] Date of Appointment with Psychiatrist: 10/02/19 Time of Appointment with Psychiatrist: 09:00 Psychiatrist Release of Information: Obtained, Reviewed and Signed Therapist Name of Therapist: Jayem Kitchen Therapist's Date of Therapist Appointment: 09/17/19 Time of Therapist Appointment: 1700 Therapist Release of Information: Obtained, Reviewed and Signed Music Library Assistant Name [facility] Music Library Assistant[facility] Phone Number for Music Library Assistant: [phone] Date of Appointment with Music Library Assistant: 09/15/19 Time of Appointment with Music Library Assistant: via phone Music Library Assistant Release of Information: Obtained, Reviewed and Signed Post Discharge Appointments Primary Care Physician Name Of Family Doctor: Brandee Vogel Primary Care Provider Appointment Comment: As needed Smoking Cessation Counseling Tobacco Cessation Medication Prescribed at Discharge: Not Applicable/Non-Smoker Contact Information Discharge Discharge Address: [address] [place] [address] [place] [address] Discharge Plan Discharge Items Patient Disposition: Home - Self-Care Reason For Visit: MDD Discharge Diagnosis: - Depression - Anxiety Activity: Resume your previous activity Non-emergency contact: Primary Care Provider, Psychiatrist, Therapist and Vet Assistant Call non-emergency contact if: you have any medication questions and your symptoms worsen Follow-up/Referrals: Brandee Villaseñor DO [Primary Care Provider] - Diet: Regular Addtl Attending Provider Instructions: SPECIAL CARE INSTRUCTIONS: 1. Follow through with your scheduled aftercare appointments. If unable to keep an appointment, please call to reschedule. 2. Take your medication only as prescribed. Medication should not be changed or stopped without the approval of your doctor. In the event of worsening symptoms or concerns about side effects, contact your doctor immediately. 3. Utilize new healthy coping skills, anger management skills, and stress management skills learned during your hospitalization. Journal feelings and process them with a support person. Identify stressors or situations that may result in relapse, deterioration or inappropriate behaviors and develop a plan to deal with those issues. 4. If your coping skills are ineffective and you are in crisis, contact your outpatient providers for direction. If unable to reach your providers, please call the CAN HELP LINE AT or go to the closest Emergency Room. 5. Avoid alcohol and un-prescribed drugs. 6. You have been provided with the Mental Health Advance Directives Pamphlet for your review. AFTERCARE APPOINTMENTS: * Please call your insurance company prior to your scheduled appointment to confirm your aftercare providers are covered. Take your insurance information to your appointments. WHO TO CALL AND WHEN: Medical Emergencies: For questions or emergencies related to your hospital stay, please contact the Inpatient Behavioral Health Unit at [phone]. A overedge machine operator is on-call 08/01 for the Behavioral Health Unit for emergencies At any time you feel your situation is an emergency, you may also call 911 immediately. Your Discharge Instructions noted above were prepared by provider Madonna Tapia PA-C. Pending Studies at Discharge: No Stand-Alone Forms: My [facility] [employer] Poker Products, Smoking Cessation, Suicide Prevention Resources Medications and DC Order Prescriptions: New aripiprazole [Abilify] 10 mg Tablet 10 mg PO HS 30 Days Qty: 30 RF: 0 vortioxetine 20 mg tablet 20 mg PO DAILY 30 Days Qty: 30 RF: 0 Continued biotin 10,000 mcg Capsule 1 mcg PO DAILY RF: 0 multivitamin Capsule 1 cap PO DAILY RF: 0 cholecalciferol (vitamin D3) [Vitamin D3] 125 mcg (5,000 unit) Tablet 5,000 unit PO DAILY PRN (Reason: Other) RF: 0 aripiprazole [Abilify] 5 mg tablet 10 mg PO HS RF: 0 Trintellix 10 mg tablet 20 mg PO QAM RF: 0 Discharge Orders: Discharge Order (Routine); Ordered 09/16/19 Ordered By: Madonna Tapia Admission Data Admit Date/Time: 09/12/19 18:18 Attending Provider: Kassandra Jordan Admit Provider: Moses Power Primary Care Provider: Brandee Villaseñor Other Interventions: Discharge Summary Assessment (RN) Last Done: 09/16/19 10:12 PSY Interdisciplinary Discharge Planning Last Done: 09/16/19 10:12 DC Date/Time DO NOT enter until pt leaves facility: 09/16/19 10:53 Coding Level of Care Code 43936 D/C day mgmt > 30 min Diagnoses Suicidal ideation R45.851 Depression F32.9 Depression Type: unspecified Anxiety F41.9
== END 2019-09-16 10:53 | disposition home or self-care (01) | DRG 881 ==
LOC: ED 15:11 → SUATTDRO 18:18 → 3S 18:18

== ENCOUNTER 2020-06-14 17:21 | Inpatient (IN) ==
[2020-06-14 18:17] LABS: Appearance Urine Clear (Clear); Bilirubin Urine Negative (Negative); Blood Urine Negative (Negative); Color Urine Yellow; Glucose Urine UA Negative (Negative); Ketones Urine Negative (Negative); Leukocyte Esterase Urine Negative (Negative); Nitrite Urine Negative (Negative); Protein Urine Negative (Negative); Specific Gravity Urine 1.014 (1.000-1.030); Urobilinogen Urine Negative (Negative)
[2020-06-14 18:17] LABS: Hematocrit (blood only) 40.6 % (37-47); Hemoglobin 13.5 g/dL (12.0-16.0); Immature Granulocytes # (auto) 0.01 K/uL (0.00-0.02); Immature Granulocytes % (auto) 0.1 %; Lymphocytes # (auto) 1.83 K/uL (1.2-3.4); Lymphocytes % (auto) 24.8 %; Mean Corpuscular Hemoglobin 29.7 pg (25-34); Mean Corpuscular Hgb Conc 33.3 g/dL (32-36); Mean Corpuscular Volume 89.2 fL (80-100); Mean Platelet Volume 9.2 fL (7.4-10.4); Monocytes # (auto) 0.46 K/uL (0.11-0.59); Monocytes % (auto) 6.2 %; Neutrophils # (auto) 5.07 K/uL (1.4-6.5); Neutrophils % (auto) 68.9 %; Platelet Count 190 K/uL (130-400); RDW Coefficient of Variation 12.7 % (11.5-14.5); RDW Standard Deviation 40.4 fL (36.4-46.3); Red Blood Count 4.55 M/uL (4.2-5.4); White Blood Count 7.37 K/uL (4.8-10.8)
[2020-06-14 18:37] LABS: Albumin Level 3.2 gm/dl (3.4-5.0); BUN Creatinine Ratio 11.2 (10-20); Calcium 8.1 mg/dl (8.5-10.1); Creatinine Clr Calc Pharmacy 103.6 ml/min; Est GFR (African American) 88.9; Est GFR (Non-African American) 76.7; Potassium 3.6 mmol/L (3.5-5.1)
[2020-06-14 18:40] LABS: Amphetamines+Metham, Urine Pos (Neg); Barbiturates, Urine Neg (Neg); Benzodiazepine, Urine Neg (Neg); Cocaine, Urine Neg (Neg); MDMA (Ecstacy), Urine Neg (Neg); Methadone, Urine Neg (Neg); Opiate, Urine Neg (Neg); Phencyclidine, Urine Neg (Neg)
[2020-06-14 18:48] LABS: Albumin Globulin Ratio 0.9 (0.9-2); Bilirubin,Total 0.3 mg/dl (0.2-1); Globulin 3.6 gm/dl (2.5-4.0); Thyroid Stimulating Hormone 1.22 uIu/ml (0.300-4.500); Total Protein 6.8 gm/dl (6.4-8.2)
[2020-06-14 18:50] LABS: Acetaminophen < 2 ug/ml (10-30); Salicylate < 1.7 mg/dl (2.8-20)
--- NOTE | 2020-06-14 18:57 | Emergency Department Note ---
Impression & Plan Depression with suicidal ideation ED Provider Note Provider: Qasim Qiu MD DATE OF SERVICE:06/14/2020 CHIEF COMPLAINT: Depression with suicidal plan HISTORY OF PRESENT ILLNESS: Patient is a 34-year-old female with a history of depression and prior suicide attempts presenting here referred by her caregivers at [facility] today for worsening depression and suicidal thoughts. Patient states she has had multiple inpatient hospitalizations for depression and suicidal thoughts this year last in December at the [facility]. States she did not do well there at the [facility]. Over the last several months has been having various medication changes. Is no longer on lithium. Patient states she has been having highs and lows. Over the past week she has had significant lows. Patient states last Sunday she wrote letters to her children telling them goodbye. Has been having thoughts of wanting to try to harm her self by injuring herself in a car accident versus driving somewhere and taking a bunch of pills. Patient states she does have a history of suicide attempt in the past. Denies any homicidal ideation. States she has been having longstanding sleep issues but denies significant body pain. Patient denies attempting to harm her self currently. Patient states she believes she needs inpatient treatment again. Patient states she does feel little bit safer now that she is at the ER. REVIEW OF SYSTEMS: A total of 10 review of systems was obtained and negative except as stated above in the HPI. PAST MEDICAL HISTORY: As noted above MEDICATIONS: Reviewed home medications SOCIAL HISTORY: Lives at home with and children PHYSICAL EXAM: GENERAL: alert and oriented laying on bed. Head: normocephalic and atraumatic EYES: No injection, discharge or icterus. NECK: Trachea midline. LUNGS: Airway patent. No retractions. Breath sounds clear with good air entry bilaterally. HEART: Regular rate and rhythm. No chest wall tenderness BACK: No midline tenderness thoracic or upper thoracic tenderness. SKIN: Acyanotic, warm, dry, without rashes EXTREMITIES: Without swelling, tenderness or deformity NEUROLOGICAL: No focal deficits. No aphasia. No facial droop or slurred speech. Psych: Patient endorses depression with suicidal plans formulating over the past week as noted above. Denies any homicidal ideation. Denies hallucinations. Patient is very flat on exam. Does not appear to be responding to external stimuli. Patient's laboratory studies reviewed. Differential includes Mood disorder, infection, hypoglycemia, electrolyte abnormalities, cardiac sources, intracerebral event, toxicologic, trauma, neurologic, as well as other pathologies. IMPRESSION/MEDICAL DECISION MAKING: Patient presents with concerning past psychiatric history and worsening depressi on of the past week writing letters to her children saying goodbye and thinking of plans to harm her self. Requesting voluntary inpatient treatment. Basic labs were obtained without significant abnormality noted here. Coronavirus test negative here. Seen conjunction with the case management specialist. Do believe she would benefit from inpatient treatment given her complaints. Bed search to be initiated. Patient was excepted 3 S. and was accepted there for further care. 201 completed. DIAGNOSIS: Depression with suicidal ideation DISPOSITION: Excepted 3 S. further inpatient care for depression and suicidal ideation. Patient was in agreement with this plan. Past Med/Surg History Medical History (Updated 06/14/20 @ 19:50 by Qasim Qiu M.D.) Bicornate uterus Depression Depression Family history of reaction to anesthesia GRANDPARENTS HAD ISSUES WITH WAKING, NO KNOWN DIAGNOSIS OF ANESTHESIA REACTION. Neck pain Sinus bradycardia Thyroid nodule Surgical History History of section EMERGENCY 2016. 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 SHE REMEMBERS FEELING THE "SENSE OF DOOM". History of dilatation and curettage S/T MISCARRIAGE Family History Family/Other Thyroid nodule Social History Smoking Status: Never smoker Cigarettes Per Day: 0; Second Hand Exposure: No; Hx Alcohol Use: No Hx Substance Use: No Preferred Language: Icelandic Communication Ability: Effective Project Management Manager Required: No Beliefs That Will Affect Care: Cheondoism marital status: Current Living Situation: Spouse and Family Feels Safe at Home: Yes Assistive Devices: None Allergies Allergies Allergy/AdvReac Type Severity Reaction Status Date / Time cyclobenzaprine Allergy Unknown DIFFICULTY Verified 06/14/20 17:57 BREATHING, CHOKING, COULDN'T WAKE UP bupropion [From Wellbutrin] Allergy Difficulty Verified 06/14/20 17:57 Breathing Home Meds Home Medications Medication Instructions Recorded Confirmed aripiprazole [Abilify] 15 mg PO HS 09/12/19 06/14/20 dextroamphetamine-amphetamine 30 mg PO DAILY 12/18/19 06/14/20 dextroamphetamine-amphetamine 10 mg PO DAILY 06/14/20 06/14/20 esketamine [Spravato] 28 mg INTRANASAL WK 06/14/20 06/14/20 venlafaxine 75 mg PO HS 06/14/20 06/14/20 venlafaxine 150 mg PO HS 06/14/20 06/14/20 Results & Data (ED) Vital Signs Vital Signs - 24 hr 06/14/20 17:35 06/14/20 19:21 Temperature 36.6 C Temperature Source Temporal Artery Scan Pulse Rate 71 Pulse Rate [Left Finger] 64 Pulse Rhythm [Left Finger] Regular Pulse Strength [Left Finger] Normal Respiratory Rate 20 16 Respiratory Effort / Characteristics Non-Labored Spontaneous Respiratory Depth Normal Respiratory Pattern Regular Blood Pressure 143/80 H Blood Pressure [Left Arm] 109/52 L Blood Pressure Mean 101 Blood Pressure Mean [Left Arm] 71 Blood Pressure Position [Left Arm] Lying Pulse Oximetry 100 97 Oxygen Delivery Method Room Air Room Air Sepsis Recent Fever Within 48 Hours No Sepsis New/Unexplained Change in Mental Status No Sepsis Action Taken by Nursing No Action Required Laboratory Data Result diagrams: 06/14/20 18:00 06/14/20 18:00 Lab Results 06/14/20 06/14/20 06/14/20 Range/Units 17:39 17:39 17:39 WBC (4.8-10.8) K/uL RBC (4.2-5.4) M/uL Hgb (12.0-16.0) g/dL Hct (37-47) % MCV (80-100) fL MCH (25-34) pg MCHC (32-36) g/dL RDW Std Deviation (36.4-46.3) fL RDW Coeff of Charis (11.5-14.5) % Plt Count (130-400) K/uL MPV (7.4-10.4) fL Immature Gran % (Auto) % Neut % (Auto) % Lymph % (Auto) % Sherman % (Auto) % Eos % (Auto) % Baso % (Auto) % Neut # (Auto) (1.4-6.5) K/uL Lymph # (Auto) (1.2-3.4) K/uL Sherman # (Auto) (0.11-0.59) K/uL Eos # (Auto) (0-0.5) K/uL Baso # (Auto) (0-0.2) K/uL Immature Gran # (Auto) (0.00-0.02) K/uL Sodium (136-145) mmol/L Potassium (3.5-5.1) mmol/L Chloride (98-107) mmol/L Carbon Dioxide (21-32) mmol/L Anion Gap (3-11) BUN (7-18) mg/dl Creatinine (0.6-1.2) mg/dl Est Cr Clr Drug Dosing ml/min Est GFR ( Amer) Est GFR (Non-Af Amer) BUN/Creatinine Ratio (10-20) Glucose (70-99) mg/dl Calcium (8.5-10.1) mg/dl Total Bilirubin (0.2-1) mg/dl AST (15-37) U/L ALT (12-78) U/L Alkaline Phosphatase (45-117) U/L Total Protein (6.4-8.2) gm/dl Albumin (3.4-5.0) gm/dl Globulin (2.5-4.0) gm/dl Albumin/Globulin Ratio (0.9-2) TSH (0.300-4.500) uIu/ml Urine Color Yellow Urine Appearance Clear (Clear) Urine pH 5.0 (4.5-7.5) Ur Specific [place] 1.014 (1.000-1.030) Urine Protein Negative (Negative) Urine Glucose (UA) Negative (Negative) Urine Ketones Negative (Negative) Urine Blood Negative (Negative) Urine Nitrite Negative (Negative) Urine Bilirubin Negative (Negative) Urine Urobilinogen Negative (Negative) Ur Leukocyte Esterase Negative (Negative) POC Ur Test NEG (NEG) Salicylates (2.8-20) mg/dl Urine Opiates Screen Neg (Neg) Ur Methadone, Qual Neg (Neg) Acetaminophen (10-30) ug/ml Urine Barbiturates Neg (Neg) Ur Phencyclidine (PCP) Neg (Neg) U Amphetamin/Meth Scrn Pos H (Neg) MDMA (Ecstasy) Screen Neg (Neg) U Benzodiazepines Scrn Neg (Neg) Ur Cocaine Metabolite Neg (Neg) U Marijuana (THC) Screen Neg (Neg) Ethyl Alcohol mg/dL (0-3) mg/dl SARS-CoV-2 Ag (Rapid) (Negative) 06/14/20 06/14/20 06/14/20 Range/Units 18:00 18:00 18:00 WBC 7.37 (4.8-10.8) K/uL RBC 4.55 (4.2-5.4) M/uL Hgb 13.5 (12.0-16.0) g/dL Hct 40.6 (37-47) % MCV 89.2 (80-100) fL MCH 29.7 (25-34) pg MCHC 33.3 (32-36) g/dL RDW Std Deviation 40.4 (36.4-46.3) fL RDW Coeff of Charis 12.7 (11.5-14.5) % Plt Count 190 (130-400) K/uL MPV 9.2 (7.4-10.4) fL Immature Gran % (Auto) 0.1 % Neut % (Auto) 68.9 % Lymph % (Auto) 24.8 % Sherman % (Auto) 6.2 % Eos % (Auto) 0.0 % Baso % (Auto) 0.0 % Neut # (Auto) 5.07 (1.4-6.5) K/uL Lymph # (Auto) 1.83 (1.2-3.4) K/uL Sherman # (Auto) 0.46 (0.11-0.59) K/uL Eos # (Auto) 0.00 (0-0.5) K/uL Baso # (Auto) 0.00 (0-0.2) K/uL Immature Gran # (Auto) 0.01 (0.00-0.02) K/uL Sodium 140 (136-145) mmol/L Potassium 3.6 (3.5-5.1) mmol/L Chloride 110 H (98-107) mmol/L Carbon Dioxide 25 (21-32) mmol/L Anion Gap 5.0 (3-11) BUN 11 (7-18) mg/dl Creatinine 0.97 (0.6-1.2) mg/dl Est Cr Clr Drug Dosing 103.6 ml/min Est GFR ( Amer) 88.9 Est GFR (Non-Af Amer) 76.7 BUN/Creatinine Ratio 11.2 (10-20) Glucose 119 H (70-99) mg/dl Calcium 8.1 L (8.5-10.1) mg/dl Total Bilirubin 0.3 (0.2-1) mg/dl AST 15 (15-37) U/L ALT 22 (12-78) U/L Alkaline Phosphatase 81 (45-117) U/L Total Protein 6.8 (6.4-8.2) gm/dl Albumin 3.2 L (3.4-5.0) gm/dl Globulin 3.6 (2.5-4.0) gm/dl Albumin/Globulin Ratio 0.9 (0.9-2) TSH 1.220 (0.300-4.500) uIu/ml Urine Color Urine Appearance (Clear) Urine pH (4.5-7.5) Ur Specific [place] (1.000-1.030) Urine Protein (Negative) Urine Glucose (UA) (Negative) Urine Ketones (Negative) Urine Blood (Negative) Urine Nitrite (Negative) Urine Bilirubin (Negative) Urine Urobilinogen (Negative) Ur Leukocyte Esterase (Negative) POC Ur Test (NEG) Salicylates < 1.7 L (2.8-20) mg/dl Urine Opiates Screen (Neg) Ur Methadone, Qual (Neg) Acetaminophen < 2 L (10-30) ug/ml Urine Barbiturates (Neg) Ur Phencyclidine (PCP) (Neg) U Amphetamin/Meth Scrn (Neg) MDMA (Ecstasy) Screen (Neg) U Benzodiazepines Scrn (Neg) Ur Cocaine Metabolite (Neg) U Marijuana (THC) Screen (Neg) Ethyl Alcohol mg/dL (0-3) mg/dl SARS-CoV-2 Ag (Rapid) (Negative) 06/14/20 06/14/20 Range/Units 18:00 Unknown WBC (4.8-10.8) K/uL RBC (4.2-5.4) M/uL Hgb (12.0-16.0) g/dL Hct (37-47) % MCV (80-100) fL MCH (25-34) pg MCHC (32-36) g/dL RDW Std Deviation (36.4-46.3) fL RDW Coeff of Charis (11.5-14.5) % Plt Count (130-400) K/uL MPV (7.4-10.4) fL Immature Gran % (Auto) % Neut % (Auto) % Lymph % (Auto) % Sherman % (Auto) % Eos % (Auto) % Baso % (Auto) % Neut # (Auto) (1.4-6.5) K/uL Lymph # (Auto) (1.2-3.4) K/uL Sherman # (Auto) (0.11-0.59) K/uL Eos # (Auto) (0-0.5) K/uL Baso # (Auto) (0-0.2) K/uL Immature Gran # (Auto) (0.00-0.02) K/uL Sodium (136-145) mmol/L Potassium (3.5-5.1) mmol/L Chloride (98-107) mmol/L Carbon Dioxide (21-32) mmol/L Anion Gap (3-11) BUN (7-18) mg/dl Creatinine (0.6-1.2) mg/dl Est Cr Clr Drug Dosing ml/min Est GFR ( Amer) Est GFR (Non-Af Amer) BUN/Creatinine Ratio (10-20) Glucose (70-99) mg/dl Calcium (8.5-10.1) mg/dl Total Bilirubin (0.2-1) mg/dl AST (15-37) U/L ALT (12-78) U/L Alkaline Phosphatase (45-117) U/L Total Protein (6.4-8.2) gm/dl Albumin (3.4-5.0) gm/dl Globulin (2.5-4.0) gm/dl Albumin/Globulin Ratio (0.9-2) TSH (0.300-4.500) uIu/ml Urine Color Urine Appearance (Clear) Urine pH (4.5-7.5) Ur Specific [place] (1.000-1.030) Urine Protein (Negative) Urine Glucose (UA) (Negative) Urine Ketones (Negative) Urine Blood (Negative) Urine Nitrite (Negative) Urine Bilirubin (Negative) Urine Urobilinogen (Negative) Ur Leukocyte Esterase (Negative) POC Ur Test (NEG) Salicylates (2.8-20) mg/dl Urine Opiates Screen (Neg) Ur Methadone, Qual (Neg) Acetaminophen (10-30) ug/ml Urine Barbiturates (Neg) Ur Phencyclidine (PCP) (Neg) U Amphetamin/Meth Scrn (Neg) MDMA (Ecstasy) Screen (Neg) U Benzodiazepines Scrn (Neg) Ur Cocaine Metabolite (Neg) U Marijuana (THC) Screen (Neg) Ethyl Alcohol mg/dL < 3.0 (0-3) mg/dl SARS-CoV-2 Ag (Rapid) Negative (Negative) Discharge Plan Visit Data Chief Complaint: Mental Health Evaluation Stated Complaint: MENTAL HEALTH ED Provider: Qasim Qiu Discharge Problem: Depression with suicidal ideation Forms Stand Alone Forms: [facility], Suicide Prevention Resources Prescriptions Prescriptions: No Action aripiprazole [Abilify] 5 mg tablet 15 mg PO HS RF: 0 dextroamphetamine-amphetamine 30 mg capsule,extended release 24hr 30 mg PO DAILY RF: 0 venlafaxine 75 mg tablet 75 mg PO HS RF: 0 dextroamphetamine-amphetamine 10 mg tablet 10 mg PO DAILY RF: 0 venlafaxine 150 mg capsule,extended release 24hr 150 mg PO HS RF: 0 Spravato 84 mg (28 mg x 3) spray,non-aerosol 28 mg INTRANASAL WK RF: 0
[2020-06-14 22:09] VITALS: O2SAT 98
[2020-06-14] MEDS ORDERED: BISMUTH SUBSALICYLATE LIQD 236 ML PO PRN (22:19)
[2020-06-14] MEDS ORDERED: hydrOXYzine HCl 25 MG TAB PO PRN ×2 (22:19)
[2020-06-14] MEDS ORDERED: SODIUM CHLORIDE 0.65% NA SOLN 45 ML (OCEAN) PRN (22:19)
[2020-06-14] MEDS ORDERED: MAGNESIUM HYDROXIDE SUSP 30 ML UDC PO PRN (22:19)
[2020-06-14] MEDS ORDERED: ALUMINUM/MAGNESIUM SUSP 30 ML UDC PO PRN (22:19)
[2020-06-14] MEDS ORDERED: ARIPiprazole 15 MG TAB PO ONE (22:47)
[2020-06-14] MEDS ORDERED: VENLAFAXINE HCL XR 75 MG CAPXR PO ONE (22:48)
--- NOTE | 2020-06-15 10:29 | History & Physical ---
Date of Service June 15, 2020 Impression / Recommendations Impression This 34-year-old woman has a long history of recurrent depression that has been largely treatment resistant. She has had multiple psychiatric hospitalizations recently, including one at [facility]'s behavioral health unit in May 2019, as well as 2 more psychiatric admissions to [facility]'s psychiatric unit, 1 in July 2019 and another in August 2019. Furthermore, there was a psychiatric admission in December 2019 to a different local psychiatric hospital ([facility]). Complicating the clinical picture is the fact that the patient's episodes of depression tend to be fairly short-lived and are interspaced with periods of what she refers to as "normal" mood. Accordingly, it has been difficult in the short run to determine which interventions are and are not effective. Recently, the patient has been fairly intensively managed on an outpatient basis at [facility]. She was started on Spravato and indicates that at first she had a fairly rapid favorable response. However, the benefit did not last. She notes that each time she gets a Spravato infusion her notes that she seems "a little brighter," although at this point the patient says that she does not typically feel any difference in comparison to how she felt when she got the infusion. The patient's report is that her outpatient provider has told her that the plan is for the patient to discontinue venlafaxine and started on a "different" SNRI. The "different" SNRI is reportedly Pristiq. This medication is not on her formulary, and I explained to the patient that our recommendation would be that if it is decided to discontinue venlafaxine in favor of Pristiq that this probably should be done on an outpatient basis. Given the fact that the patient reports that 2 of her brothers have carried diagnoses of bipolar disorder, and although the patient certainly does not meet criteria for bipolar disorder, herself, and that she does not have episodes that would appear to meet criteria for jordyn or hypomania, she does describe regular and fairly rapid cycles and her mood from euthymia to depression. She also mentioned that while with her youngest child she had a fairly impulsive extramarital sexual affair, circumstance that may or may not suggest a certain degree of impulsivity associated with mood alterations. Accordingly, the patient may benefit from the addition of a mood stabilizer such as lamotrigine or Depakote. The patient's current dose of aripiprazole can also serve as a mood stabilizer. The patient is planning to be tested formally for adult ADHD. She describes certain features consistent with this diagnosis, including difficulty concentrating and focusing (independent of her mood), tendency to be easily distracted, a tendency to become derailed and not finish projects, and a tendency to lose things, forget which she has done, and/or not listen when being directly addressed. 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 As described by the patient, she is frequently somnolent and want to take a nap, but at least today she does not clearly describe symptoms that are fully consistent with narcolepsy. We will continue Adderall during what we expect will be a fairly brief hospital stay. We will also consider adding (1) Depression with suicidal ideation: 06/15/20 -The patient has been admitted to the [facility] inpatient psychiatric unit at [facility]. She has been referred to individual, group and recreational therapy, and we are encouraging her to actively participate. The primary goal of each of these groups is to improve her individual coping strategies and learning skills to allow her to work through her intermittent episodes of worsening depression without acting on her suicidal thoughts. -Today, the patient says that her suicidal thoughts continue, and she is concerned that she will still act on the should she leave the hospital at this time. However, she feels that the thoughts have been significantly reduced since her admission last evening. Specifically, she says the thoughts are less intense, less frequent, and are not leading to further thoughts regarding methods and strategies for committing suicide. The patient also reliably contract for safety in the hospital. -The recommended that her planned cross taper of venlafaxine and Pristiq occur on an outpatient basis. We do not anticipate this being a particularly long hospital stay and, furthermore, Pristiq is not on the hospital formulary. -One recommendation would be to consider the addition of a second mood stabilizer (in addition to aripiprazole). A good choice might be lamotrigine. She does not describe a clear history of symptoms of jordyn or hypomania and, instead, describes her mood is cycling between "normal" and "really depressed." However, there is a family history of bipolar disorder (diagnosed in 2 of her brothers). Accordingly, we will offer the patient a trial of lamotrigine beginning at 25 mg daily with a recommendation for careful titration on an outpatient basis. Material risks and anticipated benefits of lamotrigine have been reviewed with the patient. We have also discussed other mood stabilizing agents that may be a candidate. The patient has indicated understanding and agreement. Present on Admission?: Yes (2) Anxiety: 06/15 -The patient experiences anxious distress in association with her depression. Ever, she also notes that she tends to be anxious even when not depressed. We are emphasizing helping her develop her coping strategies as well as applying self soothing and mindfulness techniques. Inventory Assets Strengths: Motivated to recovery. Supportive family. A second mood stabilizer, such as lamotrigine. Needs: Effective mood stabilization. Resolution of active suicidal thoughts. Risk Factors Assessment History of recurrent major mental illness. Male: No : Yes Do You Have Access To A Gun?: No Health Problems: No Mental Health Diagnoses: Yes Substance Use Disorders: No Previous Attempt: Yes Previous Attempt; Highly Lethal: No Previous Attempt; Planned: Yes Previous Attempt; Didn't Tell Anyone: No Family History of Suicide: No Previous Psychiatric Hospitalization: Yes Hopelessness: No Smoker: No Protective Factors Assessment Scientologist Beliefs: Yes : Yes Responsible for Young Children: Yes Employed: No Supportive Family: Yes Good Rapport with Provider: Yes Absence of Any Risk Factors Above: No Psychiatric History Identifying Data LUZ IZAGUIRRE is a 34-year-old F who currently lives with her and children locally. She has a history of recurrent severe major depression. She was admitted on 06/14/20 21:22 on a 201 voluntary agreement because of suicidal thoughts with a plan. Chief Complaint "Depression". History of Present Illness The patient is a 34-year-old woman with a history of multiple psychiatric hospitalizations on a known diagnosis of major depressive disorder, severe, recu rrent without psychotic features. Patient reports that she was most recently hospitalized last summer at the [facility], and subsequent to that has been experiencing fairly brief periods of depression alternating with periods of normal mood. She suggests that the periods of depression may last "3 or 4 days," or "may be a week," and then she may experience what she refers to as "normal" moods where she feels "like [herself]" for a week or 2 before experiencing a depression relapse. She is followed on an outpatient basis at [facility] where she is prescribed esketamine, venlafaxine 225 mg a day, Adderall extended release 30 mg in the morning and 10 mg in the afternoons at about 1 PM, and aripiprazole. Her dose of aripiprazole has been increased from 10 mg a day to a dose of 15 mg a day approximately 2 or 3 weeks ago, and she feels that overall her mood has been somewhat more stable. She identifies no precipitating factor for her depression, but says that this current "dip" and depression has been somewhat worse than many of the previous episodes that she is experienced over the course of the summer and fall 2019. She acknowledges that she was having thoughts of driving her car to a remote location and taking an overdose of pills. The patient also thought of crashing her car, or cutting herself. She wrote a letter to her children in anticipation of her killing herself. However, she clarifies that the letter does not reference anything about suicide or . Instead, it is a letter that simply says how much she loves them and how important they are to or. She did not actually give the trolled on the letter. The patient acknowledges a remote history of several suicide attempts, as well as a history of intentional self-injurious behaviors in the form of superficially cutting the fleshy portions of her anatomy with sharp objects, primarily as a teenager. The patient notes that she is also in the process of being worked up for narcolepsy. She is taking Adderall for both daytime somnolence and difficulty with concentration and focus. Past Psychiatric History Previous Psych History: Patient reports a long history of depression beginning in childhood and worsening during her teen years and 20s. She has had multiple psychiatric hospitalizations and trials of multiple different psychiatric m edications. Current Psychiatric Diagnosis: [facility] Outpatient Services: As above, the patient is currently being followed on an outpatient basis at [facility]. At the time of admission her psychiatric regimen included venlafaxine 225 mg daily, aripiprazole 15 mg daily, Adderall extended release 30 mg in the morning and 10 mg at noon, primarily for suspected narcolepsy without catatonia, but also because of difficulty with concentration and focus. Further, the patient takes Spravato (dose unknown). The patient reports that her prescriber at [facility] had recently talked to her about discontinuing venlafaxine in favor of a "different SNRI." The patient does not know the name of the SNRI, but references Genes[employer] testing. A copy of this genetic testing has been obtained from [employer], and does indicate that Pristiq is one of the medications that would be anticipated to have benefit without substantial side effects at standard dosages. On the other hand, duloxetine, another SNRI, was in the list of medications that may be more apt to cause side effects or not offer the anticipated benefit. The patient also indicates she has tried multiple different psychiatric medications and references antidepressant medications that have included Prozac, sertraline, Lexapro, and others. Previous Psych Admissions: Multiple psychiatric admissions. Her most recent hospitalizations have been at the behavioral health unit at [facility] in August 2019 and at [facility] in [place], [place] last December. The patient also had a psychiatric admission at [facility] in May 2019, again in July 2019, and, as above, the third admission in August 2019. All have been for suicidal ideation and depression. Do You Have Access To A Gun?: No History of Previous Suicide Attempt: Yes Describe Attempts in the Past: Multiple overdoses-late teens inro early Past Medication Trials: See above Additional Notes: The patient has a somewhat stressful home life and in the past it is appeared that her psychiatric admissions may in part be precipitated by psychosocial stressors. Past Head Trauma/Neuro History History of Concussion/Seizure: No Allergies Allergy/AdvReac Type Severity Reaction Status Date / Time cyclobenzaprine Allergy Unknown DIFFICULTY Verified 06/14/20 17:57 BREATHING, CHOKING, COULDN'T WAKE UP bupropion [From Wellbutrin] Allergy Difficulty Verified 06/14/20 17:57 Breathing Home Medications Medication Instructions Recorded Confirmed Type aripiprazole [Abilify] 15 mg PO HS 09/12/19 06/14/20 History dextroamphetamine-amphetamine 30 mg PO DAILY 12/18/19 06/14/20 History dextroamphetamine-amphetamine 10 mg PO DAILY 06/14/20 06/14/20 History esketamine [Spravato] 28 mg INTRANASAL WK 06/14/20 06/14/20 History venlafaxine 75 mg PO HS 06/14/20 06/14/20 History venlafaxine 150 mg PO HS 06/14/20 06/14/20 History Family History Family History of: Depression Family Mental Health History Comment: The patient says that she believes 2 of her brothers carry the diagnosis of bipolar disorder. Her paternal grandmother suffered from depression. Alcohol History Hx of Alcohol Use Over the Past 12 Months: No AUDIT Total Score: 0 Smoking Use Have You Smoked or Used Tobacco Products in the Last 30 Days: No Smoking Status: Never smoker Substance History Hx of Prescription Med Misuse Over the Past 12 Months: No Hx of Over the Counter Med Misuse Over the Past 12 Months: No Hx of Inhalent Misuse Over the Past 12 Months: No Hx of Organic Substance Use Over the Past 12 Months: No Hx of Illegal Substances/Street Drug Use Over Past 12 Months: No Problems as a Result of Past Substance Use: None Identified Personal History Living Arrangements: Home Living Arrangements Comments: The patient has 5 children. The oldest 2 were originally stepchildren and have been adopted by the patient and her . Born In: [place], raised by both parents, reports happy childhood Highest Grade Completed: High School Graduate Employment Status: Unemployed Beliefs That Will Affect Care: Scientologist (Patient refers to herself as "Restorationist." She also notes that she normally attends [employer], but has not been attending during the current pandemic.) Current Legal Problems: No Hx Legal Problems: No Hx Traumatic Life Events: Yes Patient History Medical History Bicornate uterus Depression Depression Family history of reaction to anesthesia GRANDPARENTS HAD ISSUES WITH WAKING, NO KNOWN DIAGNOSIS OF ANESTHESIA REACTION. Neck pain Sinus bradycardia Thyroid nodule Surgical History History of section EMERGENCY 2016. 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 SHE REMEMBERS FEELING THE "SENSE OF DOOM". History of dilatation and curettage S/T MISCARRIAGE Family History Family/Other Thyroid nodule Social History Smoking Status: Never smoker Cigarettes Per Day: 0; Second Hand Exposure: No; Hx Alcohol Use: No Hx Substance Use: No Preferred Language: Upper Sorbian Communication Ability: Effective Blood Coordinator Required: No Beliefs That Will Affect Care: Scientologist (Patient refers to herself as "Restorationist." She also notes that she normally attends [employer], but has not been attending during the current pandemic.) marital status: Current Living Situation: Spouse and Family Feels Safe at Home: Yes Assistive Devices: None Review of Systems Review of Systems: All systems reviewed & are unremarkable except as noted in HPI & below At least 10 systems were reviewed as part of the psychiatric assessment. In addition, the somatic history, physical examination and review of systems completed by Dr. Qasim Qiu of the emergency department have been reviewed and are accepted for purposes of medical clearance to the [facility] unit. Physical Exam Psychiatric: Orientation: alert, oriented x 3 and cooperative Apperance: appropriately dressed, appropriately groomed and appeared stated age Eye Contact: good eye contact Motor Behavior: + psychomotor retardation (Mild psychomotor retardation. The patient says that she is tired today.) Speech: normal rate/rhythm/volume of speech The patient's affect is mildly depressed, but she smiles and laughs appropriately several times during the encounter. "Somewhat better today." Thought Process: goal directed thought process Thought Content: reality based without delusions Suicidal Thoughts: + reports suicidal thoughts Patient reports that she is continuing to have suicidal thoughts, but these thoughts are less intrusive and less intense. She acknowledges that she had an active plan prior to admission and is concerned that she might of acted on the plan. She adds, "that is why I came to the hospital." Homicidal Thoughts: denies homicidal thoughts Hallucinations: no auditory hallucinations Cognition: recent memory grossly intact and remote memory grossly intact Patient complains of difficulty focusing and concentrating. She has not had a dose of Adderall today, and she indicates that she is experiencing breakthrough symptoms of fatigue and poor concentration Estimated Intelligence: average estimated intelligence Insight: + fair insight Judgement: + fair judgement Vital Signs (Past 24 Hours): Last Vital Signs Temp 36.7 C 06/15/20 06:00 Pulse 87 06/15/20 06:31 Resp 16 06/15/20 06:00 BP 106/72 06/15/20 06:31 Pulse Ox 98 06/14/20 22:21 Results & Data (U) Laboratory Results Laboratory Results - last 24 hr 06/14/20 06/14/20 06/14/20 17:39 17:39 17:39 WBC RBC Hgb Hct MCV MCH MCHC RDW Std Deviation RDW Coeff of Charis Plt Count MPV Immature Gran % (Auto) Neut % (Auto) Lymph % (Auto) [place]umas % (Auto) Eos % (Auto) Baso % (Auto) Neut # (Auto) Lymph # (Auto) [place] # (Auto) Eos # (Auto) Baso # (Auto) Immature Gran # (Auto) Sodium Potassium Chloride Carbon Dioxide Anion Gap BUN Creatinine Est Cr Clr Drug Dosing Est GFR ( Amer) Est GFR (Non-Af Amer) BUN/Creatinine Ratio Glucose Calcium Total Bilirubin AST ALT Alkaline Phosphatase Total Protein Albumin Globulin Albumin/Globulin Ratio TSH Urine Color Yellow Urine Appearance Clear Urine pH 5.0 Ur Specific [place] 1.014 Urine Protein Negative Urine Glucose (UA) Negative Urine Ketones Negative Urine Blood Negative Urine Nitrite Negative Urine Bilirubin Negative Urine Urobilinogen Negative Ur Leukocyte Esterase Negative POC Ur Test NEG Salicylates Urine Opiates Screen Neg Ur Methadone, Qual Neg Acetaminophen Urine Barbiturates Neg Ur Phencyclidine (PCP) Neg U Amphetamines Confirm U Amphetamin/Meth Scrn Pos H U Methamphetamin Confrm MDMA (Ecstasy) Screen Neg U Benzodiazepines Scrn Neg Ur Cocaine Metabolite Neg U Marijuana (THC) Screen Neg Drug Screen Comment Ethyl Alcohol mg/dL SARS-CoV-2 Ag (Rapid) 06/14/20 06/14/20 06/14/20 17:39 18:00 18:00 WBC 7.37 RBC 4.55 Hgb 13.5 Hct 40.6 MCV 89.2 MCH 29.7 MCHC 33.3 RDW Std Deviation 40.4 RDW Coeff of Charis 12.7 Plt Count 190 MPV 9.2 Immature Gran % (Auto) 0.1 Neut % (Auto) 68.9 Lymph % (Auto) 24.8 [place] % (Auto) 6.2 Eos % (Auto) 0.0 Baso % (Auto) 0.0 Neut # (Auto) 5.07 Lymph # (Auto) 1.83 [place] # (Auto) 0.46 Eos # (Auto) 0.00 Baso # (Auto) 0.00 Immature Gran # (Auto) 0.01 Sodium 140 Potassium 3.6 Chloride 110 H Carbon Dioxide 25 Anion Gap 5.0 BUN 11 Creatinine 0.97 Est Cr Clr Drug Dosing 103.6 Est GFR ( Amer) 88.9 Est GFR (Non-Af Amer) 76.7 BUN/Creatinine Ratio 11.2 Glucose 119 H Calcium 8.1 L Total Bilirubin 0.3 AST 15 ALT 22 Alkaline Phosphatase 81 Total Protein 6.8 Albumin 3.2 L Globulin 3.6 Albumin/Globulin Ratio 0.9 TSH 1.220 Urine Color Urine Appearance Urine pH Ur Specific [place] Urine Protein Urine Glucose (UA) Urine Ketones Urine Blood Urine Nitrite Urine Bilirubin Urine Urobilinogen Ur Leukocyte Esterase POC Ur Test Salicylates Urine Opiates Screen Ur Methadone, Qual Acetaminophen Urine Barbiturates Ur Phencyclidine (PCP) U Amphetamines Confirm Pending U Amphetamin/Meth Scrn U Methamphetamin Confrm Pending MDMA (Ecstasy) Screen U Benzodiazepines Scrn Ur Cocaine Metabolite U Marijuana (THC) Screen Drug Screen Comment Pending Ethyl Alcohol mg/dL SARS-CoV-2 Ag (Rapid) 06/14/20 06/14/20 06/14/20 18:00 18:00 Unknown WBC RBC Hgb Hct MCV MCH MCHC RDW Std Deviation RDW Coeff of Charis Plt Count MPV Immature Gran % (Auto) Neut % (Auto) Lymph % (Auto) [place] % (Auto) Eos % (Auto) Baso % (Auto) Neut # (Auto) Lymph # (Auto) [place] # (Auto) Eos # (Auto) Baso # (Auto) Immature Gran # (Auto) Sodium Potassium Chloride Carbon Dioxide Anion Gap BUN Creatinine Est Cr Clr Drug Dosing Est GFR ( Amer) Est GFR (Non-Af Amer) BUN/Creatinine Ratio Glucose Calcium Total Bilirubin AST ALT Alkaline Phosphatase Total Protein Albumin Globulin Albumin/Globulin Ratio TSH Urine Color Urine Appearance Urine pH Ur Specific [place] Urine Protein Urine Glucose (UA) Urine Ketones Urine Blood Urine Nitrite Urine Bilirubin Urine Urobilinogen Ur Leukocyte Esterase POC Ur Test Salicylates < 1.7 L Urine Opiates Screen Ur Methadone, Qual Acetaminophen < 2 L Urine Barbiturates Ur Phencyclidine (PCP) U Amphetamines Confirm U Amphetamin/Meth Scrn U Methamphetamin Confrm MDMA (Ecstasy) Screen U Benzodiazepines Scrn Ur Cocaine Metabolite U Marijuana (THC) Screen Drug Screen Comment Ethyl Alcohol mg/dL < 3.0 SARS-CoV-2 Ag (Rapid) Negative Current Inpatient Medications Current Inpatient Medications: Current Inpatient Medications Acetaminophen (Acetaminophen 325 Mg Tab) 650 mg PO Q4H PRN PRN Reason: Headache or Minor Fever Stop: 01/27/21 22:18 Al Hydrox/Mg Hydrox/Simethicone (Aluminum/Magnesium Susp 30 Ml Udc) 30 ml PO Q4H PRN PRN Reason: GI Upset Stop: 07/14/20 22:18 Aripiprazole (Aripiprazole 15 Mg Tab) 15 mg PO QPM MARK Stop: 07/15/20 20:59 Bismuth Subsalicylate (Bismuth Subsalicylate Liqd 236 Ml) 15 ml PO PRN PRN PRN Reason: Loose Stool Stop: 07/14/20 22:18 Hydroxyzine HCl (Hydroxyzine Hcl 25 Mg Tab) 50 mg PO HSZ PRN PRN Reason: Insomnia Stop: 07/14/20 22:18 Hydroxyzine HCl (Hydroxyzine Hcl 25 Mg Tab) 25 mg PO Q4H PRN PRN Reason: Anxiety Stop: 07/14/20 22:18 Magnesium Hydroxide (Magnesium Hydroxide Susp 30 Ml Udc) 30 ml PO DAILY PRN PRN Reason: Constipation Stop: 07/14/20 22:18 Sodium Chloride (Sodium Chloride 0.65% Na Soln 45 Ml ([place])) 1 - 2 sprays NA PRN PRN PRN Reason: Nasal Dryness/Congestion Stop: 07/14/20 22:18 Venlafaxine HCl (Venlafaxine Hcl Xr 75 Mg Capxr) 225 mg PO QPM MARK Stop: 07/15/20 20:59
[2020-06-15] MEDS ORDERED: AMPHETAMINE ASP/SULF/DEXTRAMPH 10 MG TAB PO STA (13:01)
[2020-06-15] MEDS ORDERED: AMPHETAMINE ASP/SULF/DEXTRAMPH 10 MG TAB PO SCH (21:00)
[2020-06-15] MEDS: ARIPiprazole 15 MG TAB PO SCH (21:17)
[2020-06-15] MEDS: VENLAFAXINE HCL XR 75 MG CAPXR PO SCH (21:17)
[2020-06-16] MEDS: DEXTROAMPHETAMINE/AMPHETAMINE ER 10 MG CAP PO SCH (09:23)
[2020-06-16] MEDS: lamoTRIgine 25 MG TAB PO SCH (09:23)
[2020-06-16] MEDS ORDERED: BENZTROPINE MESYLATE 0.5 MG TAB PO PRN (09:58)
--- NOTE | 2020-06-16 09:58 | Psychiatric Progress Note ---
Date of Service June 16, 2020 Impression / Recommendations Impression From H&P assessment - 06/15: This 34-year-old woman has a long history of recurrent depression that has been largely treatment resistant. She has had multiple psychiatric hospitalizations recently, including one at [facility]'s behavioral health unit in May 2019, as well as 2 more psychiatric admissions to [facility]'s psychiatric unit, 1 in July 2019 and another in August 2019. Furthermore, there was a psychiatric admission in December 2019 to a different local psychiatric hospital ([facility]). Complicating the clinical picture is the fact that the patient's episodes of depression tend to be fairly short-lived and are interspaced with periods of what she refers to as "normal" mood. Accordingly, it has been difficult in the short run to determine which interventions are and are not effective. Recently, the patient has been fairly intensively managed on an outpatient basis at [place]. She was started on Spravato and indicates that at first she had a fairly rapid favorable response. However, the benefit did not last. She notes that each time she gets a Spravato infusion her notes that she seems "a little brighter," although at this point the patient says that she does not typically feel any difference in comparison to how she felt when she got the infusion. The patient's report is that her outpatient provider has told her that the plan is for the patient to discontinue venlafaxine and started on a "different" SNRI. The "different" SNRI is reportedly Pristiq. This medication is not on her formulary, and I explained to the patient that our recommendation would be that if it is decided to discontinue venlafaxine in favor of Pristiq that this probably should be done on an outpatient basis. Given the fact that the patient reports that 2 of her brothers have carried diagnoses of bipolar disorder, and although the patient certainly does not meet criteria for bipolar disorder, herself, and that she does not have episodes that would appear to meet criteria for jordyn or hypomania, she does describe regular and fairly rapid cycles and her mood from euthymia to depression. She also mentioned that while with her youngest child she had a fairly impulsive extramarital sexual affair, circumstance that may or may not suggest a certain degree of impulsivity associated with mood alterations. Accordingly, the patient may benefit from the addition of a mood stabilizer such as lamotrigine or Depakote. The patient's current dose of aripiprazole can also serve as a mood stabilizer. The patient is planning to be tested formally for adult ADHD. She describes certain features consistent with this diagnosis, including difficulty concentrating and focusing (independent of her mood), tendency to be easily distracted, a tendency to become derailed and not finish projects, and a tendency to lose things, forget which she has done, and/or not listen when being directly addressed. 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 As described by the patient, she is frequently somnolent and want to take a nap, but at least today she does not clearly describe symptoms that are fully consistent with narcolepsy. We will continue Adderall during what we expect will be a fairly brief hospital stay. We will also consider adding. Reviewed 06/16. (1) Depression with suicidal ideation: 06/15/20 -The patient has been admitted to the [facility] inpatient psychiatric unit at [facility]. She has been referred to individual, group and recreational therapy, and we are encouraging her to actively participate. The primary goal of each of these groups is to improve her individual coping strategies and learning skills to allow her to work through her intermittent episodes of worsening depression without acting on her suicidal thoughts. -Today, the patient says that her suicidal thoughts continue, and she is concerned that she will still act on the should she leave the hospital at this time. However, she feels that the thoughts have been significantly reduced since her admission last evening. Specifically, she says the thoughts are less intense, less frequent, and are not leading to further thoughts regarding methods and strategies for committing suicide. The patient also reliably contract for safety in the hospital. -The recommended that her planned cross taper of venlafaxine and Pristiq occur on an outpatient basis. We do not anticipate this being a particularly long hospital stay and, furthermore, Pristiq is not on the hospital formulary. -One recommendation would be to consider the addition of a second mood stabilizer (in addition to aripiprazole). A good choice might be lamotrigine. She does not describe a clear history of symptoms of jordyn or hypomania and, instead, describes her mood is cycling between "normal" and "really depressed." However, there is a family history of bipolar disorder (diagnosed in 2 of her brothers). Accordingly, we will offer the patient a trial of lamotrigine beginning at 25 mg daily with a recommendation for careful titration on an outpatient basis. Material risks and anticipated benefits of lamotrigine have been reviewed with the patient. We have also discussed other mood stabilizing agents that may be a candidate. The patient has indicated understanding and agreement. 06/16 - Continue current scheduled medication regimen. Pt received first dose of lamotrigine 25mg this morning, denies side effects so far this morning. She does report restlessness/"akathisia", and states that this is not associated with any anxious thoughts - states this is more difficult to manage in the hospital where she is not able to keep as busy. Pt agreed to trial of benztropine 0.5mg BID prn only if necessary, but was encouraged to continue attempts to utilize coping strategies and self-soothing techniques first if possible. - Pt continues to report rapid and dramatic mood changes. She states she is suddenly feeling much better, but admits she is worried that this mood state would not continue if she were discharged too soon. - Will encourage patient work with social workers to schedule a family meeting with her to discuss discharge and safety planning - Coordinate aftercare services with outpatient providers. (2) Anxiety: 06/15 -The patient experiences anxious distress in association with her depression. Ever, she also notes that she tends to be anxious even when not depressed. We are emphasizing helping her develop her coping strategies as well as applying self soothing and mindfulness techniques. 06/16 - Continue to encourage patient to utilize healthy and effective coping strategies. Inventory Assets Strengths: Motivated to recovery. Supportive family. A second mood stabilizer, such as lamotrigine. Needs: Effective mood stabilization. Resolution of active suicidal thoughts. Risk Factors Assessment Male: No : Yes Do You Have Access To A Gun?: No Health Problems: No Mental Health Diagnoses: Yes Substance Use Disorders: No Previous Attempt: Yes Previous Attempt; Highly Lethal: No Previous Attempt; Planned: Yes Previous Attempt; Didn't Tell Anyone: No Family History of Suicide: No Previous Psychiatric Hospitalization: Yes Hopelessness: No Smoker: No Protective Factors Assessment Taoist Beliefs: Yes : Yes Responsible for Young Children: Yes Employed: No Supportive Family: Yes Good Rapport with Provider: Yes Absence of Any Risk Factors Above: No Interval History Identifying Information LUZ IZAGUIRRE is a 34-year-old F who currently lives with her and children locally. She has a history of recurrent severe major depression. She was admitted on 06/14/20 21:22 on a 201 voluntary agreement because of suicidal thoughts with a plan. Chief Complaint "I'm actually feeling really good today. I've just been going through a lot of ups and downs, and last week was really down." Review of Systems Notes Constitutional: reports restlessness, inability to sit still; fatigue Cardiovascular: denied Respiratory: denied Gastrointestinal: denied Neurological: denied Psychiatric: denies symptoms other than stated above Total of at least 10 systems reviewed, pertinent positives as above and in HPI. Sleep Information Total Hours of Sleep: 7 Meal Information Percent Meal Consumed - Breakfast: 100 Percent Meal Consumed - Dinner: 100 Subjective Subjective Patient was seen & assessed and interval progress reviewed with treatment team. Staff report the patient has been participating in group and recreational programming, often completing puzzles in the activity area or reading books in her free time. The patient did disclose some information related to her marriage which she believes to be contributing to her depression, and had processed this with staff yesterday. Pt will be encouraged to schedule a meeting with her primarily for routine discharge and safety planning discussions, but could discuss this information if she would choose to. Pt was seen today to assess progress since admission. The patient states "I'm actually feeling really good today. I've just been going through a lot of ups and downs, and last week was really down." The patient states that she had been doing well with regard to her mood for most of May, stating "I was really excited to do [place] with the kids, we were ordering gifts, decorating, putting up lights, wrapping presents, it was really good." Pt reported genuine excitement and happiness as she was preparing for the holiday, but stated "it was like after the wrapping was done and after the last shipment came, like just suddenly felt really awful." Pt states she recognized her low mood and recurrence of SI "the Sunday before [place]", but told herself "just make it to [place]." She shared that "so after I made it to [place] and still felt terrible, I was like 'what now?'." The patient states she is surprised by how rapidly her mood has shifted back to "neutral" again since admission, stating "I feel great today, like everything's fine...but I don't think that would last." Pt does disclosed to this provider the weight of a situation related to her marriage and the impact she feels that has been having on her mood. Pt states that she recognizes she needs to discuss this with her , but is nervous to do so. Pt states she has been using a journal to write down her thoughts, and continues to find benefit from distraction techniques when needed. She states that she has had "akathisia" from aripiprazole in the past, but feels she is able to manage it better at home due to keeping busy with tasks for the kids. She denies SI today. Pt denied other needs at this time. Physical Exam Psychiatric Orientation: alert, oriented x 3 and cooperative Apperance: appropriately dressed, appropriately groomed and appeared stated age Eye Contact: good eye contact Motor Behavior: steady gait and station and no abnormal motor movements Speech: normal rate/rhythm/volume of speech Affect: + depressed affect (but also appearing very fatigued); + mood not congruent with affect Mood: no depressed mood ("I'm actually feeling really good today") Thought Process: goal directed thought process, clear/coherent thought process and thought association intact Thought Content: reality based without delusions and + guilt; no hopelessness and no worthlessness Suicidal Thoughts: denies suicidal thoughts and denies suicidal intent Homicidal Thoughts: denies homicidal thoughts Hallucinations: no auditory hallucinations and no visual hallucinations Cognition: attention grossly intact and language grossly intact Estimated Intelligence: consistent with education level Insight: + fair insight Judgement: good judgement Vital Signs (Past 24 Hours) Last Vital Signs Temp 36.7 C 06/16/20 06:40 Pulse 75 06/16/20 06:41 Resp 20 06/16/20 06:40 BP 117/79 06/16/20 06:41 Pulse Ox 98 06/14/20 22:21 Results & Data ([facility]) Current Inpatient Medications Current Inpatient Medications: Current Inpatient Medications Acetaminophen (Acetaminophen 325 Mg Tab) 650 mg PO Q4H PRN PRN Reason: Headache or Minor Fever Stop: 07/14/20 22:18 Al Hydrox/Mg Hydrox/Simethicone (Aluminum/Magnesium Susp 30 Ml Udc) 30 ml PO Q4H PRN PRN Reason: GI Upset Stop: 07/14/20 22:18 Amphetamine/Dextroamphetamine (Dextroamphetamine/Amphetamine Er 10 Mg Cap) 30 mg PO DAILY MARK Stop: 06/30/20 08:59 Last Admin: 06/16/20 09:23 Dose: 30 mg Documented by: Amphetamine/Dextroamphetamine (Amphetamine Asp/Sulf/Dextramph 10 Mg Tab) 10 mg PO 1300 [facility] Stop: 06/30/20 12:59 Aripiprazole (Aripiprazole 15 Mg Tab) 15 mg PO QPM MARK Stop: 07/15/20 20:59 Last Admin: 06/15/20 21:17 Dose: 15 mg Documented by: Bismuth Subsalicylate (Bismuth Subsalicylate Liqd 236 Ml) 15 ml PO PRN PRN PRN Reason: Loose Stool Stop: 07/14/20 22:18 Hydroxyzine HCl (Hydroxyzine Hcl 25 Mg Tab) 50 mg PO HSZ PRN PRN Reason: Insomnia Stop: 07/14/20 22:18 Hydroxyzine HCl (Hydroxyzine Hcl 25 Mg Tab) 25 mg PO Q4H PRN PRN Reason: Anxiety Stop: 07/14/20 22:18 Lamotrigine (Lamotrigine 25 Mg Tab) 25 mg PO QAM [facility] Stop: 07/16/20 08:59 Last Admin: 06/16/20 09:23 Dose: 25 mg Documented by: Magnesium Hydroxide (Magnesium Hydroxide Susp 30 Ml Udc) 30 ml PO DAILY PRN PRN Reason: Constipation Stop: 07/14/20 22:18 Sodium Chloride (Sodium Chloride 0.65% Na Soln 45 Ml ([place])) 1 - 2 sprays NA PRN PRN PRN Reason: Nasal Dryness/Congestion Stop: 07/14/20 22:18 Venlafaxine HCl (Venlafaxine Hcl Xr 75 Mg Capxr) 225 mg PO QPM [facility] Stop: 07/15/20 20:59 Last Admin: 06/15/20 21:17 Dose: 225 mg Documented by: Mental Health & Subst Abuse Tx Psychiatrist Name of Psychiatrist: Christine Saucedo Psychiatrist's Date of Appointment with Psychiatrist: 06/21/20 Time of Appointment with Psychiatrist: 2:15pm Psychiatric Appointment Comment: [address] [place] [address] Therapist Name of Therapist: Wilian Imtiaz Therapist's Date of Therapist Appointment: 06/17/20 Time of Therapist Appointment: 2:00pm Therapy Appointment [facility]: [address] [facility] [place] [address] Post Discharge Appointments Primary Care Physician Name Of Family Doctor: Dr Brandee Villaseñor Primary Care Provider [facility] [address] [facility] [place] [address] Partial or Psych Rehab [facility] Phone Number of Partial or Psych Rehab: [phone] Date of Appointment at Partial or Psych Rehab: 06/24/20 Time of Appointment at Partial or Psych Rehab: 9:30am
[2020-06-16] MEDS: AMPHETAMINE ASP/SULF/DEXTRAMPH 10 MG TAB PO SCH (14:05)
[2020-06-16] MEDS: ARIPiprazole 15 MG TAB PO SCH (21:01)
[2020-06-16] MEDS: VENLAFAXINE HCL XR 75 MG CAPXR PO SCH (21:02)
[2020-06-17] MEDS: ACETAMINOPHEN 325 MG TAB PO PRN ×2 (02:18→08:50)
[2020-06-17 08:17] LABS: Amphetamine Urine, Confirm 5580 ng/mL (<250); Methamphetamine, Ur Confirm NEGATIVE ng/mL (<250)
[2020-06-17] MEDS: DEXTROAMPHETAMINE/AMPHETAMINE ER 10 MG CAP PO SCH (08:50)
[2020-06-17] MEDS: lamoTRIgine 25 MG TAB PO SCH (08:50)
--- NOTE | 2020-06-17 09:02 | Psychiatric Progress Note ---
Date of Service June 17, 2020 Impression / Recommendations Impression 34-year-old woman has a long history of treatment resistant depression with several psychiatric hospitalizations this year. Complicating the clinical picture is the fact that the patient's episodes of depression tend to be fairly short-lived. She has been continued on her home doses of venlafaxine XR, Adderall, and aripiprazole, and lamotrigine has been initiated. She has a family meeting with her today to review her safety plan given multiple episodes odes of suicidality with plans and acts of furtherance. Inpatient treatment remains medically necessary due to the severity of symptoms and risk for suicide if discharged prematurely. (1) Depression with suicidal ideation: 06/15/20 -The patient has been admitted to the [facility] inpatient psychiatric unit at [facility]. She has been referred to individual, group and recreational therapy, and we are encouraging her to actively participate. The primary goal of each of these groups is to improve her individual coping strategies and learning skills to allow her to work through her intermittent episodes of worsening depression without acting on her suicidal thoughts. -Today, the patient says that her suicidal thoughts continue, and she is concerned that she will still act on the should she leave the hospital at this time. However, she feels that the thoughts have been significantly reduced since her admission last evening. Specifically, she says the thoughts are less intense, less frequent, and are not leading to further thoughts regarding methods and strategies for committing suicide. The patient also reliably contract for safety in the hospital. -The recommended that her planned cross taper of venlafaxine and Pristiq occur on an outpatient basis. We do not anticipate this being a particularly long hospital stay and, furthermore, Pristiq is not on the hospital formulary. -One recommendation would be to consider the addition of a second mood stabilizer (in addition to aripiprazole). A good choice might be lamotrigine. She does not describe a clear history of symptoms of jordyn or hypomania and, instead, describes her mood is cycling between "normal" and "really depressed." However, there is a family history of bipolar disorder (diagnosed in 2 of her brothers). Accordingly, we will offer the patient a trial of lamotrigine beginning at 25 mg daily with a recommendation for careful titration on an outpatient basis. Material risks and anticipated benefits of lamotrigine have been reviewed with the patient. We have also discussed other mood stabilizing agents that may be a candidate. The patient has indicated understanding and agreement. 06/16 - Continue current scheduled medication regimen. Pt received first dose of lamotrigine 25mg this morning, denies side effects so far this morning. She does report restlessness/"akathisia", and states that this is not associated with any anxious thoughts - states this is more difficult to manage in the hospital where she is not able to keep as busy. Pt agreed to trial of benztropine 0.5mg BID prn only if necessary, but was encouraged to continue attempts to utilize coping strategies and self-soothing techniques first if possible. - Pt continues to report rapid and dramatic mood changes. She states she is suddenly feeling much better, but admits she is worried that this mood state w ould not continue if she were discharged too soon. - Will encourage patient work with social workers to schedule a family meeting with her to discuss discharge and safety planning - Coordinate aftercare services with outpatient providers. 06/17 - Family meeting with , explore ways to strengthen her safety plan and specifically a plan for utilizing coping skills when mood is lower and she struggles to follow through on them. Reviewed safety issues in the home: all insulin and medications - Continue current medications. (2) Anxiety: 06/15 -The patient experiences anxious distress in association with her depression. Ever, she also notes that she tends to be anxious even when not depressed. We are emphasizing helping her develop her coping strategies as well as applying self soothing and mindfulness techniques. 06/16 - Continue to encourage patient to utilize healthy and effective coping strategies. Inventory Assets Strengths: Motivated to recovery. Supportive family. A second mood stabilizer, such as lamotrigine. Needs: Effective mood stabilization. Resolution of active suicidal thoughts. Risk Factors Assessment Male: No : Yes Do You Have Access To A Gun?: No Health Problems: No Mental Health Diagnoses: Yes Substance Use Disorders: No Previous Attempt: Yes Previous Attempt; Highly Lethal: No Previous Attempt; Planned: Yes Previous Attempt; Didn't Tell Anyone: No Family History of Suicide: No Previous Psychiatric Hospitalization: Yes Hopelessness: No Smoker: No Protective Factors Assessment Worship Beliefs: Yes : Yes Responsible for Young Children: Yes Employed: No Supportive Family: Yes Good Rapport with Provider: Yes Absence of Any Risk Factors Above: No Interval History Identifying Information LUZ IZAGUIRRE is a 34-year-old F who currently lives with her and children locally. She has a history of recurrent severe major depression. She was admitted on 06/14/20 21:22 on a 201 voluntary agreement because of suicidal thoughts with a plan. Chief Complaint "Last week I was really bad, wrote suicide letters to my kids". Review of Systems Sleep Information Total Hours of Sleep: 6 Meal Information Percent Meal Consumed - Breakfast: 100 Percent Meal Consumed - Lunch: 100 Percent Meal Consumed - Dinner: 100 Subjective Subjective Patient was seen & assessed and interval progress reviewed with nursing and social work. Staff report she is participating in groups and taking medication as prescribed. She has a family meeting with her and the dialysis social worker this afternoon. On my assessment today, she reports mood has been "really up and down" since her last hospitalization, with several days of good mood alternating with depressed mood for days to a couple of weeks. She reports mood has improved since hospitalization, and denies SI. She is "being productive, doing puzzles, coloring, reading books." Sleep has been disrupted, waking up multiple times overnight, "lots of nightmares, tossing and turning." Nightmares are repetitive and of "someone trying to break into a house," denies based on past trauma. She reports "occasional passing" suicidal thoughts, but feels "able to push it away." She is tolerating the lamotrigine well and denies any side effects. Her goals are to "make sure we have a solid plan" as she doesn't know ow to handle her "really low moods, when I start planning" for suicide. States she "isn't sure who I should talk to" when she is suicidal, and that multiple times she has "decided I was going to do it, and that's not a good place to be." She'd like her to "check in with me everyday" and look for "warning signs." Physical Exam Psychiatric Orientation: alert and cooperative Apperance: appropriately dressed, appropriately groomed and appeared stated age Eye Contact: good eye contact Motor Behavior: steady gait and station and no abnormal motor movements Speech: normal rate/rhythm/volume of speech Affect: + depressed affect and + constricted affect Mood: + depressed mood but improved from admission Thought Process: goal directed thought process Thought Content: reality based without delusions Suicidal Thoughts: + reports suicidal thoughts but reduced from admission Homicidal Thoughts: denies homicidal thoughts Hallucinations: no auditory hallucinations Cognition: recent memory grossly intact, attention grossly intact and language grossly intact Estimated Intelligence: average estimated intelligence Insight: + fair insight Judgement: + fair judgement Vital Signs (Past 24 Hours) Last Vital Signs Temp 36.6 C 06/17/20 06:00 Pulse 62 06/17/20 06:47 Resp 17 06/17/20 06:00 BP 133/92 06/17/20 06:47 Pulse Ox 98 06/14/20 22:21 Results & Data ([facility]) Laboratory Results Laboratory Results - last 24 hr 06/14/20 17:39 U Amphetamines Confirm 5580 H U Methamphetamin Confrm NEGATIVE Drug Screen Comment SEE NOTE Current Inpatient Medications Current Inpatient Medications: Current Inpatient Medications Acetaminophen (Acetaminophen 325 Mg Tab) 650 mg PO Q4H PRN PRN Reason: Headache or Minor Fever Stop: 07/14/20 22:18 Last Admin: 06/17/20 08:50 Dose: 650 mg Documented by: Al Hydrox/Mg Hydrox/Simethicone (Aluminum/Magnesium Susp 30 Ml Udc) 30 ml PO Q4H PRN PRN Reason: GI Upset Stop: 07/14/20 22:18 Amphetamine/Dextroamphetamine (Dextroamphetamine/Amphetamine Er 10 Mg Cap) 30 mg PO DAILY [facility] Stop: 06/30/20 08:59 Last Admin: 06/17/20 08:50 Dose: 30 mg Documented by: Amphetamine/Dextroamphetamine (Amphetamine Asp/Sulf/Dextramph 10 Mg Tab) 10 mg PO 1300 [facility] Stop: 06/30/20 12:59 Last Admin: 06/16/20 14:05 Dose: 10 mg Documented by: Aripiprazole (Aripiprazole 15 Mg Tab) 15 mg PO QPM MARK Stop: 07/15/20 20:59 Last Admin: 06/16/20 21:01 Dose: 15 mg Documented by: Benztropine Mesylate (Benztropine Mesylate 0.5 Mg Tab) 0.5 mg PO BID PRN PRN Reason: restlessness/akathisia Stop: 07/16/20 09:57 Bismuth Subsalicylate (Bismuth Subsalicylate Liqd 236 Ml) 15 ml PO PRN PRN PRN Reason: Loose Stool Stop: 07/14/20 22:18 Hydroxyzine HCl (Hydroxyzine Hcl 25 Mg Tab) 50 mg PO HSZ PRN PRN Reason: Insomnia Stop: 07/14/20 22:18 Hydroxyzine HCl (Hydroxyzine Hcl 25 Mg Tab) 25 mg PO Q4H PRN PRN Reason: Anxiety Stop: 07/14/20 22:18 Lamotrigine (Lamotrigine 25 Mg Tab) 25 mg PO QAM MARK Stop: 07/16/20 08:59 Last Admin: 06/17/20 08:50 Dose: 25 mg Documented by: Magnesium Hydroxide (Magnesium Hydroxide Susp 30 Ml Udc) 30 ml PO DAILY PRN PRN Reason: Constipation Stop: 07/14/20 22:18 Sodium Chloride (Sodium Chloride 0.65% Na Soln 45 Ml (Brule)) 1 - 2 sprays NA PRN PRN PRN Reason: Nasal Dryness/Congestion Stop: 07/14/20 22:18 Venlafaxine HCl (Venlafaxine Hcl Xr 75 Mg Capxr) 225 mg PO QPM MARK Stop: 07/15/20 20:59 Last Admin: 06/16/20 21:02 Dose: 225 mg Documented by: Mental Health & Subst Abuse Tx Psychiatrist Name of Psychiatrist: Saroj Saucedo Psychiatrist's Date of Appointment with Psychiatrist: 06/21/20 Time of Appointment with Psychiatrist: 2:15 pm Psychiatric Appointment Comment: [address] [facility] [place] [address] Therapist Name of Therapist: Wilian Kitchen Therapist's Date of Therapist Appointment: 06/17/20 Time of Therapist Appointment: 2:00 pm Therapy Appointment Comment: [address] [place] [address] Post Discharge Appointments Primary Care Physician Name Of Family Doctor: Lela Villaseñor Primary Care Time of Appointment with PCP: Please follow up as needed Provider Appointment Comment: [address] [place] [address] Partial or Psych Rehab Name of Partial or Psych Rehab: MILES Alonzo Phone Number of Partial or Psych Rehab: [phone] Date of Appointment at Partial or Psych Rehab: 06/24/20 Time of Appointment at Partial or Psych Rehab: 9:30 am Partial or Psych Rehab Appointment Comment: Continue routine schedule Contact Information Discharge Discharge Address: [address] [place] [address] [place] [address]
[2020-06-17] MEDS: AMPHETAMINE ASP/SULF/DEXTRAMPH 10 MG TAB PO SCH (12:45)
[2020-06-17] MEDS: VENLAFAXINE HCL XR 75 MG CAPXR PO SCH (20:55)
[2020-06-17] MEDS: ARIPiprazole 15 MG TAB PO SCH (20:55)
[2020-06-18 06:50] VITALS: BP 116/68; TEMP 97.3
[2020-06-18] MEDS: DEXTROAMPHETAMINE/AMPHETAMINE ER 10 MG CAP PO SCH (08:45)
[2020-06-18] MEDS: lamoTRIgine 25 MG TAB PO SCH (08:45)
[2020-06-18 09:53] VITALS: PULSE 77
--- NOTE | 2020-06-18 09:53 | Discharge Summary ---
Date of Service June 18, 2020 History of Present Illness as per admitting clinician: The patient is a 34-year-old woman with a history of multiple psychiatric hospitalizations on a known diagnosis of major depressive disorder, severe, recurrent without psychotic features. Patient reports that kelli patterson was most recently hospitalized last summer at the [facility], and subsequent to that has been experiencing fairly brief periods of depression alternating with periods of normal mood. She suggests that the periods of depression may last "3 or 4 days," or "may be a week," and then she may experience what she refers to as "normal" moods where she feels "like [herself]" for a week or 2 before experiencing a depression relapse. She is followed on an outpatient basis at [facility] where she is prescribed esketamine, venlafaxine 225 mg a day, Adderall extended release 30 mg in the morning and 10 mg in the afternoons at about 1 PM, and aripiprazole. Her dose of aripiprazole has been increased from 10 mg a day to a dose of 15 mg a day approximately 2 or 3 weeks ago, and she feels that overall her mood has been somewhat more stable. She identifies no precipitating factor for her depression, but says that this current "dip" and depression has been somewhat worse than many of the previous episodes that she is experienced over the course of the summer and fall 2019. She acknowledges that she was having thoughts of driving her car to a remote location and taking an overdose of pills. The patient also thought of crashing her car, or cutting herself. She wrote a letter to her children in anticipation of her killing herself. However, she clarifies that the letter does not reference anything about suicide or . Instead, it is a letter that simply says how much she loves them and how important they are to or. She did not actually give the trolled on the letter. The patient acknowledges a remote history of several suicide attempts, as well as a history of intentional self-injurious behaviors in the form of superficially cutting the fleshy portions of her anatomy with sharp objects, primarily as a teenager. The patient notes that she is also in the process of being worked up for narcolepsy. She is taking Adderall for both daytime somnolence and difficulty with concentration and focus. Physical Exam Mental Examination see H&P and DOD assessment. Vital Signs (Past 24 Hours) Last Vital Signs Temp 36.3 C L 06/18/20 06:49 Pulse 80 06/18/20 06:49 Resp 17 06/18/20 06:49 BP 116/68 06/18/20 06:49 Pulse Ox 98 06/14/20 22:21 Principal Diagnosis major depressive disorder, recurrent, severe without psychotic features. Psychiatric Data see daily care summary. In short, safety was maintained on locked inpatient unit. SI subsided and denies urge to self-injure. She was started on Lamictal for refractory symptoms/mood stabilization. She was made aware of drug drug interactions with control and reports having Nexaplanon. Reconsented for use of Lamictal and risk of [place] Yuniel rash. She is complaining of some itching today but no redness and likely related to dry air in hospital, denies eczema at baseline. She is aware to hold medication if rash and notify [facility] immediately. She reports that a sleep study is scheduled outpatient due chronic fatigue/need to rule out restless legs and narcolepsy since fatigue persists on Adderall. She was given 1 week supply of meds that she doesn't have at home in accordance with the agreement with her outpatient provider. Last fill listed in PDMP for Adderall preps is listed as 05/12 but again believes she has enough for the weekend. Reviewed labs with patient prior to discharge and answered all questions to her satisfaction, states that she's followed more closely follow change in GFR on lithium over the summer. Day of Discharge Assessment Lali is alert and cooperative, her speech is normal and describes mood as improved. She denies thoughts to harm self or others and has exhibited good impulse control. There is no evidence of psychosis. She is stable for discharge to outpatient level of care as planned by Dr. Jordan and she voices good understanding of her safety plan. She has extensive f/u plan in place for next week including appointments with Jayme Kyle and her [facility] mobile psych rehab worker. Transition of Care Transition Of Care Record: was reviewed with the patient Advance Directives Advance Directives Information Provided: Yes Advance Directives: No Mental Health Advance Directive: No Advance Directives on File: No Living Will: No Power of Environmental Compliance Manager: No Advance Directives Reason:: Declines as Mental Health Visit. Risk Factors Assessment Male: No : Yes Do You Have Access To A Gun?: No Health Problems: No Mental Health Diagnoses: Yes Substance Use Disorders: No Previous Attempt: Yes Previous Attempt; Highly Lethal: No Previous Attempt; Planned: Yes Previous Attempt; Didn't Tell Anyone: No Family History of Suicide: No Previous Psychiatric Hospitalization: Yes Hopelessness: No Smoker: No Protective Factors Assessment Confucianism Beliefs: Yes : Yes Responsible for Young Children: Yes Employed: No Supportive Family: Yes Good Rapport with Provider: Yes Absence of Any Risk Factors Above: No Tobacco Cessation at Discharge Tobacco Cessation Medication Prescribed at Discharge: Not Applicable/Non-Smoker Total Time Total Time Spent: Greater Than 30 Minutes Total Time Includes: Examination of the patient, Medication Reconciliation and As well as (case review on chart/with nurse ) Discharge Data Lab Results 06/14/20 06/14/20 06/14/20 17:39 17:39 17:39 WBC RBC Hgb Hct MCV MCH MCHC RDW Std Deviation RDW Coeff of Charis Plt Count MPV Immature Gran % (Auto) Neut % (Auto) Lymph % (Auto) Ray % (Auto) Eos % (Auto) Baso % (Auto) Neut # (Auto) Lymph # (Auto) Ray # (Auto) Eos # (Auto) Baso # (Auto) Immature Gran # (Auto) Sodium Potassium Chloride Carbon Dioxide Anion Gap BUN Creatinine Est Cr Clr Drug Dosing Est GFR ( Amer) Est GFR (Non-Af Amer) BUN/Creatinine Ratio Glucose Calcium Total Bilirubin AST ALT Alkaline Phosphatase Total Protein Albumin Globulin Albumin/Globulin Ratio TSH Urine Color Yellow Urine Appearance Clear Urine pH 5.0 Ur Specific [place] 1.014 Urine Protein Negative Urine Glucose (UA) Negative Urine Ketones Negative Urine Blood Negative Urine Nitrite Negative Urine Bilirubin Negative Urine Urobilinogen Negative Ur Leukocyte Esterase Negative POC Ur Test NEG Salicylates Urine Opiates Screen Neg Ur Methadone, Qual Neg Acetaminophen Urine Barbiturates Neg Ur Phencyclidine (PCP) Neg U Amphetamines Confirm U Amphetamin/Meth Scrn Pos H U Methamphetamin Confrm MDMA (Ecstasy) Screen Neg U Benzodiazepines Scrn Neg Ur Cocaine Metabolite Neg U Marijuana (THC) Screen Neg Drug Screen Comment Ethyl Alcohol mg/dL SARS-CoV-2 Ag (Rapid) 06/14/20 06/14/20 06/14/20 17:39 18:00 18:00 WBC 7.37 RBC 4.55 Hgb 13.5 Hct 40.6 MCV 89.2 MCH 29.7 MCHC 33.3 RDW Std Deviation 40.4 RDW Coeff of Charis 12.7 Plt Count 190 MPV 9.2 Immature Gran % (Auto) 0.1 Neut % (Auto) 68.9 Lymph % (Auto) 24.8 Ray % (Auto) 6.2 Eos % (Auto) 0.0 Baso % (Auto) 0.0 Neut # (Auto) 5.07 Lymph # (Auto) 1.83 Ray # (Auto) 0.46 Eos # (Auto) 0.00 Baso # (Auto) 0.00 Immature Gran # (Auto) 0.01 Sodium 140 Potassium 3.6 Chloride 110 H Carbon Dioxide 25 Anion Gap 5.0 BUN 11 Creatinine 0.97 Est Cr Clr Drug Dosing 103.6 Est GFR ( Amer) 88.9 Est GFR (Non-Af Amer) 76.7 BUN/Creatinine Ratio 11.2 Glucose 119 H Calcium 8.1 L Total Bilirubin 0.3 AST 15 ALT 22 Alkaline Phosphatase 81 Total Protein 6.8 Albumin 3.2 L Globulin 3.6 Albumin/Globulin Ratio 0.9 TSH 1.220 Urine Color Urine Appearance Urine pH Ur Specific [place] Urine Protein Urine Glucose (UA) Urine Ketones Urine Blood Urine Nitrite Urine Bilirubin Urine Urobilinogen Ur Leukocyte Esterase POC Ur Test Salicylates Urine Opiates Screen Ur Methadone, Qual Acetaminophen Urine Barbiturates Ur Phencyclidine (PCP) U Amphetamines Confirm 5580 H U Amphetamin/Meth Scrn U Methamphetamin Confrm NEGATIVE MDMA (Ecstasy) Screen U Benzodiazepines Scrn Ur Cocaine Metabolite U Marijuana (THC) Screen Drug Screen Comment SEE NOTE Ethyl Alcohol mg/dL SARS-CoV-2 Ag (Rapid) 06/14/20 06/14/20 06/14/20 18:00 18:00 Unknown WBC RBC Hgb Hct MCV MCH MCHC RDW Std Deviation RDW Coeff of Charis Plt Count MPV Immature Gran % (Auto) Neut % (Auto) Lymph % (Auto) Ray % (Auto) Eos % (Auto) Baso % (Auto) Neut # (Auto) Lymph # (Auto) Ray # (Auto) Eos # (Auto) Baso # (Auto) Immature Gran # (Auto) Sodium Potassium Chloride Carbon Dioxide Anion Gap BUN Creatinine Est Cr Clr Drug Dosing Est GFR ( Amer) Est GFR (Non-Af Amer) BUN/Creatinine Ratio Glucose Calcium Total Bilirubin AST ALT Alkaline Phosphatase Total Protein Albumin Globulin Albumin/Globulin Ratio TSH Urine Color Urine Appearance Urine pH Ur Specific [place] Urine Protein Urine Glucose (UA) Urine Ketones Urine Blood Urine Nitrite Urine Bilirubin Urine Urobilinogen Ur Leukocyte Esterase POC Ur Test Salicylates < 1.7 L Urine Opiates Screen Ur Methadone, Qual Acetaminophen < 2 L Urine Barbiturates Ur Phencyclidine (PCP) U Amphetamines Confirm U Amphetamin/Meth Scrn U Methamphetamin Confrm MDMA (Ecstasy) Screen U Benzodiazepines Scrn Ur Cocaine Metabolite U Marijuana (THC) Screen Drug Screen Comment Ethyl Alcohol mg/dL < 3.0 SARS-CoV-2 Ag (Rapid) Negative Hospital Course (1) Depression with suicidal ideation: 06/15/20 -The patient has been admitted to the [facility] inpatient psychiatric unit at [facility]. She has been referred to individual, group and recreational therapy, and we are encouraging her to actively participate. The primary goal of each of these groups is to improve her individual coping strategies and learning skills to allow her to work through her intermittent episodes of worsening depression without acting on her suicidal thoughts. -Today, the patient says that her suicidal thoughts continue, and she is concerned that she will still act on the should she leave the hospital at this time. However, she feels that the thoughts have been significantly reduced since her admission last evening. Specifically, she says the thoughts are less intense, less frequent, and are not leading to further thoughts regarding methods and strategies for committing suicide. The patient also reliably contract for safety in the hospital. -The recommended that her planned cross taper of venlafaxine and Pristiq occur on an outpatient basis. We do not anticipate this being a particularly long hospital stay and, furthermore, Pristiq is not on the hospital formulary. -One recommendation would be to consider the addition of a second mood stabilizer (in addition to aripiprazole). A good choice might be lamotrigine. She does not describe a clear history of symptoms of jordyn or hypomania and, instead, describes her mood is cycling between "normal" and "really depressed." However, there is a family history of bipolar disorder (diagnosed in 2 of her brothers). Accordingly, we will offer the patient a trial of lamotrigine beginning at 25 mg daily with a recommendation for careful titration on an outpatient basis. Material risks and anticipated benefits of lamotrigine have been reviewed with the patient. We have also discussed other mood stabilizing agents that may be a candidate. The patient has indicated understanding and agreement. 06/16 - Continue current scheduled medication regimen. Pt received first dose of lamotrigine 25mg this morning, denies side effects so far this morning. She does report restlessness/"akathisia", and states that this is not associated with any anxious thoughts - states this is more difficult to manage in the hospital where she is not able to keep as busy. Pt agreed to trial of benztropine 0.5mg BID prn only if necessary, but was encouraged to continue attempts to utilize coping strategies and self-soothing techniques first if possible. - Pt continues to report rapid and dramatic mood changes. She states she is suddenly feeling much better, but admits she is worried that this mood state would not continue if she were discharged too soon. - Will encourage patient work with social workers to schedule a family meeting with her to discuss discharge and safety planning - Coordinate aftercare services with outpatient providers. 06/17 - Family meeting with , explore ways to strengthen her safety plan and specifically a plan for utilizing coping skills when mood is lower and she struggles to follow through on them. Reviewed safety issues in the home: all insulin and medications - Continue current medications. (2) Anxiety: 06/15 -The patient experiences anxious distress in association with her depression. Ever, she also notes that she tends to be anxious even when not depressed. We are emphasizing helping her develop her coping strategies as well as applying self soothing and mindfulness techniques. 06/16 - Continue to encourage patient to utilize healthy and effective coping strategies. Mental Health & Subst Abuse Tx Psychiatrist Name of Psychiatrist: Saroj Saucedo Psychiatrist's Date of Appointment with Psychiatrist: 06/21/20 Time of Appointment with Psychiatrist: 2:15 pm Psychiatric Appointment Comment: [id number] [facility] [address] Therapist Name of Therapist: Wilian Kitchen Therapist's Date of Therapist Appointment: 06/17/20 Time of Therapist Appointment: 2:00 pm Therapy Appointment Comment: [address] [place] [address] Post Discharge Appointments Primary Care Physician Name Of Family Doctor: Lela Villaseñor Primary Care Time of Appointment with PCP: Please follow up as needed Provider Appointment Comment: [address] [place] [id number] Partial or Psych Rehab Name of Partial or Psych Rehab: MILES Alonzo Phone Number of Partial or Psych Rehab: [phone] Date of Appointment at Partial or Psych Rehab: 06/24/20 Time of Appointment at Partial or Psych Rehab: 9:30 am Partial or Psych Rehab Appointment Comment: Continue routine schedule Smoking Cessation Counseling Tobacco Cessation Medication Prescribed at Discharge: Not Applicable/Non-Smoker Contact Information Discharge Discharge Address: [address] [place] [id number] Discharge Plan Discharge Items Patient Disposition: Home - Self-Care Reason For Visit: MDR Discharge Diagnosis: same Activity: Resume your previous activity Non-emergency contact: Primary Care Provider, Psychiatrist and Therapist Call non-emergency contact if: you have any medication questions and your symptoms worsen Follow-up/Referrals: Brandee Villaseñor DO [Primary Care Provider] - Diet: Regular Addtl Attending Provider Instructions: SPECIAL CARE INSTRUCTIONS: 1. Follow through with your scheduled aftercare appointments. If unable to keep an appointment, please call to reschedule. 2. Take your medication only as prescribed. Medication should not be changed or stopped without the approval of your doctor. In the event of worsening symptoms or concerns about side effects, contact your doctor immediately. 3. Utilize new healthy coping skills, anger management skills, and stress management skills learned during your hospitalization. Journal feelings and process them with a support person. Identify stressors or situations that may result in relapse, deterioration or inappropriate behaviors and develop a plan to deal with those issues. 4. If your coping skills are ineffective and you are in crisis, contact your outpatient providers for direction. If unable to reach your providers, please call the [facility] CRISIS LINE AT , go to the [facility] walk-in center at [address], [address], [place], or go to the closest Emergency Room. 5. Avoid alcohol and un-prescribed drugs. 6. You have been provided with the Mental Health Advance Directives Pamphlet for your review. AFTERCARE APPOINTMENTS: * Please call your insurance company prior to your scheduled appointment to confirm your aftercare providers are covered. Take your insurance information to your appointments. WHO TO CALL AND WHEN: Medical Emergencies: For questions or emergencies related to your hospital stay, please contact the Inpatient Behavioral Health Unit at [phone]. A refrigeration houseman is on-call 08/01 for the Behavioral Health Unit for emergencies At any time you feel your situation is an emergency, you may also call 911 immediately. Pending Studies at Discharge: No Stand-Alone Forms: My [facility], Smoking Cessation Medications and DC Order Prescriptions: New aripiprazole [Abilify] 15 mg tablet 15 mg PO DAILY Qty: 7 RF: 0 lamotrigine [Lamictal] 25 mg Tablet 25 mg PO QAM 7 Days Qty: 7 RF: 0 Continued dextroamphetamine-amphetamine 30 mg capsule,extended release 24hr 30 mg PO DAILY RF: 0 venlafaxine 75 mg tablet 75 mg PO HS RF: 0 dextroamphetamine-amphetamine 10 mg tablet 10 mg PO DAILY RF: 0 venlafaxine 150 mg capsule,extended release 24hr 150 mg PO HS RF: 0 Spravato 84 mg (28 mg x 3) spray,non-aerosol 28 mg INTRANASAL WK RF: 0 Discontinued aripiprazole [Abilify] 5 mg tablet 15 mg PO HS RF: 0 Discharge Orders: Discharge Order (Routine); Ordered 06/18/20 Ordered By: Zunilda Benjamin Admission Data Admit Date/Time: 06/14/20 21:22 Attending Provider: Wilian Anguiano Admit Provider: Moses Power Primary Care Provider: Brandee Villaseñor Other Interventions: PSY Interdisciplinary Discharge Planning Last Done: 06/17/20 08:26 Coding Level of Care Code 04036 D/C day mgmt > 30 min Diagnoses Depression with suicidal ideation F32.9; R45.851 Anxiety F41.9
== END 2020-06-18 10:50 | disposition home or self-care (01) | DRG 885 ==
LOC: ED 17:21 → 3S 21:22

== ENCOUNTER 2020-11-22 18:15 | Inpatient (IN) ==
--- NOTE | 2020-11-22 18:50 | Emergency Department Note ---
Impression & Plan Suicidal ideations, Depression, High serum chloride ED Provider Note NAME: LUZ IZAGUIRRE AGE: 35 SEX: F : 1985 ARRIVES VIA: Walk-In INFORMANT: Patient ED PROVIDER(S): Jose Alfredo Crowe DO CHIEF COMPLAINT: Suicidal plan HPI: Patient is a 35-year-old female who presents ER for suicidal plan. She has a history of depression and anxiety. She does admit to a previous attempt of suicide about 15 years ago. She notes that she always has passive suicidal tho ughts but today she was thinking about cutting her wrist and kill herself. She does not know why these thoughts are coming through her head. She came in as she feels unsafe being at home. She denies any headache or change in vision. No chest pain or shortness of breath. No nausea vomiting or diarrhea. No dysuria urgency or frequency. No other exacerbating or remitting factors. Denies any auditory or visual hallucinations. ROS: See above HPI for pertinent positives & negatives. A total of 10 systems reviewed and were otherwise negative. PAST MEDICAL HISTORY:See Below PAST SURGICAL HISTORY:See Below FAMILY HISTORY:See Below SOCIAL HISTORY:See Below HOME MEDICATIONS:See Below ALLERGIES:See Below VITALS:See Below PHYSICAL EXAMINATION: GENERAL: Sitting up in bed, alert, well appearing, well nourished, no distress, non-toxic EYE EXAM: normal conjunctiva. OROPHARYNX:mucous membranes are moist LUNGS: Clear to auscultation. Normal chest wall mechanics HEART: no murmurs, S1 normal and S2 normal ABDOMEN: abdomen soft, non-tender, normo-active bowel sounds, no masses, no rebound or guarding. UPPER EXTREMITIES: upper extremities are grossly normal. LOWER EXTREMITIES: No pitting edema. NEURO EXAM: Normal sensorium, cranial nerves II-XII grossly intact, normal speech, no gross weakness of arms, no gross weakness of legs. PSYCH: Denies any auditory or visual hallucinations but admits to suicidal ideations with a plan to cut her wrist MEDICAL DECISION MAKING: Patient is a 35-year-old female who presents the ER for active suicidal thoughts to cut her wrists. My thoughts have been present for the past 24 hours. She notes she feels unsafe at home. She has attempted suicide once before but this was multiple years ago. She denies any auditory or visual hallucinations. Blood work was obtained and showed no significant leukocytosis or anemia. BMP with slightly elevated chloride. LFTs bilirubin and TSH was unremarkable. UA was negative. was negative. Salicylates and acetaminophen were undetectable. Patient was positive for amphetamines. Alcohol was negative. Covid was negative. Patient was signed out to Dr. Vital at the change of shift awaiting placement. Bed search has been suspended till the morning. She is agreeable to 201. Observation Status: Indication: Medical stability Patient with no pertinent family history, was seen first at 1840 hrs and was necessary in order to determine medical stability and avoid unnecessary admission. Upon reevaluation, 8 hours of observation revealed that the patient should be signed out to Dr. Vital. Disposition date and time 11/23/2020 at 23 0am. Triage Nursing notes reviewed. Limited review of prior medical records performed Vital Signs: reviewed and remarkable for no significant abnormalities Differential diagnosis: Mood disorder, infection, hypoglycemia, electrolyte abnormalities, cardiac sources, intracerebral event, toxicologic, trauma, neurologic, as well as other pathologies. ER treatment provided: See below Diagnostics interpreted by me: ECG: none Laboratory studies: As stated above and show below. Consultation(s): none Procedures: none Critical Care: None Past Med/Surg History Medical History (Updated 11/23/20 @ 02:16 by Jose Alfredo Crowe DO) Bicornate uterus Depression Depression Family history of reaction to anesthesia GRANDPARENTS HAD ISSUES WITH WAKING, NO KNOWN DIAGNOSIS OF ANESTHESIA REACTION. Neck pain Sinus bradycardia Thyroid nodule Surgical History History of section EMERGENCY 2016. 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 SHE REMEMBERS FEELING THE "SENSE OF DOOM". History of dilatation and curettage S/T MISCARRIAGE Family History Family/Other Thyroid nodule Social History Smoking Status: Never smoker Cigarettes Per Day: 0; Second Hand Exposure: No; Hx Alcohol Use: No Hx Substance Use: No Preferred Language: [place] Verdean Communication Ability: Effective Conduit Installer Required: No Beliefs That Will Affect Care: Hoahaoism (Patient refers to herself as "Jew." She also notes that she normally attends mosque, but has not been attending during the current pandemic.) marital status: Current Living Situation: Spouse and Family Feels Safe at Home: Yes Assistive Devices: None Allergies Allergies Allergy/AdvReac Type Severity Reaction Status Date / Time bupropion [From Wellbutrin] Allergy Severe Difficulty Verified 11/22/20 22:16 Breathing cyclobenzaprine Allergy Severe DIFFICULTY Verified 11/22/20 22:16 BREATHING, CHOKING, COULDN'T WAKE UP Home Meds Home Medications Medication Instructions Recorded Confirmed Spravato 28 mg INTRANASAL WK 06/14/20 11/22/20 dextroamphetamine-amphetamine 10 mg PO DAILY 06/14/20 11/22/20 aripiprazole [Abilify] 15 mg PO HS 11/22/20 11/22/20 desvenlafaxine succinate [Pristiq] 50 mg PO HS 11/22/20 11/22/20 desvenlafaxine succinate [Pristiq] 100 mg PO HS 11/22/20 11/22/20 lisdexamfetamine [Vyvanse] 70 mg PO DAILY 11/22/20 11/22/20 modafinil 200 mg PO BID 11/22/20 11/22/20 Results & Data (ED) Vital Signs Vital Signs - 24 hr 11/22/20 18:21 11/22/20 19:09 11/22/20 23:09 Temperature 37.0 C 36.8 C Temperature Source Oral Oral Pulse Rate 69 Pulse Rate [Finger] 68 68 Pulse Rhythm Regular Pulse Rhythm [Finger] Regular Regular Pulse Strength Normal Respiratory Rate 20 14 18 Respiratory Effort / Characteristics Non-Labored Spontaneous Respiratory Depth Normal Normal Normal Respiratory Pattern Regular Blood Pressure 120/78 Blood Pressure [Right Arm] 128/78 132/77 Blood Pressure Mean 92 Blood Pressure Mean [Right Arm] 94 95 Pulse Oximetry 99 99 99 Oxygen Delivery Method Room Air Room Air Room Air Sepsis Recent Fever Within 48 Hours No Sepsis New/Unexplained Change in Mental Status No Sepsis Action Taken by Nursing No Action Required Laboratory Data Result diagrams: 11/22/20 18:35 11/22/20 18:35 Lab Results 11/22/20 11/22/20 11/22/20 Range/Units 18:35 18:35 18:35 WBC 7.59 (4.8-10.8) K/uL RBC 4.59 (4.2-5.4) M/uL Hgb 13.8 (12.0-16.0) g/dL Hct 41.4 (37-47) % MCV 90.2 (80-100) fL MCH 30.1 (25-34) pg MCHC 33.3 (32-36) g/dL RDW Std Deviation 41.8 (36.4-46.3) fL RDW Coeff of Charis 12.8 (11.5-14.5) % Plt Count 198 (130-400) K/uL MPV 9.3 (7.4-10.4) fL Immature Gran % (Auto) 0.1 % Neut % (Auto) 70.2 % Lymph % (Auto) 23.8 % Kay % (Auto) 5.9 % Eos % (Auto) 0.0 % Baso % (Auto) 0.0 % Neut # (Auto) 5.32 (1.4-6.5) K/uL Lymph # (Auto) 1.81 (1.2-3.4) K/uL Kay # (Auto) 0.45 (0.11-0.59) K/uL Eos # (Auto) 0.00 (0-0.5) K/uL Baso # (Auto) 0.00 (0-0.2) K/uL Immature Gran # (Auto) 0.01 (0.00-0.02) K/uL Sodium 142 (136-145) mmol/L Potassium 3.7 (3.5-5.1) mmol/L Chloride 112 H (98-107) mmol/L Carbon Dioxide 22 (21-32) mmol/L Anion Gap 8.0 (3-11) BUN 13 (7-18) mg/dl Creatinine 0.88 (0.6-1.2) mg/dl Est Cr Clr Drug Dosing 112.1 ml/min Est GFR ( Amer) 99.4 ml/min Est GFR (Non-Af Amer) 85.7 ml/min BUN/Creatinine Ratio 14.4 (10-20) Glucose 102 H (70-99) mg/dl Calcium 8.6 (8.5-10.1) mg/dl Total Bilirubin 0.3 (0.2-1) mg/dl AST 17 (15-37) U/L ALT 28 (12-78) U/L Alkaline Phosphatase 73 (45-117) U/L Total Protein 6.8 (6.4-8.2) gm/dl Albumin 3.3 L (3.4-5.0) gm/dl Globulin 3.5 (2.5-4.0) gm/dl Albumin/Globulin Ratio 0.9 (0.9-2) TSH 1.400 (0.300-4.500) uIu/ml Urine Color Urine Appearance (Clear) Urine pH (4.5-7.5) Ur Specific [place] (1.000-1.030) Urine Protein (Negative) Urine Glucose (UA) (Negative) Urine Ketones (Negative) Urine Blood (Negative) Urine Nitrite (Negative) Urine Bilirubin (Negative) Urine Urobilinogen (Negative) Ur Leukocyte Esterase (Negative) POC Ur Test (NEG) Salicylates < 1.7 L (2.8-20) mg/dl Urine Opiates Screen (Neg) Ur Methadone, Qual (Neg) Acetaminophen < 2 L (10-30) ug/ml Urine Barbiturates (Neg) Ur Phencyclidine (PCP) (Neg) U Amphetamin/Meth Scrn (Neg) MDMA (Ecstasy) Screen (Neg) U Benzodiazepines Scrn (Neg) Ur Cocaine Metabolite (Neg) U Marijuana (THC) Screen (Neg) Ethyl Alcohol mg/dL (0-3) mg/dl COVID-19 Eval Order SARS-CoV-2, RNA, NAAT (NEGATIVE) 11/22/20 11/22/20 11/22/20 Range/Units 18:35 18:35 18:35 WBC (4.8-10.8) K/uL RBC (4.2-5.4) M/uL Hgb (12.0-16.0) g/dL Hct (37-47) % MCV (80-100) fL MCH (25-34) pg MCHC (32-36) g/dL RDW Std Deviation (36.4-46.3) fL RDW Coeff of Charis (11.5-14.5) % Plt Count (130-400) K/uL MPV (7.4-10.4) fL Immature Gran % (Auto) % Neut % (Auto) % Lymph % (Auto) % Kay % (Auto) % Eos % (Auto) % Baso % (Auto) % Neut # (Auto) (1.4-6.5) K/uL Lymph # (Auto) (1.2-3.4) K/uL Kay # (Auto) (0.11-0.59) K/uL Eos # (Auto) (0-0.5) K/uL Baso # (Auto) (0-0.2) K/uL Immature Gran # (Auto) (0.00-0.02) K/uL Sodium (136-145) mmol/L Potassium (3.5-5.1) mmol/L Chloride (98-107) mmol/L Carbon Dioxide (21-32) mmol/L Anion Gap (3-11) BUN (7-18) mg/dl Creatinine (0.6-1.2) mg/dl Est Cr Clr Drug Dosing ml/min Est GFR ( Amer) ml/min Est GFR (Non-Af Amer) ml/min BUN/Creatinine Ratio (10-20) Glucose (70-99) mg/dl Calcium (8.5-10.1) mg/dl Total Bilirubin (0.2-1) mg/dl AST (15-37) U/L ALT (12-78) U/L Alkaline Phosphatase (45-117) U/L Total Protein (6.4-8.2) gm/dl Albumin (3.4-5.0) gm/dl Globulin (2.5-4.0) gm/dl Albumin/Globulin Ratio (0.9-2) TSH (0.300-4.500) uIu/ml Urine Color Urine Appearance (Clear) Urine pH (4.5-7.5) Ur Specific [place] (1.000-1.030) Urine Protein (Negative) Urine Glucose (UA) (Negative) Urine Ketones (Negative) Urine Blood (Negative) Urine Nitrite (Negative) Urine Bilirubin (Negative) Urine Urobilinogen (Negative) Ur Leukocyte Esterase (Negative) POC Ur Test (NEG) Salicylates (2.8-20) mg/dl Urine Opiates Screen (Neg) Ur Methadone, Qual (Neg) Acetaminophen (10-30) ug/ml Urine Barbiturates (Neg) Ur Phencyclidine (PCP) (Neg) U Amphetamin/Meth Scrn (Neg) MDMA (Ecstasy) Screen (Neg) U Benzodiazepines Scrn (Neg) Ur Cocaine Metabolite (Neg) U Marijuana (THC) Screen (Neg) Ethyl Alcohol mg/dL < 3.0 (0-3) mg/dl COVID-19 Eval [facility] SARS-[facility]-2, RNA, NAAT NEGATIVE (NEGATIVE) 11/22/20 11/22/20 11/22/20 Range/Units 18:50 18:50 Unknown WBC (4.8-10.8) K/uL RBC (4.2-5.4) M/uL Hgb (12.0-16.0) g/dL Hct (37-47) % MCV (80-100) fL MCH (25-34) pg MCHC (32-36) g/dL RDW Std Deviation (36.4-46.3) fL RDW Coeff of Charis (11.5-14.5) % Plt Count (130-400) K/uL MPV (7.4-10.4) fL Immature Gran % (Auto) % Neut % (Auto) % Lymph % (Auto) % Kay % (Auto) % Eos % (Auto) % Baso % (Auto) % Neut # (Auto) (1.4-6.5) K/uL Lymph # (Auto) (1.2-3.4) K/uL Kay # (Auto) (0.11-0.59) K/uL Eos # (Auto) (0-0.5) K/uL Baso # (Auto) (0-0.2) K/uL Immature Gran # (Auto) (0.00-0.02) K/uL Sodium (136-145) mmol/L Potassium (3.5-5.1) mmol/L Chloride (98-107) mmol/L Carbon Dioxide (21-32) mmol/L Anion Gap (3-11) BUN (7-18) mg/dl Creatinine (0.6-1.2) mg/dl Est Cr Clr Drug Dosing ml/min Est GFR ( Amer) ml/min Est GFR (Non-Af Amer) ml/min BUN/Creatinine Ratio (10-20) Glucose (70-99) mg/dl Calcium (8.5-10.1) mg/dl Total Bilirubin (0.2-1) mg/dl AST (15-37) U/L ALT (12-78) U/L Alkaline Phosphatase (45-117) U/L Total Protein (6.4-8.2) gm/dl Albumin (3.4-5.0) gm/dl Globulin (2.5-4.0) gm/dl Albumin/Globulin Ratio (0.9-2) TSH (0.300-4.500) uIu/ml Urine Color Yellow Urine Appearance Clear (Clear) Urine pH 5.0 (4.5-7.5) Ur Specific [place] 1.031 H (1.000-1.030) Urine Protein Negative (Negative) Urine Glucose (UA) Negative (Negative) Urine Ketones Negative (Negative) Urine Blood Negative (Negative) Urine Nitrite Negative (Negative) Urine Bilirubin Negative (Negative) Urine Urobilinogen Negative (Negative) Ur Leukocyte Esterase Negative (Negative) POC Ur Test NEG (NEG) Salicylates (2.8-20) mg/dl Urine Opiates Screen Neg (Neg) Ur Methadone, Qual Neg (Neg) Acetaminophen (10-30) ug/ml Urine Barbiturates Neg (Neg) Ur Phencyclidine (PCP) Neg (Neg) U Amphetamin/Meth Scrn Pos H (Neg) MDMA (Ecstasy) Screen Pos H (Neg) U Benzodiazepines Scrn Neg (Neg) Ur Cocaine Metabolite Neg (Neg) U Marijuana (THC) Screen Neg (Neg) Ethyl Alcohol mg/dL (0-3) mg/dl COVID-19 Eval Order SARS-CoV-2, RNA, NAAT (NEGATIVE) Discharge Plan Visit Data Chief Complaint: Mental Health Evaluation Stated Complaint: SUICIDAL THOUGHTS, MENTAL HEALTH EVAL ED Provider: Jose Alfredo Crowe Discharge Problem: Suicidal ideations, Depression, High serum chloride Forms Stand Alone Forms: My [facility], Suicide Prevention Resources Prescriptions Prescriptions: No Action dextroamphetamine-amphetamine 10 mg tablet 10 mg PO DAILY RF: 0 Spravato 84 mg (28 mg x 3) spray,non-aerosol 28 mg INTRANASAL WK RF: 0 modafinil 200 mg tablet 200 mg PO BID RF: 0 Vyvanse 70 mg capsule 70 mg PO DAILY RF: 0 desvenlafaxine succinate [Pristiq] 50 mg Tablet Extended Release 24 Hr 50 mg PO HS RF: 0 desvenlafaxine succinate [Pristiq] 100 mg Tablet Extended Release 24 Hr 100 mg PO HS RF: 0 aripiprazole [Abilify] 15 mg tablet 15 mg PO HS RF: 0 Discharge Problem: Depression Qualifiers: Depression Type: unspecified Qualified Code(s): F32.9 - Major depressive disorder, single episode, unspecified
[2020-11-22 19:03] LABS: Hematocrit (blood only) 41.4 % (37-47); Hemoglobin 13.8 g/dL (12.0-16.0); Immature Granulocytes # (auto) 0.01 K/uL (0.00-0.02); Immature Granulocytes % (auto) 0.1 %; Lymphocytes # (auto) 1.81 K/uL (1.2-3.4); Lymphocytes % (auto) 23.8 %; Mean Corpuscular Hemoglobin 30.1 pg (25-34); Mean Corpuscular Hgb Conc 33.3 g/dL (32-36); Mean Corpuscular Volume 90.2 fL (80-100); Mean Platelet Volume 9.3 fL (7.4-10.4); Monocytes # (auto) 0.45 K/uL (0.11-0.59); Monocytes % (auto) 5.9 %; Neutrophils # (auto) 5.32 K/uL (1.4-6.5); Neutrophils % (auto) 70.2 %; Platelet Count 198 K/uL (130-400); RDW Coefficient of Variation 12.8 % (11.5-14.5); RDW Standard Deviation 41.8 fL (36.4-46.3); Red Blood Count 4.59 M/uL (4.2-5.4); White Blood Count 7.59 K/uL (4.8-10.8)
[2020-11-22 19:15] LABS: Albumin Level 3.3 gm/dl (3.4-5.0); BUN Creatinine Ratio 14.4 (10-20); Calcium 8.6 mg/dl (8.5-10.1); Creatinine Clr Calc Pharmacy 112.1 ml/min; Est GFR (African American) 99.4 ml/min; Est GFR (Non-African American) 85.7 ml/min; Potassium 3.7 mmol/L (3.5-5.1)
[2020-11-22 19:24] LABS: Appearance Urine Clear (Clear); Bilirubin Urine Negative (Negative); Blood Urine Negative (Negative); Color Urine Yellow; Glucose Urine UA Negative (Negative); Ketones Urine Negative (Negative); Leukocyte Esterase Urine Negative (Negative); Nitrite Urine Negative (Negative); Protein Urine Negative (Negative); Specific Gravity Urine 1.031 (1.000-1.030); Urobilinogen Urine Negative (Negative)
[2020-11-22 19:25] LABS: Albumin Globulin Ratio 0.9 (0.9-2); Bilirubin,Total 0.3 mg/dl (0.2-1); Globulin 3.5 gm/dl (2.5-4.0); Thyroid Stimulating Hormone 1.4 uIu/ml (0.300-4.500); Total Protein 6.8 gm/dl (6.4-8.2)
[2020-11-22 19:26] LABS: Acetaminophen < 2 ug/ml (10-30); Salicylate < 1.7 mg/dl (2.8-20)
[2020-11-22 19:45] LABS: Amphetamines+Metham, Urine Pos (Neg); Barbiturates, Urine Neg (Neg); Benzodiazepine, Urine Neg (Neg); Cocaine, Urine Neg (Neg); MDMA (Ecstacy), Urine Pos (Neg); Methadone, Urine Neg (Neg); Opiate, Urine Neg (Neg); Phencyclidine, Urine Neg (Neg)
[2020-11-23] MEDS ORDERED: ARIPiprazole 15 MG TAB PO STA (01:29)
--- NOTE | 2020-11-23 03:32 | Emergency Department Note ---
ED Visit Note Received patient in signout. History and physical verified by me. Patient signed out to Dr. Muniz At change of shift . : Depression Qualifiers: Depression Type: unspecified Qualified Code(s): F32.9 - Major depressive d isorder, single episode, unspecified
--- NOTE | 2020-11-23 07:45 | Emergency Department Note ---
ED Visit Note The patient was taken in signout from Dr. Vital at the change of shift. Please see that note for details. The patient was pending psychiatric ev aluation. Patient has suicidal ideation with plan to cut her wrist. She is voluntary. Patient was evaluated by 3 S. and accepted for admission and treatment. . : Depression Qualifiers: Depression Type: unspecified Qualified Code(s): F32.9 - Major depressive disorder, single episode, unspecified
[2020-11-23] MEDS ORDERED: ACETAMINOPHEN 325 MG TAB PO PRN ×2 (11:48→11:50)
[2020-11-23] MEDS ORDERED: hydrOXYzine HCl 25 MG TAB PO PRN ×4 (11:48→11:50)
[2020-11-23] MEDS ORDERED: MAGNESIUM HYDROXIDE SUSP 30 ML UDC PO PRN ×2 (11:48→11:50)
[2020-11-23] MEDS ORDERED: ALUMINUM/MAGNESIUM SUSP 30 ML UDC PO PRN ×2 (11:48→11:50)
[2020-11-23] MEDS ORDERED: SODIUM CHLORIDE 0.65% NA SOLN 45 ML (OCEAN) PRN ×2 (11:48→11:50)
[2020-11-23] MEDS ORDERED: BISMUTH SUBSALICYLATE LIQD 236 ML PO PRN ×2 (11:48→11:50)
[2020-11-23] MEDS ORDERED: modafiniL 100 MG TAB PO SCH ×2 (12:00→13:11)
[2020-11-23] MEDS: ARIPiprazole 15 MG TAB PO SCH (15:24)
[2020-11-23] MEDS: DESVENLAFAXINE SUCCINATE PO SCH ×2 (15:26)
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
[2020-11-23] MEDS ORDERED: ARIPiprazole 15 MG TAB PO SCH (22:00)
[2020-11-23] MEDS ORDERED: NON-FORMULARY MEDICATION (Desvenlafaxine Succinate [Pristiq] 100 mg Tablet Extended Releas PO SCH (22:00)
[2020-11-24] MEDS: ARIPiprazole 15 MG TAB PO SCH (09:00)
[2020-11-24] MEDS: modafiniL 100 MG TAB PO SCH ×2 (09:00→13:13)
[2020-11-24] MEDS ORDERED: BISMUTH SUBSALICYLATE LIQD 236 ML PO PRN (09:21)
[2020-11-24] MEDS ORDERED: SODIUM CHLORIDE 0.65% NA SOLN 45 ML (OCEAN) PRN (09:21)
[2020-11-24] MEDS ORDERED: ALUMINUM/MAGNESIUM SUSP 30 ML UDC PO PRN (09:21)
[2020-11-24] MEDS ORDERED: MAGNESIUM HYDROXIDE SUSP 30 ML UDC PO PRN (09:21)
[2020-11-24] MEDS ORDERED: ACETAMINOPHEN 325 MG TAB PO PRN (09:21)
[2020-11-24] MEDS ORDERED: hydrOXYzine HCl 25 MG TAB PO PRN ×2 (09:21)
[2020-11-24] MEDS: DESVENLAFAXINE SUCCINATE PO SCH ×2 (16:45)
[2020-11-24] MEDS ORDERED: LURASIDONE HCL 40 MG TAB PO SCH (17:00)
--- NOTE | 2020-11-24 19:47 | Psychiatric Progress Note ---
Date of Service November 24, 2020 Impression / Recommendations Impression This 35-year-old woman has a long history of recurrent depression that has been largely treatment resistant. She has had multiple psychiatric hospitalizations recently, [facility] 06/06 , including one at [facility]'s behavioral health unit in May 2019, as well as 2 more psychiatric admissions to [facility]'s psychiatric unit, 1 in July 2019 and another in August 2019. Furthermore, there was a psychiatric admission in December 2019 to a different local psychiatric hospital ([facility]). Complicating the clinical picture is the fact that the patient's episodes of depression tend to be fairly short-lived and are interspaced with periods of what she refers to as "normal" mood. Accordingly, it has been difficult in the short run to determine which interventions are and are not effective. Recently, the patient has been fairly intensively managed on an outpatient basis at [place]. She was started on Spravato and indicates that at first she had a fairly rapid favorable response. However, the benefit did not last. She reports the past year she does not think its working at all (1) Depression with suicidal ideation: 11/23/20-ongoing passive suicidal thoughts no active thoughts ongoing depression agrees to take Latuda for mood instability will start at 40 mg and monitor 11/23/20- Patient was admitted to [address] [place] [address] inpatient psychiatric unit on every 15 minute checks for behavior and suicidal precautions for safety patient will participate in group recreational milieu therapies will be offered additional individual and family sessions as clinically appropriate Patient's routine medications of Abilify will be continued patient has multiple medication trials in the past we will continue Pristiq at 150 mg consider referral to transcranial magnetic stimulation therapy patient reports hearing this in the past from her therapist and is open to trying it would hold Spravato at this time as we are not able to administer in the hospital unclear benefit of treatment in the last several months per patient will think patient need may need to transition out to another treatment (2) Depression: Continue every 15 minute checks treatment as noted above (3) Narcolepsy: 11/24/2020 modafinil restarted at 400 mg patient with complaints of feeling excessive sedation however is attending groups does not appear sedated stimulants held until outpatient We will continue modafinil. We will hold Vyvanse and Adderall for now patient to reconsider multiple stimulants that she is taking which can also contribute to her worsening mood. Risk Factors Assessment Do You Have Access To A Gun?: No Protective Factors Assessment Employed: No Interval History Chief Complaint "[I think I am doing okay I am still down but I think better]". Review of Systems Sleep Information Total Hours of Sleep: 6.5 Meal Information Percent Meal Consumed - Breakfast: 100 Percent Meal Consumed - Lunch: 100 Percent Meal Consumed - Dinner: 100 Subjective Subjective Patient was seen & assessed and interval progress reviewed with treatment team nursing and social work. Chart reviewed patient did take medications yesterday complaining that she is not able to get her stimulants but continues to feel a little bit better than she had done in the past Denies auditory hallucination or visual hallucinations notes ongoing depression despite treatment Physical Exam Psychiatric Orientation: oriented x 3, oriented to person, oriented to place and oriented to time Apperance: appropriately dressed Eye Contact: good eye contact Motor Behavior: steady gait and station Speech: normal rate/rhythm/volume of speech Affect: + depressed affect Mood: + depressed mood and + dysphoric mood Thought Process: goal directed thought process and linear/logical thought process Thought Content: reality based without delusions Suicidal Thoughts: denies suicidal plan; + reports suicidal thoughts and + reports suicidal intent Homicidal Thoughts: denies homicidal thoughts Hallucinations: no auditory hallucinations, no visual hallucinations and no tactile hallucinations Cognition: recent memory grossly intact, remote memory grossly intact and attention grossly intact Estimated Intelligence: consistent with education level Insight: + fair insight Judgement: + fair judgement Vital Signs (Past 24 Hours) Last Vital Signs Temp 36.6 C 11/24/20 06:42 Pulse 91 H 11/24/20 06:44 Resp 16 11/24/20 06:42 BP 122/81 11/24/20 06:44 Pulse Ox 98 11/23/20 10:50 A physical exam was performed by Dr. Veliz in the emergency department on 11/22/2020 for the purposes of medical clearance accept this physical exam as correct and adequate for the physical exam of the inpatient. Results & Data ([facility]) Current Inpatient Medications Current Inpatient Medications: Current Inpatient Medications Acetaminophen (Acetaminophen 325 Mg Tab) 650 mg PO Q4H PRN PRN Reason: Headache or Minor Fever Stop: 12/23/20 11:47 Al Hydrox/Mg Hydrox/Simethicone (Aluminum/Magnesium Susp 30 Ml Udc) 30 ml PO Q4H PRN PRN Reason: GI Upset Stop: 12/23/20 11:47 Aripiprazole (Aripiprazole 10 Mg Tab) 10 mg PO QAM [facility] Stop: 12/25/20 08:59 Bismuth Subsalicylate (Bismuth Subsalicylate Liqd 236 Ml) 15 ml PO PRN PRN PRN Reason: Loose Stool Stop: 12/23/20 11:47 Desvenlafaxine Succinate (Desvenlafaxine Succinate) 1 ea PO DAILY@1600 [facility] Stop: 12/23/20 15:59 Last Admin: 11/24/20 16:45 Dose: 1 ea Documented by: Desvenlafaxine Succinate (Desvenlafaxine Succinate) 1 ea PO DAILY@1600 [facility] Stop: 12/23/20 15:59 Last Admin: 11/24/20 16:45 Dose: 1 ea Documented by: Hydroxyzine HCl (Hydroxyzine Hcl 25 Mg Tab) 50 mg PO HSZ PRN PRN Reason: Insomnia Stop: 12/23/20 11:47 Hydroxyzine HCl (Hydroxyzine Hcl 25 Mg Tab) 25 mg PO Q4H PRN PRN Reason: Anxiety Stop: 12/23/20 11:47 Lurasidone HCl (Lurasidone Hcl 40 Mg Tab) 40 mg PO DAILY@1700 [facility] Stop: 12/24/20 16:59 Last Admin: 11/24/20 16:46 Dose: 40 mg Documented by: Magnesium Hydroxide (Magnesium Hydroxide Susp 30 Ml Udc) 30 ml PO DAILY PRN PRN Reason: Constipation Stop: 12/23/20 11:47 Modafinil (Modafinil 100 Mg Tab) 200 mg PO BID@0900,1300 [facility] Stop: 12/24/20 08:59 Last Admin: 11/24/20 13:13 Dose: 200 mg Documented by: Sodium Chloride (Sodium Chloride 0.65% Na Soln 45 Ml ([place])) 1 - 2 sprays NA PRN PRN PRN Reason: Nasal Dryness/Congestion Stop: 12/23/20 11:47 Mental Health & Subst Abuse Tx Psychiatrist Name of Psychiatrist: [facility] Psychiatrist's Date of Appointment with Psychiatrist: 11/29/20 Time of Appointment with Psychiatrist: 2:15pm Therapist Name of Therapist: Jayme Kitchen LPC Therapist's Date of Therapist Appointment: 12/02/20 Time of Therapist Appointment: 2:00pm Wire Coiler Machine Operator Name of Wire Coiler Machine Operator: Mis guillermo Case mgmt.through [facility] Post Discharge Appointments Primary Care Physician Name Of Family Doctor: Brandee Villaseñor MD Primary Care Partial or Psych Rehab Name of Partial or Psych Rehab: [facility] Phone Number of Partial or Psych Rehab: [phone] Specialist Name of Specialist: Jacqui-TMS therapy (office will call 1 day prior with zoom info) Phone Number for Specialist: [phone] Date of Appointment with Specialist: 12/06/20 Time of Appointment with Specialist: 9:30AM Specialty Appointment Comment: This is a zoom appointment for TMS evaluation. (60 mins) Contact Information Discharge Phone Number: [phone] Discharge [address]: [address] [place] [address] (1) Depression Depression Type: unspecified Qualified Code(s): F32.9 - Major depressive disorder, single episode, unspecified
[2020-11-24] MEDS: LURASIDONE HCL 40 MG TAB PO SCH (21:06)
[2020-11-25] MEDS: modafiniL 100 MG TAB PO SCH ×2 (08:19→12:52)
[2020-11-25] MEDS: LURASIDONE HCL 40 MG TAB PO SCH ×2 (08:19→16:03)
[2020-11-25] MEDS ORDERED: ARIPiprazole 10 MG TAB PO SCH (09:00)
[2020-11-25] MEDS: DESVENLAFAXINE SUCCINATE PO SCH ×2 (16:02→16:03)
--- NOTE | 2020-11-25 19:40 | Psychiatric Progress Note ---
Date of Service November 25, 2020 Impression / Recommendations Impression This 35-year-old woman has a long history of recurrent depression that has been largely treatment resistant. She has had multiple psychiatric hospitalizations recently, [facility] 06/06 , including one at [facility]'s behavioral health unit in May 2019, as well as 2 more psychiatric admissions to [facility]'s psychiatric unit, 1 in July 2019 and another in August 2019. Furthermore, there was a psychiatric admission in December 2019 to a different local psychiatric hospital ([facility]). Complicating the clinical picture is the fact that the patient's episodes of depression tend to be fairly short-lived and are interspaced with periods of what she refers to as "normal" mood. Accordingly, it has been difficult in the short run to determine which interventions are and are not effective. Recently, the patient has been fairly intensively managed on an outpatient basis at [place]. She was started on Spravato and indicates that at first she had a fairly rapid favorable response. However, the benefit did not last. She reports the past year she does not think its working at all (1) Depression with suicidal ideation: 11/25/2020 suicidal thoughts have resolved. Has seen some benefit with Latuda per patient. May benefit from the Abilify being decreased to 10 mg eventually discontinued we will consider increasing Latuda after an extra day or 2. Patient also referred for TMS treatment. And has been accepted for an appointment in the future. 11/24/20-ongoing passive suicidal thoughts no active thoughts ongoing depression agrees to take Latuda for mood instability will start at 40 mg and monitor 11/23/20- Patient was admitted to [address] [place] [address] inpatient psychiatric unit on every 15 minute checks for behavior and suicidal precautions for safety patient will participate in group recreational milieu therapies will be offered additional individual and family sessions as clinically appropriate Patient's routine medications of Abilify will be continued patient has multiple medication trials in the past we will continue Pristiq at 150 mg consider referral to transcranial magnetic stimulation therapy patient reports hearing this in the past from her therapist and is open to trying it would hold Spravato at this time as we are not able to administer in the hospital unclear benefit of treatment in the last several months per patient will think patient need may need to transition out to another treatment (2) Depression: 11/25/2020 suicidal thoughts have resolved. Has seen some benefit with Latuda per patient. May benefit from the Abilify being decreased to 10 mg eventually discontinued we will consider increasing Latuda after an extra day or 2. Patient also referred for TMS treatment. And has been accepted for an appointment in the future. 11/23/20Continue every 15 minute checks treatment as noted above (3) Narcolepsy: 11/24/2020 modafinil restarted at 400 mg patient with complaints of feeling excessive sedation however is attending groups does not appear sedated stimulants held until outpatient We will continue modafinil. We will hold Vyvanse and Adderall for now patient to reconsider multiple stimulants that she is taking which can also contribute to her worsening mood. Risk Factors Assessment Do You Have Access To A Gun?: No Protective Factors Assessment Employed: No Interval History Chief Complaint "[I think I am doing better and just sleeping so peaceful here" Review of Systems Sleep Information Total Hours of Sleep: 6.5 Meal Information Percent Meal Consumed - Breakfast: 100 Percent Meal Consumed - Lunch: 100 Percent Meal Consumed - Dinner: 100 Subjective Subjective Patient was seen & assessed and interval progress reviewed with nursing and social work. Patient reports doing better in the past day or 2. Patient admits to not wanting to be without her stimulants. Patient interacting with group on occasion. Patient reports ongoing depression but she denies suicidal thoughts. No evidence of response to internal stimuli. Patient however is not actively going to groups. Physical Exam Psychiatric Orientation: oriented x 3, oriented to person, oriented to place and oriented to time Apperance: appropriately dressed Eye Contact: good eye contact Motor Behavior: steady gait and station Speech: normal rate/rhythm/volume of speech Affect: + depressed affect Mood: + depressed mood and + dysphoric mood Thought Process: goal directed thought process and linear/logical thought process Thought Content: reality based without delusions Suicidal Thoughts: denies suicidal thoughts and denies suicidal plan; + reports suicidal intent Homicidal Thoughts: denies homicidal thoughts Hallucinations: no auditory hallucinations, no visual hallucinations and no tactile hallucinations Cognition: recent memory grossly intact, remote memory grossly intact and attention grossly intact Estimated Intelligence: consistent with education level Insight: + fair insight Judgement: + fair judgement Vital Signs (Past 24 Hours) Last Vital Signs Temp 36.8 C 11/25/20 06:40 Pulse 90 11/25/20 06:41 Resp 16 11/25/20 06:40 BP 117/74 11/25/20 06:41 Pulse Ox 98 11/23/20 10:50 A physical exam was performed by Dr. Veliz in the emergency department on 11/22/2020 for the purposes of medical clearance accept this physical exam as correct and adequate for the physical exam of the inpatient. Results & Data ([facility]) Current Inpatient Medications Current Inpatient Medications: Current Inpatient Medications Acetaminophen (Acetaminophen 325 Mg Tab) 650 mg PO Q4H PRN PRN Reason: Headache or Minor Fever Stop: 12/23/20 11:47 Al Hydrox/Mg Hydrox/Simethicone (Aluminum/Magnesium Susp 30 Ml Udc) 30 ml PO Q4H PRN PRN Reason: GI Upset Stop: 12/23/20 11:47 Aripiprazole (Aripiprazole 5 Mg Tab) 5 mg PO QAM [facility] Stop: 12/26/20 08:59 Bismuth Subsalicylate (Bismuth Subsalicylate Liqd 236 Ml) 15 ml PO PRN PRN PRN Reason: Loose Stool Stop: 12/23/20 11:47 Desvenlafaxine Succinate (Desvenlafaxine Succinate) 1 ea PO DAILY@1600 [facility] Stop: 12/23/20 15:59 Last Admin: 11/25/20 16:03 Dose: 1 ea Documented by: Desvenlafaxine Succinate (Desvenlafaxine Succinate) 1 ea PO DAILY@1600 [facility] Stop: 12/23/20 15:59 Last Admin: 11/25/20 16:02 Dose: 1 ea Documented by: Hydroxyzine HCl (Hydroxyzine Hcl 25 Mg Tab) 50 mg PO HSZ PRN PRN Reason: Insomnia Stop: 12/23/20 11:47 Hydroxyzine HCl (Hydroxyzine Hcl 25 Mg Tab) 25 mg PO Q4H PRN PRN Reason: Anxiety Stop: 12/23/20 11:47 Lurasidone HCl (Lurasidone Hcl 40 Mg Tab) 40 mg PO 1700 [facility] Stop: 12/25/20 16:59 Last Admin: 11/25/20 16:03 Dose: 40 mg Documented by: Magnesium Hydroxide (Magnesium Hydroxide Susp 30 Ml Udc) 30 ml PO DAILY PRN PRN Reason: Constipation Stop: 12/23/20 11:47 Modafinil (Modafinil 100 Mg Tab) 200 mg PO BID@0900,1300 [facility] Stop: 12/24/20 08:59 Last Admin: 11/25/20 12:52 Dose: 200 mg Documented by: Sodium Chloride (Sodium Chloride 0.65% Na Soln 45 Ml ([place])) 1 - 2 sprays NA PRN PRN PRN Reason: Nasal Dryness/Congestion Stop: 12/23/20 11:47 Mental Health & Subst Abuse Tx Psychiatrist Name of Psychiatrist: Saroj Nguyen Psychiatrist's Date of Appointment with Psychiatrist: 11/29/20 Time of Appointment with Psychiatrist: 2:15 pm Psychiatric Appointment Comment: [facility] Therapist Name of Therapist: Jayme Kitchen LPC Therapist's Date of Therapist Appointment: 12/02/20 Time of Therapist Appointment: 2:00 pm Jd Edwards Developer Name of Jd Edwards Developer: . Post Discharge Appointments Primary Care Physician Name Of Family Doctor: Lela Villaseñor MD Primary Care Provider Appointment Comment: [address] [place] [id number] Partial or Psych Rehab Name of Partial or Psych Rehab: [facility] Phone Number of Partial or Psych Rehab: [phone] Partial or Psych Rehab Appointment Comment: Return to your normal schedule Specialist Name of Specialist: Home - TMS therapy (office will call 1 day prior with zoom info) Phone Number for Specialist: [phone] Date of Appointment with Specialist: 12/06/20 Time of Appointment with Specialist: 9:30AM Specialty Appointment Comment: This is a zoom appointment for TMS evaluation. (60 mins) Contact Information Discharge Discharge Address: [address] [place] [id number] (1) Depression Depression Type: unspecified Qualified Code(s): F32.9 - Major depressive disorder, single episode, unspecified
[2020-11-26 08:50] LABS: Glucose Fasting 90 mg/dl (70-99)
[2020-11-26] MEDS: ARIPiprazole 5 MG TAB PO SCH (08:51)
[2020-11-26] MEDS: modafiniL 100 MG TAB PO SCH ×2 (08:51→12:58)
[2020-11-26 08:58] LABS: Chol HDL Ratio 3; Cholesterol 149 mg/dl (0-200); HDL Cholesterol 47 mg/dl; LDL Cholesterol Calculated 84 mg/dl; Triglycerides 91 mg/dl (0-150); VLDL Cholesterol 18 mg/dl
[2020-11-26 12:49] LABS: Amphetamine Urine, Confirm >15000 ng/mL (<250); MDA negative; MDEA negative; MDMA (Ecstasy) Urine, Confirm negative; Methamphetamine, Ur Confirm NEGATIVE ng/mL (<250)
--- NOTE | 2020-11-26 13:03 | Psychiatric Progress Note ---
Date of Service November 26, 2020 Impression / Recommendations Impression This 35-year-old woman has a long history of recurrent depression that has been largely treatment resistant. She has had multiple psychiatric hospitalizations recently, [facility] 06/06 , including one at [facility]'s behavioral health unit in May 2019, as well as 2 more psychiatric admissions to [facility]'s psychiatric unit, 1 in July 2019 and another in August 2019. Furthermore, there was a psychiatric admission in December 2019 to a different local psychiatric hospital ([facility]). Complicating the clinical picture is the fact that the patient's episodes of dep ression tend to be fairly short-lived and are interspaced with periods of what she refers to as "normal" mood. Accordingly, it has been difficult in the short run to determine which interventions are and are not effective. Recently, the patient has been fairly intensively managed on an outpatient basis at [place]. She was started on Spravato and indicates that at first she had a fairly rapid favorable response. However, the benefit did not last. 11/26/20--reviewed admitting psychiatrist impression, improving. (1) Depression with suicidal ideation: 11/26/20--Reviewed Dr. Beach notes in italics. Continue current meds and treatment plan. Fasting metabolic labs unremarkable. 11/25/2020 suicidal thoughts have resolved. Has seen some benefit with Latuda per patient. May benefit from the Abilify being decreased to 10 mg eventually discontinued we will consider increasing Latuda after an extra day or 2. Patient also referred for TMS treatment. And has been accepted for an appointment in the future. 11/24/20-ongoing passive suicidal thoughts no active thoughts ongoing depression agrees to take Latuda for mood instability will start at 40 mg and monitor 11/23/20- Patient was admitted to 3 [facility] inpatient psychiatric unit on every 15 minute checks for behavior and suicidal precautions for safety patient will participate in group recreational milieu therapies will be offered additional individual and family sessions as clinically appropriate Patient's routine medications of Abilify will be continued patient has multiple medication trials in the past we will continue Pristiq at 150 mg consider referral to transcranial magnetic stimulation therapy patient reports hearing this in the past from her therapist and is open to trying it would hold Spravato at this time as we are not able to administer in the hospital unclear benefit of treatment in the last several months per patient will think patient need may need to transition out to another treatment (2) Depression: 11/26/20--reviewed Dr. Beach's notes in italics. 11/25/2020 suicidal thoughts have resolved. Has seen some benefit with Latuda per patient. May benefit from the Abilify being decreased to 10 mg eventually discontinued we will consider increasing Latuda after an extra day or 2. Patient also referred for TMS treatment. And has been accepted for an appointment in the future. 11/23/20Continue every 15 minute checks treatment as noted above (3) Narcolepsy: 11/26/20--reviewed Dr. Beach's notes in italics. 11/24/2020 modafinil restarted at 400 mg patient with complaints of feeling excessive sedation however is attending groups does not appear sedated stimulants held until outpatient We will continue modafinil. We will hold Vyvanse and Adderall for now patient to reconsider multiple stimulants that she is taking which can also contribute to her worsening mood. Risk Factors Assessment Do You Have Access To A Gun?: No Protective Factors Assessment Employed: No Interval History Chief Complaint "I feel like I'm making progress but am super hungry off of stimulants". Review of Systems Sleep Information Total Hours of Sleep: 6.5 Sleep Comments: pt on q-15 minute checks Meal Information Percent Meal Consumed - Breakfast: 100 Percent Meal Consumed - Lunch: 100 Percent Meal Consumed - Dinner: 100 Subjective Subjective Patient was seen & assessed and interval progress reviewed with treatment team. tolerating med changes and asked appropriate questions about side effect profile and potential interactions with modafinil. Reviewed her labs/renal profile which were reassuring for her. She denies any "active" SI on unit, states her baseline chronic thoughts and has been lower in the past. Hopeful re: TMS. Physical Exam Psychiatric Orientation: oriented x 3 Apperance: appropriately dressed Eye Contact: good eye contact Motor Behavior: steady gait and station Speech: normal rate/rhythm/volume of speech Affect: + depressed affect Mood: + depressed mood Thought Process: goal directed thought process and linear/logical thought process Thought Content: reality based without delusions Suicidal Thoughts: denies suicidal thoughts and denies suicidal plan Homicidal Thoughts: denies homicidal thoughts Hallucinations: no auditory hallucinations and no visual hallucinations Cognition: recent memory grossly intact, remote memory grossly intact and attention grossly intact Estimated Intelligence: consistent with education level Insight: + fair insight Judgement: + fair judgement Vital Signs (Past 24 Hours) Last Vital Signs Temp 36.6 C 11/26/20 06:44 Pulse 71 11/26/20 06:44 Resp 16 11/26/20 06:44 BP 134/82 11/26/20 06:44 Pulse Ox 98 11/23/20 10:50 Results & Data ([facility]) Laboratory Results Laboratory Results - last 24 hr 11/22/20 11/26/20 18:50 07:51 Fasting Glucose 90 Triglycerides 91 Cholesterol 149 LDL Cholesterol, Calc 84 VLDL Cholesterol, Calc 18 HDL Cholesterol 47 Cholesterol/HDL Ratio 3 U Amphetamines Confirm >47262 H U Methamphetamin Confrm NEGATIVE Urine MDEA negative MDMA negative Urine MDMA negative Drug Screen Comment SEE NOTE Current Inpatient Medications Current Inpatient Medications: Current Inpatient Medications Acetaminophen (Acetaminophen 325 Mg Tab) 650 mg PO Q4H PRN PRN Reason: Headache or Minor Fever Stop: 12/23/20 11:47 Al Hydrox/Mg Hydrox/Simethicone (Aluminum/Magnesium Susp 30 Ml Udc) 30 ml PO Q4H PRN PRN Reason: GI Upset Stop: 12/23/20 11:47 Aripiprazole (Aripiprazole 5 Mg Tab) 5 mg PO QAM [facility] Stop: 12/26/20 08:59 Last Admin: 11/26/20 08:51 Dose: 5 mg Documented by: Bismuth Subsalicylate (Bismuth Subsalicylate Liqd 236 Ml) 15 ml PO PRN PRN PRN Reason: Loose Stool Stop: 12/23/20 11:47 Desvenlafaxine Succinate (Desvenlafaxine Succinate) 1 ea PO DAILY@1600 [facility] Stop: 12/23/20 15:59 Last Admin: 11/25/20 16:03 Dose: 1 ea Documented by: Desvenlafaxine Succinate (Desvenlafaxine Succinate) 1 ea PO DAILY@1600 [facility] Stop: 12/23/20 15:59 Last Admin: 11/25/20 16:02 Dose: 1 ea Documented by: Hydroxyzine HCl (Hydroxyzine Hcl 25 Mg Tab) 50 mg PO HSZ PRN PRN Reason: Insomnia Stop: 12/23/20 11:47 Hydroxyzine HCl (Hydroxyzine Hcl 25 Mg Tab) 25 mg PO Q4H PRN PRN Reason: Anxiety Stop: 12/23/20 11:47 Lurasidone HCl (Lurasidone Hcl 40 Mg Tab) 40 mg PO 1700 [facility] Stop: 12/25/20 16:59 Last Admin: 11/25/20 16:03 Dose: 40 mg Documented by: Magnesium Hydroxide (Magnesium Hydroxide Susp 30 Ml Udc) 30 ml PO DAILY PRN PRN Reason: Constipation Stop: 12/23/20 11:47 Modafinil (Modafinil 100 Mg Tab) 200 mg PO BID@0900,1300 [facility] Stop: 12/24/20 08:59 Last Admin: 11/26/20 08:51 Dose: 200 mg Documented by: Sodium Chloride (Sodium Chloride 0.65% Na Soln 45 Ml (Ray)) 1 - 2 sprays NA PRN PRN PRN Reason: Nasal Dryness/Congestion Stop: 12/23/20 11:47 Mental Health & Subst Abuse Tx Psychiatrist [facility] Date of Appointment with Psychiatrist: 11/29/20 Time of Appointment with Psychiatrist: 2:15 pm Psychiatric Appointment Comment: [address] [place] [address] Therapist Name of Therapist: Jayme Kitchen LPC Therapist's Date of Therapist Appointment: 12/02/20 Time of Therapist Appointment: 2:00 pm Assessment Technician Name of Assessment Technician: . Post Discharge Appointments Primary Care Physician Name Of Family Doctor: Lela Villaseñor MD Primary Care Provider Appointment Comment: [address] [place] [address] Partial or Psych Rehab Name of Partial or Psych Rehab: [facility] [place] Rehab Phone Number of Partial or Psych Rehab: [phone] Partial or Psych Rehab Appointment Comment: Return to your normal schedule Specialist Name of Specialist: Home - TMS therapy (office will call 1 day prior with zoom info) Phone Number for Specialist: [phone] Date of Appointment with Specialist: 12/06/20 Time of Appointment with Specialist: 9:30AM Specialty Appointment Comment: This is a zoom appointment for TMS evaluation. (60 mins) Contact Information Discharge Discharge [address]: [address] [place] [address] (1) Depression Depression Type: unspecified Qualified Code(s): F32.9 - Major depressive disorder, single episode, unspecified
[2020-11-26] MEDS: DESVENLAFAXINE SUCCINATE PO SCH ×2 (16:12)
[2020-11-26] MEDS: LURASIDONE HCL 40 MG TAB PO SCH (17:51)
[2020-11-27] MEDS: ARIPiprazole 5 MG TAB PO SCH (08:48)
[2020-11-27] MEDS: modafiniL 100 MG TAB PO SCH (08:49)
[2020-11-27] MEDS ORDERED: DESTROY THIS MEDICATION ONE (09:50)
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
== END 2020-11-27 12:20 | disposition home or self-care (01) | DRG 885 ==
LOC: ED 18:15 → 3S 11-23 10:50 → SUATTDRO 11-23 10:50 → 3S 11-26 13:28

== ENCOUNTER 2023-01-30 02:07 | Inpatient (IN) ==
[2023-01-30] MEDS ORDERED: ONDANSETRON INJ 2 MG/ML 2 ML VIAL IV STA ×2 (02:22→06:36)
--- NOTE | 2023-01-30 02:28 | Emergency Department Note ---
Impression & Plan Intentional overdose, Depression, Alcohol intoxication ED Provider Note ED Provider Note NAME: LUZ IZAGUIRRE AGE:37 SEX: Female : 1985 ARRIVES VIA: EMS INFORMANT: Patient, EMS ED PROVIDER(s): Radha Calvo DO CHIEF COMPLAINT: intentional overdose HPI: This is a 37-year-old female who presents to the emergency room via EMS following an intentional overdose. Patient found by laying outside buried in the leaves. She admitted to taking an overdose of her medication in a suicide attempt. Patient denied any coingestion although did admit to drinking alcohol. Patient does have a remote history of a prior suicide attempt. Patient is taking Auvelity for her depression. She states she took as much as she could and also drank half a bottle of vodka. She denies any additional medications including household OTC meds. PAST MEDICAL HISTORY:See Below PAST SURGICAL HISTORY:See Below FAMILY HISTORY:See Below SOCIAL HISTORY:See Below HOME MEDICATIONS:See Below ALLERGIES:See Below VITALS:See Below PHYSICAL EXAMINATION: GENERAL: alert, well appearing, well nourished, no distress, non-toxic EYE EXAM: normal conjunctiva, PERRL and EOM's grossly intact OROPHARYNX: no exudate, no erythema, lips, buccal mucosa, and tongue normal and mucous membranes are moist NECK: supple, no nuchal rigidity, no adenopathy, non-tender LUNGS: Clear to auscultation. Normal chest wall mechanics, no w/r/r HEART: no murmurs, S1 normal and S2 normal ABDOMEN: abdomen soft, non-tender, normo-active bowel sounds, no masses, no rebound or guarding. BACK: Back is symmetrical on inspection and there is no deformity, no midline tenderness, no CVA tenderness. SKIN: no rashes, petechiae, orbruising UPPER EXTREMITIES: upper extremities are grossly normal. FROM, nml pulses b/l. LOWER EXTREMITIES: No pitting edema. FROM, nml pulses b/l. NEURO EXAM: Normal sensorium, cranial nerves II-XII grossly intact, normal speech, no facial droop,nogross weakness of arms, no gross weakness of legs. Gross sensation intact. No ataxia. Vital Signs: reviewed and remarkable Differential Diagnosis: Intentional overdose, depression, suicidal ideation, alcohol intoxication, substance abuse, electrolyte abnormality, toxidrome, as well as others were considered MEDICAL DECISION MAKING: This is a 37-year-old female brought in by EMS following intentional overdose of her depression medication. She was afebrile and vital signs stable. She was also clinically intoxicated on arrival. Labs drawn and sent, IV established, EKG performed and interpreted at bedside, and patient placed on telemetry. Patient started on IV fluid hydration monitor on telemetry throughout. Case discussed with poison control additionally who recommended medical observation for 12 to 24 hours due to extended release component bupropion and her depression medication and increased risk of seizures. Case discussed with the on-call hospitalist for additional evaluation and management. No ectopy or dysrhythmia noted while patient monitored on telemetry. She was hemodynamically stable throughout. Consultation(s): 0235: Charge nurse Wendy contacted [facility] and spoke with Officer Faustino regarding the events this evening. They reviewed video footage and found that the patient took the pills around 0017. He states the patient's is waiting for another family member to watch their children so he can come up and he intends to fill out a 302 petition. , Gerhard, is coming but waiting on other family to come watch the children at home. His number is [phone]. 0325: Discussed with poison control. They recommend 12 to 24 hours of observation given the bupropion component is extended release and will not peak until 10 to 12 hours and patient is still at risk of seizures. ER Treatment Provided: See below 0225: Patient vomited here. No pill fragments noted. No obvious blood. Diagnostics Interpreted By Me: -ECG: nsr at 95, nml axis, nml intervals, nonspecific ST/T wave changes -Cardiac Monitoring: An order was placed for continuous cardiac monitoring. The monitor shows a rate of 98 with normal sinus rhythm. -Laboratory studies: As stated above and show below. -Imaging studies: [] Triage Nursing Note Reviewed Prior/Outside Records Reviewed Past Med/Surg History Medical History Bicornate uterus Depression Depression Depression with suicidal ideation Family history of reaction to anesthesia GRANDPARENTS HAD ISSUES WITH WAKING, NO KNOWN DIAGNOSIS OF ANESTHESIA REACTION. High serum chloride Neck pain Sinus bradycardia Suicidal ideations Thyroid nodule Surgical History History of section EMERGENCY 2016. 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 SHE REMEMBERS FEELING THE "SENSE OF DOOM". History of dilatation and curettage S/T MISCARRIAGE Family History Family/Other Thyroid nodule Social History Smoking Status: Never smoker Cigarettes Per Day: 0; Second Hand Exposure: No; Do You Dip or Chew Tobacco: No; Hx Alcohol Use: No Hx Substance Use: No Preferred Language: Greek Communication Ability: Effective Radiologic Electronic Specialist Required: No Beliefs That Will Affect Care: None marital status: Current Living Situation: Spouse and Family Feels Safe at Home: Yes Assistive Devices: None Allergies Allergies Allergy/AdvReac Type Severity Reaction Status Date / Time bupropion [From Wellbutrin] Allergy Severe Difficulty Verified 01/30/23 02:22 Breathing cyclobenzaprine Allergy Severe DIFFICULTY Verified 01/30/23 02:22 BREATHING, CHOKING, COULDN'T WAKE UP Home Meds Home Medications Medication Instructions Recorded Confirmed acetaminophen 500 mg tablet 1,000 mg PO DIRECTED PRN Pain 01/30/23 01/30/23 (Tylenol Extra Strength) dextromethorphan IR 45 1 tab PO DIRECTED 01/30/23 01/30/23 mg-bupropion ER 105 mg biphasic tablet (Auvelity) levonorgestrel-ethinyl estradiol 1 tab PO QAM 01/30/23 01/30/23 0.1 mg-20 mcg tablet (Aviane) Results & Data (ED) Vital Signs Vital Signs - 24 hr 01/30/23 02:11 01/30/23 02:14 01/30/23 02:17 Temperature 37.3 C Temperature Source Oral Pulse Rate 99 H 94 H Pulse Rate from SpO2 Sensor Pulse Rhythm Regular Respiratory Rate 14 Respiratory Effort / Characteristics Non-Labored Spontaneous Respiratory Depth Normal Respiratory Pattern Regular Blood Pressure 149/90 H Blood Pressure Mean 109 Pulse Oximetry 98 Oxygen Delivery Method Room Air Room Air Oxygen Flow Rate Sepsis Recent Fever Within 48 Hours No Sepsis New/Unexplained Change in Mental Status No Sepsis Action Taken by Nursing No Action Required 01/30/23 02:17 01/30/23 02:31 01/30/23 02:39 Temperature Temperature Source Pulse Rate 96 H Pulse Rate from SpO2 Sensor 96 H Pulse Rhythm Respiratory Rate 19 Respiratory Effort / Characteristics Respiratory Depth Respiratory Pattern Blood Pressure 130/80 Blood Pressure Mean 96 Pulse Oximetry 99 93 Oxygen Delivery Method Room Air Room Air Room Air Oxygen Flow Rate Sepsis Recent Fever Within 48 Hours Sepsis New/Unexplained Change in Mental Status Sepsis Action Taken by Nursing 01/30/23 03:18 01/30/23 03:30 01/30/23 04:29 Temperature Temperature Source Pulse Rate 90 85 107 H Pulse Rate from SpO2 Sensor 89 84 Pulse Rhythm Regular Respiratory Rate 26 H 17 20 Respiratory Effort / Characteristics Respiratory Depth Respiratory Pattern Blood Pressure 175/64 H 152/67 H Blood Pressure Mean 101 95 Pulse Oximetry 98 99 100 Oxygen Delivery Method Room Air Room Air Nasal Cannula Oxygen Flow Rate Sepsis Recent Fever Within 48 Hours Sepsis New/Unexplained Change in Mental Status Sepsis Action Taken by Nursing 01/30/23 04:00 01/30/23 04:30 01/30/23 04:30 Temperature Temperature Source Pulse Rate 103 H 104 H Pulse Rate from SpO2 Sensor 104 H 105 H Pulse Rhythm Respiratory Rate 26 H 19 Respiratory Effort / Characteristics Respiratory Depth Respiratory Pattern Blood Pressure 155/72 H 148/81 H Blood Pressure Mean 99 99 Pulse Oximetry 97 100 Oxygen Delivery Method Room Air Nasal Cannula Oxygen Flow Rate 2 Sepsis Recent Fever Within 48 Hours Sepsis New/Unexplained Change in Mental Status Sepsis Action Taken by Nursing 01/30/23 05:00 Temperature Temperature Source Pulse Rate 103 H Pulse Rate from SpO2 Sensor 105 H Pulse Rhythm Respiratory Rate 20 Respiratory Effort / Characteristics Respiratory Depth Respiratory Pattern Blood Pressure 150/81 H Blood Pressure Mean 104 Pulse Oximetry 98 Oxygen Delivery Method Room Air Oxygen Flow Rate Sepsis Recent Fever Within 48 Hours Sepsis New/Unexplained Change in Mental Status Sepsis Action Taken by Nursing Laboratory Data 01/30/23 02:40 01/30/23 02:40 Lab Results 01/30/23 01/30/23 01/30/23 Range/Units 02:40 02:40 02:40 WBC 6.67 (4.8-10.8) K/ul RBC 5.13 (4.20-5.40) M/uL Hgb 15.5 (12.0-16.0) g/dl Hct 45.0 (37.0-47.0) % MCV 87.7 (80.0-100.0) fL MCH 30.2 (25.0-34.0) pg MCHC 34.4 (32.0-36.0) g/dL RDW Std Deviation 39.2 (36.4-46.3) fL RDW Coeff of Charis 12.2 (11.5-14.5) % Plt Count 222 (130-400) K/uL MPV 9.5 (9.4-12.4) fL Immature Gran % (Auto) 0.3 % Neut % (Auto) 55.9 % Lymph % (Auto) 34.2 % [place] % (Auto) 8.4 % Eos % (Auto) 0.9 % Baso % (Auto) 0.3 % Neut # (Auto) 3.73 (1.40-6.50) K/uL Lymph # (Auto) 2.28 (1.2-3.4) K/uL [place] # (Auto) 0.56 (0.11-0.59) K/uL Eos # (Auto) 0.06 (0-0.50) K/uL Baso # (Auto) 0.02 (0-0.2) K/uL Immature Gran # (Auto) 0.02 (0.01-0.20) K/uL PT 10.5 (9.0-12.0) Seconds INR 1.0 (0.9-1.1) Sodium 140 (136-145) mmol/L Potassium 3.0 L (3.5-5.1) mmol/L Chloride 108 H (98-107) mmol/L Carbon Dioxide 22 (21-32) mmol/L Anion Gap 10 (3-11) BUN 10 (6-23) mg/dl Creatinine 1.09 (0.6-1.2) mg/dl Est Cr Clr Drug Dosing 90.9 ml/min Est GFR ( Amer) 75.6 ml/min Est GFR (Non-Af Amer) 65.3 ml/min BUN/Creatinine Ratio 9.2 L (10-20) Glucose 89 (70-99(Fasting)) mg/dl Calcium 8.7 (8.6-10.3) mg/dl Magnesium 2.2 (1.7-2.4) mg/dl Total Bilirubin 0.3 (0.2-1.0) mg/dl AST 23 (13-39) U/L ALT 28 (7-52) U/L Alkaline Phosphatase 65 (34-104) U/L Troponin I High Sens 3.6 (0-14) pg/ml Total Protein 7.2 (6.0-8.3) gm/dl Albumin 4.0 (3.4-5.0) gm/dl Globulin 3.2 (2.5-4.0) gm/dl Albumin/Globulin Ratio 1.3 (0.9-2) Lipase 17 (11-82) U/L HCG, Qual (Negative) Urine Color Urine Appearance (Clear) Urine pH (4.5-7.5) Ur Specific [place] (1.000-1.030) Urine Protein (Negative) Urine Glucose (UA) (Negative) Urine Ketones (Negative) Urine Blood (Negative) Urine Nitrite (Negative) Urine Bilirubin (Negative) Urine Urobilinogen (Negative) Ur Leukocyte Esterase (Negative) Urine WBC (Auto) (0-5) /hpf Urine RBC (Auto) (0-4) /hpf U Hyaline Cast (Auto) (0-5) /lpf U Epithel Cells (Auto) (0-5) /lpf Urine Bacteria (Auto) (Negative) Salicylates (3.0-30) mg/dl Urine Opiates Screen (Neg) Ur Methadone, Qual (Neg) Acetaminophen (10-30) ug/ml Urine Barbiturates (Neg) Ur Phencyclidine (PCP) (Neg) U Amphetamin/Meth Scrn (Neg) MDMA (Ecstasy) Screen (Neg) U Benzodiazepines Scrn (Neg) Ur Cocaine Metabolite (Neg) U Marijuana (THC) Screen (Neg) Ethyl Alcohol mg/dL (<10.0) mg/dl 01/30/23 01/30/23 01/30/23 Range/Units 02:40 02:40 02:40 WBC (4.8-10.8) K/ul RBC (4.20-5.40) M/uL Hgb (12.0-16.0) g/dl Hct (37.0-47.0) % MCV (80.0-100.0) fL MCH (25.0-34.0) pg MCHC (32.0-36.0) g/dL RDW Std Deviation (36.4-46.3) fL RDW Coeff of Charis (11.5-14.5) % Plt Count (130-400) K/uL MPV (9.4-12.4) fL Immature Gran % (Auto) % Neut % (Auto) % Lymph % (Auto) % [place] % (Auto) % Eos % (Auto) % Baso % (Auto) % Neut # (Auto) (1.40-6.50) K/uL Lymph # (Auto) (1.2-3.4) K/uL [place] # (Auto) (0.11-0.59) K/uL Eos # (Auto) (0-0.50) K/uL Baso # (Auto) (0-0.2) K/uL Immature Gran # (Auto) (0.01-0.20) K/uL PT (9.0-12.0) Seconds INR (0.9-1.1) Sodium (136-145) mmol/L Potassium (3.5-5.1) mmol/L Chloride (98-107) mmol/L Carbon Dioxide (21-32) mmol/L Anion Gap (3-11) BUN (6-23) mg/dl Creatinine (0.6-1.2) mg/dl Est Cr Clr Drug Dosing ml/min Est GFR ( Amer) ml/min Est GFR (Non-Af Amer) ml/min BUN/Creatinine Ratio (10-20) Glucose (70-99(Fasting)) mg/dl Calcium (8.6-10.3) mg/dl Magnesium (1.7-2.4) mg/dl Total Bilirubin (0.2-1.0) mg/dl AST (13-39) U/L ALT (7-52) U/L Alkaline Phosphatase (34-104) U/L Troponin I High Sens (0-14) pg/ml Total Protein (6.0-8.3) gm/dl Albumin (3.4-5.0) gm/dl Globulin (2.5-4.0) gm/dl Albumin/Globulin Ratio (0.9-2) Lipase (11-82) U/L HCG, Qual Negative (Negative) Urine Color Urine Appearance (Clear) Urine pH (4.5-7.5) Ur Specific [place] (1.000-1.030) Urine Protein (Negative) Urine Glucose (UA) (Negative) Urine Ketones (Negative) Urine Blood (Negative) Urine Nitrite (Negative) Urine Bilirubin (Negative) Urine Urobilinogen (Negative) Ur Leukocyte Esterase (Negative) Urine WBC (Auto) (0-5) /hpf Urine RBC (Auto) (0-4) /hpf U Hyaline Cast (Auto) (0-5) /lpf U Epithel Cells (Auto) (0-5) /lpf Urine Bacteria (Auto) (Negative) Salicylates < 3.0 L (3.0-30) mg/dl Urine Opiates Screen (Neg) Ur Methadone, Qual (Neg) Acetaminophen < 3 L (10-30) ug/ml Urine Barbiturates (Neg) Ur Phencyclidine (PCP) (Neg) U Amphetamin/Meth Scrn (Neg) MDMA (Ecstasy) Screen (Neg) U Benzodiazepines Scrn (Neg) Ur Cocaine Metabolite (Neg) U Marijuana (THC) Screen (Neg) Ethyl Alcohol mg/dL 160.4 H (<10.0) mg/dl 01/30/23 01/30/23 Range/Units 04:40 04:40 WBC (4.8-10.8) K/ul RBC (4.20-5.40) M/uL Hgb (12.0-16.0) g/dl Hct (37.0-47.0) % MCV (80.0-100.0) fL MCH (25.0-34.0) pg MCHC (32.0-36.0) g/dL RDW Std Deviation (36.4-46.3) fL RDW Coeff of Charis (11.5-14.5) % Plt Count (130-400) K/uL MPV (9.4-12.4) fL Immature Gran % (Auto) % Neut % (Auto) % Lymph % (Auto) % [place] % (Auto) % Eos % (Auto) % Baso % (Auto) % Neut # (Auto) (1.40-6.50) K/uL Lymph # (Auto) (1.2-3.4) K/uL [place] # (Auto) (0.11-0.59) K/uL Eos # (Auto) (0-0.50) K/uL Baso # (Auto) (0-0.2) K/uL Immature Gran # (Auto) (0.01-0.20) K/uL PT (9.0-12.0) Seconds INR (0.9-1.1) Sodium (136-145) mmol/L Potassium (3.5-5.1) mmol/L Chloride (98-107) mmol/L Carbon Dioxide (21-32) mmol/L Anion Gap (3-11) BUN (6-23) mg/dl Creatinine (0.6-1.2) mg/dl Est Cr Clr Drug Dosing ml/min Est GFR ( Amer) ml/min Est GFR (Non-Af Amer) ml/min BUN/Creatinine Ratio (10-20) Glucose (70-99(Fasting)) mg/dl Calcium (8.6-10.3) mg/dl Magnesium (1.7-2.4) mg/dl Total Bilirubin (0.2-1.0) mg/dl AST (13-39) U/L ALT (7-52) U/L Alkaline Phosphatase (34-104) U/L Troponin I High Sens (0-14) pg/ml Total Protein (6.0-8.3) gm/dl Albumin (3.4-5.0) gm/dl Globulin (2.5-4.0) gm/dl Albumin/Globulin Ratio (0.9-2) Lipase (11-82) U/L HCG, Qual (Negative) Urine Color Yellow Urine Appearance Cloudy A (Clear) Urine pH 5.5 (4.5-7.5) Ur Specific [place] 1.025 (1.000-1.030) Urine Protein Negative (Negative) Urine Glucose (UA) Negative (Negative) Urine Ketones Trace H (Negative) Urine Blood Negative (Negative) Urine Nitrite Negative (Negative) Urine Bilirubin Negative (Negative) Urine Urobilinogen Negative (Negative) Ur Leukocyte Esterase Negative (Negative) Urine WBC (Auto) 1-5 (0-5) /hpf Urine RBC (Auto) 0-4 (0-4) /hpf U Hyaline Cast (Auto) 10-30 H (0-5) /lpf U Epithel Cells (Auto) >30 H (0-5) /lpf Urine Bacteria (Auto) Negative (Negative) Salicylates (3.0-30) mg/dl Urine Opiates Screen Neg (Neg) Ur Methadone, Qual Neg (Neg) Acetaminophen (10-30) ug/ml Urine Barbiturates Neg (Neg) Ur Phencyclidine (PCP) Neg (Neg) U Amphetamin/Meth Scrn Neg (Neg) MDMA (Ecstasy) Screen Pos H (Neg) U Benzodiazepines Scrn Neg (Neg) Ur Cocaine Metabolite Neg (Neg) U Marijuana (THC) Screen Neg (Neg) Ethyl Alcohol mg/dL (<10.0) mg/dl Administered Medications Potassium Chloride (K Demario / Wtr) 10 meq in 100 mls @ 100 mls/hr IV Q1H MARK Stop: 01/30/23 10:14 Last Admin: 01/30/23 05:49 Dose: 100 mls/hr Documented By: SARAVANAN Lactated Ringer's (Lr) 1,000 mls @ 80 mls/hr IV .[id number] ONE Stop: 01/30/23 17:37 Last Admin: 01/30/23 05:49 Dose: 80 mls/hr Documented By: SARAVANAN Discontinued Medications Sodium Chloride (Nss 1000ml) 1,000 mls @ 125 mls/hr IV .Q8H MARK Stop: 03/01/23 02:29 Last Infusion: 01/30/23 05:55 Dose: 0 mls/hr Documented By: Admin: 01/30/23 02:19 Dose: 125 mls/hr Documented By: SARAVANAN Thiamine HCl 100 mg/ Syringe 10 mls @ 2 mls/min IV NOW STA Stop: 01/30/23 04:32 Last Admin: 01/30/23 05:40 Dose: 2 mls/min Documented By: SARAVANAN Ondansetron HCl (Ondansetron Inj 2 Mg/Ml 2 Ml Vial) 4 mg IV NOW STA Stop: 01/30/23 02:23 Last Admin: 01/30/23 02:28 Dose: 4 mg Documented By: JOAQUIM Discharge Plan Visit Data Chief Complaint: Overdose (Intentional) ED Provider: Radha Calvo Discharge Problem: Intentional overdose, Depression, Alcohol intoxication Discharge Instructions Interventions: ED Discharge Assessment Last Done: 01/30/23 05:54
[2023-01-30] MEDS ORDERED: SODIUM CHLORIDE 0.9% 1000ML 1,000 ML IV SCH (02:30)
[2023-01-30 02:58] LABS: Basophils # (auto) 0.02 K/uL (0-0.2); Basophils % (auto) 0.3 %; Eosinophils # (auto) 0.06 K/uL (0-0.50); Eosinophils % (auto) 0.9 %; Hemoglobin 15.5 g/dl (12.0-16.0); Immature Granulocytes # (auto) 0.02 K/uL (0.01-0.20); Immature Granulocytes % (auto) 0.3 %; Lymphocytes # (auto) 2.28 K/uL (1.2-3.4); Lymphocytes % (auto) 34.2 %; Mean Corpuscular Hemoglobin 30.2 pg (25.0-34.0); Mean Corpuscular Hgb Conc 34.4 g/dL (32.0-36.0); Mean Corpuscular Volume 87.7 fL (80.0-100.0); Mean Platelet Volume 9.5 fL (9.4-12.4); Monocytes # (auto) 0.56 K/uL (0.11-0.59); Monocytes % (auto) 8.4 %; Neutrophils # (auto) 3.73 K/uL (1.40-6.50); Neutrophils % (auto) 55.9 %; Platelet Count 222 K/uL (130-400); RDW Coefficient of Variation 12.2 % (11.5-14.5); RDW Standard Deviation 39.2 fL (36.4-46.3); Red Blood Count 5.13 M/uL (4.20-5.40); White Blood Count 6.67 K/ul (4.8-10.8)
[2023-01-30 03:11] LABS: Pregnancy Test, Serum Negative (Negative)
[2023-01-30 03:13] LABS: Acetaminophen < 3 ug/ml (10-30); Salicylate < 3.0 mg/dl (3.0-30)
[2023-01-30 03:15] LABS: Albumin Globulin Ratio 1.3 (0.9-2); BUN Creatinine Ratio 9.2 (10-20); Bilirubin,Total 0.3 mg/dl (0.2-1.0); Calcium 8.7 mg/dl (8.6-10.3); Creatinine Clr Calc Pharmacy 90.9 ml/min; Est GFR (African American) 75.6 ml/min; Est GFR (Non-African American) 65.3 ml/min; Globulin 3.2 gm/dl (2.5-4.0); Magnesium 2.2 mg/dl (1.7-2.4); Total Protein 7.2 gm/dl (6.0-8.3)
[2023-01-30 03:21] LABS: Troponin I High Sensitivity 3.6 pg/ml (0-14)
[2023-01-30 03:26] LABS: Prothrombin Time 10.5 Seconds (9.0-12.0)
[2023-01-30] MEDS ORDERED: THIAMINE HCL 100 MG in SYRINGE 9 ML IV STA (04:28)
[2023-01-30] MEDS ORDERED: LACTATED RINGER'S 1,000 ML IV ONE (05:08)
--- NOTE | 2023-01-30 05:08 | History & Physical Report ---
Date of Service January 30, 2023 Assessment & Plan (1) Intentional overdose: Plan: Auvelty (bupropion dextromethorphan combination) Suboptimal mood Hypokalemia secondary to emesis Alcohol intoxication, no EtOH abuse concerns as per Medical microfilmer for 24 hours for seizures as per toxicology recommendations Psych consult re: suicidality Suicide precautions replace potassium DVT prophylaxis per Lovenox subcu Full code Patient requesting updates providers. Mr. Raymon Saba, contact #[phone]. Text document was generated using [employer] voice recognition software. It may contain grammatical or spelling errors. Kindly contact undersigned for clarification of any documentation item in question. History of Present Illness Chief Complaint: Overdose Primary Care Provider: Jacki Bowden PA-C History obtained from patient, family, and records. Limited history from patient secondary to lethargy. Medical history significant for mood disorder, Last confinement November 2020 under psychiatry service for major depressive disorder. Patient started by psychiatrist last month on Auvelty (bupropion dextromethorphan) Rx for her mood. Her previous Wellbutrin Rx was making patient 'ragy' as per . Worsening depression since Auvelty medication started as per . Odd behavior noted at home. Earlier this morning, patient received a text message from saying she was sorry. Patient rushed outside her home to look for . She was found lying buried under some leaves. Patient awake but somewhat drowsy as per . Patient too weak to get up. Denies headache, chest pain, SOB, abdominal pain. Auvelty medication bottle was empty. Patient may have taken 50 pills. Patient brought to ER by EMS. Subsequent emesis at the ER. 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 Allergies Allergy/AdvReac Type Severity Reaction Status Date / Time bupropion [From Wellbutrin] Allergy Severe Difficulty Verified 01/30/23 02:22 Breathing cyclobenzaprine Allergy Severe DIFFICULTY Verified 01/30/23 02:22 BREATHING, CHOKING, COULDN'T WAKE UP Home Medications Medication Instructions Recorded Confirmed Type acetaminophen 500 mg tablet 1,000 mg PO DIRECTED PRN Pain 01/30/23 01/30/23 History (Tylenol Extra Strength) dextromethorphan IR 45 1 tab PO DIRECTED 01/30/23 01/30/23 History mg-bupropion ER 105 mg biphasic tablet (Auvelity) levonorgestrel-ethinyl estradiol 1 tab PO QAM 01/30/23 01/30/23 History 0.1 mg-20 mcg tablet (Aviane) Past Med/Surg History Medical History Bicornate uterus Depression Depression Depression with suicidal ideation Family history of reaction to anesthesia GRANDPARENTS HAD ISSUES WITH WAKING, NO KNOWN DIAGNOSIS OF ANESTHESIA REACTION. High serum chloride Neck pain Sinus bradycardia Suicidal ideations Thyroid nodule Surgical History History of section EMERGENCY 2015. 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 SHE REMEMBERS FEELING THE "SENSE OF DOOM". History of dilatation and curettage S/T MISCARRIAGE Family History Family/Other Thyroid nodule Social History Smoking Status: Unknown if ever smoked Cigarettes Per Day: 0; Second Hand Exposure: No; Do You Dip or Chew Tobacco: No; Hx Alcohol Use: Yes Hx Substance Use: No Preferred Language: Thai Communication Ability: Effective Collection Administrator Required: No Beliefs That Will Affect Care: None marital status: Current Living Situation: Family Other Information That Helps Us Care for You: No Feels Safe at Home: Declines to Answer Safety Concerns: Feels Safe At This Time Assistive Devices: None Review of Systems Review of Systems: Could not be reliably obtained secondary to lethargy Physical Exam Physical Exam: GENERAL: Lethargic, morbidly obese, dysphonic, no respiratory distress SKIN: Normal color, warm HEENT: [place] palpebral conjunctivae, no ptosis, dry buccal mucosa NECK : Supple, short neck, no tenderness CHEST : Decreased breath sounds, no tenderness HEART : RRR, no obvious murmurs ABDOMEN: Some distention, nontender EXTREMITIES : Minimal LE swelling, no LE tenderness, no other conspicuous deformities noted NEUROLOGIC : Lethargic, no facial asymmetry, gait and stance not assessed Results & Data Results & Data Vital Signs (Past 12 Hours) Vital Signs Temp Pulse Resp BP Pulse Ox O2 Del Method O2 Flow Rate 01/30/23 04:30 104 H 19 100 Nasal Cannula 2 01/30/23 04:30 148/81 H 01/30/23 04:00 103 H 26 H 155/72 H 97 Room Air 01/30/23 04:29 107 H 20 100 Nasal Cannula 01/30/23 03:30 85 17 152/67 H 99 Room Air 01/30/23 03:18 90 26 H 175/64 H 98 Room Air 01/30/23 02:39 93 Room Air 01/30/23 02:31 96 H 19 130/80 99 Room Air 01/30/23 02:17 Room Air 01/30/23 02:17 Room Air 01/30/23 02:14 94 H 01/30/23 02:11 37.3 C 99 H 14 149/90 H 98 Room Air Laboratory Results Laboratory Results WBC 6.67 K/ul (4.8-10.8) 01/30/23 02:40 RBC 5.13 M/uL (4.20-5.40) 01/30/23 02:40 Hgb 15.5 g/dl (12.0-16.0) 01/30/23 02:40 Hct 45.0 % (37.0-47.0) 01/30/23 02:40 MCV 87.7 fL (80.0-100.0) 01/30/23 02:40 MCH 30.2 pg (25.0-34.0) 01/30/23 02:40 MCHC 34.4 g/dL (32.0-36.0) 01/30/23 02:40 RDW Std Deviation 39.2 fL (36.4-46.3) 01/30/23 02:40 RDW Coeff of Charis 12.2 % (11.5-14.5) 01/30/23 02:40 Plt Count 222 K/uL (130-400) 01/30/23 02:40 MPV 9.5 fL (9.4-12.4) 01/30/23 02:40 Immature Gran % (Auto) 0.3 % 01/30/23 02:40 Neut % (Auto) 55.9 % 01/30/23 02:40 Lymph % (Auto) 34.2 % 01/30/23 02:40 [place] % (Auto) 8.4 % 01/30/23 02:40 Eos % (Auto) 0.9 % 01/30/23 02:40 Baso % (Auto) 0.3 % 01/30/23 02:40 Neut # (Auto) 3.73 K/uL (1.40-6.50) 01/30/23 02:40 Lymph # (Auto) 2.28 K/uL (1.2-3.4) 01/30/23 02:40 [place] # (Auto) 0.56 K/uL (0.11-0.59) 01/30/23 02:40 Eos # (Auto) 0.06 K/uL (0-0.50) 01/30/23 02:40 Baso # (Auto) 0.02 K/uL (0-0.2) 01/30/23 02:40 Immature Gran # (Auto) 0.02 K/uL (0.01-0.20) 01/30/23 02:40 PT 10.5 Seconds (9.0-12.0) 01/30/23 02:40 INR 1.0 (0.9-1.1) 01/30/23 02:40 Sodium 140 mmol/L (136-145) 01/30/23 02:40 Potassium 3.0 mmol/L (3.5-5.1) L 01/30/23 02:40 Chloride 108 mmol/L (98-107) H 01/30/23 02:40 Carbon Dioxide 22 mmol/L (21-32) 01/30/23 02:40 Anion Gap 10 (3-11) 01/30/23 02:40 BUN 10 mg/dl (6-23) 01/30/23 02:40 Creatinine 1.09 mg/dl (0.6-1.2) 01/30/23 02:40 Est Cr Clr Drug Dosing 90.9 ml/min 01/30/23 02:40 Est GFR ( Amer) 75.6 ml/min 01/30/23 02:40 Est GFR (Non-Af Amer) 65.3 ml/min 01/30/23 02:40 BUN/Creatinine Ratio 9.2 (10-20) L 01/30/23 02:40 Glucose 89 mg/dl (70-99(Fasting)) 01/30/23 02:40 Calcium 8.7 mg/dl (8.6-10.3) 01/30/23 02:40 Magnesium 2.2 mg/dl (1.7-2.4) 01/30/23 02:40 Total Bilirubin 0.3 mg/dl (0.2-1.0) 01/30/23 02:40 AST 23 U/L (13-39) 01/30/23 02:40 ALT 28 U/L (7-52) 01/30/23 02:40 Alkaline Phosphatase 65 U/L (34-104) 01/30/23 02:40 Troponin I High Sens 3.6 pg/ml (0-14) 01/30/23 02:40 Total Protein 7.2 gm/dl (6.0-8.3) 01/30/23 02:40 Albumin 4.0 gm/dl (3.4-5.0) 01/30/23 02:40 Globulin 3.2 gm/dl (2.5-4.0) 01/30/23 02:40 Albumin/Globulin Ratio 1.3 (0.9-2) 01/30/23 02:40 Lipase 17 U/L (11-82) 01/30/23 02:40 HCG, Qual Negative (Negative) 01/30/23 02:40 Salicylates < 3.0 mg/dl (3.0-30) L 01/30/23 02:40 Acetaminophen < 3 ug/ml (10-30) L 01/30/23 02:40 Ethyl Alcohol mg/dL 160.4 mg/dl (<10.0) H 01/30/23 02:40 Diagnostic Findings EKG as per my interpretation :Rate 95, NSR, normal axis, septal infarct, no ischemia,
[2023-01-30] MEDS ORDERED: ACETAMINOPHEN 1,000 MG/100 ML VIAL IV PRN (05:12)
[2023-01-30] MEDS ORDERED: PROMETHAZINE HCL 12.5 MG in SODIUM CHLORIDE 0.9% 50 ML IV PRN (05:12)
[2023-01-30] MEDS ORDERED: LORazepam 2 MG/1 ML VIAL IV PRN (05:12)
[2023-01-30 05:17] LABS: Appearance Urine Cloudy (Clear); Bacteria Urine Automated Negative (Negative); Bilirubin Urine Negative (Negative); Blood Urine Negative (Negative); Color Urine Yellow; Epithelial Cell Urine Auto >30 /lpf (0-5); Glucose Urine UA Negative (Negative); Ketones Urine Trace (Negative); Leukocyte Esterase Urine Negative (Negative); Nitrite Urine Negative (Negative); Protein Urine Negative (Negative); RBC Urine Automated 0-4 /hpf (0-4); Specific Gravity Urine 1.025 (1.000-1.030); Urobilinogen Urine Negative (Negative); pH Urine 5.5 (4.5-7.5)
[2023-01-30 05:36] LABS: Amphetamines+Metham, Urine Neg (Neg); Barbiturates, Urine Neg (Neg); Benzodiazepine, Urine Neg (Neg); Cocaine, Urine Neg (Neg); MDMA (Ecstacy), Urine Pos (Neg); Methadone, Urine Neg (Neg); Opiate, Urine Neg (Neg); Phencyclidine, Urine Neg (Neg)
[2023-01-30] MEDS: POTASSIUM CHLORIDE / WTR 10 MEQ/100 ML PLCT IV SCH ×5 (05:49→09:55)
[2023-01-30] MEDS ORDERED: ACETAMINOPHEN 325 MG TAB PO PRN (05:53)
[2023-01-30] MEDS: ENOXAPARIN INJ 40 MG/0.4 ML SYR SQ SCH (09:55)
[2023-01-30 13:14] LABS: BUN Creatinine Ratio 8.5 (10-20); Calcium 8.2 mg/dl (8.6-10.3); Creatinine Clr Calc Pharmacy 93.5 ml/min; Est GFR (African American) 78.2 ml/min; Est GFR (Non-African American) 67.5 ml/min; Magnesium 1.8 mg/dl (1.7-2.4); Potassium 4.1 mmol/L (3.5-5.1)
--- NOTE | 2023-01-30 16:02 | Electrocardiogram Report ---
Test Reason : Blood Pressure : / mmHG Vent. Rate : 095 BPM Atrial Rate : 095 BPM P-R Int : 196 ms QRS Dur : 104 ms QT Int : 366 ms P-R-T Axes : 046 060 030 degrees QTc Int : 459 ms Normal sinus rhythm Poor R wave progression, consider anterior CO vs. lead placement vs. LVH Abnormal ECG When compared with ECG of 08-SEP-2010 17:15, Vent. rate has increased BY 38 BPM QRS duration has increased QT has lengthened Confirmed by Darren George ([id number]) on 01/30/2023 4:01:56 PM Referred By: REFERRED SELF Confirmed By:Darren George
--- NOTE | 2023-01-30 16:25 | Psychiatric Consultation ---
Date of Consultation January 30, 2023 Impression / Recommendations Impression 37 yo female with chronic depression and recurrent hospitalizations for SI presents s/p OD attempt. Hx of SI on bupropion with is a main ingredient in Auvelity. + MDMA likely due to Auvelity. (1) Depression: (2) Narcolepsy: (3) Intentional overdose: Plan patient is unable to leave the hospital AMA, a 302 petitioning statement is on the chart if need to pursue warrant 1 on pending medical clearance and inpatient psychiatric placement Psych History Identifying Data 37 yo female from [place] well known to psychiatric services presented to ED overnight s/p intentional OD. Chief Complaint "I don't feel like answering questions." History of Present Illness Patient presented as rather flat/guarded to myself/liaison, doesn't identify a specific precipitating event for OD, ingested unknown amount of Auvelity (bupropion plus DM) ?50 pills and texted her sorry. When he came home to check on her she was lying outside covered in leaves/brush. She ingested the pills with 1/2 bottle of vodka but is otherwise not a known binge drinker. She continues to see Wilian Kitchen for couples counseling and [facility] for medication management. There is a note that mentions police department confirmed the ingestion just after midnight via video. She was last hospitalized in 12/06 (previous [facility] stays 06/06, 09/04, 08/07 X2, and 06/05, etc.). Chronic stressors include 5 children with varying health needs. There is a family history of bipolar disorder and depression (brothers), and substance abuse. Medication trials are extensive and include but may not be limited to: antidepressants (Paxil, Wellbutrin caused SI in past, Zoloft, Prozac, Trintellix, Remeron, Pristiq), mood stabilizers (Depakote), atypicals (Risperdal, Rexulti,Abilify), Spravato, stimulants (Adderall, Vyvanse)/modafanil for narcolepsy Allergies Allergy/AdvReac Type Severity Reaction Status Date / Time bupropion [From Wellbutrin] Allergy Severe Difficulty Verified 01/30/23 02:22 Breathing cyclobenzaprine Allergy Severe DIFFICULTY Verified 01/30/23 02:22 BREATHING, CHOKING, COULDN'T WAKE UP Home Medications Medication Instructions Recorded Confirmed Type acetaminophen 500 mg tablet 1,000 mg PO DIRECTED PRN Pain 01/30/23 01/30/23 History (Tylenol Extra Strength) dextromethorphan IR 45 1 tab PO DIRECTED 01/30/23 01/30/23 History mg-bupropion ER 105 mg biphasic tablet (Auvelity) levonorgestrel-ethinyl estradiol 1 tab PO QAM 01/30/23 01/30/23 History 0.1 mg-20 mcg tablet (Aviane) Patient History Medical History Bicornate uterus Depression Depression Depression with suicidal ideation Family history of reaction to anesthesia GRANDPARENTS HAD ISSUES WITH WAKING, NO KNOWN DIAGNOSIS OF ANESTHESIA REACTION. High serum chloride Neck pain Sinus bradycardia Suicidal ideations Thyroid nodule Surgical History History of section EMERGENCY 2015. 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 SHE REMEMBERS FEELING THE "SENSE OF DOOM". History of dilatation and curettage S/T MISCARRIAGE Family History Family/Other Thyroid nodule Social History Smoking Status: Unknown if ever smoked Cigarettes Per Day: 0; Second Hand Exposure: No; Do You Dip or Chew Tobacco: No; Hx Alcohol Use: Yes Hx Substance Use: No Preferred Language: Citizen Of [place] Communication Ability: Effective Diet Consultant Required: No Beliefs That Will Affect Care: None marital status: Current Living Situation: Family Other Information That Helps Us Care for You: No Feels Safe at Home: Declines to Answer Safety Concerns: Feels Safe At This Time Assistive Devices: None Physical Exam Psychiatric: Orientation: alert Apperance: + disheveled Eye Contact: + poor eye contact Motor Behavior: no abnormal motor movements Speech: + abnormal rate/rhythm/volume of speech nonspontaneous Affect: + depressed affect Mood: + depressed mood Thought Process: + concrete thought process Thought Content: reality based without delusions Suicidal Thoughts: + reports suicidal thoughts Homicidal Thoughts: denies homicidal thoughts Hallucinations: no auditory hallucinations and no visual hallucinations Cognition: language grossly intact; + attention not intact Estimated Intelligence: consistent with education level Insight: + limited insight Judgment: + limited judgement Vital Signs (Past 24 Hours): Last Vital Signs Temp 37.3 C 01/30/23 02:11 Pulse 92 H 01/30/23 15:53 Resp 18 01/30/23 15:53 BP 147/84 H 01/30/23 15:53 Pulse Ox 93 01/30/23 15:53 O2 Del Method Room Air 01/30/23 15:53 O2 Flow Rate 2 01/30/23 07:27 Review of Systems All systems reviewed & are unremarkable except as noted in HPI & below Results & Data (PSY) Laboratory Results 01/30/23 01/30/23 01/30/23 Range/Units 12:35 04:40 04:40 WBC (4.8-10.8) K/ul RBC (4.20-5.40) M/uL Hgb (12.0-16.0) g/dl Hct (37.0-47.0) % MCV (80.0-100.0) fL MCH (25.0-34.0) pg MCHC (32.0-36.0) g/dL RDW Std Deviation (36.4-46.3) fL RDW Coeff of Charis (11.5-14.5) % Plt Count (130-400) K/uL MPV (9.4-12.4) fL Immature Gran % (Auto) % Neut % (Auto) % Lymph % (Auto) % [place] % (Auto) % Eos % (Auto) % Baso % (Auto) % Neut # (Auto) (1.40-6.50) K/uL Lymph # (Auto) (1.2-3.4) K/uL [place] # (Auto) (0.11-0.59) K/uL Eos # (Auto) (0-0.50) K/uL Baso # (Auto) (0-0.2) K/uL Immature Gran # (Auto) (0.01-0.20) K/uL PT (9.0-12.0) Seconds INR (0.9-1.1) Sodium 140 (136-145) mmol/L Potassium 4.1 D (3.5-5.1) mmol/L Chloride 108 H (98-107) mmol/L Carbon Dioxide 24 (21-32) mmol/L Anion Gap 8 (3-11) BUN 9 (6-23) mg/dl Creatinine 1.06 (0.6-1.2) mg/dl Est Cr Clr Drug Dosing 93.5 ml/min Est GFR ( Amer) 78.2 ml/min Est GFR (Non-Af Amer) 67.5 ml/min BUN/Creatinine Ratio 8.5 L (10-20) Glucose 106 H (70-99(Fasting)) mg/dl Calcium 8.2 L (8.6-10.3) mg/dl Magnesium 1.8 (1.7-2.4) mg/dl Total Bilirubin (0.2-1.0) mg/dl AST (13-39) U/L ALT (7-52) U/L Alkaline Phosphatase (34-104) U/L Troponin I High Sens (0-14) pg/ml Total Protein (6.0-8.3) gm/dl Albumin (3.4-5.0) gm/dl Globulin (2.5-4.0) gm/dl Albumin/Globulin Ratio (0.9-2) Lipase (11-82) U/L HCG, Qual (Negative) Urine Color Urine Appearance (Clear) Urine pH (4.5-7.5) Ur Specific [place] (1.000-1.030) Urine Protein (Negative) Urine Glucose (UA) (Negative) Urine Ketones (Negative) Urine Blood (Negative) Urine Nitrite (Negative) Urine Bilirubin (Negative) Urine Urobilinogen (Negative) Ur Leukocyte Esterase (Negative) Urine WBC (Auto) (0-5) /hpf Urine RBC (Auto) (0-4) /hpf U Hyaline Cast (Auto) (0-5) /lpf U Epithel Cells (Auto) (0-5) /lpf Urine Bacteria (Auto) (Negative) Salicylates (3.0-30) mg/dl Urine Opiates Screen Neg (Neg) Ur Methadone, Qual Neg (Neg) Acetaminophen (10-30) ug/ml Urine Barbiturates Neg (Neg) Ur Phencyclidine (PCP) Neg (Neg) U Amphetamin/Meth Scrn Neg (Neg) Urine MDEA Pending MDMA (Ecstasy) Screen Pos H (Neg) MDMA Pending Urine MDMA Pending U Benzodiazepines Scrn Neg (Neg) Ur Cocaine Metabolite Neg (Neg) U Marijuana (THC) Screen Neg (Neg) Ethyl Alcohol mg/dL (<10.0) mg/dl 01/30/23 01/30/23 01/30/23 Range/Units 04:40 02:40 02:40 WBC (4.8-10.8) K/ul RBC (4.20-5.40) M/uL Hgb (12.0-16.0) g/dl Hct (37.0-47.0) % MCV (80.0-100.0) fL MCH (25.0-34.0) pg MCHC (32.0-36.0) g/dL RDW Std Deviation (36.4-46.3) fL RDW Coeff of Charis (11.5-14.5) % Plt Count (130-400) K/uL MPV (9.4-12.4) fL Immature Gran % (Auto) % Neut % (Auto) % Lymph % (Auto) % [place] % (Auto) % Eos % (Auto) % Baso % (Auto) % Neut # (Auto) (1.40-6.50) K/uL Lymph # (Auto) (1.2-3.4) K/uL [place] # (Auto) (0.11-0.59) K/uL Eos # (Auto) (0-0.50) K/uL Baso # (Auto) (0-0.2) K/uL Immature Gran # (Auto) (0.01-0.20) K/uL PT (9.0-12.0) Seconds INR (0.9-1.1) Sodium (136-145) mmol/L Potassium (3.5-5.1) mmol/L Chloride (98-107) mmol/L Carbon Dioxide (21-32) mmol/L Anion Gap (3-11) BUN (6-23) mg/dl Creatinine (0.6-1.2) mg/dl Est Cr Clr Drug Dosing ml/min Est GFR ( Amer) ml/min Est GFR (Non-Af Amer) ml/min BUN/Creatinine Ratio (10-20) Glucose (70-99(Fasting)) mg/dl Calcium (8.6-10.3) mg/dl Magnesium (1.7-2.4) mg/dl Total Bilirubin (0.2-1.0) mg/dl AST (13-39) U/L ALT (7-52) U/L Alkaline Phosphatase (34-104) U/L Troponin I High Sens (0-14) pg/ml Total Protein (6.0-8.3) gm/dl Albumin (3.4-5.0) gm/dl Globulin (2.5-4.0) gm/dl Albumin/Globulin Ratio (0.9-2) Lipase (11-82) U/L HCG, Qual Negative (Negative) Urine Color Yellow Urine Appearance Cloudy A (Clear) Urine pH 5.5 (4.5-7.5) Ur Specific [place] 1.025 (1.000-1.030) Urine Protein Negative (Negative) Urine Glucose (UA) Negative (Negative) Urine Ketones Trace H (Negative) Urine Blood Negative (Negative) Urine Nitrite Negative (Negative) Urine Bilirubin Negative (Negative) Urine Urobilinogen Negative (Negative) Ur Leukocyte Esterase Negative (Negative) Urine WBC (Auto) 1-5 (0-5) /hpf Urine RBC (Auto) 0-4 (0-4) /hpf U Hyaline Cast (Auto) 10-30 H (0-5) /lpf U Epithel Cells (Auto) >30 H (0-5) /lpf Urine Bacteria (Auto) Negative (Negative) Salicylates (3.0-30) mg/dl Urine Opiates Screen (Neg) Ur Methadone, Qual (Neg) Acetaminophen (10-30) ug/ml Urine Barbiturates (Neg) Ur Phencyclidine (PCP) (Neg) U Amphetamin/Meth Scrn (Neg) Urine MDEA MDMA (Ecstasy) Screen (Neg) MDMA Urine MDMA U Benzodiazepines Scrn (Neg) Ur Cocaine Metabolite (Neg) U Marijuana (THC) Screen (Neg) Ethyl Alcohol mg/dL 160.4 H (<10.0) mg/dl 01/30/23 01/30/23 01/30/23 Range/Units 02:40 02:40 02:40 WBC (4.8-10.8) K/ul RBC (4.20-5.40) M/uL Hgb (12.0-16.0) g/dl Hct (37.0-47.0) % MCV (80.0-100.0) fL MCH (25.0-34.0) pg MCHC (32.0-36.0) g/dL RDW Std Deviation (36.4-46.3) fL RDW Coeff of Charis (11.5-14.5) % Plt Count (130-400) K/uL MPV (9.4-12.4) fL Immature Gran % (Auto) % Neut % (Auto) % Lymph % (Auto) % [place] % (Auto) % Eos % (Auto) % Baso % (Auto) % Neut # (Auto) (1.40-6.50) K/uL Lymph # (Auto) (1.2-3.4) K/uL [place] # (Auto) (0.11-0.59) K/uL Eos # (Auto) (0-0.50) K/uL Baso # (Auto) (0-0.2) K/uL Immature Gran # (Auto) (0.01-0.20) K/uL PT 10.5 (9.0-12.0) Seconds INR 1.0 (0.9-1.1) Sodium 140 (136-145) mmol/L Potassium 3.0 L (3.5-5.1) mmol/L Chloride 108 H (98-107) mmol/L Carbon Dioxide 22 (21-32) mmol/L Anion Gap 10 (3-11) BUN 10 (6-23) mg/dl Creatinine 1.09 (0.6-1.2) mg/dl Est Cr Clr Drug Dosing 90.9 ml/min Est GFR ( Amer) 75.6 ml/min Est GFR (Non-Af Amer) 65.3 ml/min BUN/Creatinine Ratio 9.2 L (10-20) Glucose 89 (70-99(Fasting)) mg/dl Calcium 8.7 (8.6-10.3) mg/dl Magnesium 2.2 (1.7-2.4) mg/dl Total Bilirubin 0.3 (0.2-1.0) mg/dl AST 23 (13-39) U/L ALT 28 (7-52) U/L Alkaline Phosphatase 65 (34-104) U/L Troponin I High Sens 3.6 (0-14) pg/ml Total Protein 7.2 (6.0-8.3) gm/dl Albumin 4.0 (3.4-5.0) gm/dl Globulin 3.2 (2.5-4.0) gm/dl Albumin/Globulin Ratio 1.3 (0.9-2) Lipase 17 (11-82) U/L HCG, Qual (Negative) Urine Color Urine Appearance (Clear) Urine pH (4.5-7.5) Ur Specific [place] (1.000-1.030) Urine Protein (Negative) Urine Glucose (UA) (Negative) Urine Ketones (Negative) Urine Blood (Negative) Urine Nitrite (Negative) Urine Bilirubin (Negative) Urine Urobilinogen (Negative) Ur Leukocyte Esterase (Negative) Urine WBC (Auto) (0-5) /hpf Urine RBC (Auto) (0-4) /hpf U Hyaline Cast (Auto) (0-5) /lpf U Epithel Cells (Auto) (0-5) /lpf Urine Bacteria (Auto) (Negative) Salicylates < 3.0 L (3.0-30) mg/dl Urine Opiates Screen (Neg) Ur Methadone, Qual (Neg) Acetaminophen < 3 L (10-30) ug/ml Urine Barbiturates (Neg) Ur Phencyclidine (PCP) (Neg) U Amphetamin/Meth Scrn (Neg) Urine MDEA MDMA (Ecstasy) Screen (Neg) MDMA Urine MDMA U Benzodiazepines Scrn (Neg) Ur Cocaine Metabolite (Neg) U Marijuana (THC) Screen (Neg) Ethyl Alcohol mg/dL (<10.0) mg/dl 01/30/23 Range/Units 02:40 WBC 6.67 (4.8-10.8) K/ul RBC 5.13 (4.20-5.40) M/uL Hgb 15.5 (12.0-16.0) g/dl Hct 45.0 (37.0-47.0) % MCV 87.7 (80.0-100.0) fL MCH 30.2 (25.0-34.0) pg MCHC 34.4 (32.0-36.0) g/dL RDW Std Deviation 39.2 (36.4-46.3) fL RDW Coeff of Charis 12.2 (11.5-14.5) % Plt Count 222 (130-400) K/uL MPV 9.5 (9.4-12.4) fL Immature Gran % (Auto) 0.3 % Neut % (Auto) 55.9 % Lymph % (Auto) 34.2 % [place] % (Auto) 8.4 % Eos % (Auto) 0.9 % Baso % (Auto) 0.3 % Neut # (Auto) 3.73 (1.40-6.50) K/uL Lymph # (Auto) 2.28 (1.2-3.4) K/uL [place] # (Auto) 0.56 (0.11-0.59) K/uL Eos # (Auto) 0.06 (0-0.50) K/uL Baso # (Auto) 0.02 (0-0.2) K/uL Immature Gran # (Auto) 0.02 (0.01-0.20) K/uL PT (9.0-12.0) Seconds INR (0.9-1.1) Sodium (136-145) mmol/L Potassium (3.5-5.1) mmol/L Chloride (98-107) mmol/L Carbon Dioxide (21-32) mmol/L Anion Gap (3-11) BUN (6-23) mg/dl Creatinine (0.6-1.2) mg/dl Est Cr Clr Drug Dosing ml/min Est GFR ( Amer) ml/min Est GFR (Non-Af Amer) ml/min BUN/Creatinine Ratio (10-20) Glucose (70-99(Fasting)) mg/dl Calcium (8.6-10.3) mg/dl Magnesium (1.7-2.4) mg/dl Total Bilirubin (0.2-1.0) mg/dl AST (13-39) U/L ALT (7-52) U/L Alkaline Phosphatase (34-104) U/L Troponin I High Sens (0-14) pg/ml Total Protein (6.0-8.3) gm/dl Albumin (3.4-5.0) gm/dl Globulin (2.5-4.0) gm/dl Albumin/Globulin Ratio (0.9-2) Lipase (11-82) U/L HCG, Qual (Negative) Urine Color Urine Appearance (Clear) Urine pH (4.5-7.5) Ur Specific [place] (1.000-1.030) Urine Protein (Negative) Urine Glucose (UA) (Negative) Urine Ketones (Negative) Urine Blood (Negative) Urine Nitrite (Negative) Urine Bilirubin (Negative) Urine Urobilinogen (Negative) Ur Leukocyte Esterase (Negative) Urine WBC (Auto) (0-5) /hpf Urine RBC (Auto) (0-4) /hpf U Hyaline Cast (Auto) (0-5) /lpf U Epithel Cells (Auto) (0-5) /lpf Urine Bacteria (Auto) (Negative) Salicylates (3.0-30) mg/dl Urine Opiates Screen (Neg) Ur Methadone, Qual (Neg) Acetaminophen (10-30) ug/ml Urine Barbiturates (Neg) Ur Phencyclidine (PCP) (Neg) U Amphetamin/Meth Scrn (Neg) Urine MDEA MDMA (Ecstasy) Screen (Neg) MDMA Urine MDMA U Benzodiazepines Scrn (Neg) Ur Cocaine Metabolite (Neg) U Marijuana (THC) Screen (Neg) Ethyl Alcohol mg/dL (<10.0) mg/dl Medications Administered Enoxaparin Sodium (Enoxaparin Inj 40 Mg/0.4 Ml Syr) 40 mg SQ QAM MARK Stop: 03/01/23 08:59 Last Admin: 01/30/23 09:55 Dose: 40 mg Documented By: CIARAN Lactated Ringer's (Lr) 1,000 mls @ 80 mls/hr IV .[id number] ONE Stop: 01/30/23 17:37 Last Admin: 01/30/23 05:49 Dose: 80 mls/hr Documented By: SARAVANAN Promethazine HCl 12.5 mg/ (Sodium Chloride) 50.5 mls @ 202 mls/hr IV Q6H PRN PRN Reason: Nausea And Vomiting Stop: 03/01/23 05:11 Last Infusion: 01/30/23 10:42 Dose: 0 mls/hr Documented By: Admin: 01/30/23 10:18 Dose: 202 mls/hr Documented By: CIARAN Coding Level of Care Code 17693 [facility] Intl Hosp Care Lvl 2 Diagnoses Depression F32.9 Narcolepsy G47.419 Intentional overdose T50.902A
--- NOTE | 2023-01-30 17:04 | Communication Note ---
Date of Service: January 30, 2023 Patient seen and examined at the ER with female HEALTH SCIENCE SPECIALIST at the bedside during encounter Resting in bed, easily awakened Oriented x3, calm and cooperative Flat affect, states she just feels tired but denies headache, dizziness, chest pain, shortness of breath, abdominal pain, nausea vomiting, plans urination or bowel movement Denies fevers or chills Reports heart has been beating fast since she started to take the Evaulty Labs noted and reviewed General- oriented x 3, not in distress, speaks in sentences with no effort or accessory muscle use Eyes- anicteric Neck- no JVD Lungs- clear breath sounds bilaterally, no rales/wheezes Heart- normal rate, regular rhythm; no murmurs Abdomen- normal bowel sounds, nondistended, soft, nontender Extremities- no pretibial edema, no calf tenderness Neuro- alert, oriented x 3; no gross focal neurologic deficits Psych-flat affect, currently denies suicidal ideation Skin- warm & dry Monitor electrolytes, EKG, seizure precautions Suicidal precautions One-to-one observation Transition to 3 S when medically stable Yariel Chu MD
[2023-01-31 06:40] LABS: Basophils # (auto) 0.01 K/uL (0-0.2); Basophils % (auto) 0.1 %; Eosinophils # (auto) 0.03 K/uL (0-0.50); Eosinophils % (auto) 0.3 %; Hematocrit (blood only) 41.1 % (37.0-47.0); Hemoglobin 13.9 g/dl (12.0-16.0); Immature Granulocytes # (auto) 0.02 K/uL (0.01-0.20); Immature Granulocytes % (auto) 0.2 %; Lymphocytes # (auto) 1.81 K/uL (1.2-3.4); Lymphocytes % (auto) 20.7 %; Mean Corpuscular Hemoglobin 29.6 pg (25.0-34.0); Mean Corpuscular Hgb Conc 33.8 g/dL (32.0-36.0); Mean Corpuscular Volume 87.6 fL (80.0-100.0); Mean Platelet Volume 9.6 fL (9.4-12.4); Monocytes # (auto) 0.66 K/uL (0.11-0.59); Monocytes % (auto) 7.6 %; Neutrophils # (auto) 6.21 K/uL (1.40-6.50); Neutrophils % (auto) 71.1 %; Platelet Count 196 K/uL (130-400); RDW Coefficient of Variation 12.7 % (11.5-14.5); RDW Standard Deviation 40.4 fL (36.4-46.3); Red Blood Count 4.69 M/uL (4.20-5.40); White Blood Count 8.74 K/ul (4.8-10.8)
[2023-01-31 06:54] LABS: BUN Creatinine Ratio 7.5 (10-20); Calcium 8.5 mg/dl (8.6-10.3); Creatinine Clr Calc Pharmacy 92.6 ml/min; Est GFR (African American) 77.3 ml/min; Est GFR (Non-African American) 66.7 ml/min; Potassium 3.5 mmol/L (3.5-5.1)
[2023-01-31] MEDS: ENOXAPARIN INJ 40 MG/0.4 ML SYR SQ SCH (08:48)
--- NOTE | 2023-01-31 11:34 | XRay Report ---
XR chest 1V portable CLINICAL HISTORY: med cl for psych TECHNIQUE: Single frontal radiograph of the chest was obtained. Comparison: None available at the time of this dictation. FINDINGS: No lines and tubes are seen. The cardiomediastinal silhouette is normal. The lungs are clear. No evid ence of pleural effusion or pneumothorax. IMPRESSION: No acute chest disease. ACT 112: Negative or not required by law. Electronically signed by: Sanjeev Chao M.D. 01/31/2023 11:32 AM
[2023-01-31] MEDS ORDERED: POTASSIUM CHLORIDE CRTAB 20 MEQ TABCR PO STA (12:38)
--- NOTE | 2023-01-31 13:29 | Discharge Summary ---
Date of Service January 31, 2023 Admission HPI Per Admitting Provider History obtained from patient, family, and records. Limited history from patient secondary to lethargy. Medical history significant for mood disorder, Last confinement November 2020 under psychiatry service for major depressive disorder. Patient started by psychiatrist last month on Auvelty (bupropion dextromethorphan) Rx for her mood. Her previous Wellbutrin Rx was making patient 'ragy' as per . Worsening depression since Auvelty medication started as per . Odd behavior noted at home. Earlier this morning, patient received a text message from saying she was sorry. Patient rushed outside her home to look for . She was found lying buried under some leaves. Patient awake but somewhat drowsy as per . Patient too weak to get up. Denies headache, chest pain, SOB, abdominal pain. Auvelty medication bottle was empty. Patient may have taken 50 pills. Patient brought to ER by EMS. Subsequent emesis at the ER. 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 Admission Exam Per Admitting Provider GENERAL: Lethargic, morbidly obese, dysphonic, no respiratory distress SKIN: Normal color, warm HEENT: [place] palpebral conjunctivae, no ptosis, dry buccal mucosa NECK : Supple, short neck, no tenderness CHEST : Decreased breath sounds, no tenderness HEART : RRR, no obvious murmurs ABDOMEN: Some distention, nontender EXTREMITIES : Minimal LE swelling, no LE tenderness, no other conspicuous deformities noted NEUROLOGIC : Lethargic, no facial asymmetry, gait and stance not assessed Principal Diagnosis Intentional drug overdose Discharge Exam General- oriented x 3, not in distress, speaks in sentences with no effort or accessory muscle use Eyes- anicteric Neck- no JVD Lungs- clear breath sounds bilaterally, no rales/wheezes Heart- normal rate, regular rhythm; no murmurs Abdomen- normal bowel sounds, nondistended, soft, nontender Extremities- no pretibial edema, no calf tenderness Neuro- alert, oriented x 3; no gross focal neurologic deficits Psych-flat affect, currently denies suicidal ideation Skin- warm & dry Discharge Data Allergies Allergy/AdvReac Type Severity Reaction Status Date / Time bupropion [From Wellbutrin] Allergy Severe Difficulty Verified 01/30/23 02:22 Breathing cyclobenzaprine Allergy Severe DIFFICULTY Verified 01/30/23 02:22 BREATHING, CHOKING, COULDN'T WAKE UP Consultations 01/30/23 05:53 Consult Psychiatry Routine Hospital Course (1) Intentional overdose: (1) Intentional overdose: Plan: Auvelty (bupropion dextromethorphan combination) Suboptimal mood Hypokalemia secondary to emesis replace potassium Currently emesis resolved and she is tolerating PO intake Alcohol intoxication, no EtOH abuse concerns as per Medical food safety field specialist for 24 hours for seizures as per toxicology recommendations Repeat ECG today shows NSR, HR 62 CXR obtained and unremarkable Pt is currently sitting up in bed in [facility]. She is awake alert oriented and cooperative. Denies any chest pain, palpitations, shortness of breath, abd. pain. Denies any more n/v. She is tolerating PO intake. is present at the bedside. Physical exam as above. Pt is medically stable for inpatient psychiatric treatment Psych consult re: suicidality Suicide precautions Plan to transfer to [facility] in psychiatric unit. Total Time Total Time Spent Total Time Spent (In Minutes): 40 Discharge Plan Discharge Items Patient Disposition: Transfer Behavioral Health Fac Reason For Visit: DRUG OD Discharge Diagnosis: Intentional drug overdose Activity: Per Instructions section Non-emergency contact: Primary Care Provider and Psychiatrist Call non-emergency contact if: you have any medication questions and your symptoms worsen Follow-up/Referrals: PCP,NO [Primary Care Provider] - Diet: Regular Addtl Attending Provider Instructions: Pt admitted due to intentional drug overdose. Currently feeling well and medically stable for inpatient psychiatric treatment. Pending Studies at Discharge: No Stand-Alone Forms: [facility] Medications and DC Order Prescriptions: Continued levonorgestrel-ethinyl estrad [Aviane] 0.1-20 mg-mcg tablet 1 tab PO QAM acetaminophen [Tylenol Extra Strength] 500 mg Tablet 1,000 mg PO DIRECTED PRN (Reason: Pain) Discontinued Auvelity 45-105 mg Tablet,Ir,Delayed Rel,Biphasic 1 tab PO DIRECTED Discharge Orders: Discharge Order (Routine); Ordered 01/31/23 Ordered By: Jacobo Velasquez Admission Data Admit Date/Time: 01/30/23 05:11 Attending Provider: Knab,Jacobo F. Admit Provider: Joel Hodges Primary Care Provider: PCP,NO Other Providers: Vanesa Grey ; Zunilda Benjamin ; Johnson Phoenix ; Yariel Chu
--- NOTE | 2023-01-31 15:47 | Electrocardiogram Report ---
Test Reason : Blood Pressure : / mmHG Vent. Rate : 062 BPM Atrial Rate : 062 BPM P-R Int : 200 ms QRS Dur : 100 ms QT Int : 418 ms P-R-T Axes : 054 058 035 degrees QTc Int : 424 ms Normal sinus rhythm Normal ECG When compared with ECG of 30-JAN-2023 02:15, Vent. rate has decreased BY 33 BPM Confirmed by Darren George ([id number]) on 01/31/2023 3:47:28 PM Referred By: REFERRED SELF Confirmed By:Darren George
== END 2023-01-31 16:57 | DRG 918 ==
LOC: ED 02:07 → EDINP 05:11 → SUATTDRO 05:11 → 2W 16:26

== ENCOUNTER 2023-01-31 13:21 | Inpatient (IN) ==
[2023-01-31] MEDS ORDERED: ACETAMINOPHEN 325 MG TAB PO PRN (13:28)
[2023-01-31] MEDS ORDERED: SODIUM CHLORIDE 0.65% NA SOLN 45 ML (OCEAN) PRN (13:28)
[2023-01-31] MEDS ORDERED: BISMUTH SUBSALICYLATE LIQD 236 ML PO PRN (13:28)
[2023-01-31] MEDS ORDERED: hydrOXYzine HCl 25 MG TAB PO PRN ×2 (13:28)
[2023-01-31] MEDS ORDERED: MAGNESIUM HYDROXIDE SUSP 30 ML UDC PO PRN (13:28)
[2023-01-31] MEDS ORDERED: ALUMINUM/MAGNESIUM SUSP 30 ML UDC PO PRN (13:28)
[2023-01-31] MEDS: Patient's HEIGHT &/or WEIGHT Needed SCH ×3 (17:30→17:31)
[2023-02-01] MEDS: PATIENT'S OWN ORAL CONTRACEPTIVE PO SCH (09:29)
--- NOTE | 2023-02-01 10:02 | History & Physical ---
Date of Service February 01, 2023 Impression / Recommendations Impression 37 yo female with a history of recurrent depression/SI/inpatient hospitalizations, gradual decline following a positive response to TMS, resulting in trial of Auvelity which given past side effects of bupropion could have contributed to worsening SI though also disinhibitioin with ETOH/DM component. (1) Depression: Plan The patient was admitted to the [facility] ([facility] mental health unit) on q15 min checks (behavioral with suicide precautions) for safety. The patient will participate in group, recreational, and milieu therapies and will be offered additional individual and family sessions as clinically appropriate. Risks/benefits/alternatives reviewed re: TMS vs. ECT vs. retrial of medication. I would not advise restarting an antidepressant at this time given proximity to OD and historically poor response. She has already explored retrial of TMS with [facility] and to explore. Inventory Assets Strengths: verbal, good historian Needs: improve coping, abstain from EToh Suicide Risk Level Suicide Risk Level: Moderate (q15 min suicide checks) Risk Factors Assessment : Yes Do You Have Access To A Gun?: No Mental Health Diagnoses: Yes Previous Attempt: Yes Previous Psychiatric Hospitalization: Yes Protective Factors Assessment : Yes Responsible for Young Children: Yes Supportive Family: Yes Good Rapport with Provider: Yes Psychiatric History Identifying Data LALI IZAGUIRRE is a 37-year-old F who currently lives in [place], has a history of multiple inpatient hospitalizations for depression, and was admitted on 01/31/23 16:57 on a 201 voluntary commitment s/p suicide attempt. Chief Complaint "I just don't feel worthy." History of Present Illness Today Lali is more conversant, states that she felt a moment of clarity last pm since realizes that the OD could have resulted in and wrote down her thoughts to her as she "can't understand" how he's been so steadfast. She relates she was still processing alot of thoughts and past trauma in therapy but that her overall mood/functioning was "pretty good" until October 2022. She had been able to taper off of medications over time following a positive response to TMS. She admits this summer has "been rough" as she developed a friendship with a man in [place] via online audrey and "things got intense" as he wanted her to move there and when she declined, called her . The patient has had difficulty with motivation, only getting up off the couch to prep meals, etc. About 3 weeks ago, after extensive discussions of med options started the Auvelity. She implied that the alcohol use preceded her overdose and that there were aspects of the ingestion that she couldn't recall yet she also messaged multiple people and turn off location services before heading into the [place]ino behind their complex. As per psychiatric consult on 01/30/23: Patient presented as rather flat/guarded to myself/liaison, doesn't identify a specific precipitating event for OD, ingested unknown amount of Auvelity (bupropion plus DM) ?50 pills and texted her sorry. When he came home to check on her she was lying outside covered in leaves/brush. She ingested the pills with 1/2 bottle of vodka but is otherwise not a known binge drinker. She continues to see Wilian Kitchen for couples counseling and Saroj for medication management. There is a note that mentions police department confirmed the ingestion just after midnight via video. She was last hospitalized in 12/06 (previous [facility] stays 06/06, 09/04, 08/07 X2, and 06/05, etc.). Chronic stressors include 5 children with varying health needs. There is a family history of bipolar disorder and depression (brothers), and substance abuse. Medication trials are extensive and include but may not be limited to: antidepressants (Paxil, Wellbutrin caused SI in past, Zoloft, Prozac, Trintellix, Remeron, Pristiq), mood stabilizers (Depakote), atypicals (Risperdal, Rexulti,Abilify), Spravato, stimulants (Adderall, Vyvanse)/modafanil for narcolepsy Past Psychiatric History Previous Psych History: see HPI Current Psychiatric Diagnosis: MDD Outpatient Services: see HPI Previous Psych Admissions: see HPI Do You Have Access To A Gun?: No History of Previous Suicide Attempt: Yes Past Medication Trials: See HPI Allergies Allergy/AdvReac Type Severity Reaction Status Date / Time bupropion [From Wellbutrin] Allergy Severe Difficulty Verified 01/30/23 02:22 Breathing cyclobenzaprine Allergy Severe DIFFICULTY Verified 01/30/23 02:22 BREATHING, CHOKING, COULDN'T WAKE UP Home Medications Medication Instructions Recorded Confirmed Type acetaminophen 500 mg tablet 1,000 mg PO DIRECTED PRN Pain 01/30/23 01/30/23 History (Tylenol Extra Strength) levonorgestrel-ethinyl estradiol 1 tab PO QAM 01/30/23 02/01/23 History 0.1 mg-20 mcg tablet (Aviane) dextroamphetamine-amphetamine ER 10 mg PO DAILY 02/01/23 02/01/23 History 10 mg 24hr capsule,extend release Family History Family History of: Depression Alcohol History Hx of Alcohol Use Over the Past 12 Months: Yes (drinking more frequently the last 2 months) AUDIT Total Score: 9 Smoking Use Have You Smoked or Used Tobacco Products in the Last 30 Days: No tobacco type: cigarettes Smoking Status: Never smoker Substance History Hx of Prescription Med Misuse Over the Past 12 Months: Yes (OD attempt) Hx of Over the Counter Med Misuse Over the Past 12 Months: No Hx of Inhalent Misuse Over the Past 12 Months: No Hx of Organic Substance Use Over the Past 12 Months: No Hx of Illegal Substances/Street Drug Use Over Past 12 Months: No Problems as a Result of Past Substance Use: Attempted Suicide Personal History Born In: [place], raised by both parents, reports happy childhood 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 High serum chloride Neck pain Sinus bradycardia Suicidal ideations Thyroid nodule Surgical History History of section EMERGENCY 2016. 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 SHE REMEMBERS FEELING THE "SENSE OF DOOM". History of dilatation and curettage S/T MISCARRIAGE Family History Family/Other Thyroid nodule Social History Smoking Status: Never smoker Cigarettes Per Day: 0; Second Hand Exposure: No; Do You Dip or Chew Tobacco: No; Hx Alcohol Use: Yes Hx Substance Use: No Preferred Language: Serbian Communication Ability: Effective Shift Supervisor Melting Required: No Beliefs That Will Affect Care: None marital status: Current Living Situation: Family Feels Safe at Home: Yes Gender Identity: Female Assistive Devices: None Review of Systems Review of Systems: All systems reviewed & are unremarkable except as noted in HPI & below Physical Exam Psychiatric: Orientation: alert and oriented x 3 Apperance: appropriately dressed and appropriately groomed Eye Contact: good eye contact Motor Behavior: no abnormal motor movements Speech: normal rate/rhythm/volume of speech Affect: + depressed affect Mood: + depressed mood Thought Process: goal directed thought process Thought Content: reality based without delusions Suicidal Thoughts: denies suicidal thoughts Homicidal Thoughts: denies homicidal thoughts Hallucinations: no auditory hallucinations and no visual hallucinations Cognition: attention grossly intact and language grossly intact Estimated Intelligence: consistent with education level Insight: + limited insight Judgment: + limited judgement Vital Signs (Past 24 Hours): Last Vital Signs Temp 36.8 C 02/01/23 06:37 Pulse 83 02/01/23 06:37 Resp 16 02/01/23 06:37 BP 138/89 02/01/23 06:37 Pulse Ox 96 01/31/23 17:07 O2 Del Method Room Air 01/31/23 17:07 Exam Statement: A physical exam was performed on the medical floor by Dr. Nielson and Dr. Velasquez for the purposes of admission and medical clearance. I accept their physicals as correct and adequate for the purposes of the inpatient physical exam. Results & Data ([facility]) Laboratory Results see medical admission, patient had an EKG and CXR as part of medical clearance. Current Inpatient Medications Current Inpatient Medications: Current Inpatient Medications Acetaminophen (Acetaminophen 325 Mg Tab) 650 mg PO Q4H PRN PRN Reason: Headache or Minor Fever Stop: 03/02/23 13:27 Al Hydrox/Mg Hydrox/Simethicone (Aluminum/Magnesium Susp 30 Ml Udc) 30 ml PO Q4H PRN PRN Reason: GI Upset Stop: 03/02/23 13:27 Bismuth Subsalicylate (Bismuth Subsalicylate Liqd 236 Ml) 15 ml PO PRN PRN PRN Reason: Loose Stool Stop: 03/02/23 13:27 Hydroxyzine HCl (Hydroxyzine Hcl 25 Mg Tab) 50 mg PO HSZ PRN PRN Reason: Insomnia Stop: 03/02/23 13:27 Hydroxyzine HCl (Hydroxyzine Hcl 25 Mg Tab) 25 mg PO Q4H PRN PRN Reason: Anxiety Stop: 03/02/23 13:27 Magnesium Hydroxide (Magnesium Hydroxide Susp 30 Ml Udc) 30 ml PO DAILY PRN PRN Reason: Constipation Stop: 03/02/23 13:27 Miscellaneous (Patient's Own Oral Contraceptive) 1 each PO DAILY MARK; Protocol Stop: 03/03/23 08:59 Last Admin: 02/01/23 09:29 Dose: 1 each Sodium Chloride (Sodium Chloride 0.65% Na Soln 45 Ml ([place])) 1 - 2 sprays NA PRN PRN PRN Reason: Nasal Dryness/Congestion Stop: 03/02/23 13:27
[2023-02-02] MEDS: PATIENT'S OWN ORAL CONTRACEPTIVE PO SCH (08:42)
--- NOTE | 2023-02-02 12:05 | Psychiatric Progress Note ---
Date of Service February 02, 2023 Impression / Recommendations Impression 37 yo female with a history of recurrent depression/SI/inpatient hospitalizations, gradual decline following a positive response to TMS, resulting in trial of Auvelity which given past side effects of bupropion could have contributed to worsening SI though also disinhibitioin with ETOH/DM component. 02/02/23: slight improvement, good visit with (1) Depression: Plan 02/02/23: discussed remaining off medications pending TMS retrial, has appt for intake on 02/23. Dr. Hernadez confirms would be able to start treatments 03/02. 02/01/23: The patient was admitted to the [facility] ([facility] inpatient mental health unit) on q15 min checks (behavioral with suicide precautions) for safety. The patient will participate in group, recreational, and milieu therapies and will be offered additional individual and family sessions as clinically appropriate. Risks/benefits/alternatives reviewed re: TMS vs. ECT vs. retrial of medication. I would not advise restarting an antidepressant at this time given proximity to and historically poor response. She has already explored retrial of TMS with [employer] and to explore. Inventory Assets Strengths: verbal, good historian Needs: improve coping, abstain from EToh Suicide Risk Level Suicide Risk Level: Moderate (q15 min suicide checks) Risk Factors Assessment : Yes Do You Have Access To A Gun?: No Mental Health Diagnoses: Yes Previous Attempt: Yes Previous Psychiatric Hospitalization: Yes Protective Factors Assessment : Yes Responsible for Young Children: Yes Supportive Family: Yes Good Rapport with Provider: Yes Interval History Identifying Information LUZ IZAGUIRRE is a 37-year-old F who currently lives in [place], has a history of multiple inpatient hospitalizations for depression, and was admitted on 01/31/23 16:57 on a 201 voluntary commitment s/p suicide attempt. Chief Complaint "I got sort of shaky yesterday, not like me." Review of Systems Sleep Information Total Hours of Sleep: 7 Meal Information Percent Meal Consumed - Breakfast: 100 Percent Meal Consumed - Lunch: 100 Percent Meal Consumed - Dinner: 100 Subjective Subjective Patient was seen & assessed and interval progress reviewed with treatment team. No subjective withdrawal. Tremor is resolving. States that she was experiencing activation by Auvelity in that not sleeping well, felt anxious in her chest. Reviewed disinhibition with alcohol, and sensitivity with EToh given the DM component and she did relate drinks little previously on the medication but definitely increased her level of intoxication. Physical Exam Psychiatric Orientation: alert and oriented x 3 Apperance: appropriately dressed and appropriately groomed Eye Contact: good eye contact Motor Behavior: no abnormal motor movements Speech: normal rate/rhythm/volume of speech Affect: euthymic affect Mood: + depressed mood Thought Process: goal directed thought process Thought Content: reality based without delusions Suicidal Thoughts: denies suicidal thoughts Homicidal Thoughts: denies homicidal thoughts Hallucinations: no auditory hallucinations and no visual hallucinations Cognition: attention grossly intact and language grossly intact Estimated Intelligence: consistent with education level Insight: + limited insight Judgment: + limited judgement Vital Signs (Past 24 Hours) Last Vital Signs Temp 37.3 C 02/02/23 06:00 Pulse 69 02/02/23 06:35 Resp 18 02/02/23 06:00 BP 132/70 02/02/23 06:35 Pulse Ox 96 02/02/23 06:00 O2 Del Method Room Air 02/02/23 06:00 Results & Data ([facility]) Current Inpatient Medications Current Inpatient Medications: Current Inpatient Medications Acetaminophen (Acetaminophen 325 Mg Tab) 650 mg PO Q4H PRN PRN Reason: Headache or Minor Fever Stop: 03/02/23 13:27 Al Hydrox/Mg Hydrox/Simethicone (Aluminum/Magnesium Susp 30 Ml Udc) 30 ml PO Q4H PRN PRN Reason: GI Upset Stop: 03/02/23 13:27 Bismuth Subsalicylate (Bismuth Subsalicylate Liqd 236 Ml) 15 ml PO PRN PRN PRN Reason: Loose Stool Stop: 03/02/23 13:27 Hydroxyzine HCl (Hydroxyzine Hcl 25 Mg Tab) 50 mg PO HSZ PRN PRN Reason: Insomnia Stop: 03/02/23 13:27 Hydroxyzine HCl (Hydroxyzine Hcl 25 Mg Tab) 25 mg PO Q4H PRN PRN Reason: Anxiety Stop: 03/02/23 13:27 Magnesium Hydroxide (Magnesium Hydroxide Susp 30 Ml Udc) 30 ml PO DAILY PRN PRN Reason: Constipation Stop: 03/02/23 13:27 Miscellaneous (Patient's Own Oral Contraceptive) 1 each PO DAILY MARK; Protocol Stop: 03/03/23 08:59 Last Admin: 02/02/23 08:42 Dose: 1 each Sodium Chloride (Sodium Chloride 0.65% Na Soln 45 Ml ([place])) 1 - 2 sprays NA PRN PRN PRN Reason: Nasal Dryness/Congestion Stop: 03/02/23 13:27 Mental Health & Subst Abuse Tx Psychiatrist Name of Psychiatrist: Saroj Nguyen Psychiatrist's Date Of Appointment With Psychiatric Provider: 02/08/23 Time of Appointment with Psychiatrist: 11:10 AM Psychiatric Appointment Comment: [address] [place] [address] Therapist Name of Therapist: Lara Gomez - [place] [facility] Therapist's Date of Therapist Appointment: 02/09/23 Time of Therapist Appointment: 11:30 AM Therapy Appointment Comment: [address], [address], [place] [address] Post Discharge Appointments Primary Care Physician Name Of Family Doctor/PCP: Lela [facility] Date of Future Appointment with PCP: 02/12/23 Time of Appointment with PCP: arrival 2:05 PM Provider Appointment Comment: [address] [place] [address] Contact Information Discharge Discharge [address]: [address] [place] [address] [place] [address]
[2023-02-03] MEDS: PATIENT'S OWN ORAL CONTRACEPTIVE PO SCH (09:12)
--- NOTE | 2023-02-03 09:28 | Psychiatric Progress Note ---
Date of Service February 03, 2023 Impression / Recommendations Impression 37 yo female with a history of recurrent depression/SI/inpatient hospitalizations, gradual decline following a positive response to TMS, resulting in trial of Auvelity which given past side effects of bupropion could have contributed to worsening SI though also disinhibitioin with ETOH/DM component. 02/03/23: feels her mood is improving but still feels unsure why attempt occurred, motivated for TMS Overall, I spent a total of 50 minutes including review of chart records, review of labwork, direct evaluation of the patient at bedside, counseling the patient, discussion of the patient at treatment team rounds and documentation in the electronic health record. (1) Depression: Plan 02/03/2023: Continue current treatment plan, motivational interviewing 02/02/23: discussed remaining off medications pending TMS retrial, has appt for intake on 02/23. Dr. Hernadez confirms would be able to start treatments 03/02. 02/01/23: The patient was admitted to the [facility] ([facility] mental health unit) on q15 min checks (behavioral with suicide precautions) for safety. The patient will participate in group, recreational, and milieu therapies and will be offered additional individual and family sessions as clinically appropriate. Risks/benefits/alternatives reviewed re: TMS vs. ECT vs. retrial of medication. I would not advise restarting an antidepressant at this time given proximity to OD and historically poor response. She has already explored retrial of TMS with [facility] and to explore. Inventory Assets Strengths: verbal, good historian Needs: improve coping, abstain from EToh Suicide Risk Level Suicide Risk Level: Moderate (q15 min suicide checks) Suicide Risk Level Comments: denies current SI and feels safe in the hospital but recent attempt Risk Factors Assessment : Yes Do You Have Access To A Gun?: No Mental Health Diagnoses: Yes Previous Attempt: Yes Previous Psychiatric Hospitalization: Yes Protective Factors Assessment : Yes Responsible for Young Children: Yes Supportive Family: Yes Good Rapport with Provider: Yes Interval History Identifying Information LUZ IZAGUIRRE is a 37-year-old F who currently lives in [place], has a history of multiple inpatient hospitalizations for depression, and was admitted on 01/31/23 16:57 on a 201 voluntary commitment s/p suicide attempt. Chief Complaint "I'm good, I don't really want to be here but I'm trying to process things". Review of Systems Sleep Information Total Hours of Sleep: 7 Meal Information Percent Meal Consumed - Breakfast: 100 Percent Meal Consumed - Lunch: 100 Percent Meal Consumed - Dinner: 100 Subjective Subjective Patient was seen & assessed and interval progress reviewed with treatment team nursing and social work. Attending groups. Denies SI but reports attempt still feels "hazy" which she suspects is due to alcohol intoxication. Not interested in medication but very motivated to try TMS again and start individual therapy. Motivational interviewing regarding alcohol use, she doesn't feel it was a problem prior to attempt and feels confident avoiding alcohol after discharge. Physical Exam Psychiatric Orientation: alert and oriented x 3 Apperance: appropriately dressed and appropriately groomed Eye Contact: good eye contact Motor Behavior: no abnormal motor movements Speech: normal rate/rhythm/volume of speech Affect: euthymic affect Mood: + depressed mood Thought Process: goal directed thought process Thought Content: reality based without delusions Suicidal Thoughts: denies suicidal thoughts Homicidal Thoughts: denies homicidal thoughts Hallucinations: no auditory hallucinations and no visual hallucinations Cognition: attention grossly intact and language grossly intact Estimated Intelligence: consistent with education level Insight: + limited insight Judgment: + limited judgement Vital Signs (Past 24 Hours) Last Vital Signs Temp 37.2 C 02/03/23 06:00 Pulse 84 02/03/23 06:40 Resp 18 02/03/23 06:00 BP 125/85 02/03/23 06:40 Pulse Ox 98 02/03/23 06:00 O2 Del Method Room Air 02/03/23 06:00 Results & Data ([facility]) Current Inpatient Medications Current Inpatient Medications: Current Inpatient Medications Acetaminophen (Acetaminophen 325 Mg Tab) 650 mg PO Q4H PRN PRN Reason: Headache or Minor Fever Stop: 03/02/23 13:27 Al Hydrox/Mg Hydrox/Simethicone (Aluminum/Magnesium Susp 30 Ml Udc) 30 ml PO Q4H PRN PRN Reason: GI Upset Stop: 03/02/23 13:27 Bismuth Subsalicylate (Bismuth Subsalicylate Liqd 236 Ml) 15 ml PO PRN PRN PRN Reason: Loose Stool Stop: 03/02/23 13:27 Hydroxyzine HCl (Hydroxyzine Hcl 25 Mg Tab) 50 mg PO HSZ PRN PRN Reason: Insomnia Stop: 03/02/23 13:27 Hydroxyzine HCl (Hydroxyzine Hcl 25 Mg Tab) 25 mg PO Q4H PRN PRN Reason: Anxiety Stop: 03/02/23 13:27 Magnesium Hydroxide (Magnesium Hydroxide Susp 30 Ml Udc) 30 ml PO DAILY PRN PRN Reason: Constipation Stop: 03/02/23 13:27 Miscellaneous (Patient's Own Oral Contraceptive) 1 each PO DAILY MARK; Protocol Stop: 03/03/23 08:59 Last Admin: 02/03/23 09:12 Dose: 1 each Sodium Chloride (Sodium Chloride 0.65% Na Soln 45 Ml ([place])) 1 - 2 sprays NA PRN PRN PRN Reason: Nasal Dryness/Congestion Stop: 03/02/23 13:27 Mental Health & Subst Abuse Tx Psychiatrist Name of Psychiatrist: Saroj Nguyen Psychiatrist's Date Of Appointment With Psychiatric Provider: 02/08/23 Time of Appointment with Psychiatrist: 11:10 AM Psychiatric Appointment Comment: [address] [place] [address] Therapist Name of Therapist: Lara Gomez - [place] [facility] Therapist's Date of Therapist Appointment: 02/09/23 Time of Therapist Appointment: 11:30 AM Therapy Appointment Comment: [address] [facility] [facility] [address] [address] Post Discharge Appointments Primary Care Physician Name Of Family Doctor/PCP: Lela Root Primary [facility] Date of Future Appointment with PCP: 02/12/23 Time of Appointment with PCP: arrival 2:05 PM Provider Appointment Comment: [address] [place] [address] Contact Information Discharge Discharge Address: [address] [place] [address]
[2023-02-04] MEDS: PATIENT'S OWN ORAL CONTRACEPTIVE PO SCH (08:42)
--- NOTE | 2023-02-04 09:04 | Psychiatric Progress Note ---
Date of Service February 04, 2023 Impression / Recommendations Impression 37 yo female with a history of recurrent depression/SI/inpatient hospitalizations, gradual decline following a positive response to TMS, resulting in trial of Auvelity which given past side effects of bupropion could have contributed to worsening SI though also disinhibition with ETOH/DM component. 02/04/23: ongoing mood improvement, increasing insight, setting boundaries with unhealthy relationship with online friend. Overall, I spent a total of 36 minutes including review of chart records, review of labwork, direct evaluation at bedside, counseling, discussion at treatment team rounds and documentation in the electronic health record. (1) Depression: (2) Intentional overdose: Plan 02/04/2023: Continue current treatment plan, ongoing insight-oriented approach 02/03/2023: Continue current treatment plan, motivational interviewing 02/02/23: discussed remaining off medications pending TMS retrial, has appt for intake on 02/23. Dr. Hernadez confirms would be able to start treatments 03/02. 02/01/23: The patient was admitted to the [facility] ([facility] unit) on q15 min checks (behavioral with suicide precautions) for safety. The patient will participate in group, recreational, and milieu therapies and will be offered additional individual and family sessions as clinically appropriate. Risks/benefits/alternatives reviewed re: TMS vs. ECT vs. retrial of medication. I would not advise restarting an antidepressant at this time given proximity to OD and historically poor response. She has already explored retrial of TMS with [facility] and to explore. Inventory Assets Strengths: verbal, good historian Needs: improve coping, abstain from EToh Suicide Risk Level Suicide Risk Level: Moderate (q15 min suicide checks) Suicide Risk Level Comments: denies current SI and feels safe in the hospital but recent attempt Risk Factors Assessment : Yes Do You Have Access To A Gun?: No Mental Health Diagnoses: Yes Previous Attempt: Yes Previous Psychiatric Hospitalization: Yes Protective Factors Assessment : Yes Responsible for Young Children: Yes Supportive Family: Yes Good Rapport with Provider: Yes Interval History Identifying Information LUZ IZAGUIRRE is a 37-year-old F who currently lives in [place], has a history of multiple inpatient hospitalizations for depression, and was admitted on 01/31/23 16:57 on a 201 voluntary commitment s/p suicide attempt. Chief Complaint "I'm calm and have been processing a lot of stuff". Review of Systems Sleep Information Total Hours of Sleep: 6.0 Meal Information Percent Meal Consumed - Breakfast: 100 Percent Meal Consumed - Lunch: 90 Percent Meal Consumed - Dinner: 100 Subjective Subjective Patient was seen & assessed and interval progress reviewed with treatment team nursing and social work. Attending groups, out of her room. Reporting some improvement with mood. Had a visit with her mom and her yesterday. This morning read an email from online friend which was upsetting but feels she is coping with this well and plans not to talk with this person again as the relationship is "toxic". Feels this is what lead to drinking more and ultimately to her suicide attempt. She appreciative of having time in the hospital to process the suicide attempt and get space from the relationship and talk through things with her . Continues to deny SI. Physical Exam Psychiatric Orientation: alert and oriented x 3 Apperance: appropriately dressed and appropriately groomed Eye Contact: + fair eye contact Motor Behavior: no abnormal motor movements Speech: normal rate/rhythm/volume of speech Affect: + constricted affect Mood: + anxious mood; no depressed mood Thought Process: goal directed thought process Thought Content: reality based without delusions Suicidal Thoughts: denies suicidal thoughts Homicidal Thoughts: denies homicidal thoughts Hallucinations: no auditory hallucinations and no visual hallucinations Cognition: attention grossly intact and language grossly intact Estimated Intelligence: consistent with education level Insight: + limited insight Judgment: + limited judgement Vital Signs (Past 24 Hours) Last Vital Signs Temp 36.9 C 02/04/23 06:26 Pulse 60 02/04/23 06:26 Resp 16 02/04/23 06:26 BP 109/72 02/04/23 06:26 Pulse Ox 98 02/03/23 06:00 O2 Del Method Room Air 02/03/23 06:00 Results & Data ([facility]) Current Inpatient Medications Current Inpatient Medications: Current Inpatient Medications Acetaminophen (Acetaminophen 325 Mg Tab) 650 mg PO Q4H PRN PRN Reason: Headache or Minor Fever Stop: 03/02/23 13:27 Al Hydrox/Mg Hydrox/Simethicone (Aluminum/Magnesium Susp 30 Ml Udc) 30 ml PO Q 4H PRN PRN Reason: GI Upset Stop: 03/02/23 13:27 Bismuth Subsalicylate (Bismuth Subsalicylate Liqd 236 Ml) 15 ml PO PRN PRN PRN Reason: Loose Stool Stop: 03/02/23 13:27 Hydroxyzine HCl (Hydroxyzine Hcl 25 Mg Tab) 50 mg PO HSZ PRN PRN Reason: Insomnia Stop: 03/02/23 13:27 Hydroxyzine HCl (Hydroxyzine Hcl 25 Mg Tab) 25 mg PO Q4H PRN PRN Reason: Anxiety Stop: 03/02/23 13:27 Magnesium Hydroxide (Magnesium Hydroxide Susp 30 Ml Udc) 30 ml PO DAILY PRN PRN Reason: Constipation Stop: 03/02/23 13:27 Miscellaneous (Patient's Own Oral Contraceptive) 1 each PO DAILY MARK; Protocol Stop: 03/03/23 08:59 Last Admin: 02/04/23 08:42 Dose: 1 each Sodium Chloride (Sodium Chloride 0.65% Na Soln 45 Ml ([place])) 1 - 2 sprays NA PRN PRN PRN Reason: Nasal Dryness/Congestion Stop: 03/02/23 13:27 Mental Health & Subst Abuse Tx Psychiatrist Name of Psychiatrist: Saroj Nguyen Psychiatrist's Date Of Appointment With Psychiatric Provider: 02/08/23 Time of Appointment with Psychiatrist: 11:10 AM Psychiatric Appointment Comment: [address] [place] [address] Therapist Name of Therapist: Lara Castano [place] [facility] Therapist's Date of Therapist Appointment: 02/09/23 Time of Therapist Appointment: 11:30 AM Therapy Appointment Comment: [address] [facility] [address] Post Discharge Appointments Primary Care Physician Name Of Family Doctor/PCP: Lela Root Primary [facility] Date of Future Appointment with PCP: 02/12/23 Time of Appointment with PCP: arrival 2:05 PM Provider Appointment Comment: [address] [place] [address] Contact Information Discharge Discharge Address: [address] [place] [id number]
[2023-02-05] MEDS: PATIENT'S OWN ORAL CONTRACEPTIVE PO SCH (08:36)
[2023-02-05] MEDS ORDERED: DESTROY THIS MEDICATION ONE (09:24)
--- NOTE | 2023-02-05 09:31 | Discharge Summary ---
Date of Service February 05, 2023 History of Present Illness Today Lali is more conversant, states that she felt a moment of clarity last pm since realizes that the OD could have resulted in and wrote down her thoughts to her as she "can't understand" how he's been so steadfast. She relates she was still processing alot of thoughts and past trauma in therapy but that her overall mood/functioning was "pretty good" until October 2022. She had been able to taper off of medications over time following a positive response to TMS. She admits this summer has "been rough" as she developed a friendship with a man in [place] via online audrey and "things got intense" as he wanted her to move there and when she declined, called her . The patient has had difficulty with motivation, only getting up off the couch to prep meals, etc. About 3 weeks ago, after extensive discussions of med options started the Auvelity. She implied that the alcohol use preceded her overdose and that there were aspects of the ingestion that she couldn't recall yet she also messaged multiple people and turn off location services before heading into the [place] behind their complex. As per psychiatric consult on 01/30/23: Patient presented as rather flat/guarded to myself/liaison, doesn't identify a specific precipitating event for OD, ingested unknown amount of Auvelity (bupropion plus DM) ?50 pills and texted her sorry. When he came home to check on her she was lying outside covered in leaves/brush. She ingested the pills with 1/2 bottle of vodka but is otherwise not a known binge drinker. She continues to see Wilian Kitchen for couples counseling and Saroj for medication management. There is a note that mentions police department confirmed the ingestion just after midnight via video. She was last hospitalized in 12/06 (previous [facility] stays 06/06, 09/04, 08/07 X2, and 06/05, etc.). Chronic stressors include 5 children with varying health needs. There is a family history of bipolar disorder and depression (brothers), and substance abuse. Medication trials are extensive and include but may not be limited to: antidepressants (Paxil, Wellbutrin caused SI in past, Zoloft, Prozac, Trintellix, Remeron, Pristiq), mood stabilizers (Depakote), atypicals (Risperdal, Rexulti,Abilify), Spravato, stimulants (Adderall, Vyvanse)/modafanil for narcolepsy Physical Exam Vital Signs (Past 24 Hours) Last Vital Signs Temp 37.0 C 02/05/23 06:27 Pulse 63 02/05/23 06:28 Resp 16 02/05/23 06:27 BP 126/84 02/05/23 06:28 Pulse Ox 98 02/03/23 06:00 O2 Del Method Room Air 02/03/23 06:00 See admission H&P and DOD summary. Principal Diagnosis Major Depressive Disorder Psychiatric Data See daily stay summary. In short, patient was engaged with the social/therapeutic milieu of the unit, safety was maintained and the patient was cooperative with care. Medication changes included discontinuation of Auvelity and they tolerated this well. Risks/benefits of alternative medications were discussed and she prefers to avoid starting any new medications at this time and would like to instead pursue TMS for depression after discharge which was very beneficial in the past. A family session was held and safety plan was completed prior to discharge. She actively and insightfully participated in safety planning and in discussions about ways to seek support and recognizing warning signs and utilizing coping skills. Reviewed mobile apps that could be used for additional ways to have their safety plan and contacts easily available should thoughts of SI re-emerge in the future. Reviewed importance of seeking emergency care should SI intensify, worsen or should they feel unsafe in the future which they agree to do. On the day of discharge she stated her mood was "good" and remained future- oriented including seeing her family and engaging in aftercare appointments for psychiatry, therapy and marriage therapy. Day of Discharge Assessment Today the patient voices readiness for discharge. They note improvement in mood and anxiety. They deny thoughts of harm to self or others. Thoughts are organized and they are clinically improved from admission. There is no evidence of psychosis. They improved in the hospital with support. They agree to take medications as prescribed and keep follow-up appointments. At the time of the discharge they are deemed to be stable and appropriate for outpatient level of care. They are not deemed to be at imminent risk of harm to self or others. They are aware of emergency and crisis services. Knows to call 911 or go to nearest emergency care center if in a crisis which cannot be handled as an outpatient. Transition of Care Transition Of Care Record: was reviewed with the patient Advance Directives Advance Directives Information Provided: Yes Advance Directives: No Mental Health Advance Directive: No Advance Directives on File: No Living Will: No Power of Furnace Worker: No Advance Directives Reason:: Declines as Mental Health Visit. Suicide Risk Level Suicide Risk Level Comments: Acute risk is low given improvement in mood and denial of SI, lack of access to lethal means, plan to avoid substance use, and hopefulness. Chronic risk is moderate given some non-modifiable risk factors: psychiatric co-morbid diagn oses, periods of impulsivity, prior attempt, emotional reactivity, prior psychiatric hospitalizations, cluster B traits but also with protective factors including: good social support, sense of responsibility to family and social supports, outpatient care in place, positive coping skills, positive problem solving, capacity to establish therapeutic alliance, willingness to engage with treatment and capacity for self-observation. Counseled on ways to reduce acute and chronic risk including engaging with outpatient providers, using safety plan if needed, utilizing supports, taking medication, and using coping skills. Modifiable risk factors of SI and depression were addressed during hospitalization through development of new coping skills, family meeting, safety planning, and medication discontinuation. Risk Factors Assessment : Yes Do You Have Access To A Gun?: No Mental Health Diagnoses: Yes Previous Attempt: Yes Previous Psychiatric Hospitalization: Yes Hopelessness: No Protective Factors Assessment : Yes Responsible for Young Children: Yes Stable Relationships: Yes Supportive Family: Yes Good Rapport with Provider: Yes Hospital Course (1) Depression: (2) Intentional overdose: Plan 02/04/2023: Continue current treatment plan, ongoing insight-oriented approach 02/03/2023: Continue current treatment plan, motivational interviewing 02/02/23: discussed remaining off medications pending TMS retrial, has appt for intake on 02/23. Dr. Hernadez confirms would be able to start treatments 03/02. 02/01/23: The patient was admitted to the [facility] ([facility] inpatient mental health unit) on q15 min checks (behavioral with suicide precautions) for safety. The patient will participate in group, recreational, and milieu therapies and will be offered additional individual and family sessions as clinically appropriate. Risks/benefits/alternatives reviewed re: TMS vs. ECT vs. retrial of medication. I would not advise restarting an antidepressant at this time given proximity to OD and historically poor response. She has already explored retrial of TMS with [facility] and to explore. Mental Health & Subst Abuse Tx Psychiatrist Name of Psychiatrist: Saroj Nguyen Psychiatrist's Date Of Appointment With Psychiatric Provider: 02/08/23 Time of Appointment with Psychiatrist: 11:10 AM Psychiatric Appointment Comment: [address] [facility], [place] [address] Therapist Name of Therapist: Lara Gomez - [place] [facility] Therapist's Date of Therapist Appointment: 02/09/23 Time of Therapist Appointment: 11:30 AM Therapy Appointment Comment: [address] [facility], [address], [place] [address] Post Discharge Appointments Primary Care Physician Name Of Family Doctor/PCP: Lela Root Primary Care Date of Future Appointment with PCP: 02/12/23 Time of Appointment with PCP: arrival 2:05 PM Provider Appointment Comment: [address] [place] [address] Other #1: Name of Aftercare Appointment: Wilian Kitchen LPC - Couples Counseling Phone Number of Aftercare Appointment: [phone] Time of Aftercare Appointment: [address] [place] [address] Aftercare Appointment Comment: Please resume your normal schedule. #2: Name of Aftercare Appointment: [facility] Evaluation, Dr. Hernadez Phone Number of Aftercare Appointment: [phone] Date of Aftercare Appointment: 02/23/23 Time of Aftercare Appointment: 1 PM Aftercare Appointment Comment: [address], [place] [address] Contact Information Discharge Discharge [address]: [address] [place] [id number] Discharge Plan Discharge Items Patient Disposition: Home - Self-Care Reason For Visit: MAJOR DEPRESSIVE DISORDER Discharge Diagnosis: Major Depressive Disorder Activity: Resume your previous activity Non-emergency contact: Primary Care Provider, Psychiatrist and Therapist Call non-emergency contact if: you have any medication questions and your symptoms worsen Follow-up/Referrals: PCP,NO [Primary Care Provider] - Diet: Regular Addtl Attending Provider Instructions: Optional mobile apps we discussed: -Virtual Hope Box -Suicide Safety Plan SPECIAL CARE INSTRUCTIONS: 1. Follow through with your scheduled aftercare appointments. If unable to keep an appointment, please call to reschedule. 2. Take your medication only as prescribed. Medication should not be changed or stopped without the approval of your doctor. In the event of worsening symptoms or concerns about side effects, contact your doctor immediately. 3. Utilize new healthy coping skills, anger management skills, and stress management skills learned during your hospitalization. Journal feelings and process them with a support person. Identify stressors or situations that may result in relapse, deterioration or inappropriate behaviors and develop a plan to deal with those issues. 4. If your coping skills are ineffective and you are in crisis, contact your outpatient providers for direction. If unable to reach your providers, please call the [facility] CRISIS LINE AT , go to the [facility] walk-in center at [address], [place], or go to the closest Emergency Room. 5. Avoid alcohol and un-prescribed drugs. 6. You have been provided with the Mental Health Advance Directives Pamphlet for your review. 7. Your condition is stable for discharge to outpatient level of care, but recovery is an ongoing process. Ifthoughts to harm yourself or others return, follow the safety plan developed during your stay. Planning for a safe return home includes securing weapons. Our treatment team recommends weaponsbe removed from the home until your outpatient provider reassesses your progress. In rare cases where the items themselvescannot be removed, guns and ammunitionshould be secured separatelyand keys stored by a reliable personoutside of the home. If you were admitted on an involuntary commitment, the police or other legal authorities may be involved in this process. AFTERCARE APPOINTMENTS: * Please call your insurance company prior to your scheduled appointment to confirm your aftercare providers are covered. Take your insurance information to your appointments. WHO TO CALL AND WHEN: Medical Emergencies: For questions or emergencies related to your hospital stay, please contact the Inpatient Behavioral Health Unit at [phone]. A fixed route operator is on-call 08/01 for the Behavioral Health Unit for emergencies At any time you feel your situation is an emergency, you may also call 911 immediately. [facility] Crisis Line: 144 Pending Studies at Discharge: No Stand-Alone Forms: My [facility] Medications and DC Order Prescriptions: Continued levonorgestrel-ethinyl estrad [Aviane] 0.1-20 mg-mcg tablet 1 tab PO QAM Discontinued Auvelity 45-105 mg Tablet,Ir,Delayed Rel,Biphasic 1 tab PO BID Discharge Orders: Discharge Order (Routine); Ordered 02/05/23 Ordered By: Vanesa Grey Admission Data Admit Date/Time: 01/31/23 16:57 Attending Provider: Vanesa Grey Admit Provider: Zunilda Benjamin Primary Care Provider: PCP,NO Other Interventions: Discharge Summary Assessment (RN) Last Done: 02/05/23 09:35 PSY Interdisciplinary Discharge Planning Last Done: 02/01/23 15:14 Coding Level of Care Code 89045 D/C day mgmt > 30 min Diagnoses Depression F32.9 Intentional overdose T50.902A Time Spent (min) 40
== END 2023-02-05 10:56 | disposition home or self-care (01) | DRG 885 ==
LOC: 3S 16:57 → SUATTDRO 16:57